=== PATIENT | female | born 1930 | race Caucasian/White ===

== ENCOUNTER 2016-03-28 18:11 | Inpatient (IN) | payer MEDICARE ==
[2016-03-28] MEDS ORDERED: HYDROmorphone 1 MG/ML 1 ML SYRINGE IVP STA (18:34)
[2016-03-28] MEDS ORDERED: METOCLOPRAMIDE 5 MG/ML 2 ML VIAL IVP STA (18:34)
--- NOTE | 2016-03-28 18:38 | ED ---
Abdominal Pain HPI - General Chief Complaint: Abdominal Pain Stated Complaint: abd pain Time Seen by Provider: 03/28/16 18:15 Source: patient, EMS, RN notes reviewed Mode of arrival: EMS - History of Present Illness Initial Comments: 85 yo female presents with cc of abdominal pain and distention. Patient states this started today. Patient was seen on [facility] the x-ray showed concern for possible obstruction. Patient states that she was then sent here due to the fact that [facility] did not have the necessary specialist to take care of her. Patient did start to have nausea and vomiting in the emergency states her pain is about a 5-6 out of 10. Patient states it's worse if you touch the abdomen. Patient states she's having as she has not passed gas since. 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 Patient states that she just does not feel very well this time so she was concerned. Patient denies any recent fever, chills, shortness of breath, chest pain, back pain, numbness or tingling, dysuria or hematuria, constipation or diarrhea, headaches or visual changes, or any other current symptoms. - Related Data Home Medications Medication Instructions Recorded Confirmed Aspirin EC [Ecotrin Low Dose] 81 mg PO DAILY 03/28/16 03/28/16 Cholecalciferol [Vitamin D3] 2,000 unit PO DAILY 03/28/16 03/28/16 Diltiazem HCl [Cardizem Cd] 360 mg PO W/SUPPER 03/28/16 03/28/16 Ferrous Sulfate [Feosol] 325 mg PO DAILY 03/28/16 03/28/16 Insulin Aspart [NovoLOG Flexpen] 3 units SQ AC-TID 03/28/16 03/28/16 Insulin Aspart [NovoLOG Flexpen] See Protocol SQ AC-TID 03/28/16 03/28/16 Insulin Glargine,Hum.rec.anlog 16 unit SQ HS 03/28/16 03/28/16 [Lantus Solostar] Labetalol HCl [Trandate] 300 mg PO BID 03/28/16 03/28/16 Levothyroxine Sodium [Synthroid] 50 mcg PO DAILY 03/28/16 03/28/16 Meclizine [Antivert] 12.5 mg PO TID PRN 03/28/16 03/28/16 Pravastatin Sodium [Pravachol] 20 mg PO HS 03/28/16 03/28/16 Solifenacin Succinate [Vesicare] 10 mg PO DAILY 03/28/16 03/28/16 Vit A/Vit C/Vit E/Zinc/Copper 2 cap PO BID 03/28/16 03/28/16 [ICAPS SOFTGEL] hydrALAZINE HCL [Apresoline] 25 mg PO TID 03/28/16 03/28/16 Allergies Allergy/AdvReac Type Severity Reaction Status Date / Time hydrocodone Allergy Unknown Verified 03/28/16 18:49 Penicillins Allergy Anaphylaxis Verified 03/28/16 18:56 streptomycin Allergy Rash/Hives Verified 03/28/16 18:29 Review of Systems ROS Statement: Those systems with pertinent positive or pertinent negative responses have been documented in the HPI. ROS Other: All systems not noted in ROS Statement are negative. Past Medical History Past Medical History: Hypertension, Thyroid Disorder Additional Past Medical History / Comment(s): stent in heart in 2006 History of Any Multi-Drug Resistant Organisms: None Reported Additional Past Surgical History / Comment(s): stent in heart. pacemaker insertion in 2015, colostomy 2013 Past Psychological History: No Psychological Hx Reported Smoking Status: Former smoker Past Alcohol Use History: None Reported Past Drug Use History: None Reported General Exam - General Exam Comments Initial Comments: General: The patient is awake and alert, in no distress, and does not appear acutely ill. Eye: Pupils are equal, round and reactive to light, extra-ocular movements are intact; there is normal conjunctiva bilaterally. No signs of icterus. Ears, nose, mouth and throat: There are moist mucous membranes. Neck: The neck is supple, there is no tenderness. Cardiovascular: There is a regular rate and rhythm. No murmur, rub or gallop is appreciated. Respiratory: Lungs are clear to auscultation, respirations are non-labored, breath sounds are equal. No wheezes, stridor, rales, or rhonchi. Gastrointestinal: Soft, distended and diffusely tender abdomen without masses or organomegaly noted. There is no rebound or guarding present. No CVA tenderness. Bowel sounds are unremarkable. Back: There is no tenderness to palpation in the midline. There is no obvious deformity. No rashes noted. Musculoskeletal: Normal ROM, no tenderness, There is no pedal edema. There is no calf tenderness or swelling. Sensation intact. Pulses equal bilaterally 2+. Neurological: CN II-XII intact, There are no obvious motor or sensory deficits. Coordination appears grossly intact. Speech is normal. Skin: Skin is warm and dry and no rashes or lesions are noted. Psychiatric: Cooperative, appropriate mood & affect, normal judgment. Course Vital Signs 03/28/16 03/28/16 03/28/16 18:14 20:09 20:40 Temperature 97.6 F 98.0 F Pulse Rate 60 60 60 Respiratory 20 20 20 Rate Blood Pressure 170/76 166/73 153/59 O2 Sat by Pulse 90 L 100 99 Oximetry 03/28/16 20:59 Temperature Pulse Rate 61 Respiratory 22 Rate Blood Pressure 173/63 O2 Sat by Pulse 98 Oximetry Medical Decision Making - Medical Decision Making 85-year-old female presents emergency Department chief complaint of abdominal pain and distention. At this time we will get a CAT scan. At this time the patient does appear to have a partial small bowel obstruction. Dr. Tenorio was contacted regarding the case NG tube was placed and the patient will be admitted. This is discussed the patient and family and they do agree to the admission. - Lab Data Result diagrams: 03/28/16 19:05 03/28/16 19:05 Lab Results 03/28/16 03/28/16 03/28/16 Range/Units 19:05 19:05 19:05 WBC 12.3 H (3.8-10.6) k/uL RBC 3.66 L (3.80-5.40) m/uL Hgb 10.7 L (11.4-16.0) gm/dL Hct 33.2 L (34.0-46.0) % MCV 90.6 (80.0-100.0) fL MCH 29.1 (25.0-35.0) pg MCHC 32.1 (31.0-37.0) g/dL RDW 14.2 (11.5-15.5) % Plt Count 201 (150-450) k/uL Neutrophils % 90 % Lymphocytes % 4 % Monocytes % 4 % Eosinophils % 1 % Basophils % 0 % Neutrophils # 11.1 H (1.3-7.7) k/uL Lymphocytes # 0.5 L (1.0-4.8) k/uL Monocytes # 0.5 (0-1.0) k/uL Eosinophils # 0.1 (0-0.7) k/uL Basophils # 0.0 (0-0.2) k/uL PT (9.0-12.0) sec INR (<1.1) APTT (22.0-30.0) sec Sodium 130 L (137-145) mmol/L Potassium 5.5 H (3.5-5.1) mmol/L Chloride 101 (98-107) mmol/L Carbon Dioxide 21 L (22-30) mmol/L Anion Gap 8 mmol/L BUN 26 H (7-17) mg/dL Creatinine 1.03 (0.52-1.04) mg/dL Est GFR (MDRD) Af Amer >60 (>60 ml/min/1.73 sqM) Est GFR (MDRD) Non-Af 51 (>60 ml/min/1.73 sqM) Glucose 274 H (74-99) mg/dL Calcium 8.2 L (8.4-10.2) mg/dL Phosphorus 4.4 (2.5-4.5) mg/dL Magnesium 1.4 L (1.6-2.3) mg/dL Total Bilirubin 0.5 (0.2-1.3) mg/dL AST 21 (14-36) U/L ALT 29 (9-52) U/L Alkaline Phosphatase 87 (38-126) U/L Total Protein 5.8 L (6.3-8.2) g/dL Albumin 3.2 L (3.5-5.0) g/dL Blood Type A Positive Blood [facility] Screen NEGATIVE Spec Expiration Date 03/31/2016230403/28/16 Range/Units 19:05 WBC (3.8-10.6) k/uL RBC (3.80-5.40) m/uL Hgb (11.4-16.0) gm/dL Hct (34.0-46.0) % MCV (80.0-100.0) fL MCH (25.0-35.0) pg MCHC (31.0-37.0) g/dL RDW (11.5-15.5) % Plt Count (150-450) k/uL Neutrophils % % Lymphocytes % % Monocytes % % Eosinophils % % Basophils % % Neutrophils # (1.3-7.7) k/uL Lymphocytes # (1.0-4.8) k/uL Monocytes # (0-1.0) k/uL Eosinophils # (0-0.7) k/uL Basophils # (0-0.2) k/uL PT 9.5 (9.0-12.0) sec INR 0.9 (<1.1) APTT 23.7 (22.0-30.0) sec Sodium (137-145) mmol/L Potassium (3.5-5.1) mmol/L Chloride (98-107) mmol/L Carbon Dioxide (22-30) mmol/L Anion Gap mmol/L BUN (7-17) mg/dL Creatinine (0.52-1.04) mg/dL Est GFR (MDRD) Af Amer (>60 ml/min/1.73 sqM) Est GFR (MDRD) Non-Af (>60 ml/min/1.73 sqM) Glucose (74-99) mg/dL Calcium (8.4-10.2) mg/dL Phosphorus (2.5-4.5) mg/dL Magnesium (1.6-2.3) mg/dL Total Bilirubin (0.2-1.3) mg/dL AST (14-36) U/L ALT (9-52) U/L Alkaline Phosphatase (38-126) U/L Total Protein (6.3-8.2) g/dL Albumin (3.5-5.0) g/dL Blood Type Blood Type Recheck Antibody Screen Spec Expiration Date - Radiology Data Radiology results: report reviewed, image reviewed Disposition Clinical Impression: Hyponatremia, Hyperkalemia, Small bowel obstruction, Nausea & vomiting, Hyperglycemia Disposition: ADMITTED IP TO THIS [facility] Condition: Stable Time of Disposition: 21:05 Decision Date: 03/28/16 Decision Time: 21:05
[2016-03-28 19:22] LABS: Basophils % (A) 0 %; CHCM 32.1; Eosinophils # (A) 0.1 k/uL (0-0.7); Eosinophils % (A) 1 %; HCT 33.2 % (34.0-46.0); HDW 2.53; HGB 10.7 gm/dL (11.4-16.0); Luc # (Auto) 0.14; Luc % (Auto) 1; Lymphocytes # (A) 0.5 k/uL (1.0-4.8); Lymphocytes % (A) 4 %; MCH 29.1 pg (25.0-35.0); MCHC 32.1 g/dL (31.0-37.0); MCV 90.6 fL (80.0-100.0); Mean Platelet Volume 6.9; Monocytes # (A) 0.5 k/uL (0-1.0); Monocytes % (A) 4 %; Neutrophils # (A) 11.1 k/uL (1.3-7.7); Neutrophils % (A) 90 %; RBC 3.66 m/uL (3.80-5.40); RDW 14.2 % (11.5-15.5); WBC 12.3 k/uL (3.8-10.6)
[2016-03-28 19:25] LABS: INR 0.9 (<1.1); Partial Thromboplastin Time 23.7 sec (22.0-30.0); Prothrombin Time 9.5 sec (9.0-12.0)
[2016-03-28 19:28] LABS: ALT 29 U/L (9-52); AST 21 U/L (14-36); Alkaline Phosphatase 87 U/L (38-126); Anion Gap 8 mmol/L; Blood Urea Nitrogen 26 mg/dL (7-17); Calcium 8.2 mg/dL (8.4-10.2); Carbon Dioxide 21 mmol/L (22-30); Chloride 101 mmol/L (98-107); Glucose 274 mg/dL (74-99); Magnesium 1.4 mg/dL (1.6-2.3); Non-African American GFR(MDRD) 51 (>60 ml/min/1.73 sqM); Phosphorous 4.4 mg/dL (2.5-4.5); Potassium 5.5 mmol/L (3.5-5.1); Sodium 130 mmol/L (137-145); Total Bilirubin 0.5 mg/dL (0.2-1.3); Total Protein 5.8 g/dL (6.3-8.2)
--- NOTE | 2016-03-28 20:06 | XR ---
EXAMINATION TYPE: XR chest 2V DATE OF EXAM: 03/28/2016 7:33 PM COMPARISON: NONE HISTORY: Nausea and vomiting cough TECHNIQUE: Frontal and lateral views of the chest are obtained. FINDINGS: There is no focal air space opacity, pleural effusion, or pneumothorax seen. The cardiac silhouette size is moderately enlarged. Cardiac pacemaker noted. The osseous structures are intact. IMPRESSION: 1. No acute process. 2. Moderate enlargement of the cardiac silhouette with cardiac AV pacemaker.
--- NOTE | 2016-03-28 20:18 | CT ---
EXAMINATION TYPE: CT abdomen pelvis wo con DATE OF EXAM: 03/28/2016 7:26 PM COMPARISON: NONE HISTORY: Vomiting today. CT DLP: 551.8 mGycm Automated exposure control for dose reduction was used. TECHNIQUE: Helical acquisition of images was performed from the lung bases through the pelvis. FINDINGS: LUNG BASES: No significant abnormality is appreciated. LIVER/GB: No significant abnormality is appreciated. PANCREAS: No significant abnormality is seen. SPLEEN: No significant abnormality is seen. ADRENALS: No significant abnormality is seen. KIDNEYS: No significant abnormality is seen. RETROPERITONEAL ADENOPATHY: None visualized REPRODUCTIVE ORGANS: No significant abnormality is seen URINARY BLADDER: No significant abnormality is seen. PELVIC ADENOPATHY: None visualized. OSSEOUS STRUCTURES: No significant abnormality is seen. BOWEL: The distal ileal loops are collapsed, but the mid and proximal ileal loops are mild moderatel y distended as is the jejunum and the stomach to some degree. There is no peritoneal fluid or pneumop eritoneum. The mesentery does not show inflammatory changes in their is no definite bowel wall thicke flakito or pneumatosis. The anterior abdominal wall shows an ostomy with a few other bowel small unremarkable bowel loops ext ending anterior to the limits of the anterior abdominal wall. Bowel loops are not opacified which bunny es distinction, and assessment of the precise location of the transition point challenging. IMPRESSION: PARTIAL SMALL BOWEL OBSTRUCTION, MODERATE DEGREE, WITH TRANSITION POINT WITHIN THE ILEUM. Note: Would suggest oral barium contrast delivery this evening and repeat CT imaging in the morning t o fully define the transition point, in the exclusion of anterior abdominal wall involvement in the e tiology for the partial small bowel obstruction etiology.
[2016-03-28] MEDS ORDERED: NALOXONE 0.4 MG/ML 1 ML VIAL IV PRN (21:05)
[2016-03-28] MEDS ORDERED: HYDROmorphone 1 MG/ML 1 ML SYRINGE IV PRN (21:05)
[2016-03-28] MEDS ORDERED: ONDANSETRON 4 MG/2 ML VIAL IVP PRN (21:05)
[2016-03-28] MEDS ORDERED: MECLIZINE 12.5 MG TAB PO PRN (21:07)
[2016-03-28] MEDS: SODIUM CHLORIDE 0.9% 1,000 ML IV SCH (22:16)
[2016-03-28 22:36] VITALS: RESP 16; BMI 27.6
[2016-03-28 23:04] LABS: Hemoglobin A1C 8.8 % (4.2-6.1)
[2016-03-28] MEDS: hydrALAZINE HCL 25 MG TAB PO SCH (23:18)
[2016-03-28] MEDS ORDERED: cloNIDine 0.1 MG/24HR PATCH 1 PATCH PATCH TRANSDERM SCH (23:30)
[2016-03-29] MEDS: LEVOTHYROXINE 50 MCG TAB PO SCH (06:09)
[2016-03-29 07:27] LABS: Basophils % (A) 0 %; CH 28.9; CHCM 31.4; Eosinophils % (A) 0 %; HCT 30.8 % (34.0-46.0); HGB 9.7 gm/dL (11.4-16.0); Luc # (Auto) 0.22; Luc % (Auto) 3; Lymphocytes # (A) 0.6 k/uL (1.0-4.8); Lymphocytes % (A) 7 %; MCHC 31.4 g/dL (31.0-37.0); MCV 92.3 fL (80.0-100.0); Monocytes # (A) 0.5 k/uL (0-1.0); Monocytes % (A) 5 %; Neutrophils # (A) 7.5 k/uL (1.3-7.7); Neutrophils % (A) 85 %; RBC 3.34 m/uL (3.80-5.40); RDW 14.4 % (11.5-15.5); WBC 8.8 k/uL (3.8-10.6); WBC (Perox) 9.27
--- NOTE | 2016-03-29 07:35 | P.PN ---
Progress Note - Text Patient seen and evaluated this morning. Please see dictated H&P. Abdominal pain improved. Abdominal distention improved. Ostomy now functioning with moderate gas and fluid. We'll obtain repeat abdominal x-rays.
[2016-03-29 07:36] LABS: Magnesium 1.5 mg/dL (1.6-2.3); Phosphorous 4.3 mg/dL (2.5-4.5); Potassium 5.3 mmol/L (3.5-5.1); Total Bilirubin 0.3 mg/dL (0.2-1.3); Total Protein 5.2 g/dL (6.3-8.2)
[2016-03-29] MEDS: SODIUM CHLORIDE 0.9% 1,000 ML IV SCH ×2 (08:39→18:10)
[2016-03-29] MEDS: INSULIN LISPRO (humaLOG) 300 UNIT/3 ML VIAL SQ SCH ×4 (08:45→21:42)
[2016-03-29 08:47] LABS: Glucose,Whole Blood 274 mg/dL (75-99)
[2016-03-29] MEDS: OXYBUTYNIN 10 MG TAB.ER.24 PO SCH ×2 (09:16→10:37)
[2016-03-29] MEDS: VIT A,C & E-LUTEIN-MINERALS 1 EACH TAB PO SCH ×2 (09:16→20:52)
[2016-03-29] MEDS: hydrALAZINE HCL 25 MG TAB PO SCH ×4 (09:16→22:02)
[2016-03-29] MEDS: FERROUS SULFATE 325 MG TAB PO SCH (09:16)
[2016-03-29] MEDS: ASPIRIN 81 MG CHEW PO SCH ×2 (09:16→10:37)
[2016-03-29] MEDS: LABETALOL 100 MG TAB PO SCH ×3 (09:16→20:52)
[2016-03-29] MEDS: CHOLECALCIFEROL 1,000 UNIT TAB PO SCH (09:56)
[2016-03-29 11:17] LABS: Glucose,Whole Blood 182 mg/dL (75-99)
--- NOTE | 2016-03-29 13:36 | XR ---
EXAMINATION TYPE: XR abdomen 2V DATE OF EXAM: 03/29/2016 1:25 PM CLINICAL HISTORY: Bowel obstruction progress study. TECHNIQUE: Supine and upright views of the abdomen are obtained. COMPARISON: Outside abdominal x-ray from yesterday. CT abdomen and pelvis from yesterday.. FINDINGS: There is interval placement of nasogastric tube projecting below left hemidiaphragm with de compression of stomach. Gas prominent small bowel loops with air-fluid levels in the left mid and nito tral lower abdomen show interval improvement in degree of gaseous distention since prior. Gas is seen in nondistended colon along the periphery. Multiple pelvic phleboliths and vascular calcification overlies the pelvis. Surgical coils right lowe r quadrant are redemonstrated. Right-sided ostomy is noted. There is cardiomegaly with dual lead pace maker. No pneumoperitoneum is identified. Lucency right groin region is presumed from external fecal material just below ostomy. IMPRESSION: Interval placement of nasogastric tube with improved gaseous distention of proximal to mi d small bowel loops.
--- NOTE | 2016-03-29 17:00 | CONS ---
DATE OF CONSULTATION: 03/29/2016 REASON FOR CONSULTATION: Medical management requested by Dr. Crowder. CONSULTATION: This is a very pleasant 85-year-old patient of Dr. Tabor. Patient's chronic stable medical conditions include diabetes, hypertension, hypothyroid, coronary artery disease and prior history of stent. Patient was just in [facility] until about 4 days ago, she was there for vertigo. Patient came home and patient started getting bloated, nausea, perfuse vomiting, abdominal pain. Patient was transferred here for bowel obstruction. Patient got NG tube to suction to which ( ) she is feeling better. Patient has got an ileostomy back in October 2013 what appears for colon resection for a bleed. The patient does feel weak, tired. REVIEW OF SYSTEMS: Constitutional: Weak and tired. HEENT: ET tube in place. RESPIRATORY: None. CARDIOVASCULAR: None. GASTROINTESTINAL: As above. GENITOURINARY: None. MUSCULOSKELETAL: None. Dermatological: None. HEMATOLOGICAL: None. LYMPHATIC: None. PSYCHIATRY: None. NEUROLOGICAL: None. Past medical history: Diabetes mellitus type 2, hypertension, hypothyroid, coronary artery disease with stent in 2006. Vertigo. PAST SURGICAL HISTORY: Stent with pacemaker 2015. Ileostomy in 2013. SOCIAL HISTORY: The patient lives by herself. Did smoke in the past. No alcohol. Family history of coronary artery disease and diabetes. HOME MEDICATIONS: 1. Antivert 12.5 p.o. t.i.d. p.r.n. 2. Iron 325 p.o. daily. 3. Hydralazine 25 mg p.o. t.i.d. 4. I-Caps 2 caps p.o. b.i.d. 5. VESIcare 10 mg p.o. daily. 6. Pravachol 20 mg q.h.s. 7. Synthroid 50 mcg p.o. daily. 8. Labetalol 300 mg p.o. b.i.d. 9. NovoLog 3 units subcu a.c. t.i.d. 10. Insulin Lantus 60 units subcutaneously q.h.s. 11. Cardizem CD 360 mg at supper. 12. Vitamin D3, 2000 units p.o. daily. 13. Aspirin 81 mg p.o. daily. ALLERGIES TO HYDROCODONE, PENICILLIN AND STREPTOMYCIN. On examination, temperature 97.6, pulse 60, respirations 20, blood pressure 170/76, pulse ox 98% on room air, repeat was 100% on 2 liters. GENERAL APPEARANCE: Average build, lying in bed, tired -appearing. EYES: Pupils equal, Conjunctivae normal. HEENT: External appearance of nose and ears normal. Oral cavity with dry mucous membranes. NG tube placed. NECK: JVD not raised. Mass not palpable. RESPIRATORY: Effort normal. LUNGS: Fair air entry. CARDIOVASCULAR: First and second sounds normal. No edema. ABDOMEN: Soft. Bowel sounds are present. Minimal tenderness. Liver and spleen not palpable. LYMPHATIC: No lymph nodes palpable in neck or axillae. PSYCHIATRY: Alert and oriented x3. Mood and affect normal. NEUROLOGICAL: Pupils equal. Cranial nerves grossly intact. Power and sensation grossly intact. INVESTIGATIONS: CT scan of the abdomen shows distal ileus looks like collapse but mid and proximal ileal looks moderately distended. There is no free air. ASSESSMENT: 1. Acute small bowel obstruction. 2. Diabetes mellitus type 2 on oral hypoglycemic. 3. Essential hypertension. 4. Hypothyroidism. 5. Coronary artery disease with prior history of stent. 6. Hyperkalemia. 7. Clinical dehydration from volume loss. 8. Hyponatremia likely hypoosmolar present on admission. PLAN: Patient is clinically looking better, we will allow oral medications and hold ( ) in the meantime. Potassium is coming down. IV fluids are to continue. Accu-Cheks are to be followed. We will resume the patient's Lantus tonight. Care was discussed with the patient. Thank you, Dr. Crowder.
[2016-03-29 17:11] LABS: Glucose,Whole Blood 153 mg/dL (75-99)
[2016-03-29] MEDS ORDERED: DILTIAZEM CD 180 MG CAP.ER.24H PO SCH (17:30)
--- NOTE | 2016-03-29 20:53 | P.PN ---
Subjective Principal diagnosis: Small bowel obstruction The patient presents with history of multiple abdominal surgeries. She has an ostomy secondary to acute diverticular bleed with total colectomy. Yesterday she came in with abdominal distention and she noted acute abdominal pain, diffuse. Since placement of her nasogastric tube, her abdominal distention is completely resolved. Her ostomy is functioning. No reports of nausea or vomiting. Her abdominal pain is resolved. Objective - Vital Signs Vital signs: Vital Signs Temp 98.7 F 03/29/16 20:45 Pulse 62 03/29/16 20:45 Resp 16 03/29/16 20:45 BP 141/88 03/29/16 20:45 Pulse Ox 95 03/29/16 20:45 Intake & Output 03/29/16 03/29/16 03/30/16 06:59 18:59 06:59 Intake Total 600 Output Total 1750 Balance -1150 Weight 58.06 kg Intake: Intake, IV Titration 600 Amount Sodium Chloride 0.9% 1, 600 000 ml @ 100 mls/hr IV . Q10H ANAHI Rx#:[id number] Output: Gastric Drainage 250 Stool 1500 Other: Voiding Method Toilet # Voids 1 - Exam GENERAL: Well developed and in no acute distress. Pleasant. HEENT: No sclera icterus. Extraocular movements grossly intact. Moist buccal mucosa. Head is atraumatic, normocephalic. Hears conversational speech. No nasal drainage. NECK: Supple without lymphadenopathy. No JV distention. CHEST: Non-labored respirations and equal bilateral excursions. CARDIOVASCULAR: Regular rate and rhythm. Palpable 2+ radial pulses. ABDOMEN: Soft, nontender. Nondistended. Ostomy patent with bilious content and air in ostomy appliance. MUSCULOSKELETAL: No clubbing, cyanosis or edema. NEUROLOGIC: No focal or lateralizing signs. PSYCH: Appropriate affect. Alert and oriented to person, place and time. - Labs CBC & Chem 7: 03/29/16 06:59 03/29/16 06:56 Labs: Abnormal Lab Results - Last 24 Hours (Table) 03/28/16 03/29/16 03/29/16 Range/Units 21:32 06:56 06:59 RBC 3.34 L (3.80-5.40) m/uL Hgb 9.7 L (11.4-16.0) gm/dL Hct 30.8 L (34.0-46.0) % Lymphocytes # 0.6 L (1.0-4.8) k/uL Sodium 133 L (137-145) mmol/L Potassium 5.3 H (3.5-5.1) mmol/L BUN 31 H (7-17) mg/dL Creatinine 1.14 H (0.52-1.04) mg/dL Glucose 283 H (74-99) mg/dL POC Glucose (mg/dL) (75-99) mg/dL Hemoglobin A1c 8.8 H (4.2-6.1) % Calcium 8.0 L (8.4-10.2) mg/dL Magnesium 1.5 L (1.6-2.3) mg/dL Total Protein 5.2 L (6.3-8.2) g/dL Albumin 2.8 L (3.5-5.0) g/dL 03/29/16 03/29/16 03/29/16 Range/Units 08:44 11:13 17:07 RBC (3.80-5.40) m/uL Hgb (11.4-16.0) gm/dL Hct (34.0-46.0) % Lymphocytes # (1.0-4.8) k/uL Sodium (137-145) mmol/L Potassium (3.5-5.1) mmol/L BUN (7-17) mg/dL Creatinine (0.52-1.04) mg/dL Glucose (74-99) mg/dL POC Glucose (mg/dL) 274 H 182 H 153 H (75-99) mg/dL Hemoglobin A1c (4.2-6.1) % Calcium (8.4-10.2) mg/dL Magnesium (1.6-2.3) mg/dL Total Protein (6.3-8.2) g/dL Albumin (3.5-5.0) g/dL - Imaging and Cardiology Abdominal x-ray: report reviewed, image reviewed (Resolution of small bowel obstruction confirmed) Assessment and Plan (1) Ileostomy status Status: Chronic (2) Hyperglycemia Status: Acute (3) Hyperkalemia Status: Acute (4) Hyponatremia Status: Acute (5) Nausea & vomiting Status: Acute (6) Small bowel obstruction Status: Acute Plan: 1. I reviewed with her her imaging studies including Computed tomography scan and abdominal films. Her studies do show a hernia however the patient does not want additional surgery at this time. 2. Her abdominal pain and abdominal distention is resolved. Nasogastric tube has been discontinued. 3. Start liquid diet. 4. Appreciate medicine consultation for multiple medical comorbidities.
[2016-03-29 21:00] LABS: Glucose,Whole Blood 135 mg/dL (75-99)
[2016-03-29] MEDS ORDERED: INSULIN GLARGINE 100 UNIT/ML 10 ML VIAL SQ SCH (21:00)
[2016-03-29] MEDS ORDERED: INSULIN GLARGINE HUM REC ANLOG 16 UNIT SQ SCH (21:00)
[2016-03-29] MEDS ORDERED: PRAVASTATIN SODIUM 20 MG TAB PO SCH (21:00)
[2016-03-29] MEDS: MAGNESIUM SULFATE-D5W PMX 1 GM in DEXTROSE/WATER 1 100ML.BAG IVPB SCH ×2 (22:04→23:18)
[2016-03-29 22:08] VITALS: PULSE 60
[2016-03-30] MEDS: MAGNESIUM SULFATE-D5W PMX 1 GM in DEXTROSE/WATER 1 100ML.BAG IVPB SCH ×2 (00:13→01:23)
[2016-03-30] MEDS: SODIUM CHLORIDE 0.9% 1,000 ML IV SCH ×2 (01:26→08:37)
[2016-03-30] MEDS: LEVOTHYROXINE 50 MCG TAB PO SCH (05:15)
[2016-03-30 07:19] LABS: Basophils % (A) 1 %; CH 28.9; CHCM 31.3; Eosinophils # (A) 0.1 k/uL (0-0.7); Eosinophils % (A) 2 %; HCT 27.2 % (34.0-46.0); HDW 2.38; HGB 8.5 gm/dL (11.4-16.0); Luc # (Auto) 0.19; Luc % (Auto) 3; Lymphocytes # (A) 1.3 k/uL (1.0-4.8); Lymphocytes % (A) 20 %; MCHC 31.3 g/dL (31.0-37.0); MCV 92.6 fL (80.0-100.0); Mean Platelet Volume 6.9; Monocytes # (A) 0.4 k/uL (0-1.0); Monocytes % (A) 5 %; Neutrophils # (A) 4.5 k/uL (1.3-7.7); Neutrophils % (A) 69 %; RBC 2.94 m/uL (3.80-5.40); RDW 14.4 % (11.5-15.5); WBC 6.5 k/uL (3.8-10.6); WBC (Perox) 6.71
[2016-03-30 07:30] LABS: ALT 32 U/L (9-52); AST 14 U/L (14-36); Alkaline Phosphatase 62 U/L (38-126); Anion Gap 6 mmol/L; Blood Urea Nitrogen 26 mg/dL (7-17); Calcium 7.9 mg/dL (8.4-10.2); Carbon Dioxide 21 mmol/L (22-30); Chloride 107 mmol/L (98-107); Glucose 176 mg/dL (74-99); Magnesium 3.1 mg/dL (1.6-2.3); Non-African American GFR(MDRD) 53 (>60 ml/min/1.73 sqM); Phosphorous 2.8 mg/dL (2.5-4.5); Potassium 4.4 mmol/L (3.5-5.1); Sodium 134 mmol/L (137-145); Total Bilirubin 0.2 mg/dL (0.2-1.3); Total Protein 4.6 g/dL (6.3-8.2)
[2016-03-30 08:21] LABS: Glucose,Whole Blood 162 mg/dL (75-99)
[2016-03-30] MEDS: LABETALOL 100 MG TAB PO SCH (08:31)
[2016-03-30] MEDS: INSULIN LISPRO (humaLOG) 300 UNIT/3 ML VIAL SQ SCH ×2 (08:32→12:57)
[2016-03-30] MEDS: OXYBUTYNIN 10 MG TAB.ER.24 PO SCH (08:32)
[2016-03-30] MEDS: ASPIRIN 81 MG CHEW PO SCH (08:33)
[2016-03-30] MEDS: hydrALAZINE HCL 25 MG TAB PO SCH ×2 (08:33→13:34)
[2016-03-30] MEDS: VIT A,C & E-LUTEIN-MINERALS 1 EACH TAB PO SCH (08:33)
[2016-03-30] MEDS: FERROUS SULFATE 325 MG TAB PO SCH (08:33)
--- NOTE | 2016-03-30 08:41 | P.GSHP ---
History of Present Illness H&P Date: 03/29/16 Chief Complaint: Bowel obstruction The patient is an 85-year-old for who reports multiple abdominal surgeries. In the past she had a total abdominal colectomy with end ileostomy after developing life-threatening diverticular bleed. She reports over the last 24 hours she had acute onset abdominal distention including intractable nausea and vomiting and diffuse abdominal pain. She recently had a cardiac stent placement with the last 6+ months. She denies any previous episodes hospitalization relating to bowel obstruction. As a result of her clinical presentation, she is admitted. Separately she presents with multiple electrolyte dyscrasias. - Review of Systems Comment: CONSTITUTIONAL: Denies any fever or chills. Denies recent weight loss or weight gain. HEENT: Denies any trouble with hearing or nosebleeds. Has trouble with vision. No difficulty swallowing. LYMPHATIC: The patient denies any lumps and bumps around the neck. ENDOCRINE: Has thyroid disorders. Has blood sugar glucose intolerance. RESPIRATORY: Denies recent pneumonia. Denies any troubles with breathing or dyspnea on exertion. CARDIOVASCULAR: Had chest pain with recent stent placement within the last 6-8 months. Denies current palpitations. GASTROINTESTINAL: See above. No previous bowel obstructions. Had total abdominal colectomy. GENITOURINARY: Denies any blood in urine or increased urinary frequency. MUSCULOSKELETAL: Has back pain, stiffness, joint arthritis. NEUROLOGIC: Denies any numbness or tingling along the distal extremities. No seizure disorders or headaches. PSYCHIATRIC: Denies depression or suidical ideation. HEMATOLOGIC: Denies any abnormal bleeding or bruising. Past Medical History Past Medical History: Diabetes Mellitus, Hypertension, Thyroid Disorder Additional Past Medical History / Comment(s): stent in heart in 2006 History of Any Multi-Drug Resistant Organisms: None Reported Past Surgical History: Bowel Resection (Total abdominal colectomy), Heart Catheterization With Stent Additional Past Surgical History / Comment(s): stent in heart. pacemaker insertion in 2015, colostomy 2013 Past Anesthesia/Blood Transfusion Reactions: No Reported Reaction Past Psychological History: No Psychological Hx Reported Smoking Status: Former smoker Past Alcohol Use History: None Reported Past Drug Use History: None Reported - Past Family History Mother Family Medical History: Coronary Artery Disease (CAD), Diabetes Mellitus Father Family Medical History: Coronary Artery Disease (CAD) Medications and Allergies Home Medications Medication Instructions Recorded Confirmed Type Aspirin EC [Ecotrin Low Dose] 81 mg PO DAILY 03/28/16 03/28/16 History Cholecalciferol [Vitamin D3] 2,000 unit PO DAILY 03/28/16 03/28/16 History Diltiazem HCl [Cardizem Cd] 360 mg PO W/SUPPER 03/28/16 03/28/16 History Ferrous Sulfate [Feosol] 325 mg PO DAILY 03/28/16 03/28/16 History Insulin Aspart [NovoLOG Flexpen] 3 units SQ AC-TID 03/28/16 03/28/16 History Insulin Aspart [NovoLOG Flexpen] See Protocol SQ AC-TID 03/28/16 03/28/16 History Insulin Glargine,Hum.rec.anlog 16 unit SQ HS 03/28/16 03/28/16 History [Lantus Solostar] Labetalol HCl [Trandate] 300 mg PO BID 03/28/16 03/28/16 History Levothyroxine Sodium [Synthroid] 50 mcg PO DAILY 03/28/16 03/28/16 History Meclizine [Antivert] 12.5 mg PO TID PRN 03/28/16 03/28/16 History Pravastatin Sodium [Pravachol] 20 mg PO HS 03/28/16 03/28/16 History Solifenacin Succinate [Vesicare] 10 mg PO DAILY 03/28/16 03/28/16 History Vit A/Vit C/Vit E/Zinc/Copper 2 cap PO BID 03/28/16 03/28/16 History [ICAPS SOFTGEL] hydrALAZINE HCL [Apresoline] 25 mg PO TID 03/28/16 03/28/16 History Allergies Allergy/AdvReac Type Severity Reaction Status Date / Time hydrocodone Allergy Unknown Verified 03/28/16 18:49 Penicillins Allergy Anaphylaxis Verified 03/28/16 18:56 streptomycin Allergy Rash/Hives Verified 03/28/16 18:29 Surgical - Exam Vital Signs Temp Pulse Resp BP Pulse Ox 97.6 F 60 20 170/76 90 L 03/28/16 18:14 03/28/16 18:14 03/28/16 18:14 03/28/16 18:14 03/28/16 18:14 GENERAL: Well developed and in no acute distress. Pleasant. HEENT: No sclera icterus. Extraocular movements grossly intact. Moist buccal mucosa. Head is atraumatic, normocephalic. Hears conversational speech. No nasal drainage. NECK: Supple without lymphadenopathy. No JV distention. CHEST: Non-labored respirations and equal bilateral excursions. CARDIOVASCULAR: Regular rate and rhythm. Palpable 2+ radial pulses. ABDOMEN: Soft, nontender. Nondistended. Ostomy along right lower quadrant appliance filled with air and bilious liquid content. MUSCULOSKELETAL: No clubbing, cyanosis or edema. NEUROLOGIC: No focal or lateralizing signs. PSYCH: Appropriate affect. Alert and oriented to person, place and time. Results - Labs 03/30/16 06:51 03/30/16 06:51 Abnormal Lab Results - Last 24 Hours (Table) 03/28/16 03/29/16 Range/Units 21:32 06:59 RBC 3.34 L (3.80-5.40) m/uL Hgb 9.7 L (11.4-16.0) gm/dL Hct 30.8 L (34.0-46.0) % Lymphocytes # 0.6 L (1.0-4.8) k/uL Hemoglobin A1c 8.8 H (4.2-6.1) % Diabetes panel 03/28/16 Range/Units 21:32 Hemoglobin A1c 8.8 H (4.2-6.1) % - Imaging CT scan - abdomen: report reviewed, image reviewed CT scan - pelvis: report reviewed, image reviewed (Evidence of incisional hernia identified with findings consistent with bowel obstruction.) Assessment and Plan (1) Diabetes type 2, controlled Status: Chronic (2) Hypothyroidism Status: Chronic (3) Coronary artery disease Status: Chronic (4) H/O cardiac catheterization Status: Chronic (5) Hypertensive heart disease Status: Chronic (6) Hyperglycemia Status: Acute (7) Hyperkalemia Status: Acute (8) Hyponatremia Status: Acute (9) Nausea & vomiting Status: Acute (10) Small bowel obstruction Status: Acute (11) Ileostomy status Status: Chronic (12) Hx of colectomy Status: Chronic (13) Incisional hernia Status: Chronic (14) Abdominal distension Status: Acute (15) Generalized abdominal pain Status: Acute Plan: 1. After NG tube decompression, her abdominal pain and abdominal distention is resolved. Continue with NG tube decompression. 2. Recommend abdominal x-ray to follow-up bowel obstruction. 3. Medical management regarding multiple medical comorbidities. 4. Sliding scale insulin protocol for history of diabetes. 5. Nothing by mouth status with IV fluid hydration. 6. Correction of hyperkalemia. 7. Correction of hyponatremia. 8. Agree with inpatient admission anticipated over 2 days for history of bowel obstruction.
[2016-03-30] MEDS ORDERED: ACETAMINOPHEN TAB 325 MG TAB PO PRN (09:11)
[2016-03-30 10:01] LABS: % Iron Saturation 6.8 % (20-50)
[2016-03-30 11:35] LABS: Glucose,Whole Blood 191 mg/dL (75-99)
--- NOTE | 2016-03-30 12:13 | P.PN ---
Subjective Principal diagnosis: Small bowel obstruction No nausea. She tolerated liquid diet. 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 Otherwise, she has recovered from her small bowel obstruction. Objective - Vital Signs Vital signs: Vital Signs Temp 97.2 F L 03/30/16 07:00 Pulse 60 03/30/16 07:00 Resp 16 03/30/16 07:00 BP 139/92 03/30/16 07:00 Pulse Ox 93 L 03/30/16 07:00 Intake & Output 03/29/16 03/30/16 03/30/16 18:59 06:59 18:59 Intake Total 600 Output Total 1750 500 Balance -1150 -500 Intake: Intake, IV Titration 600 Amount Sodium Chloride 0.9% 1, 600 000 ml @ 100 mls/hr IV . Q10H ANAHI Rx#:[id number] Output: Gastric Drainage 250 Stool 1500 500 Other: Voiding Method Toilet Toilet # Voids 1 - Exam GENERAL: Well developed and in no acute distress. Pleasant. HEENT: No sclera icterus. Extraocular movements grossly intact. Moist buccal mucosa. Head is atraumatic, normocephalic. Hears conversational speech. No nasal drainage. NECK: Supple without lymphadenopathy. No JV distention. CHEST: Non-labored respirations and equal bilateral excursions. CARDIOVASCULAR: Regular rate and rhythm. Palpable 2+ radial pulses. ABDOMEN: Soft, nontender. Nondistended. Ostomy patent with air in ostomy appliance. MUSCULOSKELETAL: No clubbing, cyanosis or edema. NEUROLOGIC: No focal or lateralizing signs. PSYCH: Appropriate affect. Alert and oriented to person, place and time. - Labs CBC & Chem 7: 03/30/16 06:51 03/30/16 06:51 Labs: Abnormal Lab Results - Last 24 Hours (Table) 03/29/16 03/29/16 03/30/16 Range/Units 17:07 20:58 06:51 RBC 2.94 L (3.80-5.40) m/uL Hgb 8.5 L (11.4-16.0) gm/dL Hct 27.2 L (34.0-46.0) % Sodium (137-145) mmol/L Carbon Dioxide (22-30) mmol/L BUN (7-17) mg/dL Glucose (74-99) mg/dL POC Glucose (mg/dL) 153 H 135 H (75-99) mg/dL Calcium (8.4-10.2) mg/dL Magnesium (1.6-2.3) mg/dL Iron (37-170) ug/dL TIBC (265-497) ug/dL % Saturation (20-50) % Total Protein (6.3-8.2) g/dL Albumin (3.5-5.0) g/dL 03/30/16 03/30/16 03/30/16 Range/Units 06:51 06:51 08:18 RBC (3.80-5.40) m/uL Hgb (11.4-16.0) gm/dL Hct (34.0-46.0) % Sodium 134 L (137-145) mmol/L Carbon Dioxide 21 L (22-30) mmol/L BUN 26 H (7-17) mg/dL Glucose 176 H (74-99) mg/dL POC Glucose (mg/dL) 162 H (75-99) mg/dL Calcium 7.9 L (8.4-10.2) mg/dL Magnesium 3.1 H (1.6-2.3) mg/dL Iron 16 L (37-170) ug/dL TIBC 234 L (265-497) ug/dL % Saturation 6.8 L (20-50) % Total Protein 4.6 L (6.3-8.2) g/dL Albumin 2.4 L (3.5-5.0) g/dL 03/30/16 Range/Units 11:28 RBC (3.80-5.40) m/uL Hgb (11.4-16.0) gm/dL Hct (34.0-46.0) % Sodium (137-145) mmol/L Carbon Dioxide (22-30) mmol/L BUN (7-17) mg/dL Glucose (74-99) mg/dL POC Glucose (mg/dL) 191 H (75-99) mg/dL Calcium (8.4-10.2) mg/dL Magnesium (1.6-2.3) mg/dL Iron (37-170) ug/dL TIBC (265-497) ug/dL % Saturation (20-50) % Total Protein (6.3-8.2) g/dL Albumin (3.5-5.0) g/dL Assessment and Plan (1) Diabetes type 2, controlled Status: Chronic (2) Hypothyroidism Status: Chronic (3) Coronary artery disease Status: Chronic (4) H/O cardiac catheterization Status: Chronic (5) Hypertensive heart disease Status: Chronic (6) Hyperglycemia Status: Acute (7) Hyperkalemia Status: Acute (8) Hyponatremia Status: Acute (9) Nausea & vomiting Status: Acute (10) Small bowel obstruction Status: Acute (11) Ileostomy status Status: Chronic (12) Hx of colectomy Status: Chronic (13) Incisional hernia Status: Chronic (14) Abdominal distension Status: Acute (15) Generalized abdominal pain Status: Acute Plan: 1. Advance to soft diet. 2. Discharge home today on home meds. 3. Follow-up in [place].
[2016-03-30] MEDS: CHOLECALCIFEROL 1,000 UNIT TAB PO SCH (13:00)
[2016-03-30 14:52] VITALS: BP 121/59; TEMP 98.4
--- NOTE | 2016-03-30 15:46 | P.DS ---
Providers Date of admission: 03/28/16 21:07 Expected date of discharge: 03/30/16 Attending physician: Hannah Crowder Consults: 03/28/16 22:22 Consult Physician Urgent Consulting Provider: Vin Nolasco Consult Reason/Comments: Medical management Do you want consulting provider notified?: Yes Primary care physician: Terrence Almazan - Discharge Diagnosis(es) (1) Diabetes type 2, controlled Status: Chronic (2) Hypothyroidism Status: Chronic (3) Coronary artery disease Status: Chronic (4) H/O cardiac catheterization Status: Chronic (5) Hypertensive heart disease Status: Chronic (6) Hyperglycemia Status: Acute (7) Hyperkalemia Status: Acute (8) Hyponatremia Status: Acute (9) Nausea & vomiting Status: Acute (10) Small bowel obstruction Status: Acute (11) Ileostomy status Status: Chronic (12) Hx of colectomy Status: Chronic (13) Incisional hernia Status: Chronic (14) Abdominal distension Status: Acute (15) Generalized abdominal pain Status: Acute Hospital Course: The patient is an 85-year-old for who reports multiple abdominal surgeries. In the past she had a total abdominal colectomy with end ileostomy after developing life-threatening diverticular bleed. She reports over the last 24 hours she had acute onset abdominal distention including intractable nausea and vomiting and diffuse abdominal pain. She recently had a cardiac stent placement with the last 6+ months. She denies any previous episodes hospitalization relating to bowel obstruction. As a result of her clinical presentation, she is admitted. Separately she presented with multiple electrolyte dyscrasias. After nasogastric tube decompression, her abdominal pain and abdominal distention had resolved. Her electrolyte dyscrasias were corrected. Medicine consultation was obtained for overall medical management. Prior to discharge she was tolerating diet. Her ostomy was working and functioning with flatus and stool. Pertinent Studies: CT of the abdomen and pelvis consistent with bowel obstruction. Abdominal x-ray demonstrates resolution of bowel obstruction. Procedures: None. Patient Condition at Discharge: Stable Plan - Discharge Summary Discharge Medication List Aspirin EC [Ecotrin Low Dose] 81 mg PO DAILY 03/28/16 [History] Cholecalciferol [Vitamin D3] 2,000 unit PO DAILY 03/28/16 [History] Diltiazem HCl [Cardizem Cd] 360 mg PO W/SUPPER 03/28/16 [History] Ferrous Sulfate [Iron (65 MG Elemental)] 325 mg PO DAILY 03/28/16 [History] Insulin Aspart [NovoLOG Flexpen] 3 units SQ AC-TID 03/28/16 [History] Insulin Aspart [NovoLOG Flexpen] See Protocol SQ AC-TID 03/28/16 [History] Insulin Glargine,Hum.rec.anlog [Lantus Solostar] 16 unit SQ HS 03/28/16 [History ] Labetalol HCl [Trandate] 300 mg PO BID 03/28/16 [History] Levothyroxine Sodium [Synthroid] 50 mcg PO DAILY 03/28/16 [History] Meclizine [Antivert] 12.5 mg PO TID PRN 03/28/16 [History] Pravastatin Sodium [Pravachol] 20 mg PO HS 03/28/16 [History] Solifenacin Succinate [Vesicare] 10 mg PO DAILY 03/28/16 [History] Vit A/Vit C/Vit E/Zinc/Copper [ICAPS SOFTGEL] 2 cap PO BID 03/28/16 [History] hydrALAZINE HCL [Apresoline] 25 mg PO TID 03/28/16 [History] Follow up Appointment(s)/Referral(s): Hannah Crowder MD [STAFF PHYSICIAN] - 04/09/16 ([place]. Office closed, patient to call and schedule follow up appointment.) Terrence Almazan MD [Primary Care Provider] - 1-2 days (Office closed. Patient to call and schedule follow up appointment.) Patient Instructions/Handouts: Bowel Obstruction (DC) Activity/Diet/Wound Care/Special Instructions: Follow up in the office at [place] in 10 days. Notify the office if issues. Discharge Disposition: HOME SELF-CARE
--- NOTE | 2016-04-01 12:20 | PN ---
DATE OF SERVICE: 03/30/2016 PRESENTING COMPLAINT: Acute small bowel obstruction. INTERVAL HISTORY: This patient was seen by me yesterday morning on 03/30/2016, doing much better. NG tube was out, tolerating a diet. Had a bowel movement, no abdominal pain. Has been out of bed. Review of systems done for constitutional, cardiovascular, GI, pulmonary; relevant findings as above. Current medications are reviewed. On examination, temperature 97.2, pulse 50, respiration 16, blood pressure 139/92, pulse ox 93% on room air. GENERAL APPEARANCE: Sitting up, comfortable. EYES: Pupils equal. Conjunctivae normal. NECK: JVD not raised. Mass not palpable. Respiratory effort normal. Lungs are clear. CARDIOVASCULAR: First and second sounds normal. No edema. ABDOMEN: Soft, nontender. Bowel sounds present. No tenderness. PSYCHIATRY: Alert and oriented x3. Mood and affect was normal. INVESTIGATIONS: White count 6.5, hemoglobin 8.5, potassium 4.4. ASSESSMENT: 1. Acute small bowel obstruction with clinical resolution. 2. Diabetes mellitus type 2 on oral hypoglycemics. 3. Essential hypertension. 4. Hypothyroidism. 5. Coronary artery disease with prior history of stent. 6. Hyperkalemia, improved. 7. Clinical dehydration from volume loss, improved. 8. Hyponatremia likely hyposmolar present on admission. PLAN: Patient is doing much better. Encourage patient out of the bed. Thank you, Dr. Crowder.
== END 2016-03-30 14:58 | disposition home or self-care (01) | DRG 388 ==
LOC: EC 18:11 → 3SUR 21:07
PROVIDERS: ADMIT Surgery Plastic and Reconstructive Surgery; ATTEND Surgery Plastic and Reconstructive Surgery
DX: K56.60 Unspecified intestinal obstruction (principal); K57.91 Diverticulosis of intestine, part unspecified, without perforation or abscess with bleeding; E87.1 Hypo-osmolality and hyponatremia; E11.65 Type 2 diabetes mellitus with hyperglycemia; I11.9 Hypertensive heart disease without heart failure; E87.5 Hyperkalemia; E86.0 Dehydration; E03.9 Hypothyroidism, unspecified; I25.10 Atherosclerotic heart disease of native coronary artery without angina pectoris; K43.2 Incisional hernia without obstruction or gangrene; M19.039 Primary osteoarthritis, unspecified wrist; Z79.4 Long term (current) use of insulin; Z79.82 Long term (current) use of aspirin; Z79.899 Other long term (current) drug therapy; Z88.0 Allergy status to penicillin; Z88.1 Allergy status to other antibiotic agents; Z88.5 Allergy status to narcotic agent; Z87.891 Personal history of nicotine dependence; Z93.2 Ileostomy status; Z95.0 Presence of cardiac pacemaker; Z95.5 Presence of coronary angioplasty implant and graft; Z82.49 Family history of ischemic heart disease and other diseases of the circulatory system
CPT/HCPCS: 36415; 71020; 74020; 74176; 80053; 82728; 83036; 83540; 83550; 83735; 84100; 85025; 85610; 85730; 86850; 86900; 86901; 96361; 96374; 96375; 99285

== ENCOUNTER 2016-06-14 07:12 | Day surgery (SDC) | payer MEDICARE ==
[2016-06-12 16:21] VITALS: BMI 27.2
--- NOTE | 2016-06-14 04:36 | P.GSHP ---
History of Present Illness H&P Date: 06/14/16 CHIEF COMPLAINT: GERD and colon screen HISTORY OF PRESENT ILLNESS: The patient is a 86-year-old female who presents reports gastroesophageal reflux disease and need for colon screen. Upper and lower endoscopy were offered for further evaluation and management. PAST MEDICAL HISTORY: Please see list. PAST SURGICAL HISTORY: Please see list. MEDICATIONS: Please see list. ALLERGIES: Please see list. SOCIAL HISTORY: No illicit drug use FAMILY HISTORY: No reports of Crohn disease or ulcerative colitis. REVIEW OF ORGAN SYSTEMS: CONSTITUTIONAL: No reports of fevers or chills. GI: Denies any blood in stools or constipation. PHYSICAL EXAM: VITAL SIGNS: Stable GENERAL: Well-developed pleasant in no acute distress. HEENT: No scleral icterus. Extraocular movements grossly intact. Moist buccal mucosa. NECK: Supple without lymphadenopathy. CHEST: Unlabored respirations. Equal bilateral excursions. CARDIOVASCULAR: Regular rate and rhythm. Distal 2+ pulses. ABDOMEN: Soft, nondistended. MUSCULOSKELETAL: No clubbing, cyanosis, or edema. ASSESSMENT: 1. Gastroesophageal reflux disease 2. Colon screen. PLAN: 1. Recommend proceeding with an upper and lower endoscopy Past Medical History Past Medical History: Diabetes Mellitus, Hyperlipidemia, Hypertension, Thyroid Disorder Additional Past Medical History / Comment(s): recent admission in Mar for "blockage" of ileostomy, has abd. hernia, urinary incontinence, vertigo History of Any Multi-Drug Resistant Organisms: None Reported Past Surgical History: Back Surgery, Bowel Resection, Heart Catheterization With Stent, Pacemaker Additional Past Surgical History / Comment(s): ileostomy 2013 Past Anesthesia/Blood Transfusion Reactions: No Reported Reaction Date of Last Stent Placement:: 2006 Type of Cardiac Device: Permanent Pacemaker Device Placement Date:: 2015 Past Psychological History: No Psychological Hx Reported Smoking Status: Former smoker Past Alcohol Use History: None Reported Additional Past Alcohol Use History / Comment(s): quit smoking 10 yrs., smoked 1ppd for >50 yrs. Past Drug Use History: None Reported - Past Family History Mother Family Medical History: Coronary Artery Disease (CAD), Diabetes Mellitus Father Family Medical History: Coronary Artery Disease (CAD) Medications and Allergies Home Medications Medication Instructions Recorded Confirmed Type Aspirin EC [Ecotrin Low Dose] 81 mg PO DAILY 03/28/16 06/12/16 History Cholecalciferol [Vitamin D3] 2,000 unit PO DAILY 03/28/16 06/12/16 History Diltiazem HCl [Cardizem Cd] 360 mg PO HS 03/28/16 06/12/16 History Ferrous Sulfate [Iron (65 MG 325 mg PO DAILY 03/28/16 06/12/16 History Elemental)] Insulin Aspart [NovoLOG Flexpen] See Protocol SQ AC-TID 03/28/16 06/12/16 History Insulin Glargine,Hum.rec.anlog 12 unit SQ HS 03/28/16 06/12/16 History [Lantus Solostar] Labetalol HCl [Trandate] 300 mg PO BID 03/28/16 06/12/16 History Levothyroxine Sodium [Synthroid] 50 mcg PO DAILY 03/28/16 06/12/16 History Meclizine [Antivert] 12.5 mg PO TID PRN 03/28/16 06/12/16 History Pravastatin Sodium [Pravachol] 20 mg PO HS 03/28/16 06/12/16 History Vit A/Vit C/Vit E/Zinc/Copper 2 cap PO BID 03/28/16 06/12/16 History [ICAPS SOFTGEL] hydrALAZINE HCL [Apresoline] 25 mg PO TID 03/28/16 06/12/16 History Allergies Allergy/AdvReac Type Severity Reaction Status Date / Time hydrocodone Allergy Unknown Verified 06/12/16 15:27 Penicillins Allergy Anaphylaxis Verified 06/12/16 15:27 streptomycin Allergy Rash/Hives Verified 06/12/16 15:27
[~2016-06-14 07:12] MED LIST: LACTATED RINGERS 1,000 ML IV SCH; LIDOCAINE 1% 20 ML VIAL (10MG/ML) FOR IV START INTRADERMA PRN
[2016-06-14 07:48] VITALS: PULSE 60; RESP 16; TEMP 97.3
[2016-06-14 08:11] LABS: Glucose,Whole Blood 127 mg/dL (75-99)
[2016-06-14] MEDS ORDERED: LIDOCAINE 1% INJ 10MG/ML (20 ML MDV) ONE (08:30)
[2016-06-14] MEDS ORDERED: PROPOFOL 10 MG/ML 20 ML VIAL IV ONE (08:30)
--- NOTE | 2016-06-14 09:04 | P.PCN ---
Date of Procedure: 06/14/16 Description of Procedure: PREOPERATIVE DIAGNOSIS: Colonoscopy screening. History of subtotal colectomy. History of anemia. POSTOPERATIVE DIAGNOSIS: Colonoscopy screening. Diverticulosis, scattered. History of subtotal colectomy. History of anemia. Fecal impaction along rectal stump. Focal colitis along rectal stump. OPERATION: Colonoscopy to the rectal and sigmoid colon stump, flexible sigmoidoscopy. Sigmoidoscopy with cold biopsy forceps. SURGEON: Hannah Crowder MD. ANESTHESIA: MAC. INDICATIONS: The patient is a 86-year-old female who presents for colonoscopy screening and with history of anemia. Benefits and risks were described and informed consent was obtained. DESCRIPTION OF PROCEDURE: The patient was brought into the operating room and laid in the left lateral decubitus position. After adequate intravenous sedation, the rectum was examined with 2% lidocaine jelly. Three (3) large acholic stool balls of 4 cm in size were evacuated from the rectum consistent with impaction at devitalize rectum. No external hemorrhoids were encountered. The rectal tone was within normal limits. An Olympus colonoscope was advanced to the sigmoid stump of the length of 25 cm from the anal verge. Focal colitis was encountered along the rectum. Scattered diverticulosis was found along the sigmoid stump. The scope was removed with visualization of each mucosal fold. No large colonic polyps were found. Retroflexion of the scope demonstrated grade 1 internal hemorrhoids without active bleeding or inflammation. The colon was desufflated. The patient had tolerated the procedure well. Withdrawal time was over 6 minutes. FINDINGS: Internal hemorrhoids, grade 1. No external prolapsed hemorrhoids. No arteriovenous malformations. No large adenomatous polyps. Fecal impaction of rectal stump. Rectal stump 25 cm from anal verge. Sigmoid diverticulosis. RECOMMENDATIONS: Lower endoscopy as needed.
--- NOTE | 2016-06-14 09:07 | P.PCN ---
Date of Procedure: 06/14/16 Description of Procedure: PREOPERATIVE DIAGNOSIS: Gastroesophageal reflux disease. History of anemia. POSTOPERATIVE DIAGNOSIS: Gastroesophageal reflux disease. Superficial acute gastric ulcers with recent bleed. History of anemia. Acute with chronic gastritis Diaphragmatic hiatal hernia, paraesophageal and gastric diverticulum. Erosive esophagitis. Early duodenitis. OPERATION: Esophagogastroduodenoscopy with biopsies along antrum. SURGEON: Hannah Crowder MD ANESTHESIA: MAC. INDICATIONS: The patient is a 36-year-old female who presents with a history of anemia and reflux disease. Benefits and risks of the procedure were described. Informed consent was obtained. DESCRIPTION: The patient was brought into the endoscopy suite and laid in the left lateral decubitus position. An Olympus gastroscope was passed along the posterior oropharynx down to the distal esophagus where the squamocolumnar junction was encountered at 37 cm from the incisors. The stomach was entered and minimal bile reflux was found. Additional findings are listed below. Biopsies with cold forceps were obtained of the antrum with gastric ulcers identified. The first through third portion of the duodenum was examined and unremarkable. Retroflexion of the scope confirmed Hill grade II lower esophageal valve. The squamocolumnar junction demostrated mild chronic LA grade A erosive esophagitis. The stomach was desufflated. The patient tolerated the procedure well. FINDINGS: Squamocolumnar junction 37 cm from the incisors. Diaphragmatic hiatus at 40 cm from the incisors. Hiatal hernia, 3 cm. Hill grade 4 lower esophageal valve. LA grade A erosive esophagitis. Acute and chronic gastritis along the antrum. Acute superficial gastric ulcers and recent bleed. Duodenitis. Diaphragmatic hiatal hernia, paraesophageal. Gastric diverticulum along gastric cardia. RECOMMENDATIONS: Further recommendations pending results of pathology report. Upper endoscopy as needed. Plan - Discharge Summary Discharge Medication List Aspirin EC [Ecotrin Low Dose] 81 mg PO DAILY 03/28/16 [History] Cholecalciferol [Vitamin D3] 2,000 unit PO DAILY 03/28/16 [History] Diltiazem HCl [Cardizem Cd] 360 mg PO HS 03/28/16 [History] Ferrous Sulfate [Iron (65 MG Elemental)] 325 mg PO DAILY 03/28/16 [History] Insulin Aspart [NovoLOG Flexpen] See Protocol SQ AC-TID 03/28/16 [History] Insulin Glargine,Hum.rec.anlog [Lantus Solostar] 12 unit SQ HS 03/28/16 [History ] Labetalol HCl [Trandate] 300 mg PO BID 03/28/16 [History] Levothyroxine Sodium [Synthroid] 50 mcg PO DAILY 03/28/16 [History] Meclizine [Antivert] 12.5 mg PO TID PRN 03/28/16 [History] Pravastatin Sodium [Pravachol] 20 mg PO HS 03/28/16 [History] Vit A/Vit C/Vit E/Zinc/Copper [ICAPS SOFTGEL] 2 cap PO BID 03/28/16 [History] hydrALAZINE HCL [Apresoline] 25 mg PO TID 03/28/16 [History]
[2016-06-14 09:25] VITALS: BP 161/88
[2016-06-14 09:46] LABS: Glucose,Whole Blood 166 mg/dL (75-99)
== END 2016-06-14 09:51 | disposition home or self-care (01) ==
LOC: ORWHC2ENDO 07:12
PROVIDERS: ATTEND Surgery Plastic and Reconstructive Surgery
DX: Z12.11 Encounter for screening for malignant neoplasm of colon (principal); K29.50 Unspecified chronic gastritis without bleeding; K52.89 Other specified noninfective gastroenteritis and colitis; K44.9 Diaphragmatic hernia without obstruction or gangrene; K31.4 Gastric diverticulum; K22.10 Ulcer of esophagus without bleeding; K29.80 Duodenitis without bleeding; K56.41 Fecal impaction; K64.0 First degree hemorrhoids; K57.30 Diverticulosis of large intestine without perforation or abscess without bleeding; K25.3 Acute gastric ulcer without hemorrhage or perforation; Z93.2 Ileostomy status; Z87.891 Personal history of nicotine dependence; D64.9 Anemia, unspecified; E11.9 Type 2 diabetes mellitus without complications; Z79.4 Long term (current) use of insulin; E78.5 Hyperlipidemia, unspecified; I10 Essential (primary) hypertension; E07.9 Disorder of thyroid, unspecified; Z95.5 Presence of coronary angioplasty implant and graft; Z79.82 Long term (current) use of aspirin; Z79.899 Other long term (current) drug therapy; Z88.1 Allergy status to other antibiotic agents; Z88.5 Allergy status to narcotic agent; Z88.0 Allergy status to penicillin
CPT/HCPCS: 88305; 88342; 45380; 43239; J2001; J2704

== ENCOUNTER 2016-06-17 17:05 | Inpatient (IN) | payer MEDICARE ==
[2016-06-17] MEDS ORDERED: HYDROmorphone 1 MG/ML 1 ML SYRINGE IV PRN (19:11)
[2016-06-17] MEDS ORDERED: NALOXONE 0.4 MG/ML 1 ML VIAL IV PRN (19:11)
[2016-06-17] MEDS: ONDANSETRON 4 MG/2 ML VIAL IVP PRN (19:45)
--- NOTE | 2016-06-17 19:47 | XR ---
EXAMINATION TYPE: XR abdomen 2V DATE OF EXAM: 06/17/2016 7:41 PM COMPARISON: 03/29/2016 HISTORY: Nausea and vomiting TECHNIQUE: 3 views FINDINGS: There is no sign of intestinal obstruction or pneumoperitoneum. Fecal pattern is normal. Th ere is no sign of a mass. There is a nasogastric tube. Lung bases are clear. There is IV contrast in the urinary bladder. There are surgical clips in the right mid abdomen. IMPRESSION: Nonacute abdomen. No evidence of a bowel obstruction.
[2016-06-17 20:00] LABS: Glucose,Whole Blood 222 mg/dL (75-99)
[2016-06-17] MEDS: SODIUM CHLORIDE 0.9% 1,000 ML IV SCH (20:02)
[2016-06-17 20:32] LABS: Basophils # (A) 0.1 k/uL (0-0.2); Basophils % (A) 1 %; CH 28.9; CHCM 31.3; Eosinophils # (A) 0.1 k/uL (0-0.7); Eosinophils % (A) 2 %; HCT 33.8 % (34.0-46.0); HDW 2.54; HGB 10.7 gm/dL (11.4-16.0); Hypochromasia Slight; Luc # (Auto) 0.14; Luc % (Auto) 2; Lymphocytes % (A) 15 %; MCH 29.3 pg (25.0-35.0); MCHC 31.5 g/dL (31.0-37.0); MCV 92.9 fL (80.0-100.0); Mean Platelet Volume 7.2; Monocytes # (A) 0.3 k/uL (0-1.0); Monocytes % (A) 5 %; Neutrophils # (A) 4.6 k/uL (1.3-7.7); Neutrophils % (A) 74 %; RBC 3.64 m/uL (3.80-5.40); RDW 15.2 % (11.5-15.5); WBC 6.2 k/uL (3.8-10.6); WBC (Perox) 6.45
[2016-06-17 20:41] LABS: ALT 31 U/L (9-52); AST 17 U/L (14-36); Alkaline Phosphatase 75 U/L (38-126); Amylase 44 U/L (30-110); Anion Gap 6 mmol/L; Blood Urea Nitrogen 22 mg/dL (7-17); Calcium 8.7 mg/dL (8.4-10.2); Carbon Dioxide 21 mmol/L (22-30); Chloride 108 mmol/L (98-107); Glucose 239 mg/dL (74-99); Iron 81 ug/dL (37-170); Non-African American GFR(MDRD) 53 (>60 ml/min/1.73 sqM); Potassium 5.1 mmol/L (3.5-5.1); Sodium 135 mmol/L (137-145); Total Bilirubin 0.4 mg/dL (0.2-1.3); Total Protein 5.7 g/dL (6.3-8.2)
[2016-06-17 20:50] LABS: % Iron Saturation 36.8 % (20-50); Total Iron Binding Capacity 220 ug/dL (265-497)
[2016-06-17] MEDS ORDERED: HYDROmorphone 1 MG/ML 1 ML SYRINGE IVP PRN (21:26)
[2016-06-17] MEDS: ACETAMINOPHEN IV (For NPO) 1,000 MG in EMPTY BAG 1 BAG IVPB SCH (21:59)
[2016-06-17] MEDS: DILTIAZEM CD 180 MG CAP.ER.24H PO SCH (21:59)
[2016-06-17] MEDS: LABETALOL 100 MG TAB PO SCH (21:59)
[2016-06-17] MEDS: hydrALAZINE HCL 25 MG TAB PO SCH (22:00)
[2016-06-17] MEDS: HEPARIN SODIUM,PORCINE 5,000 UNIT/ML 1 ML VIAL SQ SCH (22:06)
[2016-06-17 23:18] VITALS: BMI 27.6
[2016-06-18] MEDS: LEVOTHYROXINE 50 MCG TAB PO SCH (05:58)
[2016-06-18] MEDS: SODIUM CHLORIDE 0.9% 1,000 ML IV SCH ×2 (06:07→15:00)
[2016-06-18] MEDS: ACETAMINOPHEN IV (For NPO) 1,000 MG in EMPTY BAG 1 BAG IVPB SCH ×3 (06:07→17:20)
[2016-06-18 07:23] LABS: Glucose,Whole Blood 189 mg/dL (75-99)
--- NOTE | 2016-06-18 08:35 | P.GSHP ---
History of Present Illness H&P Date: 06/18/16 Chief Complaint: Bowel obstruction The patient is a 86-year-old female well-known to me with a previous history of bowel obstruction in March 2016. She has history of subtotal colectomy with ileostomy. She completed a lower endoscopy including upper endoscopy for chronic anemia of unknown cause. She reports in the last 24 hours of acute abdominal distention. She went to the [place] emergency room. The diagnostic studies confirmed a transition point along the left lower quadrant for bowel obstruction. Nasogastric tube was placed. Since her admission, repeat abdominal films demonstrated improvement of her bowel obstruction. This morning her abdominal distention is now resolved. Minimal outputs of less than 200 mL was obtained in the last 12+ hours. - Review of Systems Comment: CONSTITUTIONAL: Denies any fever or chills. Denies recent weight loss or weight gain. HEENT: Denies any trouble with hearing or nosebleeds. Has trouble with vision. No difficulty swallowing. LYMPHATIC: The patient denies any lumps and bumps around the neck. ENDOCRINE: Has thyroid disorders. Has blood sugar glucose intolerance. Has poorly controlled diabetes type 2. RESPIRATORY: Denies recent pneumonia. Denies any troubles with breathing or dyspnea on exertion. CARDIOVASCULAR: Had chest pain with recent stent placement within the last 6-8 months. Denies current palpitations. Has poorly controlled hypertension. GASTROINTESTINAL: See above. History of subtotal colectomy. She completed both an upper and lower endoscopy within one week demonstrating focal colitis along the rectum. Has diaphragmatic hiatal hernia. GENITOURINARY: Denies any blood in urine or increased urinary frequency. MUSCULOSKELETAL: Has back pain, stiffness, joint arthritis. NEUROLOGIC: Denies any numbness or tingling along the distal extremities. No seizure disorders or headaches. PSYCHIATRIC: Denies depression or suidical ideation. HEMATOLOGIC: Denies any abnormal bleeding or bruising. Past Medical History Past Medical History: Diabetes Mellitus, Hyperlipidemia, Hypertension, Thyroid Disorder Additional Past Medical History / Comment(s): recent admission in Mar for "blockage" of ileostomy, has abd. hernia, urinary incontinence, vertigo, diverticulosis, chronic anemia History of Any Multi-Drug Resistant Organisms: None Reported Past Surgical History: Back Surgery, Bowel Resection, Heart Catheterization With Stent, Pacemaker Additional Past Surgical History / Comment(s): Subtotal colectomy with ileostomy 2013, EGD and colonoscopy 06/2016 Past Anesthesia/Blood Transfusion Reactions: No Reported Reaction Date of Last Stent Placement:: 2006 Type of Cardiac Device: Permanent Pacemaker Device Placement Date:: 2015 Past Psychological History: No Psychological Hx Reported Smoking Status: Former smoker Past Alcohol Use History: None Reported Additional Past Alcohol Use History / Comment(s): quit smoking 10 yrs., smoked 1ppd for >50 yrs. Past Drug Use History: None Reported - Past Family History Mother Family Medical History: Coronary Artery Disease (CAD), Diabetes Mellitus Father Family Medical History: Coronary Artery Disease (CAD) Medications and Allergies Home Medications Medication Instructions Recorded Confirmed Type Aspirin EC [Ecotrin Low Dose] 81 mg PO DAILY 03/28/16 06/17/16 History Cholecalciferol [Vitamin D3] 2,000 unit PO DAILY 03/28/16 06/17/16 History Diltiazem HCl [Cardizem Cd] 360 mg PO HS 03/28/16 06/17/16 History Ferrous Sulfate [Iron (65 MG 325 mg PO DAILY@1200 03/28/16 06/17/16 History Elemental)] Insulin Aspart [NovoLOG Flexpen] See Protocol SQ AC-TID 03/28/16 06/17/16 History Insulin Glargine,Hum.rec.anlog 12 unit SQ HS 03/28/16 06/17/16 History [Lantus Solostar] Labetalol HCl [Trandate] 300 mg PO BID 03/28/16 06/17/16 History Levothyroxine Sodium [Synthroid] 50 mcg PO DAILY 03/28/16 06/17/16 History Vit A/Vit C/Vit E/Zinc/Copper 2 cap PO BID 03/28/16 06/17/16 History [ICAPS SOFTGEL] hydrALAZINE HCL [Apresoline] 50 mg PO BID 03/28/16 06/17/16 History Simvastatin [Zocor] 20 mg PO HS 06/17/16 06/17/16 History Solifenacin Succinate [Vesicare] 10 mg PO DAILY PRN 06/17/16 06/17/16 History Allergies Allergy/AdvReac Type Severity Reaction Status Date / Time hydrocodone Allergy Unknown Verified 06/17/16 20:03 Penicillins Allergy Anaphylaxis Verified 06/17/16 20:03 streptomycin Allergy Rash/Hives Verified 06/17/16 20:03 Surgical - Exam Vital Signs Temp Pulse Resp BP Pulse Ox 97.7 F 60 16 189/81 96 06/17/16 19:50 06/17/16 19:50 06/17/16 19:50 06/17/16 19:50 06/17/16 19:50 GENERAL: Well developed and in no acute distress. Pleasant. HEENT: No sclera icterus. Extraocular movements grossly intact. Dry buccal mucosa. Head is atraumatic, normocephalic. Hears conversational speech. No nasal drainage. Nasogastric tube along the NECK: Supple without lymphadenopathy. No JV distention. CHEST: Non-labored respirations and equal bilateral excursions. CARDIOVASCULAR: Regular rate and rhythm. Palpable 2+ radial pulses. ABDOMEN: Soft, nontender. Nondistended. Ileostomy function with moderate stool. MUSCULOSKELETAL: No clubbing, cyanosis or edema. NEUROLOGIC: No focal or lateralizing signs. PSYCH: Appropriate affect. Alert and oriented to person, place and time. Results - Labs 06/17/16 20:04 06/17/16 20:04 Abnormal Lab Results - Last 24 Hours (Table) 06/17/16 06/17/16 06/17/16 Range/Units 19:58 20:04 20:04 RBC 3.64 L (3.80-5.40) m/uL Hgb 10.7 L (11.4-16.0) gm/dL Hct 33.8 L (34.0-46.0) % Plt Count 141 L (150-450) k/uL Sodium 135 L (137-145) mmol/L Chloride 108 H (98-107) mmol/L Carbon Dioxide 21 L (22-30) mmol/L BUN 22 H (7-17) mg/dL Glucose 239 H (74-99) mg/dL POC Glucose (mg/dL) 222 H (75-99) mg/dL TIBC 220 L (265-497) ug/dL Ferritin 703 H (11-264) ng/mL Total Protein 5.7 L (6.3-8.2) g/dL Albumin 3.2 L (3.5-5.0) g/dL 06/18/16 Range/Units 07:22 RBC (3.80-5.40) m/uL Hgb (11.4-16.0) gm/dL Hct (34.0-46.0) % Plt Count (150-450) k/uL Sodium (137-145) mmol/L Chloride (98-107) mmol/L Carbon Dioxide (22-30) mmol/L BUN (7-17) mg/dL Glucose (74-99) mg/dL POC Glucose (mg/dL) 189 H (75-99) mg/dL TIBC (265-497) ug/dL Ferritin (11-264) ng/mL Total Protein (6.3-8.2) g/dL Albumin (3.5-5.0) g/dL Diabetes panel 06/17/16 Range/Units 20:04 Sodium 135 L (137-145) mmol/L Potassium 5.1 (3.5-5.1) mmol/L Chloride 108 H (98-107) mmol/L Carbon Dioxide 21 L (22-30) mmol/L BUN 22 H (7-17) mg/dL Creatinine 1.00 (0.52-1.04) mg/dL Glucose 239 H (74-99) mg/dL Calcium 8.7 (8.4-10.2) mg/dL AST 17 (14-36) U/L ALT 31 (9-52) U/L Alkaline Phosphatase 75 (38-126) U/L Total Protein 5.7 L (6.3-8.2) g/dL Albumin 3.2 L (3.5-5.0) g/dL Calcium panel 06/17/16 Range/Units 20:04 Calcium 8.7 (8.4-10.2) mg/dL Albumin 3.2 L (3.5-5.0) g/dL Pituitary panel 06/17/16 Range/Units 20:04 Sodium 135 L (137-145) mmol/L Potassium 5.1 (3.5-5.1) mmol/L Chloride 108 H (98-107) mmol/L Carbon Dioxide 21 L (22-30) mmol/L BUN 22 H (7-17) mg/dL Creatinine 1.00 (0.52-1.04) mg/dL Glucose 239 H (74-99) mg/dL Calcium 8.7 (8.4-10.2) mg/dL Adrenal panel 06/17/16 Range/Units 20:04 Sodium 135 L (137-145) mmol/L Potassium 5.1 (3.5-5.1) mmol/L Chloride 108 H (98-107) mmol/L Carbon Dioxide 21 L (22-30) mmol/L BUN 22 H (7-17) mg/dL Creatinine 1.00 (0.52-1.04) mg/dL Glucose 239 H (74-99) mg/dL Calcium 8.7 (8.4-10.2) mg/dL Total Bilirubin 0.4 (0.2-1.3) mg/dL AST 17 (14-36) U/L ALT 31 (9-52) U/L Alkaline Phosphatase 75 (38-126) U/L Total Protein 5.7 L (6.3-8.2) g/dL Albumin 3.2 L (3.5-5.0) g/dL - Imaging Abdominal x-ray: report reviewed, image reviewed (Complete resolution of bowel obstruction) Assessment and Plan (1) Chronic anemia Status: Acute (2) Uncontrolled diabetes mellitus type 2 without complications Status: Acute (3) Generalized abdominal pain Status: Acute (4) Small bowel obstruction Status: Acute (5) Hx of colectomy Status: Chronic (6) Hypertensive heart disease Status: Chronic Plan: 1. Her imaging studies including clinical assessment are consistent with resolution of her bowel obstruction. I personally discontinued her nasogastric tube at bedside. 2. Will start liquid diet. 3. Additionally, she is pending to be scheduled for repair of her incisional hernia repair initially as an outpatient. We'll reassess for inpatient management. 4. Inpatient hospitalization anticipated for greater than 2 days. 5. Medical management for poorly controlled diabetes as well as poorly controlled hypertension.
[2016-06-18] MEDS ORDERED: OXYBUTYNIN 10 MG TAB.ER.24 PO PRN (08:36)
[2016-06-18 08:41] LABS: Basophils # (A) 0.1 k/uL (0-0.2); Basophils % (A) 1 %; CH 28.8; CHCM 31.2; Eosinophils # (A) 0.1 k/uL (0-0.7); Eosinophils % (A) 2 %; HCT 31.7 % (34.0-46.0); HDW 2.54; HGB 9.8 gm/dL (11.4-16.0); Hypochromasia Slight; Luc # (Auto) 0.13; Luc % (Auto) 2; Lymphocytes # (A) 1.1 k/uL (1.0-4.8); Lymphocytes % (A) 19 %; MCH 28.4 pg (25.0-35.0); MCHC 30.8 g/dL (31.0-37.0); MCV 92.4 fL (80.0-100.0); Mean Platelet Volume 7.4; Monocytes # (A) 0.3 k/uL (0-1.0); Monocytes % (A) 6 %; Neutrophils % (A) 69 %; RBC 3.43 m/uL (3.80-5.40); RDW 15.2 % (11.5-15.5); WBC 5.7 k/uL (3.8-10.6); WBC (Perox) 5.82
[2016-06-18] MEDS: HEPARIN SODIUM,PORCINE 5,000 UNIT/ML 1 ML VIAL SQ SCH ×2 (08:56→20:22)
[2016-06-18] MEDS: hydrALAZINE HCL 25 MG TAB PO SCH ×3 (08:56→21:09)
[2016-06-18] MEDS: LABETALOL 100 MG TAB PO SCH ×2 (08:57→20:21)
[2016-06-18] MEDS: PANTOPRAZOLE 40 MG/10 ML VIAL IV SCH (08:57)
[2016-06-18 09:49] LABS: ALT 24 U/L (9-52); AST 13 U/L (14-36); Alkaline Phosphatase 67 U/L (38-126); Anion Gap 7 mmol/L; Blood Urea Nitrogen 18 mg/dL (7-17); Calcium 8.4 mg/dL (8.4-10.2); Carbon Dioxide 22 mmol/L (22-30); Chloride 108 mmol/L (98-107); Glucose 182 mg/dL (74-99); Magnesium 1.6 mg/dL (1.6-2.3); Non-African American GFR(MDRD) 60 (>60 ml/min/1.73 sqM); Phosphorous 3.8 mg/dL (2.5-4.5); Potassium 4.5 mmol/L (3.5-5.1); Sodium 137 mmol/L (137-145); Total Bilirubin 0.3 mg/dL (0.2-1.3); Total Protein 5.1 g/dL (6.3-8.2)
[2016-06-18 11:43] LABS: Glucose,Whole Blood 111 mg/dL (75-99)
[2016-06-18 11:58] LABS: Hemoglobin A1C 9.3 % (4.2-6.1)
[2016-06-18] MEDS: INSULIN LISPRO (humaLOG) 300 UNIT/3 ML VIAL SQ SCH ×3 (13:12→20:26)
[2016-06-18] MEDS: MAGNESIUM SULFATE-D5W PMX 1 GM in DEXTROSE/WATER 1 100ML.BAG IVPB SCH ×3 (13:15→16:06)
[2016-06-18] MEDS: ACETAMINOPHEN TAB 325 MG TAB PO PRN (14:56)
--- NOTE | 2016-06-18 17:08 | CONS ---
DATE OF CONSULTATION: 06/18/2016 REASON FOR CONSULTATION: Medical management requested by Dr. Crowder. CONSULTATION: This is a very pleasant 86-year-old patient with a rather extensive medical history. Patient was here in March of this year. Patient does follow with Dr. Almazan. Her chronic stable medical conditions include diabetes, hypertension, hypothyroid, coronary artery disease and prior history of stent. Patient has a known history of subtotal colectomy with ileostomy. Patient presented with increasing lower abdominal pain, nausea, found to have a bowel obstruction. An NG tube was placed, with which she did feel better. Patient normally empties the ileostomy bag about 3 times a day. Patient admitted under the care of surgeon Dr. Crowder. Feeling better today. Given some clear liquids. REVIEW OF SYSTEMS: CONSTITUTIONAL: Weak and tired. HEENT: None. RESPIRATORY: None. CARDIOVASCULAR: None. GASTROINTESTINAL: As above. GENITOURINARY: None. MUSCULOSKELETAL: Pain in different joints. DERMATOLOGICAL: None. HEMATOLOGIC: None. LYMPHATICS: None. PSYCHIATRY: None. NEUROLOGICAL: None. PAST MEDICAL HISTORY: 1. Diabetes mellitus, type 2. 2. Hypertension. 3. Hypothyroid. 4. Coronary artery disease with stent in 2006. 5. Vertigo. PAST SURGICAL HISTORY: 1. Stent placement in 2015. 2. Subtotal colectomy with ileostomy in 2013. 3. Back surgery. 4. Cardiac cath with stent. 5. Pacemaker. SOCIAL HISTORY: Lives by herself. No alcohol. Smoked a pack a day for over 50 years; stopped about 10 years ago. FAMILY HISTORY: Coronary artery disease, diabetes. HOME MEDICATIONS: 1. Hydralazine 50 mg p.o. b.i.d. 2. I-Caps softgel 2 capsules p.o. b.i.d. 3. Vesicare 10 mg p.o. daily p.r.n. 4. Zocor 20 mg p.o. at bedtime. 5. Omeprazole 40 mg p.o. daily. 6. Synthroid 50 mcg p.o. daily. 7. Trandate 300 mg p.o. b.i.d. 8. FlexPen protocol subcutaneously before meals t.i.d. 9. Lantus 12 units subcutaneously at bedtime. 10. Ferrous sulfate 325 p.o. daily. 11. Cardizem CD 360 mg p.o. at bedtime. 12. Vitamin D3 2000 units p.o. daily. 13. Aspirin 81 mg p.o. daily. ALLERGIES: 1. HYDROCODONE. 2. PENICILLIN. 3. STREPTOMYCIN. On examination, temperature 98.2, pulse 59, respiration 16, blood pressure 173/74, pulse ox 99% on 2 L. GENERAL APPEARANCE: Tired-appearing. Sitting on bed. Awake. EYES: Pupils equal. Conjunctivae normal. HEENT: External appearance of nose and ears normal. Oral cavity normal. NECK: JVD not raised. Mass not palpable. RESPIRATORY: Effort normal. LUNGS: Decreased breath sounds. CARDIOVASCULAR: First and second sounds normal. No edema. ABDOMEN: Soft, nontender. Ileostomy bag in place. Some stool is present. Liver and spleen not palpable. LYMPHATIC: No lymph node palpable in neck or axillae. PSYCHIATRY: Alert and oriented x3. Mood and affect normal. MUSCULOSKELETAL: Evidence of osteoarthritis in multiple joints. INVESTIGATIONS: White count 6.2, hemoglobin 10.7, potassium 5.1. BUN 22, creatinine 1.0. Accu-Cheks are noted. Abdominal x-ray has improved here. ASSESSMENT: 1. Acute small bowel obstruction on presentation from the patient's previous surgery; responded well to NG tube. 2. Diabetes mellitus, type 2, on oral hypoglycemic. 3. Essential hypertension. 4. Hypothyroidism. 5. Coronary artery disease with prior history of stent. 6. Primary osteoarthritis in multiple joints, bilateral. 7. 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 PLAN: Patient's oral medications will be resumed. IV fluids will be maintained. Patient's oral diet will be advanced per Surgery. Care was discussed with the patient. Thank you, Dr. Crowder.
[2016-06-18 17:18] LABS: Glucose,Whole Blood 230 mg/dL (75-99)
[2016-06-18] MEDS: DILTIAZEM CD 180 MG CAP.ER.24H PO SCH (20:20)
[2016-06-18 20:33] LABS: Glucose,Whole Blood 209 mg/dL (75-99)
[2016-06-18] MEDS: ATORVASTATIN 10 MG TAB PO SCH (20:41)
[2016-06-18] MEDS: INSULIN GLARGINE 100 UNIT/ML 10 ML VIAL SQ SCH (21:08)
--- NOTE | 2016-06-18 22:23 | P.PN ---
Progress Note - Text Patient re-evaluated this evening. With her risk of repeat bowel obstruction and known incisional hernia for which she is symptomatic, she was requested proceeding with surgical intervention during her current hospitalization. In the interim, strict diabetic control is advised including protein intake.
[2016-06-19] MEDS: ACETAMINOPHEN TAB 325 MG TAB PO PRN ×2 (00:18→07:44)
[2016-06-19] MEDS: SODIUM CHLORIDE 0.9% 1,000 ML IV SCH (01:57)
[2016-06-19] MEDS: LEVOTHYROXINE 50 MCG TAB PO SCH (06:14)
[2016-06-19 07:10] LABS: Glucose,Whole Blood 128 mg/dL (75-99)
[2016-06-19] MEDS: INSULIN LISPRO (humaLOG) 300 UNIT/3 ML VIAL SQ SCH ×4 (07:17→20:47)
[2016-06-19] MEDS: hydrALAZINE HCL 25 MG TAB PO SCH ×3 (07:35→20:52)
[2016-06-19] MEDS: LABETALOL 100 MG TAB PO SCH ×2 (07:36→20:39)
[2016-06-19] MEDS: HEPARIN SODIUM,PORCINE 5,000 UNIT/ML 1 ML VIAL SQ SCH ×2 (07:36→20:39)
[2016-06-19] MEDS: PANTOPRAZOLE 40 MG/10 ML VIAL IV SCH (07:36)
[2016-06-19 08:26] LABS: Basophils # (A) 0.1 k/uL (0-0.2); Basophils % (A) 1 %; CH 28.8; CHCM 31.6; Eosinophils # (A) 0.1 k/uL (0-0.7); Eosinophils % (A) 3 %; HCT 33.5 % (34.0-46.0); HDW 2.57; HGB 10.5 gm/dL (11.4-16.0); Luc # (Auto) 0.13; Luc % (Auto) 3; Lymphocytes % (A) 23 %; MCH 28.8 pg (25.0-35.0); MCHC 31.4 g/dL (31.0-37.0); MCV 91.7 fL (80.0-100.0); Mean Platelet Volume 7.4; Monocytes # (A) 0.2 k/uL (0-1.0); Monocytes % (A) 5 %; Neutrophils # (A) 2.7 k/uL (1.3-7.7); Neutrophils % (A) 65 %; RBC 3.65 m/uL (3.80-5.40); RDW 15.3 % (11.5-15.5); WBC 4.2 k/uL (3.8-10.6); WBC (Perox) 4.36
[2016-06-19 08:42] LABS: ALT 24 U/L (9-52); AST 12 U/L (14-36); Alkaline Phosphatase 74 U/L (38-126); Anion Gap 3 mmol/L; Blood Urea Nitrogen 17 mg/dL (7-17); Calcium 8.8 mg/dL (8.4-10.2); Carbon Dioxide 26 mmol/L (22-30); Chloride 108 mmol/L (98-107); Glucose 143 mg/dL (74-99); Magnesium 2.1 mg/dL (1.6-2.3); Non-African American GFR(MDRD) 56 (>60 ml/min/1.73 sqM); Potassium 4.8 mmol/L (3.5-5.1); Sodium 137 mmol/L (137-145); Total Bilirubin 0.2 mg/dL (0.2-1.3); Total Protein 5.6 g/dL (6.3-8.2)
--- NOTE | 2016-06-19 10:47 | P.PN ---
Subjective Is an 86-year-old female being seen and examined this morning. Patient states anxious to have the surgery. Patient has a known incisional hernia in which the patient is symptomatic. Patient stated that she did tolerate the diet. Has had movements from her ostomy. Did review the blood sugars. This morning 128 at 8:00 last evening 209 other labs were reviewed all within normal limits Objective - Vital Signs Vital signs: Vital Signs Temp 98 F 06/19/16 07:00 Pulse 60 06/19/16 09:09 Resp 16 06/19/16 07:00 BP 136/61 06/19/16 09:09 Pulse Ox 96 06/19/16 07:00 Intake & Output 06/18/16 06/19/16 06/19/16 18:59 06:59 18:59 Intake Total 800 420 Balance 800 420 Weight 58 kg Intake: IV 700 Sodium Chloride 0.9% 1, 700 000 ml @ 100 mls/hr IV . Q10H ANAHI Rx#:[id number] Intake, IV Titration 100 Amount Magnesium Sulfate-D5w Pmx 100 1 gm In Dextrose/Water 1 100ml.bag @ 100 mls/hr IVPB Q1H ANAHI Rx#: [id number] Oral 420 Other: Voiding Method Toilet Toilet Toilet # Voids 1 1 # Bowel Movements 1 - Exam Physical exam 86-year-old pleasant female resting in bed appears in no acute distress pleasant cooperative Lungs essentially clear adequate air movement on room air no cough noted Heart S1-S2 audible regular Abdomen soft ostomy left lower quadrant scant amount stool not distended nontender bowel tones present tolerating diet no nausea no vomiting Extremities no evidence of edema - Labs CBC & Chem 7: 06/19/16 07:39 06/19/16 07:39 Labs: Abnormal Lab Results - Last 24 Hours (Table) 06/18/16 06/18/16 06/18/16 Range/Units 08:06 11:17 17:16 RBC (3.80-5.40) m/uL Hgb (11.4-16.0) gm/dL Hct (34.0-46.0) % Chloride (98-107) mmol/L Glucose (74-99) mg/dL POC Glucose (mg/dL) 111 H 230 H (75-99) mg/dL Hemoglobin A1c 9.3 H (4.2-6.1) % AST (14-36) U/L Total Protein (6.3-8.2) g/dL Albumin (3.5-5.0) g/dL 06/18/16 06/19/16 06/19/16 Range/Units 20:17 07:03 07:39 RBC 3.65 L (3.80-5.40) m/uL Hgb 10.5 L (11.4-16.0) gm/dL Hct 33.5 L (34.0-46.0) % Chloride (98-107) mmol/L Glucose (74-99) mg/dL POC Glucose (mg/dL) 209 H 128 H (75-99) mg/dL Hemoglobin A1c (4.2-6.1) % AST (14-36) U/L Total Protein (6.3-8.2) g/dL Albumin (3.5-5.0) g/dL 06/19/16 Range/Units 07:39 RBC (3.80-5.40) m/uL Hgb (11.4-16.0) gm/dL Hct (34.0-46.0) % Chloride 108 H (98-107) mmol/L Glucose 143 H (74-99) mg/dL POC Glucose (mg/dL) (75-99) mg/dL Hemoglobin A1c (4.2-6.1) % AST 12 L (14-36) U/L Total Protein 5.6 L (6.3-8.2) g/dL Albumin 3.0 L (3.5-5.0) g/dL Assessment and Plan Plan: Impression Assessment and Plan (1) Chronic anemia Status: Acute (2) Uncontrolled diabetes mellitus type 2 without complications Status: Acute (3) Generalized abdominal pain Status: Acute (4) Small bowel obstruction Status: Acute (5) Hx of colectomy Status: Chronic (6) Hypertensive heart disease Status: Chronic Plan She will be scheduled for surgery this Friday by Dr. Crowder PT OT eval [employer] worker consult postprocedure likely will benefit from ECF placement for subacute rehab patient lives alone Further recommendations pending The above dictated assessment and findings were discussed with dr garcia . Impression and the plan of care have been dictated as directed. Morenita Patton nurse practitioner acting as a scribe for dr larson
[2016-06-19 11:33] LABS: Glucose,Whole Blood 319 mg/dL (75-99)
[2016-06-19] MEDS: traMADol 50 MG TAB PO PRN ×2 (12:20→20:47)
[2016-06-19 17:23] LABS: Glucose,Whole Blood 147 mg/dL (75-99)
[2016-06-19 20:33] LABS: Glucose,Whole Blood 182 mg/dL (75-99)
[2016-06-19] MEDS: ATORVASTATIN 10 MG TAB PO SCH (20:39)
[2016-06-19] MEDS: DILTIAZEM CD 180 MG CAP.ER.24H PO SCH (20:39)
[2016-06-19] MEDS: INSULIN GLARGINE 100 UNIT/ML 10 ML VIAL SQ SCH (20:47)
--- NOTE | 2016-06-19 21:27 | PN ---
DATE OF SERVICE: 06/19/2016 PRESENTING COMPLAINT: Increasing lower abdominal pain. INTERVAL HISTORY: This is an 86-year-old female with an extensive medical history. Patient presented to the emergency department with increasing lower abdominal pain and nausea and was found to have a bowel obstruction. An NG tube was placed, which alleviated some of the symptoms she was experiencing. Patient's symptoms have since subsided. NG tube has been removed. However, patient has increased risk of bowel obstructions and a known incisional hernia for which she has symptoms. Surgery was consulted and the current plan is for her to have surgery on Friday06/21/[address] Crowder. Today patient is awake, alert, walking to the bathroom with assistance and use of a walker. Patient is in good spirits, alert and oriented. No acute distress noted or voiced. Review of systems done for constitutional, cardiovascular, gastrointestinal, pulmonary, with relevant findings as above. CURRENT MEDICATIONS: 1. Lipitor. 2. Cardizem. 3. Heparin. 4. Lantus. 5. Humalog. 6. Ditropan XL. 7. Protonix. 8. Ultram. PHYSICAL EXAMINATION: VITAL SIGNS: Temperature 97.9, pulse 64, respiratory rate 16, blood pressure 154/67, oxygen saturation 95% on room air. GENERAL APPEARANCE: Patient is awake, sitting up in bed. No acute distress noted or voiced. EYES: Pupils equal. Conjunctivae normal. NECK: JVD not raised. Mass not palpable. LUNGS: Decreased breath sounds. Respiratory effort normal. CARDIOVASCULAR: First and second sounds normal. No edema. ABDOMEN: Soft, nontender. Ileostomy bag in place producing brown-green stool. Liver and spleen not palpable. PSYCHIATRY: Alert and oriented x3. Mood and affect are normal. MUSCULOSKELETAL: Evidence of osteoarthritis in multiple joints. INVESTIGATIONS: White blood cell count 4.2, hemoglobin 10.5, platelets 159. Glucose 143. Sodium 137, potassium 4.8. ASSESSMENT: 1. Acute small bowel obstruction on presentation from the patient's previous surgery; responded well to NG tube. However, patient has a known incisional hernia and is symptomatic, requiring surgical intervention. Patient will have surgery on 06/21/[address] Crowder. 2. Diabetes mellitus, type 2, on oral hypoglycemic. 3. Essential hypertension. 4. Hypothyroidism. 5. Coronary artery disease with prior history of stent. 6. Osteoarthritis of multiple joints, bilateral. 7. 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 PLAN: As stated under Investigations and under Assessment, patient is slated for surgery on 06/21/[address] Crowder for incisional hernia repair, as she is at greater risk for symptoms and becoming more symptomatic. Patient is tolerating her current diet and will be made n.p.o. as appropriate in preparation for surgery. Patient was seen and examined by nurse practitioner Juliet Pena, and all elements of the case were discussed with attending, Dr. Nolasco.
[2016-06-20] MEDS: ACETAMINOPHEN TAB 325 MG TAB PO PRN (01:13)
[2016-06-20] MEDS: LEVOTHYROXINE 50 MCG TAB PO SCH (06:13)
[2016-06-20 07:43] LABS: Glucose,Whole Blood 182 mg/dL (75-99)
--- NOTE | 2016-06-20 07:48 | PN ---
DATE OF SERVICE: 06/19/2016 ATTENDING NOTE: This patient was seen and examined by me earlier today. I also reviewed the note of my nurse practitioner, Ms. Pena. Additional note as below. This is patient with recurrent bowel obstruction, NG tube has been out. Ileostomy bag is working. Patient does feel a bit tired. Has been out of bed. Current medications are reviewed. On examination, temperature 98, pulse 60, blood pressure is 214/91, repeat pending. On examination, lungs decreased breath sounds. CARDIOVASCULAR: First and second sounds normal. ABDOMEN: Soft. ( ) with some stool in place. PSYCHIATRY: Alert and oriented x3. Mood and affect normal. INVESTIGATIONS: White count 4.2, hemoglobin 10.5, potassium 4.8. ASSESSMENT: 1. Acute small bowel obstruction, present on admission, now resolved, secondary to incisional hernia. Now scheduled for surgery on 06/21/[address] Crowder. 2. Coronary artery disease, stable. PLAN: Continue current medication and treatment plan. Care was discussed with the patient.
[2016-06-20 08:17] LABS: CH 29.1; CHCM 31.9; HCT 32.3 % (34.0-46.0); HDW 2.55; HGB 10.1 gm/dL (11.4-16.0); MCH 28.7 pg (25.0-35.0); MCHC 31.3 g/dL (31.0-37.0); MCV 91.6 fL (80.0-100.0); Mean Platelet Volume 7.1; RBC 3.52 m/uL (3.80-5.40); RDW 15.3 % (11.5-15.5); WBC 4.1 k/uL (3.8-10.6)
[2016-06-20] MEDS: PANTOPRAZOLE 40 MG/10 ML VIAL IV SCH (08:34)
[2016-06-20 08:36] LABS: Anion Gap 7 mmol/L; Blood Urea Nitrogen 17 mg/dL (7-17); Calcium 8.9 mg/dL (8.4-10.2); Carbon Dioxide 25 mmol/L (22-30); Chloride 103 mmol/L (98-107); Glucose 180 mg/dL (74-99); Non-African American GFR(MDRD) >60 (>60 ml/min/1.73 sqM); Potassium 4.7 mmol/L (3.5-5.1); Sodium 135 mmol/L (137-145)
[2016-06-20] MEDS: INSULIN LISPRO (humaLOG) 300 UNIT/3 ML VIAL SQ SCH ×4 (08:37→21:54)
[2016-06-20] MEDS: HEPARIN SODIUM,PORCINE 5,000 UNIT/ML 1 ML VIAL SQ SCH ×2 (08:37→21:53)
[2016-06-20] MEDS: hydrALAZINE HCL 25 MG TAB PO SCH ×3 (08:38→21:54)
[2016-06-20] MEDS: LABETALOL 100 MG TAB PO SCH ×2 (08:38→21:53)
[2016-06-20] MEDS: traMADol 50 MG TAB PO PRN ×3 (09:09→21:52)
[2016-06-20 11:08] LABS: Hemoglobin A1C 9.5 % (4.2-6.1)
[2016-06-20 11:39] LABS: Glucose,Whole Blood 341 mg/dL (75-99)
--- NOTE | 2016-06-20 12:17 | PN ---
DATE OF SERVICE: 06/20/2016 PRESENTING COMPLAINT: Increasing lower abdominal pain. This is an 86-year-old female with an extensive medical history. Patient presented to the emergency department with increasing lower abdominal pain and nausea and was found to have a bowel obstruction. NG tube was placed alleviating the symptoms she was experiencing. Patient's symptoms have since subsided and NG tube has been removed. However, patient has increased risk of bowel obstructions and a known incisional hernia for which she has symptoms. Surgery was consulted and the current plan is for her to have surgery on Friday06/21/[address] Bob. Patient is awake, alert, walking to the bathroom with assistance and use of a walker. Patient is in good spirits. Anxious to have the surgery done so she can get better and be discharged. No acute distress noted or voiced. Review of systems done for constitutional, cardiovascular, gastrointestinal, pulmonary with relevant findings as above. CURRENT MEDICATIONS: Lipitor, Cardizem, heparin, Lantus, Humalog, Ditropan XL, Protonix. PHYSICAL EXAM: VITAL SIGNS: Temperature 98.0, pulse 54, respiratory rate 18, blood pressure 178/76, oxygen saturation 95% on room air. GENERAL APPEARANCE: Patient is awake, alert, lying in bed, looking comfortable. Complained of bilateral wrist pain on the overnight for which she received pain medication. EYES: Pupils equal. Conjunctivae normal. NECK: JVD not raised. Mass not palpable. Lungs diminished bilaterally. Respiratory effort normal. Unlabored. CARDIOVASCULAR: S1, S2 normal. Trace edema noted to bilateral lower extremities. ABDOMEN: Soft, nontender. Liver and spleen not palpable. Right lower quadrant has colostomy bag in place with brown-green stool noted in the bag. PSYCHIATRY: Alert and oriented x3. Mood and affect normal INVESTIGATIONS: White blood cell count 4.1, hemoglobin 10.1, platelet count 142. Sodium 135, potassium 4.7, BUN 17, creatinine 0.89. Calcium 8.9. ASSESSMENT: 1. Acute small bowel obstruction, present on admission, now resolved. Secondary to incisional hernia. Now scheduled for surgery on 06/21/[address] Crowder. 2. Coronary artery disease, stable 3. Diabetes mellitus, type 2, on oral hypoglycemic. 4. Essential hypertension. 5. Hypothyroidism. 6. Coronary artery disease with prior history of stents. 7. Osteoarthritis of multiple joints, bilateral. 8. 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 PLAN: Continue current medication and treatment plan. Patient will be made n.p.o. after midnight for surgery on 06/21/[address] Crowder. Patient was seen and examined by nurse practitioner, Juliet Pena, and all elements of the case were discussed with attending, Dr. Nolasco.
[2016-06-20 12:29] LABS: Vitamin B12 457 pg/mL
[2016-06-20] MEDS ORDERED: INSULIN GLARGINE 100 UNIT/ML 10 ML VIAL SQ SCH (15:03)
--- NOTE | 2016-06-20 15:05 | P.PN ---
Subjective 6-year-old female being seen and examined. Patient states that she had been up ambulating in the [place] with the use of a walker this morning. Patient continues the incentive spirometer achieving 1000 did note the blood sugar was elevated this morning to 341 currently the Lantus has been increased to 14 units at bedtime. Patient is aware of the plan of care states anxious to have surgery tomorrow patient's denying chest pain dizziness or lightheadedness Objective - Vital Signs Vital signs: Vital Signs Temp 98.0 F 06/20/16 07:00 Pulse 54 L 06/20/16 07:00 Resp 18 06/20/16 07:00 BP 178/76 06/20/16 07:00 Pulse Ox 95 06/20/16 07:00 Intake & Output 06/19/16 06/20/16 06/20/16 18:59 06:59 18:59 Intake Total 480 720 Output Total 200 Balance 480 520 Weight 58 kg Intake: Oral 480 720 Output: Stool 200 Other: Voiding Method Toilet Toilet Toilet # Voids 2 1 3 # Bowel Movements 2 - Exam Physical exam 86-year-old pleasant female resting in bed appears in no acute distress pleasant cooperative states has been up ambulating months in the hallway this morning with a walker chief complaint arthritic knees" Lungs essentially clear adequate air movement on room air no cough noted Heart S1-S2 audible regular denying chest pain Abdomen soft ostomy left lower quadrant scant amount stool not distended nontender bowel tones present tolerating diet no nausea no vomiting Extremities no evidence of edema - Labs CBC & Chem 7: 06/20/16 07:50 06/20/16 07:50 Labs: Abnormal Lab Results - Last 24 Hours (Table) 06/19/16 06/19/16 06/20/16 Range/Units 17:12 20:31 07:34 RBC (3.80-5.40) m/uL Hgb (11.4-16.0) gm/dL Hct (34.0-46.0) % Plt Count (150-450) k/uL Sodium (137-145) mmol/L Glucose (74-99) mg/dL POC Glucose (mg/dL) 147 H 182 H 182 H (75-99) mg/dL Hemoglobin A1c (4.2-6.1) % 06/20/16 06/20/16 06/20/16 Range/Units 07:50 07:50 07:50 RBC 3.52 L (3.80-5.40) m/uL Hgb 10.1 L (11.4-16.0) gm/dL Hct 32.3 L (34.0-46.0) % Plt Count 142 L (150-450) k/uL Sodium 135 L (137-145) mmol/L Glucose 180 H (74-99) mg/dL POC Glucose (mg/dL) (75-99) mg/dL Hemoglobin A1c 9.5 H (4.2-6.1) % 06/20/16 Range/Units 11:35 RBC (3.80-5.40) m/uL Hgb (11.4-16.0) gm/dL Hct (34.0-46.0) % Plt Count (150-450) k/uL Sodium (137-145) mmol/L Glucose (74-99) mg/dL POC Glucose (mg/dL) 341 H (75-99) mg/dL Hemoglobin A1c (4.2-6.1) % Assessment and Plan Plan: Impression Assessment and Plan (1) Chronic anemia Status: Acute (2) Uncontrolled diabetes mellitus type 2 without complications Status: Acute (3) Generalized abdominal pain Status: Acute (4) Small bowel obstruction Status: Acute (5) Hx of colectomy Status: Chronic (6) Hypertensive heart disease Status: Chronic Hypoglycemic episodes Osteoarthritis bilateral knees Plan She will be scheduled for surgery this Friday by Dr. Crowder PT OT eval alley worker consult postprocedure likely will benefit from ECF placement for subacute rehab patient lives alone Further recommendations pending The above dictated assessment and findings were discussed with dr garcia . Impression and the plan of care have been dictated as directed. Morenita Patton nurse practitioner acting as a scribe for dr larson
[2016-06-20 17:06] LABS: Glucose,Whole Blood 174 mg/dL (75-99)
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
[2016-06-20 20:43] LABS: Glucose,Whole Blood 275 mg/dL (75-99)
[2016-06-20] MEDS: DILTIAZEM CD 180 MG CAP.ER.24H PO SCH (21:53)
[2016-06-20] MEDS: ATORVASTATIN 10 MG TAB PO SCH (21:53)
[2016-06-21] MEDS ORDERED: LACTATED RINGERS 1,000 ML IV SCH (05:59)
[2016-06-21] MEDS ORDERED: MIDAZOLAM 2 MG/2 ML VIAL IV PRN (05:59)
[2016-06-21] MEDS: LEVOTHYROXINE 50 MCG TAB PO SCH (06:34)
[2016-06-21 07:31] LABS: Glucose,Whole Blood 161 mg/dL (75-99)
[2016-06-21] MEDS ORDERED: LIDOCAINE 1% 20 ML VIAL (10MG/ML) FOR IV START INTRADERMA ONE (08:44)
[2016-06-21] MEDS: ONDANSETRON 4 MG/2 ML VIAL IVP PRN (08:44)
[2016-06-21] MEDS: INSULIN LISPRO (humaLOG) 300 UNIT/3 ML VIAL SQ SCH ×4 (08:46→21:40)
[2016-06-21] MEDS: HEPARIN SODIUM,PORCINE 5,000 UNIT/ML 1 ML VIAL SQ SCH ×2 (08:47→21:40)
[2016-06-21 08:49] LABS: Anion Gap 8 mmol/L; Blood Urea Nitrogen 22 mg/dL (7-17); Calcium 9.4 mg/dL (8.4-10.2); Carbon Dioxide 27 mmol/L (22-30); Chloride 104 mmol/L (98-107); Glucose 161 mg/dL (74-99); Non-African American GFR(MDRD) 50 (>60 ml/min/1.73 sqM); Potassium 5.5 mmol/L (3.5-5.1); Sodium 139 mmol/L (137-145)
--- NOTE | 2016-06-21 09:10 | P.HPADDEND ---
H&P Addendum H&P Addendum Date: 06/21/16 Patient seen and evaluated. Questions answered with her daughter. We'll plan for laparoscopic ventral hernia repair with lysis of adhesions. Possibility of open technique also described. Patient's medical clearance also obtained from surgical office and placed in the chart. Discussion of postop recovery in subacute rehab also was described as well.
[2016-06-21] MEDS ORDERED: CLINDAMYCIN 600 MG in DEXTROSE 5% IN WATER 50 ML IVPB STA ×2 (09:26)
[2016-06-21] MEDS ORDERED: LIDOCAINE 1% INJ 10MG/ML (20 ML MDV) ONE (09:35)
[2016-06-21] MEDS ORDERED: ROCURONIUM BROMIDE 10 MG/ML 10 ML VIAL IV ONE (09:35)
[2016-06-21] MEDS ORDERED: ONDANSETRON 4 MG/2 ML VIAL ONE (09:35)
[2016-06-21] MEDS ORDERED: PROPOFOL 10 MG/ML 20 ML VIAL IV ONE (09:35)
[2016-06-21] MEDS ORDERED: NEOSTIGMINE 1 MG/ML 10 ML VIAL ONE (09:35)
[2016-06-21] MEDS ORDERED: GLYCOPYRROLATE 0.2 MG/ML 2 ML VIAL ONE (09:35)
[2016-06-21] MEDS ORDERED: SUCCINYLCHOLINE CHLORIDE 100 MG/5 ML SYR IV ONE (09:35)
[2016-06-21] MEDS ORDERED: BUPIVACAIN-EPI 0.25%-1:200,000 30 ML VIAL SQ ONE ×2 (10:18)
[2016-06-21] MEDS: LABETALOL 100 MG TAB PO SCH ×2 (11:48→21:41)
[2016-06-21] MEDS: hydrALAZINE HCL 25 MG TAB PO SCH ×3 (11:48→21:41)
[2016-06-21] MEDS: PANTOPRAZOLE 40 MG/10 ML VIAL IV SCH (11:49)
[2016-06-21 14:46] LABS: Glucose,Whole Blood 173 mg/dL (75-99)
[2016-06-21] MEDS: HYDROmorphone 1 MG/ML 1 ML SYRINGE IVP PRN ×3 (15:13→22:20)
[2016-06-21 17:36] LABS: Glucose,Whole Blood 238 mg/dL (75-99)
[2016-06-21] MEDS ORDERED: SODIUM CHLORIDE 0.9% 1,000 ML IV SCH (18:15)
[2016-06-21] MEDS ORDERED: HYDROmorphone 1 MG/ML 1 ML SYRINGE IVP STA (18:20)
[2016-06-21] MEDS: ACETAMINOPHEN IV (For NPO) 1,000 MG in EMPTY BAG 1 BAG IVPB SCH ×2 (19:23→23:40)
[2016-06-21 20:18] LABS: Glucose,Whole Blood 184 mg/dL (75-99)
--- NOTE | 2016-06-21 20:21 | P.PCN ---
Date of Procedure: 06/21/16 Preoperative Diagnosis: Small bowel obstruction, history of subtotal abdominal colectomy, end ileostomy , history of incarcerated incisional hernia, poorly controlled diabetes type 2 Postoperative Diagnosis: Same, severe intra-abdominal adhesions Procedure(s) Performed: Diagnostic laparoscopy converted to open extensive lysis of adhesions over 2-1/ 2 hours, open repair of incisional ventral hernia 14 x 17 cm, unilateral left rectus abdominis muscle advancement flap, abdominal lavage 2 L, placement of HALIMA drain low subcutaneous tissue Anesthesia: GETA, local (60 ml 0.25% marcaine with epinephrine) Surgeon: Hannah Crowder Estimated Blood Loss (ml): 100 Urine output (ml): 510 Pathology: none sent Condition: stable Disposition: floor Operative Findings: Intra-abdominal adhesions over 2-1/2 hours of adhesiolysis performed, mesh placement avoided secondary to moderate small bowel manipulation including end ileostomy, unilateral rectus abdominis muscle advancement flap performed for primary closure ventral hernia repair.
[2016-06-21] MEDS ORDERED: FUROSEMIDE 10 MG/ML 2 ML VIAL IV ONE (20:23)
[2016-06-21] MEDS: SODIUM CHLORIDE 0.9% 1,000 ML IV SCH (20:38)
[2016-06-21] MEDS: DILTIAZEM CD 180 MG CAP.ER.24H PO SCH (21:41)
[2016-06-21] MEDS: metroNIDAZOLE-NS PMX 500 MG in SALINE 1 100ML.BAG IVPB SCH (23:42)
[2016-06-21] MEDS: CLINDAMYCIN 600 MG in DEXTROSE 5% IN WATER 50 ML IVPB SCH ×2 (23:43)
[2016-06-22] MEDS: HYDROmorphone 1 MG/ML 1 ML SYRINGE IVP PRN ×4 (03:34→17:26)
[2016-06-22] MEDS: LEVOTHYROXINE 50 MCG TAB PO SCH (05:53)
[2016-06-22] MEDS: SODIUM CHLORIDE 0.9% 1,000 ML IV SCH ×2 (05:56→15:33)
[2016-06-22] MEDS: ACETAMINOPHEN IV (For NPO) 1,000 MG in EMPTY BAG 1 BAG IVPB SCH ×2 (06:02→11:49)
[2016-06-22 07:22] LABS: Glucose,Whole Blood 221 mg/dL (75-99)
[2016-06-22] MEDS: hydrALAZINE HCL 25 MG TAB PO SCH ×2 (07:32→14:56)
[2016-06-22] MEDS: LABETALOL 100 MG TAB PO SCH (07:33)
[2016-06-22] MEDS: HEPARIN SODIUM,PORCINE 5,000 UNIT/ML 1 ML VIAL SQ SCH (07:33)
[2016-06-22] MEDS: metroNIDAZOLE-NS PMX 500 MG in SALINE 1 100ML.BAG IVPB SCH ×2 (07:34→15:30)
[2016-06-22] MEDS: PANTOPRAZOLE 40 MG/10 ML VIAL IV SCH (07:34)
[2016-06-22] MEDS: INSULIN LISPRO (humaLOG) 300 UNIT/3 ML VIAL SQ SCH ×3 (07:57→17:27)
[2016-06-22 08:05] LABS: Basophils # (A) 0.1 k/uL (0-0.2); Basophils % (A) 1 %; CH 29.1; CHCM 31.6; Eosinophils # (A) 0.1 k/uL (0-0.7); Eosinophils % (A) 1 %; HCT 33.3 % (34.0-46.0); HDW 2.55; HGB 10.5 gm/dL (11.4-16.0); Luc # (Auto) 0.14; Luc % (Auto) 2; Lymphocytes # (A) 0.7 k/uL (1.0-4.8); Lymphocytes % (A) 10 %; MCH 29.1 pg (25.0-35.0); MCHC 31.5 g/dL (31.0-37.0); MCV 92.3 fL (80.0-100.0); Mean Platelet Volume 7.2; Monocytes # (A) 0.4 k/uL (0-1.0); Monocytes % (A) 5 %; Neutrophils # (A) 6.1 k/uL (1.3-7.7); Neutrophils % (A) 82 %; RBC 3.61 m/uL (3.80-5.40); WBC 7.5 k/uL (3.8-10.6); WBC (Perox) 7.51
[2016-06-22 08:06] LABS: Calcium 8.2 mg/dL (8.4-10.2); Potassium 5.8 mmol/L (3.5-5.1); Total Bilirubin 0.3 mg/dL (0.2-1.3); Total Protein 4.9 g/dL (6.3-8.2)
[2016-06-22] MEDS: ONDANSETRON 4 MG/2 ML VIAL IVP PRN (10:38)
[2016-06-22] MEDS: CLINDAMYCIN 600 MG in DEXTROSE 5% IN WATER 50 ML IVPB SCH ×4 (10:38→17:26)
[2016-06-22 11:09] LABS: Potassium 5.1 mmol/L (3.5-5.1)
[2016-06-22 11:49] LABS: Glucose,Whole Blood 161 mg/dL (75-99)
--- NOTE | 2016-06-22 16:15 | OP ---
DATE OF SERVICE: 06/21/2016 SURGEON: SHELLI DUNLAP MD PREOPERATIVE DIAGNOSES: 1. History of recurrent small bowel obstruction. 2. History of incisional ventral hernia with incarceration. 3. Previous history of subtotal colectomy. 4. History of intra-abdominal adhesions. 5. Uncontrolled diabetes type 2, insulin-dependent. 6. Hypertensive heart disease with cardiomyopathy. 7. History of pacemaker placement. 8. Hypothyroidism. 9. Hyperlipidemia. 10. History of renal insufficiency. 11. History of anemia. 12. Personal history of hyperkalemia. POSTOPERATIVE DIAGNOSES: 1. History of recurrent small bowel obstruction. 2. History of incisional ventral hernia with incarceration. 3. Previous history of subtotal colectomy. 4. History of intra-abdominal adhesions. 5. Uncontrolled diabetes type 2, insulin-dependent. 6. Hypertensive heart disease with cardiomyopathy. 7. History of pacemaker placement. 8. Hypothyroidism. 9. Hyperlipidemia. 10. History of renal insufficiency. 11. History of anemia. 12. Personal history of hyperkalemia. 13. Severe diffuse intra-abdominal adhesions. 14. History of end ileostomy. OPERATION: 1. Diagnostic laparoscopy. 2. Open extensive lysis of adhesions over 2-1/2 hours. 3. Primary repair of ventral hernia without mesh. 4. Unilateral rectus abdominis muscle flap advancement along the left abdomen. 5. Abdominal lavage 2 liters. 6. Placement of round 19 HALIMA drain, subcutaneous. 7. Open repair of 17 x 14 cm incisional hernia, incarcerated. ANESTHESIA: General with 60 mL 0.25% Marcaine with epinephrine with normal saline mixture. ESTIMATED BLOOD LOSS: 100 mL. SPECIMENS REMOVED: None. COMPLICATIONS: None. OPERATIVE FINDINGS: 1. Multiple small bowel loop adhesions. 2. Transition point confirmed of the left lower quadrant. 3. Ileostomy viable. INDICATIONS: Odessa Tierney is an 86-year-old female who comes in with a history of recurrent small bowel obstruction. She has a previous history of a total abdominal colectomy for life-threatening diverticular bleed almost 10 years ago. She had an incidental finding of incarcerated incisional hernia. She then came into the hospital acutely as a transfer from [facility] with a bowel obstruction. She had a previous work up with her primary care provider, Dr. Almazan, for which she had been cleared for her surgical intervention. Given the recurrence of her bowel obstruction including need for ventral hernia repair, surgical intervention was described to her. Diagnostic laparoscopy with possible open technique for ventral hernia repair possible small bowel resection was described at length. Informed consent was obtained. DESCRIPTION: Patient is brought to the operating room, laid in supine position. After general induction, the abdomen had been prepped and draped in standard sterile fashion. The end ileostomy site Coloplast was discontinued. 4 x 4 followed by Tegaderm was placed over her ileostomy. Henry catheter was also placed. Prior to start of incision, a timeout protocol was confirmed with surgical team regarding patient's name including procedures to be performed. Preoperative medications were also given. Initial attention was brought to the midline whereby Ioban draping was placed along the abdomen. A left upper quadrant 5 mm laparoscopic trocar entry was performed and entered into abdominal cavity. Diagnostic laparoscopy demonstrated immediate severe adhesions for which the laparoscopic approach of the surgery was abandoned for open procedure. Along the midline, the skin was localized using 60 mL of 0.25% Marcaine with epinephrine as well as 60 mL normal saline mixture to minimize risk for bleeding. Along the previous cicatrix, the incision was made with a #10 blade and deepened into subcutaneous tissue. Pneumoperitoneum was maintained along the abdomen for entry at the epigastrium and large incisional hernia was identified. Along the inferior aspect the abdomen, the peritoneum had been entered using a hemostat. Next, the hernia sac was carefully dissected free using a #10 blade. Once pneumoperitoneum and entry into the abdomen had been obtained, the pneumoperitoneum was discontinued. Along the lower midline, multiple small bowel loops was found adherent along to the abdominal wall. Of the left lower quadrant, multiple interloop adhesions with a tight stricture was identified and consistent with her outside imaging demonstrating transition point of the left lower quadrant. Extensive lysis of adhesions using the Metzenbaum including electro- Bovie cautery was performed for well over 2-1/2 hours to address all interloop adhesions as well as abdominal wall adhesions of the small bowel to the abdominal wall. The rectal stump was identified consistent with moderate diverticulosis as well. The end ileostomy was palpated and identified free from harm during a portion of dissection. No enterotomies had occurred during this portion of the case. Of the right upper quadrant, the gallbladder is still found to be intact. Moderate adhesions were found about the gallbladder including of the right upper quadrant which was carefully lysed using a combination of Metzenbaum including minimal energy source with electro- Bovie. Hemostasis was excellent throughout the case. The small bowel was palpated from retrograde along the ileocecal valve and proximally to the ligament of Treitz. All the adhesions were addressed accordingly. Next, the abdomen was copiously irrigated using warm normal saline solution of 2 liters. All irrigation fluid was evacuated from the abdominal cavity. Hemostasis once again checked. Next attention was brought to repair of her incisional hernia. Along the rectus sheath, a subcutaneous soft tissue flap was elevated to the lateral edge at the left external oblique fascia. A wide undermining was performed of the soft tissue flap to allow for closure of her ventral hernia. With her history of ileostomy including extensive lysis of adhesions, mesh placement was avoided as to prevent risk of contamination of her mesh as well as recurrent adhesions as an Inlay. Along the right lateral abdominal wall, the epigastrium and fascia was also mobilized at least x 6+ cm. Inferiorly to the ostomy soft tissue was also mobilized by at least 3 cm. At the umbilicus a small defect of the skin was identified and closed using 4-0 Monocryl in interrupted fashion. Once hemostasis had been checked along the midline, the abdominal cavity was closed using running suture of double-stranded PDS. The lateral edge of the rectus muscle of the left side was marked using indelible marker. Total mobilization and closure the ventral defect was consistent with 14 cm x 17 cm in length. Next, fascial imbrication using #2 Ethibond was placed along the epigastrium down to lower midline. Final closure was consistent with complete reduction and closure of her incisional hernia. As a moderate soft tissue flap was developed, a round open 19 drain was placed along the left lower quadrant and exited through the skin. 2-0 Nylon was placed. Next the midline incision was reapproximated using interrupted 0 Vicryl with superficial fascial system. A running suture of 3-0 Monocryl was placed along the midline. The umbilicus was tacked to the abdominal wall using 0 Vicryl was well. A CHG Tegaderm was placed along the HALIMA insertion site. The tubing was cut to length and HALIMA tubing was placed. Of the right lower quadrant, the Ioban including Tegaderm were discontinued over the end ileostomy. The patient's personal ileostomy Coloplast was placed. Dermabond tape with Dermabond liquid was placed along the midline prior to manipulating the patient's ileostomy. Additionally, Aquacel AG Optifoam surgical dressing was placed along the midline. Abdominal binder was placed. Please note that prior to the abdominal wall closure, a nasogastric tube was placed and confirmed into the stomach as moderate manipulations had occurred to her small bowel. At the end of the procedure, needle, sponge, and instrument count had been verified correct by the rn surgical pcu. The patient was transferred to the postanesthesia care unit, extubated and in good condition. Intraoperative findings were described to the patient's family and they were pleased with the level of care. VIVIANA
--- NOTE | 2016-06-22 16:21 | PN ---
DATE OF SERVICE: 06/21/2016 PRESENTING COMPLAINT: Bowel obstruction. INTERVAL HISTORY: This is a patient who presented with a bowel obstruction, responded to NG tube. Patient was seen by me yesterday on 06/21/2016. Patient today had abdominal surgery. Lysis of adhesions was carried out and incisional hernia was fixed. NG tube in place. Some pain is present. Patient's 2 sons are at the bedside. Patient lying in bed, tired appearing. Review of systems done for constitutional, cardiovascular, GI, pulmonary; relevant findings as above. Current medications are reviewed and include IV fluids. On examination, temperature 97, pulse 60, respirations 16, blood pressure 117/56, pulse ox 100% on simple mask. GENERAL APPEARANCE: Lying in bed, tired appearing. EYES: Pupils equal. Conjunctivae normal. NECK: JVD not raised. Mass not palpable. RESPIRATORY: Effort normal. LUNGS: Diminished breath sounds. CARDIOVASCULAR: First and second sounds normal. No edema. ABDOMEN: Binder in place. One HALIMA drain is present. Colostomy bag is present with no stool. PSYCH: Alert and oriented x3. Mood and affect tired-appearing. INVESTIGATIONS: BUN ( ), creatinine 1.05. ASSESSMENT: 1. Acute small bowel obstruction, present on admission resolved with NG tube. 2. Status post adhesion lysis and repair of incisional hernia. 3. Coronary artery disease, stable. 4. Diabetes mellitus type 2, oral hypoglycemic. 5. Essential hypertension. 6. Hypothyroidism. 7. Coronary artery disease with prior history of stent. 8. Primary osteoarthritis with osteoarthritis of multiple joints, bilateral. 9. 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 PLAN: Continue current medication and treatment plan. Keep an eye on patient's Accu-Cheks. Will repeat labs in the morning.
[2016-06-22] MEDS ORDERED: BENZOCAINE/MENTHOL LOZENG 1 EACH LOZENGE MUCOUS MEM PRN (16:23)
[2016-06-22 17:25] LABS: Glucose,Whole Blood 200 mg/dL (75-99)
[2016-06-22 19:59] LABS: Glucose,Whole Blood 201 mg/dL (75-99)
--- NOTE | 2016-06-22 20:31 | P.PN ---
Subjective Principal diagnosis: Bowel obstruction S/P Diagnostic laparoscopy converted to open extensive lysis of adhesions over 2 -1/2 hours, open repair of incisional ventral hernia 14 x 17 cm, unilateral left rectus abdominis muscle advancement flap, abdominal lavage 2 L, placement of HALIMA drain low subcutaneous tissue POD#1. Pain is fairly controlled. NG tube in place- bilious output. No acute events overnight Objective - Vital Signs Vital signs: Vital Signs Temp 98.5 F 06/22/16 15:00 Pulse 71 06/22/16 15:00 Resp 18 06/22/16 15:00 BP 165/74 06/22/16 15:00 Pulse Ox 99 06/22/16 15:00 Intake & Output 06/22/16 06/22/16 06/23/16 06:59 18:59 06:59 Intake Total 1150 0 Output Total 455 1190 Balance 695 -1190 Intake: Intake, IV Titration 1150 Amount ACETAMINOPHEN IV (For NPO 200 ) 1,000 mg In Empty Bag 1 bag @ 400 mls/hr IVPB Q6HR ANAHI Rx#:[id number] Clindamycin 600 mg In 50 Dextrose 5% in Water 50 ml @ 100 mls/hr IVPB Q8HR ANAHI Rx#:[id number] Sodium Chloride 0.9% 1, 800 000 ml @ 75 mls/hr IV . [id number] ANAHI Rx#:[id number] metroNIDAZOLE-NS PMX 500 100 mg In Saline 1 100ml.bag @ 100 mls/hr IVPB Q8HR ANAHI Rx#:[id number] Oral 0 0 Output: Gastric Drainage 90 Drainage 65 90 HALIMA 65 90 Urine 300 700 Uretheral (Henry) 300 Stool 400 Other: Voiding Method Indwelling Catheter Indwelling Catheter - Exam General: Alert and oriented CHest : Bilateral breath sounds present CVS: S1, S2 present Abdomen: Dressing clean dry intact. No ostomy function - Labs CBC & Chem 7: 06/22/16 07:23 06/22/16 10:35 Labs: Abnormal Lab Results - Last 24 Hours (Table) 06/22/16 06/22/16 06/22/16 Range/Units 07:20 07:23 07:23 RBC 3.61 L (3.80-5.40) m/uL Hgb 10.5 L (11.4-16.0) gm/dL Hct 33.3 L (34.0-46.0) % Lymphocytes # 0.7 L (1.0-4.8) k/uL Sodium 136 L (137-145) mmol/L Potassium 5.8 H (3.5-5.1) mmol/L BUN 26 H (7-17) mg/dL Creatinine 1.51 H (0.52-1.04) mg/dL Glucose 215 H (74-99) mg/dL POC Glucose (mg/dL) 221 H (75-99) mg/dL Calcium 8.2 L (8.4-10.2) mg/dL Total Protein 4.9 L (6.3-8.2) g/dL Albumin 2.6 L (3.5-5.0) g/dL 06/22/16 06/22/16 06/22/16 Range/Units 11:46 17:22 19:58 RBC (3.80-5.40) m/uL Hgb (11.4-16.0) gm/dL Hct (34.0-46.0) % Lymphocytes # (1.0-4.8) k/uL Sodium (137-145) mmol/L Potassium (3.5-5.1) mmol/L BUN (7-17) mg/dL Creatinine (0.52-1.04) mg/dL Glucose (74-99) mg/dL POC Glucose (mg/dL) 161 H 200 H 201 H (75-99) mg/dL Calcium (8.4-10.2) mg/dL Total Protein (6.3-8.2) g/dL Albumin (3.5-5.0) g/dL Assessment and Plan (1) Bowel obstruction Status: Acute (2) Chronic anemia Status: Acute (3) Uncontrolled diabetes mellitus type 2 without complications Status: Acute Plan: 1. Repet K -5.1 . Change IV to 0.9 NaCl 2. Continue NG 3. Await ostomy function 4. Physical therapy consult 5. DVT and GI prophylaxis
[2016-06-22] MEDS ORDERED: DILTIAZEM CD 180 MG CAP.ER.24H PO ONE (21:00)
[2016-06-22] MEDS ORDERED: HEPARIN SODIUM,PORCINE 5,000 UNIT/ML 1 ML VIAL ONE (21:00)
[2016-06-22] MEDS ORDERED: hydrALAZINE HCL 25 MG TAB ONE (21:00)
[2016-06-22] MEDS ORDERED: LABETALOL 100 MG TAB ONE (21:00)
--- NOTE | 2016-06-22 23:05 | PN ---
DATE OF SERVICE: 06/22/2016 PRESENTING COMPLAINT: Increasing lower abdominal pain. INTERVAL HISTORY: This is an 86-year-old female who presented to the emergency department after being found to have a bowel obstruction. Patient has a known incisional hernia which required repair and is now postop day 1 repair of an incisional ventral hernia, extensive lysis of adhesions, placement of a HALIMA drain. Today patient is lying in bed, appearing somewhat uncomfortable; NG tube to low intermittent suction, HALIMA drain draining sanguineous drainage scant amount. Abdominal binder in place. Patient complains of acute abdominal pain. Review of systems done for constitutional, cardiovascular, gastrointestinal, pulmonary with relevant findings as above. CURRENT MEDICATIONS: 1. Lipitor. 2. Cardizem. 3. Heparin. 4. Lantus. 5. Humalog. 6. Ditropan XL. 7. Protonix. PHYSICAL EXAM: VITAL SIGNS: Temperature 98.4, pulse 61, respirations 18, blood pressure 124/51, oxygen saturation 99 on 3L nasal cannula. GENERAL APPEARANCE: Patient appears pale, weak, in pain, but overall still remains pleasant, able to answer questions. EYES: Pupils equal. Conjunctivae normal. NECK: JVD not raised. Mass not palpable. Lungs diminished bilaterally. RESPIRATORY: Effort normal. Unlabored. ABDOMEN: Soft, tender. Abdominal binder in place HALIMA drain in place draining sanguineous drainage. PSYCHIATRY: Alert and oriented x3. Mood and affect noted. INVESTIGATIONS: White blood cell count 7.5, hemoglobin 10.5, platelet count 156. Sodium 138, potassium 5.1, BUN 26, creatinine 1.51. ASSESSMENT: 1. Acute small-bowel obstruction, present on admission, now resolved. 2. Incisional hernia, status post incisional hernia repair with lysis of adhesions on 06/21/2016. 3. Coronary artery disease, stable. 4. Diabetes mellitus, type 2, on oral hypoglycemics. 5. Essential hypertension. 6. Hypothyroidism. 7. Coronary artery disease with prior history of stents. 8. Osteoarthritis of multiple joints, bilateral. 9. 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 PLAN: Control patient's pain, status post surgical intervention for ventral incisional hernia repair. Monitor NG tube output. Will continue current medication and treatment plan. Patient was seen and examined by Nurse Practitioner Juliet Pena and all elements of the case were discussed with the attending, Dr. Nolasco. I performed a history and physical examination of this patient and discussed the same with the dictator. I agree with the dictator's note. Any additional findings/opinions, etc. will be noted.
[2016-06-23] MEDS: HYDROmorphone 1 MG/ML 1 ML SYRINGE IVP PRN ×3 (05:19→22:48)
[2016-06-23] MEDS: LEVOTHYROXINE 50 MCG TAB PO SCH (05:46)
[2016-06-23 07:29] LABS: Glucose,Whole Blood 215 mg/dL (75-99)
[2016-06-23] MEDS: ONDANSETRON 4 MG/2 ML VIAL IVP PRN (07:40)
[2016-06-23] MEDS: hydrALAZINE HCL 25 MG TAB PO SCH ×4 (07:41→21:52)
[2016-06-23] MEDS: HEPARIN SODIUM,PORCINE 5,000 UNIT/ML 1 ML VIAL SQ SCH ×3 (07:41→21:52)
[2016-06-23] MEDS: LABETALOL 100 MG TAB PO SCH ×3 (07:41→21:53)
[2016-06-23] MEDS: INSULIN LISPRO (humaLOG) 300 UNIT/3 ML VIAL SQ SCH ×5 (07:41→21:54)
[2016-06-23] MEDS: DILTIAZEM CD 180 MG CAP.ER.24H PO SCH ×2 (07:41→21:53)
[2016-06-23] MEDS: metroNIDAZOLE-NS PMX 500 MG in SALINE 1 100ML.BAG IVPB SCH ×3 (07:42→15:59)
[2016-06-23] MEDS: SODIUM CHLORIDE 0.9% 1,000 ML IV SCH ×2 (07:42→08:19)
[2016-06-23] MEDS: PANTOPRAZOLE 40 MG/10 ML VIAL IV SCH (07:45)
[2016-06-23 09:52] LABS: CH 28.5; CHCM 30.3; HCT 29.6 % (34.0-46.0); HDW 2.37; HGB 9.1 gm/dL (11.4-16.0); Hypochromasia Moderate; MCH 29.2 pg (25.0-35.0); MCHC 30.9 g/dL (31.0-37.0); MCV 94.4 fL (80.0-100.0); Mean Platelet Volume 7.8; RBC 3.14 m/uL (3.80-5.40); RDW 15.2 % (11.5-15.5); WBC 7.2 k/uL (3.8-10.6)
--- NOTE | 2016-06-23 10:02 | PN ---
DATE OF SERVICE: 06/22/2016 ATTENDING NOTE: This patient was seen and examined by me today. Initially admitted with small bowel obstruction. The patient is status post adhesion lysis and repair of incisional hernia. NG tube remains in place. Has got some pain at the operative site. No nausea or vomiting. NG tube remains place. On exam of NG tube in place. LUNGS: Fair air entry. ABDOMEN: Tender. Colostomy bag in place HALIMA drain in place. LUNGS: Slightly decreased breath sounds. Patient's potassium is 5.1, creatinine is 1.51. ASSESSMENT: 1. Acute renal failure, likely prerenal. 2. Acute small bowel obstruction, status post nasogastric tube, now status post repair of incisional hernia and lysis of adhesions. 3. Coronary artery disease, stable. PLAN: Will increase patient's IV fluids to 125 mL/h. Other medication treatment plan is to continue. Care was discussed with the patient.
[2016-06-23 10:03] LABS: Potassium 4.9 mmol/L (3.5-5.1)
[2016-06-23 11:34] LABS: Glucose,Whole Blood 225 mg/dL (75-99)
--- NOTE | 2016-06-23 12:20 | P.PN ---
Subjective Principal diagnosis: Bowel obstruction S/P Diagnostic laparoscopy converted to open extensive lysis of adhesions over 2 -1/2 hours, open repair of incisional ventral hernia 14 x 17 cm, unilateral left rectus abdominis muscle advancement flap, abdominal lavage 2 L, placement of HALIMA drain low subcutaneous tissue POD#2. Pain is fairly controlled. Ostomy working well- bilious output. Good urine output Objective - Vital Signs Vital signs: Vital Signs Temp 98.6 F 06/23/16 07:00 Pulse 65 06/23/16 07:00 Resp 16 06/23/16 07:00 BP 138/68 06/23/16 08:34 Pulse Ox 98 06/23/16 08:46 Intake & Output 06/22/16 06/23/16 06/23/16 18:59 06:59 18:59 Intake Total 0 1240 Output Total 1190 350 550 Balance -1190 890 -550 Intake: Intake, IV Titration 1000 Amount Sodium Chloride 0.9% 1, 1000 000 ml @ 125 mls/hr IV . Q8H [facility] Rx#:[id number] Oral 0 240 Output: Gastric Drainage 150 Drainage 90 HALIMA 90 Urine 700 550 Stool 400 200 Other: Voiding Method Indwelling Catheter Indwelling Catheter - Exam General: Alert and oriented CHest : Bilateral breath sounds present CVS: S1, S2 present Abdomen: Dressing clean dry intact. HALIMA -minimal draiange - Labs CBC & Chem 7: 06/23/16 09:26 06/23/16 09:26 Labs: Abnormal Lab Results - Last 24 Hours (Table) 06/22/16 06/22/16 06/22/16 Range/Units 11:46 17:22 19:58 RBC (3.80-5.40) m/uL Hgb (11.4-16.0) gm/dL Hct (34.0-46.0) % MCHC (31.0-37.0) g/dL Plt Count (150-450) k/uL Chloride (98-107) mmol/L Carbon Dioxide (22-30) mmol/L BUN (7-17) mg/dL Creatinine (0.52-1.04) mg/dL Glucose (74-99) mg/dL POC Glucose (mg/dL) 161 H 200 H 201 H (75-99) mg/dL Calcium (8.4-10.2) mg/dL 05/06/23/16 06/23/16 Range/Units 07:27 09:26 09:26 RBC 3.14 L (3.80-5.40) m/uL Hgb 9.1 L (11.4-16.0) gm/dL Hct 29.6 L (34.0-46.0) % MCHC 30.9 L (31.0-37.0) g/dL Plt Count 143 L (150-450) k/uL Chloride 109 H (98-107) mmol/L Carbon Dioxide 21 L (22-30) mmol/L BUN 29 H (7-17) mg/dL Creatinine 1.23 H (0.52-1.04) mg/dL Glucose 202 H (74-99) mg/dL POC Glucose (mg/dL) 215 H (75-99) mg/dL Calcium 8.0 L (8.4-10.2) mg/dL Assessment and Plan (1) Bowel obstruction Status: Acute (2) Chronic anemia Status: Acute (3) Uncontrolled diabetes mellitus type 2 without complications Status: Acute Plan: 1. Repeat electrolytes in am 2. Discontinue NG . Clear liquids 3. Discontinue Henry 4. Physical therapy consult 5. DVT and GI prophylaxis 6. Oral pain meds 7. Discharge planning in 24 hrs
[2016-06-23 16:41] LABS: Glucose,Whole Blood 227 mg/dL (75-99)
[2016-06-23] MEDS ORDERED: ACETAMINOPHEN TAB 325 MG TAB PO PRN (17:55)
[2016-06-23 20:20] LABS: Glucose,Whole Blood 197 mg/dL (75-99)
[2016-06-24] MEDS: metroNIDAZOLE-NS PMX 500 MG in SALINE 1 100ML.BAG IVPB SCH ×3 (00:06→16:26)
[2016-06-24] MEDS: HYDROmorphone 1 MG/ML 1 ML SYRINGE IVP PRN ×3 (03:07→20:12)
[2016-06-24] MEDS: LEVOTHYROXINE 50 MCG TAB PO SCH (05:41)
[2016-06-24 07:35] LABS: Glucose,Whole Blood 208 mg/dL (75-99)
[2016-06-24] MEDS: HEPARIN SODIUM,PORCINE 5,000 UNIT/ML 1 ML VIAL SQ SCH ×2 (07:39→21:12)
[2016-06-24] MEDS: PANTOPRAZOLE 40 MG/10 ML VIAL IV SCH (07:39)
[2016-06-24] MEDS: hydrALAZINE HCL 25 MG TAB PO SCH ×3 (07:46→21:12)
[2016-06-24] MEDS: INSULIN LISPRO (humaLOG) 300 UNIT/3 ML VIAL SQ SCH ×4 (08:04→21:12)
--- NOTE | 2016-06-24 08:33 | PN ---
DATE OF SERVICE: 06/23/2016 PRESENTING COMPLAINT: Increasing lower abdominal pain. This is an 86-year-old female who presented to the emergency department after being found to have a bowel obstruction. Patient is now status post incisional ventral hernia repair, extensive lysis of adhesions, placement of the HALIMA drain. Today patient is awake, alert, lying in bed. Family at the bedside. NG tube remains on low to intermittent suction. HALIMA drain has scant amount of sanguinous drainage. Abdominal binder in place. Colostomy bag is producing liquid brown stool. Review of systems done for constitutional, cardiovascular, gastrointestinal, pulmonary with relevant findings as above. CURRENT MEDICATIONS: Lipitor, Cardizem, heparin, Lantus, Humalog, ( ), Protonix. PHYSICAL EXAM: VITAL SIGNS: Temperature 98.6, pulse 65, respiratory rate 16, blood pressure 138/68, oxygen saturation 100% on 4 L nasal cannula. GENERAL APPEARANCE: The patient is sitting up in bed. Complains of abdominal tenderness, but overall is pleasant, visiting with family, able to answer all questions. EYES: Pupils equal. Conjunctivae normal. NECK: JVD not raised. Mass not palpable. LUNGS: Diminished bilaterally. RESPIRATORY: Effort normal. Unlabored. ABDOMEN: Soft, tender, abdominal binder in place as well as HALIMA drain, which contains a scant amount of sanguinous drainage. Colostomy bag to the right lower abdominal wall producing liquid stool. PSYCHIATRY: Alert and oriented x3. Mood and affect noted. INVESTIGATIONS: White blood cell count 7.2, hemoglobin 9.1, platelet count 143. Sodium 138, potassium 4.9, BUN 29, creatinine 1.23. ASSESSMENT: 1. Acute small bowel obstruction, present on admission, now resolved. 2. Incisional hernia status post incisional hernia repair with lysis of adhesions on 06/21/2016. 3. Coronary artery disease, stable. 4. Diabetes mellitus, type 2, on oral hypoglycemics. 5. Essential hypertension. 6. Hypothyroidism. 7. Coronary artery disease with prior history of stents. 8. Osteoarthritis of multiple joints, bilateral. 9. 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 PLAN: Continue to control patient's pain. Surgery recommends discontinuing the NG and advancing the diet, discontinuance of the Henry, physical therapy to see patient and to begin the discharge planning process within at least the next 24 hours. Will continue current medication and treatment plan and will monitor. Patient was seen and examined by nurse practitioner, Juliet Pena, and all elements of the case were discussed with the attending Dr. Nolasco.
[2016-06-24] MEDS: HYDROcodone/APAP 5-325MG 1 EACH TAB PO PRN ×2 (09:15→18:09)
[2016-06-24] MEDS: LABETALOL 100 MG TAB PO SCH ×2 (09:16→21:12)
[2016-06-24 09:18] LABS: Calcium 8.1 mg/dL (8.4-10.2); Potassium 4.7 mmol/L (3.5-5.1); Total Bilirubin 0.4 mg/dL (0.2-1.3); Total Protein 4.9 g/dL (6.3-8.2)
--- NOTE | 2016-06-24 11:17 | PN ---
DATE OF SERVICE: 06/23/2016 ATTENDING NOTE: Patient was seen and examined by me today. I reviewed the note of my nurse practitioner, Ms. Pena, and discussed with her. Additional findings below. Patient is status post adhesion lysis and repair of incisional hernia. NG tube has been out, allowed clear liquids. Patient has light stool in her colostomy bag. On examination, sitting up in a chair, comfortable. LUNGS: Fair air entry. ABDOMEN: Mild tenderness. Colostomy bag in place. HALIMA drain in place. PSYCH: Alert and oriented x3. INVESTIGATIONS: Hemoglobin 9.1, BUN 29, creatinine 1.23. ASSESSMENT: 1. Acute renal failure, likely prerenal, slow to respond. 2. Acute ( ) small-bowel obstruction followed by incisional hernia repair and lysis of adhesions. 3. Coronary artery disease. PLAN: Continue with IV fluids, supportive care. Diet advanced per Surgery. Repeat electrolytes in the morning.
[2016-06-24 11:32] LABS: Glucose,Whole Blood 314 mg/dL (75-99)
[2016-06-24] MEDS ORDERED: traMADol 50 MG TAB PO PRN (13:38)
--- NOTE | 2016-06-24 13:42 | P.PN ---
Subjective Principal diagnosis: History of ventral hernia and bowel obstruction Patient is ambulating. She reports moderate pain from her knees. She denies any abdominal pain. She is tolerating liquid diet. She is seeking transferred to a rehab near [place]. No reports of nausea or vomiting. Objective - Vital Signs Vital signs: Vital Signs Temp 98.2 F 06/24/16 07:00 Pulse 65 06/24/16 08:00 Resp 18 06/24/16 08:00 BP 149/65 06/24/16 07:00 Pulse Ox 99 06/24/16 07:00 Intake & Output 06/23/16 06/24/16 06/24/16 18:59 06:59 18:59 Intake Total 160 240 Output Total 7792 809 210 Balance -5 - Intake: Oral 160 240 Output: Drainage 25 6 10 HALIMA 25 6 10 Urine 850 Uretheral (Henry) 300 Stool 1200 800 200 Other: Voiding Method Indwelling Catheter Toilet Toilet # Voids 1 1 - Exam GENERAL: Well developed and in no acute distress. Pleasant. HEENT: No sclera icterus. Extraocular movements grossly intact. Moist buccal mucosa. Head is atraumatic, normocephalic. Hears conversational speech. No nasal drainage. NECK: Supple without lymphadenopathy. No JV distention. CHEST: Non-labored respirations and equal bilateral excursions. CARDIOVASCULAR: Regular rate and rhythm. Palpable 2+ radial pulses. ABDOMEN: Dressing clean dry and intact. HALIMA serosanguineous. Bilious output from ileostomy. MUSCULOSKELETAL: No clubbing, cyanosis or edema. NEUROLOGIC: No focal or lateralizing signs. PSYCH: Appropriate affect. Alert and oriented to person, place and time. - Labs CBC & Chem 7: 06/23/16 09:26 06/24/16 08:07 Labs: Abnormal Lab Results - Last 24 Hours (Table) 06/23/16 06/23/16 06/24/16 Range/Units 16:39 20:13 07:34 Sodium (137-145) mmol/L Carbon Dioxide (22-30) mmol/L BUN (7-17) mg/dL Creatinine (0.52-1.04) mg/dL Glucose (74-99) mg/dL POC Glucose (mg/dL) 227 H 197 H 208 H (75-99) mg/dL Calcium (8.4-10.2) mg/dL AST (14-36) U/L Total Protein (6.3-8.2) g/dL Albumin (3.5-5.0) g/dL 06/24/16 06/24/16 Range/Units 08:07 11:31 Sodium 135 L (137-145) mmol/L Carbon Dioxide 20 L (22-30) mmol/L BUN 37 H (7-17) mg/dL Creatinine 1.55 H (0.52-1.04) mg/dL Glucose 222 H (74-99) mg/dL POC Glucose (mg/dL) 314 H (75-99) mg/dL Calcium 8.1 L (8.4-10.2) mg/dL AST 13 L (14-36) U/L Total Protein 4.9 L (6.3-8.2) g/dL Albumin 2.5 L (3.5-5.0) g/dL Assessment and Plan (1) Chronic anemia Status: Acute (2) Uncontrolled diabetes mellitus type 2 without complications Status: Acute (3) Generalized abdominal pain Status: Acute (4) Small bowel obstruction Status: Acute (5) Hx of colectomy Status: Chronic (6) Hypertensive heart disease Status: Chronic Plan: 1. She has been changed to soft foods diet. 2. Patient is stable for transfer to rehab. 3. HALIMA drain to be continued and removed in the office.
[2016-06-24] MEDS: SODIUM CHLORIDE 0.9% 1,000 ML IV SCH (14:45)
[2016-06-24 14:49] LABS: Basophils % (A) 0 %; CH 28.3; CHCM 29.3; Eosinophils # (A) 0.1 k/uL (0-0.7); Eosinophils % (A) 1 %; HCT 29.4 % (34.0-46.0); HDW 2.37; HGB 8.7 gm/dL (11.4-16.0); Hypochromasia Marked; Luc # (Auto) 0.13; Luc % (Auto) 2; Lymphocytes # (A) 0.7 k/uL (1.0-4.8); Lymphocytes % (A) 8 %; MCH 28.6 pg (25.0-35.0); MCHC 29.5 g/dL (31.0-37.0); Mean Platelet Volume 8.4; Monocytes # (A) 0.4 k/uL (0-1.0); Monocytes % (A) 5 %; Neutrophils # (A) 6.4 k/uL (1.3-7.7); Neutrophils % (A) 83 %; RBC 3.03 m/uL (3.80-5.40); RDW 15.1 % (11.5-15.5); WBC 7.7 k/uL (3.8-10.6); WBC (Perox) 8.56
[2016-06-24 15:00] LABS: Magnesium 1.6 mg/dL (1.6-2.3); Phosphorous 3.6 mg/dL (2.5-4.5)
--- NOTE | 2016-06-24 16:10 | XR ---
EXAMINATION TYPE: XR chest 2V DATE OF EXAM: 06/24/2016 3:02 PM COMPARISON: 03/28/2016 HISTORY: 86-year-old female Tc of placement TECHNIQUE: Frontal and lateral views FINDINGS: Heart is mildly enlarged. Left anterior chest wall pacemaker generator with right atrial and right ve ntricular leads. Mild interstitial prominence is unchanged. No consolidation or significant pleural e ffusion. Suture anchors at the right shoulder from prior rotator cuff repair. IMPRESSION: Chronic changes with mild cardiomegaly. No acute process seen.
[2016-06-24 17:15] LABS: Glucose,Whole Blood 242 mg/dL (75-99)
[2016-06-24 20:45] LABS: Glucose,Whole Blood 249 mg/dL (75-99)
[2016-06-24] MEDS: DILTIAZEM CD 180 MG CAP.ER.24H PO SCH (21:12)
[2016-06-24 22:37] VITALS: RESP 18
[2016-06-24] MEDS: ONDANSETRON 4 MG/2 ML VIAL IVP PRN (23:12)
[2016-06-25] MEDS: metroNIDAZOLE-NS PMX 500 MG in SALINE 1 100ML.BAG IVPB SCH ×2 (00:18→07:41)
[2016-06-25] MEDS: HYDROmorphone 1 MG/ML 1 ML SYRINGE IVP PRN (00:18)
[2016-06-25] MEDS: LEVOTHYROXINE 50 MCG TAB PO SCH (05:40)
[2016-06-25 07:35] LABS: Glucose,Whole Blood 232 mg/dL (75-99)
[2016-06-25] MEDS: HEPARIN SODIUM,PORCINE 5,000 UNIT/ML 1 ML VIAL SQ SCH ×2 (07:42→22:50)
[2016-06-25] MEDS: LABETALOL 100 MG TAB PO SCH ×2 (07:43→22:49)
[2016-06-25] MEDS: hydrALAZINE HCL 25 MG TAB PO SCH ×3 (07:43→23:26)
[2016-06-25] MEDS: PANTOPRAZOLE 40 MG/10 ML VIAL IV SCH (07:43)
[2016-06-25] MEDS: SODIUM CHLORIDE 0.9% 1,000 ML IV SCH (07:47)
[2016-06-25] MEDS: INSULIN LISPRO (humaLOG) 300 UNIT/3 ML VIAL SQ SCH ×4 (07:48→22:50)
[2016-06-25] MEDS: HYDROcodone/APAP 5-325MG 1 EACH TAB PO PRN ×3 (08:43→22:49)
--- NOTE | 2016-06-25 08:57 | PN ---
DATE OF SERVICE: 06/24/2016 PRESENTING COMPLAINT: Increasing lower abdominal pain. This is an 86-year-old female who presented to the emergency department after being found to have a bowel obstruction. Patient is now status post incisional ventral hernia repair, extensive lysis of adhesions, placement of a HALIMA drain. Today the patient is awake and alert, sitting in a chair. NG tube has been removed. HALIMA drain continues with scant amount of sanguinous drainage. Abdominal binder in place. Colostomy bag is producing semiformed liquid brown stool. Review of systems done for constitutional, cardiovascular, gastrointestinal, pulmonary with relevant findings as above. CURRENT MEDICATIONS: Lipitor, Cardizem, heparin, Lantus, Humalog, Protonix. PHYSICAL EXAM: VITAL SIGNS: Temperature 98.2, pulse 65, respiratory rate 18, blood pressure 149/65, oxygen saturation 99% on room air. GENERAL APPEARANCE: Patient is sitting up in a chair. Continues to complain of mild abdominal pain; however, not unbearable. Patient is happy to be up, feeling better, anxious to get moving and seems ready for rehab. EYES: Pupils equal. Conjunctivae normal. NECK: JVD not raised. Mass not palpable. LUNGS: Diminished bilaterally. RESPIRATORY: Effort normal. Unlabored. ABDOMEN: Soft. Tender. Abdominal binder in place as well as HALIMA drain, which contains a scant amount of sanguinous drainage. Colostomy bag in the right lower abdominal wall producing liquid semiformed stool. PSYCHIATRY: Alert and oriented x3. Mood and affect noted. INVESTIGATIONS: White blood cell count 7.7, hemoglobin 8.7, platelet count 153. Sodium 135, potassium 4.7, BUN 37, creatinine 1.55. Calcium 8.1. ASSESSMENT: 1. Acute small bowel obstruction, present on admission, now resolved. 2. Incisional hernia, status post incisional hernia repair with lysis of adhesions on 06/21/2016, improving. 3. Coronary artery disease, stable. 4. Diabetes mellitus, type 2 on oral hypoglycemics. 5. Essential hypertension. 6. Hypothyroidism. 7. Coronary artery disease with prior history of stents. 8. Osteoarthritis of multiple joints, bilateral. 9. 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 PLAN: Continue current medication and treatment plan. Surgery recommends advancing the diet to a soft diet and Surgery also feels that she is stable for transfer to rehab. A HALIMA drain will be continued and removed as an outpatient. Repeat labs in the morning. Patient was seen and examined by nurse practitioner, Juliet Pena, and all elements of the case was discussed with attending, Dr. Nolasco.
[2016-06-25 09:41] LABS: Calcium 7.8 mg/dL (8.4-10.2); Potassium 4.9 mmol/L (3.5-5.1)
--- NOTE | 2016-06-25 10:48 | PN ---
DATE OF SERVICE: 06/24/2016 ATTENDING NOTE: The patient was seen and examined by me earlier today. I reviewed the note of my nurse practitioner, Ms. Pena and discussed with her. Patient is status post abdominal surgery for incisional hernia. Diet is being advanced. Stool in the colostomy bag. On exam, sitting on a chair, more cheerful. LUNGS: Clear to auscultation. CARDIOVASCULAR: First and second sounds normal. ABDOMEN: Soft, mild tenderness. Colostomy bag in place. PSYCH: Answering questions. INVESTIGATIONS: White count 7.7. Potassium 4.7. ASSESSMENT: 1. Acute renal failure, likely prerenal. 2. Small bowel obstruction, resolved followed by incisional hernia repair with lysis of adhesions. PLAN: Care was discussed with the patient. Diet is being advanced. Continues to improve. Will follow.
[2016-06-25 11:28] LABS: Glucose,Whole Blood 346 mg/dL (75-99)
--- NOTE | 2016-06-25 12:56 | P.DS ---
Providers Date of admission: 06/17/16 19:04 Expected date of discharge: 06/26/16 Attending physician: Hannah Mckeon Consults: 06/17/16 19:14 Consult Physician Routine Consulting Provider: Vin Nolasco Consult Reason/Comments: Medical Management Do you want consulting provider notified?: Yes Primary care physician: Stated None Hospital Course: 86-year-old female well known to Dr. Mckeon service who has had a prior history of a bowel obstruction in March 2016. Patient underwent a subtotal colectomy with an ileostomy.. Patient does have chronic anemia unknown cause patient did complete a lower and upper endoscopy . Patient reports prior to coming to [facility] the last 24 hours she has been experiencing acute abdominal distention patient states that she went to [place] emergency room. The diagnostic studies done at the facility did confirm a transition point along the left lower quadrant for bowel obstruction. A nasogastric tube was placed. Patient was transferred to [facility] for further medical management. Patient was monitored closely. The decision was to proceed with a laparoscopic ventral hernia repair with lysis of adhesions this was done on June 21. Patient's postop course was uneventful. Internal medicine service did monitor patient's blood sugars. Patient does have type 2 diabetes poorly controlled hemoglobin A1c was 9.5 patients diet was advanced and tolerated patient was ambulatory with the assist of 1. Patient and patient's family felt that the patient would benefit from subacute rehab. Patient was felt to be medically stable and appropriate to proceed with a discharge patient was [facility] in [place] felt to be medically stable the insurance issues for the precertification were approved for the transfer with admission to the subacute rehab Impression discharge diagnosis Type 2 diabetes uncontrolled hemoglobin A1c 9.5 insulin requiring Hypertension heart disease chronic History of a bowel obstruction underwent subtotal colectomy with an ileostomy March 2016 Present on admission abdominal pain likely due to small bowel obstruction Hyper and hypoglycemic episodes Chronic bilateral knee pain likely due to osteoarthritis Chronic anemia with no evidence of acute blood loss 06/21/2016 small bowel obstruction severe intra-abdominal adhesions open repair of incisional ventral hernia Chronic physical debility likely due to bilateral osteoarthritis knees The above dictated assessment and findings were discussed with dr linda Chaudhry and the plan of care have been dictated as directed. Morenita Patton nurse practitioner acting as a scribe for dr mckeon Plan - Discharge Summary New Discharge Prescriptions: HYDROcodone/APAP 5-325MG [Somerset 5-325] 1 each PO Q6HR PRN #30 tab PRN Reason: Moderate Pain metroNIDAZOLE [Flagyl] 500 mg PO Q8HR #21 tab Discharge Medication List Aspirin EC [Ecotrin Low Dose] 81 mg PO DAILY 03/28/16 [History] Cholecalciferol [Vitamin D3] 2,000 unit PO DAILY 03/28/16 [History] Diltiazem HCl [Cardizem Cd] 360 mg PO HS 03/28/16 [History] Ferrous Sulfate [Iron (65 MG Elemental)] 325 mg PO DAILY@1200 03/28/16 [History] Insulin Aspart [NovoLOG Flexpen] See Protocol SQ AC-TID 03/28/16 [History] Insulin Glargine,Hum.rec.anlog [Lantus Solostar] 12 unit SQ HS 03/28/16 [History ] Labetalol HCl [Trandate] 300 mg PO BID 03/28/16 [History] Levothyroxine Sodium [Synthroid] 50 mcg PO DAILY 03/28/16 [History] Vit A/Vit C/Vit E/Zinc/Copper [ICAPS SOFTGEL] 2 cap PO BID 03/28/16 [History] hydrALAZINE HCL [Apresoline] 50 mg PO BID 03/28/16 [History] Omeprazole 40 mg PO DAILY #30 capsule. 06/14/16 [Rx] Simvastatin [Zocor] 20 mg PO HS 06/17/16 [History] Solifenacin Succinate [Vesicare] 10 mg PO DAILY PRN 06/17/16 [History] Acetaminophen Tab [Tylenol] 650 mg PO Q6HR PRN tab 06/25/16 [Rx] HYDROcodone/APAP 5-325MG [Somerset 5-325] 1 each PO Q6HR PRN #30 tab 06/25/16 [Rx] metroNIDAZOLE [Flagyl] 500 mg PO Q8HR #21 tab 06/25/16 [Rx] Follow up Appointment(s)/Referral(s): Hannah Mckeon MD [STAFF PHYSICIAN] - 07/04/16 ([place]) Patient Instructions/Handouts: Brant-Morales Drain Care (GEN), Exploratory Laparotomy (DC), Abdominal Binder (DC) Activity/Diet/Wound Care/Special Instructions: No lifting over 4 pounds in 4 weeks. Wear abdominal binder on for comfort. surgical dressing will be changed when seen in Dr. Mckeon office Discharge Disposition: TRANSFER TO SNF/ECF
[2016-06-25 13:55] LABS: Basophils # (A) 0.1 k/uL (0-0.2); Basophils % (A) 1 %; CH 28.6; CHCM 30.4; Eosinophils # (A) 0.2 k/uL (0-0.7); Eosinophils % (A) 3 %; HCT 27.3 % (34.0-46.0); HGB 8.5 gm/dL (11.4-16.0); Hypochromasia Moderate; Luc # (Auto) 0.11; Luc % (Auto) 2; Lymphocytes # (A) 0.5 k/uL (1.0-4.8); Lymphocytes % (A) 8 %; MCH 29.3 pg (25.0-35.0); MCV 94.6 fL (80.0-100.0); Mean Platelet Volume 7.9; Monocytes # (A) 0.3 k/uL (0-1.0); Monocytes % (A) 5 %; Neutrophils % (A) 81 %; RBC 2.89 m/uL (3.80-5.40); RDW 14.7 % (11.5-15.5); WBC 6.2 k/uL (3.8-10.6); WBC (Perox) 6.04
[2016-06-25] MEDS: metroNIDAZOLE 500 MG TAB PO SCH ×2 (17:21→22:49)
[2016-06-25 17:45] LABS: Glucose,Whole Blood 350 mg/dL (75-99)
--- NOTE | 2016-06-25 18:56 | P.PN ---
Progress Note - Text Patient seen and evaluated. HALIMA discontinued. Midline dressing reveals no cellulitis or infection of wound. New dressing to be placed by nursing. Dressing to go to facility with patient. I will personally see patient in [place] next week at rehab/swing bed facility.
[2016-06-25 20:38] LABS: Glucose,Whole Blood 263 mg/dL (75-99)
[2016-06-25] MEDS ORDERED: FAMOTIDINE 20 MG TAB PO SCH (21:00)
[2016-06-25] MEDS ORDERED: INSULIN GLARGINE 100 UNIT/ML 10 ML VIAL SQ SCH (21:00)
[2016-06-25] MEDS: DILTIAZEM CD 180 MG CAP.ER.24H PO SCH (22:49)
--- NOTE | 2016-06-25 23:12 | PN ---
DATE OF SERVICE: 06/25/2016 PRESENTING COMPLAINT: Increased lower abdominal pain. This is an 86-year-old female who presented to the emergency department after being found to have a bowel obstruction. Patient is now status post incisional ventral hernia repair, extensive lysis of adhesions, placement of HALIMA drain. Today the patient is awake and alert, sitting in a chair. NG tube has been removed. HALIMA drain continues with a scant amount of sanguineous drainage. Abdominal binder in place. Colostomy bag producing liquid green-brown stool. Patient states she does not feel as good today as she did on previous days. Vital signs are stable. No acute distress noted or voiced. Review of systems done for constitutional, cardiovascular, gastrointestinal, pulmonary, with relevant findings as above. CURRENT MEDICATIONS: 1. Lipitor. 2. Cardizem. 3. Heparin. 4. Lantus. 5. Humalog. 6. Protonix. PHYSICAL EXAMINATION: VITAL SIGNS: Temperature 98.3, pulse 60, respirations 18, blood pressure 137/63, oxygen saturation 91% on nasal cannula 1 liter. GENERAL APPEARANCE: Patient sitting up in chair. Looks uncomfortable. Really wants to go back to bed. States she "doesn't feel very well today." Nothing specific other than incisional pain, which is expected. No real specific complaints as far as why she does not feel well. No distress noted or voiced. EYES: Pupils equal. Conjunctivae normal. JVD not raised. Mass not palpable. LUNGS: Sounds diminished bilaterally. Clear to auscultation, upper lobes. Respiratory effort normal, unlabored. CARDIOVASCULAR: First and second sounds noted. No edema. ABDOMEN: Soft, nontender. Liver and spleen not palpable. MUSCULOSKELETAL: Right knee very swollen and tender; causes patient a lot of difficulty while walking. Patient has known osteoarthritis in this knee. PSYCHIATRY: Alert and oriented x3. Mood and affect normal. INVESTIGATIONS: White blood cell count 6.2, hemoglobin 8.5, platelet count 174. Sodium 132, potassium 4.9. BUN 38, creatinine 1.48. Blood glucose 291. ASSESSMENT: 1. Acute small bowel obstruction, present on admission, now resolved. 2. Incisional hernia, status post incisional hernia repair with lysis of adhesions on 06/21/2016, improving. 3. Coronary artery disease, stable. 4. Diabetes mellitus, type 2, on oral hypoglycemics. 5. Essential hypertension. 6. Hypothyroidism. 7. Coronary artery disease with prior history of stents. 8. 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 9. 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 PLAN: Continue current medication and treatment plan. HALIMA drain will be continued and be removed as an outpatient. Patient is stable for transfer and is expected to be transferred on 06/26/2016 to [facility]. Patient was seen and examined by nurse practitioner, Juliet Pena, and all elements of the case were discussed with attending, Dr. Nolasco.
[2016-06-26] MEDS: LEVOTHYROXINE 50 MCG TAB PO SCH (06:25)
[2016-06-26] MEDS: HYDROcodone/APAP 5-325MG 1 EACH TAB PO PRN ×2 (06:25→13:48)
[2016-06-26 07:44] LABS: Glucose,Whole Blood 215 mg/dL (75-99)
[2016-06-26 08:20] VITALS: BP 132/63; PULSE 60; TEMP 98.2
[2016-06-26] MEDS: INSULIN LISPRO (humaLOG) 300 UNIT/3 ML VIAL SQ SCH ×2 (08:31→13:09)
[2016-06-26] MEDS: LABETALOL 100 MG TAB PO SCH (08:32)
[2016-06-26] MEDS: HEPARIN SODIUM,PORCINE 5,000 UNIT/ML 1 ML VIAL SQ SCH (08:32)
[2016-06-26] MEDS: metroNIDAZOLE 500 MG TAB PO SCH (08:32)
[2016-06-26] MEDS: hydrALAZINE HCL 25 MG TAB PO SCH (08:33)
[2016-06-26 09:32] LABS: Basophils # (A) 0.1 k/uL (0-0.2); Basophils % (A) 1 %; CH 28.7; CHCM 30.4; Eosinophils # (A) 0.1 k/uL (0-0.7); Eosinophils % (A) 2 %; HCT 29.9 % (34.0-46.0); HDW 2.52; HGB 9.1 gm/dL (11.4-16.0); Hypochromasia Moderate; Luc # (Auto) 0.16; Luc % (Auto) 3; Lymphocytes # (A) 0.6 k/uL (1.0-4.8); Lymphocytes % (A) 9 %; MCH 28.8 pg (25.0-35.0); MCHC 30.4 g/dL (31.0-37.0); MCV 94.7 fL (80.0-100.0); Mean Platelet Volume 7.5; Monocytes # (A) 0.4 k/uL (0-1.0); Monocytes % (A) 6 %; Neutrophils # (A) 5.3 k/uL (1.3-7.7); Neutrophils % (A) 80 %; RBC 3.15 m/uL (3.80-5.40); RDW 15.2 % (11.5-15.5); WBC 6.7 k/uL (3.8-10.6); WBC (Perox) 7.09
--- NOTE | 2016-06-26 09:34 | PN ---
DATE OF SERVICE: 06/25/2016 ATTENDING NOTE: Patient was seen and examined by me earlier today. Reviewed the note of my nurse practitioner, Ms Pena, discussed with her. Patient is status post surgery for abdominal incisional hernia. Diet is really improved. Stool in the colostomy bag. The patient has been out of bed. On exam, lungs are clear. CARDIOVASCULAR: First and second sounds are normal. ABDOMEN: Soft with colostomy bag and stool in place. PSYCH: Awake, answering questions, smiling. INVESTIGATIONS: Potassium 4.9. BUN 38, creatinine 1.48. Accu-Cheks are noted. ASSESSMENT: 1. Renal failure, probably chronic element possible stage III, probably nephrosclerosis. 2. Status post abdominal surgery for incisional hernia repair. PLAN: Patient is doing rather well. Continue current medication and treatment plan.
[2016-06-26 09:57] LABS: Calcium 8.4 mg/dL (8.4-10.2); Potassium 5.1 mmol/L (3.5-5.1)
[2016-06-26 11:29] LABS: Glucose,Whole Blood 309 mg/dL (75-99)
--- NOTE | 2016-06-26 12:14 | P.PN ---
Progress Note - Text Continue to wait for the precertification for the insurance to be cleared for patient to be transferred to a ECF facility closer to her home. Hemoglobin this morning is 9.1. This been no new events. Patient does wear the plan of care the Brant-Morales drain was discontinued. There is a midline dressing which showed no evidence of cellulitis there is no evidence of infection. A new dressing is to be placed by nursing the dressings to go to the facility with the patient the patient will be personally seen and [facility] next week at the rehab swelling bed facility by Dr. Tenorio
[2016-06-26] MEDS ORDERED: INSULIN LISPRO (humaLOG) 300 UNIT/3 ML VIAL SQ ONE (13:33)
--- NOTE | 2016-06-26 15:26 | P.PN ---
Progress Note - Text 86-year-old female being seen. Patient has been accepted at the [facility] facility for rehab currently waiting insurance clearance. Once that insurance clearance has been asked bed is available for the patient transferred to the ECF facility for rehab and [place] no new events. The above dictated assessment and findings were discussed with dr sharp . Impression and the plan of care have been dictated as directed. Morenita Patton nurse practitioner acting as a scribe for dr burkett
[2016-06-26 15:36] LABS: Glucose,Whole Blood 246 mg/dL (75-99)
--- NOTE | 2016-06-26 16:45 | PN ---
DATE OF SERVICE: 06/26/2016 PRESENTING COMPLAINT: Increased lower abdominal pain. This is an 86-year-old female who presented to the emergency department with a bowel obstruction and is status post incisional ventral hernia repair. Today the patient is awake, alert, sitting up in the chair, states she feels very well, feeling much better, walking in the halls, eating her meals. No nausea. No vomiting. Review of systems done for constitutional, cardiovascular, gastrointestinal, pulmonary, with relevant findings as above. CURRENT MEDICATIONS: 1. Lipitor. 2. Cardizem. 3. Heparin. 4. Lantus. 5. Humalog. 6. Protonix. PHYSICAL EXAMINATION: VITAL SIGNS: Temperature 98.2, pulse 60, respirations 18, blood pressure 132/63, oxygen saturation 90% on room air. GENERAL APPEARANCE: Patient sitting up, looking perky, smiling. No distress noted. EYES: Pupils equal. Conjunctivae normal. NECK: JVD not raised. Mass not palpable. LUNGS: Bilateral bases diminished. Upper lobes clear to auscultation. Transient cough noted. No secretions. RESPIRATORY: Effort normal, unlabored. CARDIOVASCULAR: First and second sounds noted. No edema. ABDOMEN: Soft. Tender to palpation. Midline incision covered with a dressing. No drainage noted. HALIMA drain removed yesterday by Surgery. Ileostomy producing liquid brown-green stool. PSYCHIATRY: Alert and oriented x3. Mood and affect normal. INVESTIGATIONS: White blood cell count 6.7, hemoglobin 9.1, platelet count 192. Sodium 132, potassium 5.1. BUN 38, creatinine 1.28. Blood glucose 215. ASSESSMENT: 1. Acute small bowel obstruction, present on admission, now resolved. 2. Incisional hernia, status post incisional hernia repair with lysis of adhesions on 06/21/2016, improving. 3. Coronary artery disease, stable. 4. Diabetes mellitus, type 2, on oral hypoglycemics. 5. Essential hypertension. 6. Hypothyroidism. 7. Coronary artery disease with prior history of stents. 8. 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 9. 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 PLAN: Continue current medication and treatment plan. HALIMA drain was removed by Surgery yesterday. Patient is stable for transfer and is expected to be transferred today, 06/26/2016, to [facility]. Patient was seen and examined by nurse practitioner, Juliet Pena, and all elements of the case were discussed with the attending, Dr. Nolasco.
[2016-06-26] MEDS ORDERED: INSULIN GLARGINE 100 UNIT/ML 10 ML VIAL SQ SCH (21:00)
--- NOTE | 2016-06-26 23:24 | PN ---
DATE OF SERVICE: 06/26/2016 ATTENDING NOTE: This patient was seen and examined by me earlier today. Patient is doing much better. Lying in bed. Tolerating a diet. Colostomy bag is working well. On examination, lungs are clear. CARDIOVASCULAR: First and second sounds normal. Abdomen is soft. Colostomy bag in place. PSYCH: Alert and oriented x3. INVESTIGATIONS: Potassium 5.1. BUN 38, creatinine 1.28. ASSESSMENT: 1. Status post incisional hernia repair. 2. Diabetes mellitus, type 2. PLAN: Patient's Lantus and NovoLog will be adjusted to patient's sugars. Antibiotics to continue.
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
== END 2016-06-26 16:35 | DRG 336 ==
LOC: 5MS5E 19:04
PROVIDERS: ADMIT Surgery Plastic and Reconstructive Surgery; ATTEND Surgery Plastic and Reconstructive Surgery
PROC: 0DNW0ZZ Release Peritoneum, Open Approach (ICD-10-PCS; 2016-06-21)
PROC: 0WJF4ZZ Inspection of Abdominal Wall, Percutaneous Endoscopic Approach (ICD-10-PCS; 2016-06-21)
PROC: 0WQF0ZZ Repair Abdominal Wall, Open Approach (ICD-10-PCS; principal; 2016-06-21 09:30)
DX: K43.0 Incisional hernia with obstruction, without gangrene (principal); I42.9 Cardiomyopathy, unspecified; N17.9 Acute kidney failure, unspecified; E11.65 Type 2 diabetes mellitus with hyperglycemia; E11.649 Type 2 diabetes mellitus with hypoglycemia without coma; D64.9 Anemia, unspecified; I13.10 Hypertensive heart and chronic kidney disease without heart failure, with stage 1 through stage 4 chronic kidney disease, or unspecified chronic kidney disease; K57.90 Diverticulosis of intestine, part unspecified, without perforation or abscess without bleeding; E03.9 Hypothyroidism, unspecified; E78.5 Hyperlipidemia, unspecified; I25.10 Atherosclerotic heart disease of native coronary artery without angina pectoris; R32 Unspecified urinary incontinence; N18.3 Chronic kidney disease, stage 3 (moderate); M15.9 Polyosteoarthritis, unspecified; H35.30 Unspecified macular degeneration; Z79.4 Long term (current) use of insulin; Z79.82 Long term (current) use of aspirin; Z79.899 Other long term (current) drug therapy; Z87.891 Personal history of nicotine dependence; Z95.0 Presence of cardiac pacemaker; Z95.5 Presence of coronary angioplasty implant and graft; Z93.2 Ileostomy status; Z88.1 Allergy status to other antibiotic agents; Z88.5 Allergy status to narcotic agent; Z88.0 Allergy status to penicillin
CPT/HCPCS: 71020; 74020; 80048; 80051; 80053; 82150; 82607; 82728; 82746; 83036; 83540; 83550; 83690; 83735; 84100; 84425; 85025; 85027; 86850; 86900; 86901; 93005; 94760

== ENCOUNTER 2016-07-30 00:56 | Observation (INO) | payer MEDICARE ==
[2016-07-30] MEDS ORDERED: ONDANSETRON 4 MG/2 ML VIAL IVP PRN (05:58)
[2016-07-30] MEDS ORDERED: HYDROmorphone 1 MG/ML 1 ML SYRINGE IVP PRN (05:58)
[2016-07-30 07:09] LABS: Glucose,Whole Blood 176 mg/dL (75-99)
[2016-07-30 07:12] LABS: Basophils # (A) 0.1 k/uL (0-0.2); Basophils % (A) 2 %; CH 29.8; CHCM 32.6; Eosinophils # (A) 0.1 k/uL (0-0.7); Eosinophils % (A) 3 %; HCT 31.6 % (34.0-46.0); HDW 2.56; HGB 10.1 gm/dL (11.4-16.0); Luc # (Auto) 0.18; Luc % (Auto) 4; Lymphocytes # (A) 1.1 k/uL (1.0-4.8); Lymphocytes % (A) 23 %; MCH 29.3 pg (25.0-35.0); MCHC 31.9 g/dL (31.0-37.0); Mean Platelet Volume 7.4; Monocytes # (A) 0.3 k/uL (0-1.0); Monocytes % (A) 5 %; Neutrophils # (A) 3.2 k/uL (1.3-7.7); Neutrophils % (A) 65 %; RBC 3.44 m/uL (3.80-5.40); RDW 14.9 % (11.5-15.5); WBC (Perox) 5.09
[2016-07-30 07:21] LABS: Potassium 5.1 mmol/L (3.5-5.1); Total Bilirubin 0.3 mg/dL (0.2-1.3); Total Protein 5.6 g/dL (6.3-8.2)
[2016-07-30] MEDS: INSULIN LISPRO (humaLOG) 300 UNIT/3 ML VIAL SQ SCH ×3 (08:16→18:24)
--- NOTE | 2016-07-30 08:36 | XR ---
EXAMINATION TYPE: XR abdomen 2V DATE OF EXAM ORDERED: 07/30/2016 HISTORY: Abdominal pain. COMPARISON: Previous study dated 06/17/2016. FINDINGS: There is a bipolar transvenous pacemaker in place. The leads appear unchanged in position. Lung bases are clear. There is an embolization coil projecting over the right upper quadrant. There are scattered air-fluid levels within the abdomen. There is no evidence of obstruction or free air. There are stable phleboliths within the pelvis. IMPRESSION: 1. FINDINGS CONSISTENT WITH EARLY ILEUS. 2. POSTSURGICAL CHANGE.
[2016-07-30] MEDS: SODIUM CHLORIDE 0.9% 1,000 ML IV SCH ×2 (09:22→22:26)
[2016-07-30 11:58] LABS: Glucose,Whole Blood 136 mg/dL (75-99)
--- NOTE | 2016-07-30 15:54 | P.GSHP ---
History of Present Illness H&P Date: 07/30/16 86-year-old female was transferred from [facility] after patient stated that she did present to the hospital to be evaluated for sudden onset of abdominal pain with nausea vomiting poor appetite. Patient stated the pain came in waves described as sharp felt nauseated had dry heaves. Patient stated there was no change in the stoma output. Patient lives with a granddaughter reported that the stool was thicker than normal Patient stated seen in the emergency room and advised her to come to [facility] to be evaluated patient had a abdominal x-ray on July 30 it did show findings consistent with early ileus with postsurgical changes. Patient states there had been some abdominal discomfort described as a cramping sensation states the symptoms came on suddenly after eating . Patient is well known to Dr. Vel hillman. Patient was just discharged on 06/21/2016. At that hospitalization the patient was treated for diagnostic laparoscopic open extensive lysis of adhesions and a repair of a ventral hernia without mesh patient was able to be within 72 hours postprocedure stated that when she was seen in the emergency room at [facility] "when they pushed on my abdomen a lot of stool came out of the ostomy my abdomen felt better" patient currently has an ostomy in the right lower quadrant stoma is pink there is a moderate amount of liquids stool brown Patient did have a CAT scan of the abdomen pelvis without IV contrast done at [facility] on July 29 Patient states she been eating well since coming home from the rehab center. Patient states on Friday evening she had Lao food. She stated that on the day of the event she had eaten potato soup. Patient states she's been avoiding fatty foods. Patient states when she was in the [facility] emergency room that there was some thick stool coming out of the stoma. Patient stated when they pressed on her abdomen released a lot of gas the large amount of liquid stool that filled the bag which there was a noted improvement in the abdominal pain was less tender. - Review of Systems Comment: Essentially unremarkable except as mentioned in the present illness Past Medical History Past Medical History: Diabetes Mellitus, Hyperlipidemia, Hypertension, Thyroid Disorder Additional Past Medical History / Comment(s): recent admission in Mar for "blockage" of ileostomy, has abd. hernia, urinary incontinence, vertigo, diverticulosis, chronic anemia History of Any Multi-Drug Resistant Organisms: None Reported Past Surgical History: Back Surgery, Bowel Resection, Heart Catheterization With Stent, Pacemaker Additional Past Surgical History / Comment(s): Subtotal colectomy with ileostomy 2013, EGD and colonoscopy 06/2016 Past Anesthesia/Blood Transfusion Reactions: No Reported Reaction Date of Last Stent Placement:: 2006 Type of Cardiac Device: Permanent Pacemaker Device Placement Date:: 2015 Past Psychological History: No Psychological Hx Reported Smoking Status: Former smoker Past Alcohol Use History: None Reported Additional Past Alcohol Use History / Comment(s): quit smoking 10 yrs., smoked 1ppd for >50 yrs. Past Drug Use History: None Reported - Past Family History Mother Family Medical History: Coronary Artery Disease (CAD), Diabetes Mellitus Father Family Medical History: Coronary Artery Disease (CAD) Medications and Allergies Home Medications Medication Instructions Recorded Confirmed Type Aspirin EC [Ecotrin Low Dose] 81 mg PO DAILY 03/28/16 07/30/16 History Cholecalciferol [Vitamin D3] 2,000 unit PO DAILY 03/28/16 07/30/16 History Diltiazem HCl [Cardizem Cd] 360 mg PO HS 03/28/16 07/30/16 History Ferrous Sulfate [Iron (65 MG 325 mg PO DAILY@1200 03/28/16 07/30/16 History Elemental)] Insulin Aspart [NovoLOG Flexpen] See Protocol SQ AC-TID 03/28/16 07/30/16 History Labetalol HCl [Trandate] 300 mg PO BID 03/28/16 07/30/16 History Levothyroxine Sodium [Synthroid] 50 mcg PO DAILY 03/28/16 07/30/16 History Vit A/Vit C/Vit E/Zinc/Copper 2 cap PO BID 03/28/16 07/30/16 History [ICAPS SOFTGEL] hydrALAZINE HCL [Apresoline] 50 mg PO TID 03/28/16 07/30/16 History Simvastatin [Zocor] 20 mg PO HS 06/17/16 07/30/16 History Solifenacin Succinate [Vesicare] 10 mg PO DAILY PRN 06/17/16 07/30/16 History Insulin Glargine [Lantus] 14 unit SQ HS 07/30/16 07/30/16 History Allergies Allergy/AdvReac Type Severity Reaction Status Date / Time hydrocodone Allergy Unknown Verified 06/21/16 07:54 Penicillins Allergy Anaphylaxis Verified 06/21/16 07:54 streptomycin Allergy Rash/Hives Verified 06/21/16 07:54 Surgical - Exam Vital Signs Temp Pulse Resp BP Pulse Ox 98 F 63 16 122/53 94 L 07/30/16 02:26 07/30/16 02:26 07/30/16 02:26 07/30/16 02:26 07/30/16 02:26 GENERAL APPEARANCE: 86 year old female patient is alert, oriented, in no acute distress. VITAL SIGNS: Reviewed HEENT: Head is normocephalic and atraumatic. Pupils are equal and reactive. The nares are patent. Oropharynx is clear without lesions. NECK: Supple without lymphadenopathy. Traches midline. HEART: S1, S2. Regular rate and rhythm. Denying chest pain LUNGS: No crackles or wheezes are heard. Adequate air movement bilaterally on room air ABDOMEN: Soft, ostomy right lower quadrant moderate amount of liquid brown stool in ostomy bag nontender, nondistended with good bowel sounds. No peritoneal signs. No palpable organomegaly or masses. Well-healed surgical scar no redness EXTREMITIES: Normal skin color and turgor. No cyanosis, rash, ulceration, clubbing or edema. Radial pedal pulses are 2/4 bilaterally. NEUROLOGICAL: No focal deficits. Strength and sensation are grossly intact. Results - Labs 07/30/16 06:48 07/30/16 06:48 Abnormal Lab Results - Last 24 Hours (Table) 07/30/16 07/30/16 07/30/16 Range/Units 06:48 06:48 07:08 RBC 3.44 L (3.80-5.40) m/uL Hgb 10.1 L (11.4-16.0) gm/dL Hct 31.6 L (34.0-46.0) % Sodium 135 L (137-145) mmol/L Chloride 109 H (98-107) mmol/L Carbon Dioxide 17 L (22-30) mmol/L BUN 33 H (7-17) mg/dL Creatinine 1.16 H (0.52-1.04) mg/dL Glucose 165 H (74-99) mg/dL POC Glucose (mg/dL) 176 H (75-99) mg/dL Total Protein 5.6 L (6.3-8.2) g/dL Albumin 3.0 L (3.5-5.0) g/dL 07/30/16 Range/Units 11:53 RBC (3.80-5.40) m/uL Hgb (11.4-16.0) gm/dL Hct (34.0-46.0) % Sodium (137-145) mmol/L Chloride (98-107) mmol/L Carbon Dioxide (22-30) mmol/L BUN (7-17) mg/dL Creatinine (0.52-1.04) mg/dL Glucose (74-99) mg/dL POC Glucose (mg/dL) 136 H (75-99) mg/dL Total Protein (6.3-8.2) g/dL Albumin (3.5-5.0) g/dL Diabetes panel 07/30/16 Range/Units 06:48 Sodium 135 L (137-145) mmol/L Potassium 5.1 (3.5-5.1) mmol/L Chloride 109 H (98-107) mmol/L Carbon Dioxide 17 L (22-30) mmol/L BUN 33 H (7-17) mg/dL Creatinine 1.16 H (0.52-1.04) mg/dL Glucose 165 H (74-99) mg/dL Calcium 9.0 (8.4-10.2) mg/dL AST 14 (14-36) U/L ALT 26 (9-52) U/L Alkaline Phosphatase 65 (38-126) U/L Total Protein 5.6 L (6.3-8.2) g/dL Albumin 3.0 L (3.5-5.0) g/dL Calcium panel 07/30/16 Range/Units 06:48 Calcium 9.0 (8.4-10.2) mg/dL Albumin 3.0 L (3.5-5.0) g/dL Pituitary panel 07/30/16 Range/Units 06:48 Sodium 135 L (137-145) mmol/L Potassium 5.1 (3.5-5.1) mmol/L Chloride 109 H (98-107) mmol/L Carbon Dioxide 17 L (22-30) mmol/L BUN 33 H (7-17) mg/dL Creatinine 1.16 H (0.52-1.04) mg/dL Glucose 165 H (74-99) mg/dL Calcium 9.0 (8.4-10.2) mg/dL Adrenal panel 07/30/16 Range/Units 06:48 Sodium 135 L (137-145) mmol/L Potassium 5.1 (3.5-5.1) mmol/L Chloride 109 H (98-107) mmol/L Carbon Dioxide 17 L (22-30) mmol/L BUN 33 H (7-17) mg/dL Creatinine 1.16 H (0.52-1.04) mg/dL Glucose 165 H (74-99) mg/dL Calcium 9.0 (8.4-10.2) mg/dL Total Bilirubin 0.3 (0.2-1.3) mg/dL AST 14 (14-36) U/L ALT 26 (9-52) U/L Alkaline Phosphatase 65 (38-126) U/L Total Protein 5.6 L (6.3-8.2) g/dL Albumin 3.0 L (3.5-5.0) g/dL Assessment and Plan Plan: Impression Present on admission abdominal pain with abdominal cramping possible early small bowel obstruction not ruled out clinically getting better patient has stool in her bag on admission nausea improved History of 06/21/2016 diagnostic laparoscopic open extensive lysis of adhesions with repair of a ventral hernia without mesh History of multiple small bowel adhesions Previous history of a subtotal colectomy Type 2 diabetes insulin requiring Hypertension hypertensive heart disease Hypothyroid Abdominal x-ray findings consistent with early ileus resolving Plan IV hydration as ordered Resume home meds as appropriate Monitor blood sugars adjust the Lantus as indicated DVT and GI prophylaxis Clear liquid diet Send stool for C. diff follow up on results further recommendations pending will follow The above dictated assessment and findings were discussed with dr Crowder Impression and the plan of care have been dictated as directed. Morenita Patton nurse practitioner acting as a scribe for Dr. Crowder
[2016-07-30 16:11] VITALS: PULSE 60
[2016-07-30 17:02] LABS: Glucose,Whole Blood 118 mg/dL (75-99)
[2016-07-30] MEDS ORDERED: OXYBUTYNIN XL 5 MG TAB.ER.24 PO PRN (17:03)
[2016-07-30] MEDS: ENOXAPARIN 40 MG/0.4 ML SYRINGE SQ SCH (18:27)
[2016-07-30] MEDS: hydrALAZINE HCL 25 MG TAB PO SCH ×2 (18:27→21:40)
[2016-07-30] MEDS: PANTOPRAZOLE 40 MG TABLET PO SCH (18:28)
[2016-07-30] MEDS: LEVOTHYROXINE 50 MCG TAB PO SCH (18:28)
--- NOTE | 2016-07-30 19:50 | CONS ---
DATE OF CONSULTATION: 07/30/2016. REASON FOR CONSULTATION: Medical management requested Dr. Crowder. CONSULTATION: This is a very pleasant 86-year-old patient who was here last in the hospital. The patient is 86 years of age and follows with Dr. Almazan. Chronic stable medical conditions include diabetes, hypertension, hyperlipidemia, coronary artery disease with prior history of stent. Patient had a subtotal colectomy with ileostomy and in June of this year was found to have a bowel obstruction. Patient at the baseline only empties ileostomy bag over 3 times a day. Patient on 06/21/2016 underwent a diagnostic laparoscopy and had extensive lysis of adhesions carried out over 2-1/2 hours and also repair off her incisional ventral hernia. Yesterday patient presented to [facility] with increasing nausea and abdominal pain. The patient describes the ER physician pushed on abdomen pretty hard and a lot of stool squirted out of the colostomy bag. Because of her history patient was transferred down here for further evaluation by Dr. Crowder to whom the patient is well known. Patient overall is feeling better. Nausea is greatly relieved and had some stool in the bag since then. Patient has been n.p.o. Denies any fever. REVIEW OF SYSTEMS: CONSTITUTIONAL: Tired. HEENT: None. RESPIRATORY: None. CARDIOVASCULAR: None. GASTROINTESTINAL: As above. GENITOURINARY: None. MUSCULOSKELETAL: Pain in multiple joints. DERMATOLOGICAL: None. HEMATOLOGICAL: None. LYMPHATIC: None. PSYCHIATRY: None. NEUROLOGICAL: None. PAST MEDICAL HISTORY: History of diabetes mellitus type 2, hypertension, hypothyroid, coronary artery disease and stent in 2000, vertigo. PAST SURGICAL HISTORY: Coronary stent, subtotal colectomy with ileostomy in 2013, back surgery, cardiac cath with stent, pacemaker. SOCIAL HISTORY: Lives by herself. No alcohol. Smoked a pack a day for 50 years; stopped over 10 years ago. FAMILY HISTORY: Coronary artery disease and diabetes. HOME MEDICATIONS: 1. Hydralazine 50 mg p.o. b.i.d. 2. I-caps 2 capsules p.o. b.i.d. 3. ( ) 800 mg daily p.r.n. 4. Zocor 20 mg p.o. q.h.s. 5. ( ) 40 mg a day. 6. Synthroid 50 mcg a day. 7. Labetalol 300 mg p.o. daily. 8. Lantus 50 units subcu q.h.s. 9. NovoLog FlexPen a.c. t.i.d. 10. [place] 5, 1 tablet q.6 p.r.n. 11. Iron 65 mg daily at noon. 12. Cardizem CD 360 mg q.h.s. 13. Vitamin D3 2000 p.o. daily. 14. Aspirin 81 mg p.o. daily. 15. Tylenol 650 mg q.6 p.r.n. ALLERGIES: HYDROCODONE, PENICILLIN, STREPTOMYCIN. On examination, temperature 98, pulse 60, respirations 16, blood pressure 100/53, the repeat 134/71, pulse ox 94% on room air. GENERAL APPEARANCE: Average build, lying in bed, not in distress. EYES: Pupils equal. Conjunctivae normal. HEENT: External appearance of nose and ears normal. Oral cavity normal. Oral cavity dry. NECK: JVD not raised. Mass not palpable. RESPIRATORY: Effort normal. LUNGS: Slightly decreased breath sounds. CARDIOVASCULAR: First and second sounds normal. No edema. ABDOMEN: Ileostomy bag in place. Some stool is present. Soft. Minimal tenderness. Liver and spleen not palpable. LYMPHATIC: No lymph nodes palpable in the neck and axilla. PSYCHIATRY: Alert and oriented x3. Mood and affect, ( ) appearing. MUSCULOSKELETAL: Evidence of osteoarthritis of multiple joints. NEUROLOGICAL: Pupils equal. Cranial nerves grossly intact. Power and sensation grossly intact. INVESTIGATIONS: White count 5, hemoglobin 10.1. Potassium 5.1. BUN 33, creatinine 1.16. Accu-Cheks are noted Abdominal x-ray, some early ileus, ( ) levels. ASSESSMENT: 1. Possibly early small bowel obstruction/ileus, which clinically seems to be getting better as the patient has stool in her bag and also had stool at other hospital. Nausea is improved. 2. Diabetes mellitus type 2, on hypoglycemic. 3. Essential hypertension. 4. Hypothyroidism. 5. Coronary artery disease with prior history of stent. 6. Primary osteoarthritis in multiple joints, bilateral. 7. 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 PLAN: Patient already tolerating clear liquids. Will resume home medications. Hold off all the supplements. Diet to be advanced as per General Surgery. Care was discussed with the patient and Morenita, ENGRAVER WOOD from Surgery and Dr. Crowder. Will also add some Lovenox for DVT prophylaxis. Will follow. Thank you, Dr. Crowder.
[2016-07-30 20:22] LABS: Glucose,Whole Blood 146 mg/dL (75-99)
[2016-07-30] MEDS ORDERED: INSULIN GLARGINE 100 UNIT/ML 10 ML VIAL SQ SCH (21:00)
[2016-07-30] MEDS ORDERED: DILTIAZEM CD 180 MG CAP.ER.24H PO SCH (21:00)
[2016-07-30] MEDS ORDERED: ATORVASTATIN 10 MG TAB PO SCH (21:00)
[2016-07-30] MEDS: LABETALOL 100 MG TAB PO SCH (21:40)
[2016-07-31 02:05] VITALS: RESP 16
[2016-07-31] MEDS: LEVOTHYROXINE 50 MCG TAB PO SCH (05:58)
[2016-07-31 07:11] LABS: Glucose,Whole Blood 98 mg/dL (75-99)
[2016-07-31 07:34] VITALS: BP 184/78; TEMP 97.2
[2016-07-31] MEDS: INSULIN LISPRO (humaLOG) 300 UNIT/3 ML VIAL SQ SCH ×2 (08:25→13:02)
[2016-07-31] MEDS: ENOXAPARIN 40 MG/0.4 ML SYRINGE SQ SCH (08:29)
[2016-07-31] MEDS: LABETALOL 100 MG TAB PO SCH (08:30)
[2016-07-31] MEDS: PANTOPRAZOLE 40 MG TABLET PO SCH (08:31)
[2016-07-31] MEDS ORDERED: hydrALAZINE HCL 50 MG TAB PO SCH (09:00)
[2016-07-31 11:20] LABS: Glucose,Whole Blood 155 mg/dL (75-99)
[2016-07-31 11:27] VITALS: BMI 26.8
--- NOTE | 2016-07-31 11:56 | P.DS ---
Providers Date of admission: 07/30/16 02:20 Expected date of discharge: 07/31/16 Attending physician: Hannah Crowder Consults: 07/30/16 06:01 Consult Physician Urgent Consulting Provider: Vin Nolasco Consult Reason/Comments: Medical Management Do you want consulting provider notified?: Yes Primary care physician: Stated None Hospital Course: 86-year-old female was transferred from [facility] after patient stated that she did present to the hospital to be evaluated for sudden onset of abdominal pain with nausea vomiting poor appetite. Patient stated the pain came in waves described as sharp felt nauseated had dry heaves. Patient stated there was no change in the stoma output. Patient lives with a granddaughter reported that the stool was thicker than normal Patient stated seen in the emergency room and advised her to come to [facility] to be evaluated patient had a abdominal x-ray on July 30 it did show findings consistent with early ileus with postsurgical changes. Patient states there had been some abdominal discomfort described as a cramping sensation states the symptoms came on suddenly after eating . Patient is well known to Dr. Crowder service. Patient was just discharged on 06/21/2016. At that hospitalization the patient was treated for diagnostic laparoscopic open extensive lysis of adhesions and a repair of a ventral hernia without mesh patient was able to be within 72 hours postprocedure stated that when she was seen in the emergency room at [facility] "when they pushed on my abdomen a lot of stool came out of the ostomy my abdomen felt better" patient currently has an ostomy in the right lower quadrant stoma is pink there is a moderate amount of liquids stool brown Patient did have a CAT scan of the abdomen pelvis without IV contrast done at [facility] on July 29 Patient states she been eating well since coming home from the rehab center. Patient states on Friday evening she had Martiniquais food. She stated that on the day of the event she had eaten potato soup. Patient states she's been avoiding fatty foods. Patient states when she was in the [place] emergency room that there was some thick stool coming out of the stoma. Patient stated when they pressed on her abdomen released a lot of gas the large amount of liquid stool that filled the bag which there was a noted improvement in the abdominal pain was less tender. Patient symptoms significantly improved patient was having moderate amount of soft stool from the ostomy diet was advanced additionally patient was seen by dietitian was provided information in writing and verbal on a low-fat diet patient was felt to be clinically stable and appropriate to proceed with a discharge to home - Impression discharge diagnosis Present on admission abdominal pain with abdominal cramping possible early small bowel obstruction not ruled out clinically getting better patient stool in her bag on admission nausea improved History of 06/21/2016 diagnostic laparoscopic open extensive lysis of adhesions with repair of a ventral hernia without mesh History of multiple small bowel adhesions Previous history of a subtotal colectomy Type 2 diabetes insulin requiring Hypertension hypertensive heart disease Hypothyroid Abdominal x-ray findings consistent with early ileus resolving The above dictated assessment and findings were discussed with dr Vel Chaudhry and the plan of care have been dictated as directed. Morenita Patton nurse practitioner acting as a scribe for Dr. Crowder Plan - Discharge Summary New Discharge Prescriptions: Continue Diltiazem HCl [Cardizem Cd] 360 mg PO HS Insulin Aspart [NovoLOG Flexpen] See Protocol SQ AC-TID hydrALAZINE HCL [Apresoline] 50 mg PO TID Vit A/Vit C/Vit E/Zinc/Copper [ICAPS SOFTGEL] 2 cap PO BID Labetalol HCl [Trandate] 300 mg PO BID Cholecalciferol [Vitamin D3] 2,000 unit PO DAILY Levothyroxine Sodium [Synthroid] 50 mcg PO DAILY Aspirin EC [Ecotrin Low Dose] 81 mg PO DAILY Ferrous Sulfate [Iron (65 MG Elemental)] 325 mg PO DAILY@1200 Omeprazole 40 mg PO DAILY #30 capsule. Simvastatin [Zocor] 20 mg PO HS Solifenacin Succinate [Vesicare] 10 mg PO DAILY PRN PRN Reason: OVERACTIVE BLADER Acetaminophen Tab [Tylenol] 650 mg PO Q6HR PRN tab PRN Reason: Fever and/ or Mild Pain Insulin Glargine [Lantus] 14 unit SQ HS Discharge Medication List Aspirin EC [Ecotrin Low Dose] 81 mg PO DAILY 03/28/16 [History] Cholecalciferol [Vitamin D3] 2,000 unit PO DAILY 03/28/16 [History] Diltiazem HCl [Cardizem Cd] 360 mg PO HS 03/28/16 [History] Ferrous Sulfate [Iron (65 MG Elemental)] 325 mg PO DAILY@1200 03/28/16 [History] Insulin Aspart [NovoLOG Flexpen] See Protocol SQ AC-TID 03/28/16 [History] Labetalol HCl [Trandate] 300 mg PO BID 03/28/16 [History] Levothyroxine Sodium [Synthroid] 50 mcg PO DAILY 03/28/16 [History] Vit A/Vit C/Vit E/Zinc/Copper [ICAPS SOFTGEL] 2 cap PO BID 03/28/16 [History] hydrALAZINE HCL [Apresoline] 50 mg PO TID 03/28/16 [History] Omeprazole 40 mg PO DAILY #30 capsule. 06/14/16 [Rx] Simvastatin [Zocor] 20 mg PO HS 06/17/16 [History] Solifenacin Succinate [Vesicare] 10 mg PO DAILY PRN 06/17/16 [History] Acetaminophen Tab [Tylenol] 650 mg PO Q6HR PRN tab 06/25/16 [Rx] Insulin Glargine [Lantus] 14 unit SQ HS 07/30/16 [History] Follow up Appointment(s)/Referral(s): Hannah Crowder MD [STAFF PHYSICIAN] - 1 Week Activity/Diet/Wound Care/Special Instructions: Low-fat diet Discharge Disposition: HOME SELF-CARE
[2016-08-01] MEDS ORDERED: ENOXAPARIN 30 MG/0.3 ML SYRINGE SQ SCH (09:00)
--- NOTE | 2016-08-02 09:27 | PN ---
DATE OF SERVICE: 07/31/2016 This 86-year-old woman who was admitted with early small bowel obstruction, is improved significantly. Surgery is following the patient closely. The patient had abdominal cramping. No chest pain. No palpitation. No fever. On exam, alert and oriented x3. Pulse is 60, blood pressure 130/65, respirations 16, temperature 98 degrees, pulse ox 98% on room air. HEENT: Conjunctivae normal. NECK: No jugular venous distention. CARDIOVASCULAR: S1 and S2, muffled. RESPIRATORY: Breath sounds diminished at the bases. No rhonchi. ABDOMEN: Soft, nontender. No mass palpable. LEGS: No edema, no swelling. NERVOUS SYSTEM: No focal deficits. LABS: Glucose 147, other labs are noted. ASSESSMENT: 1. Possible early partial small bowel obstruction, improving. 2. Diabetes mellitus type 2 on hypoglycemic drugs. 3. History of hypertension. 4. History of hypothyroidism. 5. History of coronary artery disease and stent. 6. History of primary degenerative joint disease of multiple joints bilaterally. 7. 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 RECOMMENDATIONS AND DISCUSSION: I recommend to continue the current medications, continue monitoring and symptomatic treatment. Otherwise, at this time I recommend to follow the patient closely along with Surgery. Otherwise, the rest of the recommendations per Surgery. Resume the home medication after discharge. Follow closely with primary physician in the outpatient setting.
== END 2016-07-31 14:05 | disposition home or self-care (01) ==
LOC: 3SUR 02:20
PROVIDERS: ADMIT Surgery Plastic and Reconstructive Surgery; ATTEND Surgery Plastic and Reconstructive Surgery
DX: R10.9 Unspecified abdominal pain (principal); K66.0 Peritoneal adhesions (postprocedural) (postinfection); E11.9 Type 2 diabetes mellitus without complications; I11.9 Hypertensive heart disease without heart failure; E03.9 Hypothyroidism, unspecified; E78.5 Hyperlipidemia, unspecified; K56.7 Ileus, unspecified; D64.9 Anemia, unspecified; K57.90 Diverticulosis of intestine, part unspecified, without perforation or abscess without bleeding; R32 Unspecified urinary incontinence; R42 Dizziness and giddiness; Z79.4 Long term (current) use of insulin; Z79.899 Other long term (current) drug therapy; Z79.82 Long term (current) use of aspirin; Z98.890 Other specified postprocedural states; Z90.49 Acquired absence of other specified parts of digestive tract; Z95.0 Presence of cardiac pacemaker; Z95.5 Presence of coronary angioplasty implant and graft; Z87.891 Personal history of nicotine dependence; Z82.49 Family history of ischemic heart disease and other diseases of the circulatory system; Z83.3 Family history of diabetes mellitus; Z93.2 Ileostomy status
CPT/HCPCS: 96372 ×2; 80053; 85025; 87324; 74020; G0378 ×2; G0379; J1650 ×2

== ENCOUNTER 2018-09-17 00:43 | Inpatient (IN) | payer MEDICARE ==
[2018-09-17] MEDS ORDERED: ONDANSETRON 4 MG/2 ML VIAL IVP PRN (01:57)
[2018-09-17] MEDS ORDERED: NALOXONE 0.4 MG/ML 1 ML VIAL IV PRN (01:57)
--- NOTE | 2018-09-17 01:57 | ED ---
General Adult HPI - General Chief complaint: Abdominal Pain Stated complaint: abd pain Time Seen by Provider: 09/17/18 01:05 Source: patient, EMS Mode of arrival: EMS - History of Present Illness Initial comments: Dictation was produced using [employer] dictation software. please excuse any grammatical, word or spelling errors. Chief Complaint: 88-year-old female presents to our emergency department via transfer from [facility] for SBO. History of Present Illness: Patient is a 8-year-old female she has multiple comorbidities. Patient had an ostomy done several months ago. She presents today via EMS from [facility] for small bowel obstruction. Patient states she was having ostomy site pain for approximately one day. She noticed that she had decreased output from her ostomy. However she denies any abdominal pain. Patient states she has mild nausea. She was worked up at [facility] and was transferred to our facility for further care. Allegedly patient's last meal procedure was performed. Our hospital by Dr. Tenorio. Computed tomography scan was obtained showing small bowel obstruction. CT imaging study was obtained showing small bowel a prescription. She states she feels nauseated. She denies any abdominal pain. Family is concerned that there is a lot of output coming from her ostomy. The ROS documented in this emergency department record has been reviewed and confirmed by me. Those systems with pertinent positive or negative responses have been documented in the HPI. All other systems are other negative and/or noncontributory. PHYSICAL EXAM: General Impression: Alert and oriented x3, acute distress. Nausea. HEENT: Normocephalic atraumatic, extra-ocular movements intact, pupils equal and reactive to light bilaterally, mucous membranes moist. Cardiovascular: Heart regular rate and rhythm, S1&S2 audible, no murmurs, rubs or gallops Chest: Lungs clear to auscultation bilaterally, no rhonchi, no wheeze, no rales Abdomen: Bowel sounds present, abdomen soft, non-tender, non-distended, no organomegaly Musculoskeletal: Pulses present and equal in all extremities, no peripheral e matt Motor: no focal deficits noted Neurological: CN II-XII grossly intact, no focal motor or sensory deficits noted Skin: Intact with no visualized rashes Psych: Normal affect and mood ED course: 88-year-old female presents with mild bowel obstruction. She was seen and evaluated initially at [facility]. He did bedside however she is otherwise well-appearing. She has no pain complaints. Patient is having liquidy drainage coming from her ostomy. Patient appears stable at bedside. She is feels slightly nauseated however no vomiting. Transfer documentation was reviewed in its entirety. The patient's clinical presentation while admitted for small bowel obstruction with consultation to general surgery. - Related Data Home Medications Medication Instructions Recorded Confirmed Aspirin EC [Ecotrin Low Dose] 81 mg PO DAILY 03/28/16 02/12/17 Cholecalciferol [Vitamin D3 (25 2,000 unit PO DAILY 03/28/16 02/12/17 Mcg = 1000 Iu)] Diltiazem HCl [Cardizem CD] 360 mg PO HS 03/28/16 02/12/17 Ferrous Sulfate [Iron (65 MG 325 mg PO DAILY@1200 03/28/16 02/12/17 Elemental)] Insulin Aspart [NovoLOG Flexpen] See Protocol SQ AC-TID 03/28/16 02/12/17 Labetalol HCl [Trandate] 300 mg PO BID 03/28/16 02/12/17 Levothyroxine Sodium [Synthroid] 50 mcg PO DAILY 03/28/16 02/12/17 Vit A/Vit C/Vit E/Zinc/Copper 2 cap PO BID 03/28/16 02/12/17 [ICAPS SOFTGEL] hydrALAZINE HCL [Apresoline] 50 mg PO TID 03/28/16 02/12/17 Simvastatin [Zocor] 20 mg PO HS 06/17/16 02/12/17 Insulin Glargine [Lantus] 16 unit SQ HS 07/30/16 02/12/17 Cetirizine HCl [Zyrtec] 10 mg PO DAILY 02/12/17 02/12/17 Insulin Aspart [NovoLOG Flexpen] 2 units SQ AC-TID 02/12/17 02/12/17 Previous Rx's Medication Instructions Recorded Omeprazole 40 mg PO DAILY #30 capsule. 06/14/16 Furosemide [Lasix] 20 mg PO DAILY #30 tab 02/14/17 Allergies Allergy/AdvReac Type Severity Reaction Status Date / Time hydrocodone Allergy Unknown Verified 02/12/17 18:54 Penicillins Allergy Anaphylaxis Verified 02/12/17 18:54 streptomycin Allergy Rash/Hives Verified 02/12/17 18:54 Review of Systems ROS Statement: Those systems with pertinent positive or pertinent negative responses have been documented in the HPI. ROS Other: All systems not noted in ROS Statement are negative. Past Medical History Past Medical History: Diabetes Mellitus, Hyperlipidemia, Hypertension, Renal Disease, Thyroid Disorder Additional Past Medical History / Comment(s): recent admission in Mar for "blockage" of ileostomy, has abd. hernia, urinary incontinence, vertigo, diverticulosis, chronic anemia History of Any Multi-Drug Resistant Organisms: None Reported Past Surgical History: Back Surgery, Bowel Resection, Heart Catheterization With Stent, Pacemaker Additional Past Surgical History / Comment(s): Subtotal colectomy with ileostomy 2013, EGD and colonoscopy 06/2016 Past Anesthesia/Blood Transfusion Reactions: No Reported Reaction Date of Last Stent Placement:: 2006 Type of Cardiac Device: Permanent Pacemaker Device Placement Date:: 2015 Past Psychological History: No Psychological Hx Reported Smoking Status: Former smoker Past Alcohol Use History: None Reported Past Drug Use History: None Reported - Past Family History Mother Family Medical History: Coronary Artery Disease (CAD), Diabetes Mellitus Father Family Medical History: Coronary Artery Disease (CAD) Course Vital Signs 09/17/18 00:51 Temperature 98.2 F Pulse Rate 63 Respiratory 18 Rate Blood Pressure 151/61 O2 Sat by Pulse 95 Oximetry Disposition Clinical Impression: SBO (small bowel obstruction) Disposition: ADMITTED IP TO THIS HOSP Condition: Fair Referrals: Terrence Almazan MD [Primary Care Provider] - 1-2 days Decision Time: 01:57
[2018-09-17] MEDS: SODIUM CHLORIDE 0.9% 1,000 ML IV SCH ×2 (02:13→16:13)
[2018-09-17] MEDS ORDERED: hydrALAZINE HCL 20 MG/ML 1 ML VIAL IVP PRN (14:10)
--- NOTE | 2018-09-17 14:17 | P.HPIM ---
History of Present Illness This is a pleasant 88 years old female with past medical history of diabetes mellitus, hyperlipidemia, hypertension, coronary artery disease status post stent and pacemaker, hypothyroidism, urinary incontinence, vertigo, diverticulosis, status post bowel resection and ileostomy. Who presents because of abdominal pain. [facility] is [facility] and she was transferred from [facility]. Patient states that her abdominal pain is on the stormy and it started about one day ago., Associated with abdominal distention and con stipation, patient did not have bowel movement for 1 or 2 days. She has nausea but no vomiting. No fever. No chest pain or dyspnea. Today her abdominal pain is feeling much better, ileostomy bag has liquid stool with dark color. She is on clear liquid diet and tolerating that well with no vomiting on only mild nausea. No abdominal distention. No significant abdominal tenderness Vitas looks stable. Labs at [facility] showing potassium slightly elevated at 5.6, creatinine is 1.4, hemoglobin 9.8, W WBC 7.6, platelets slightly low at 139, lactic acid less than 0.5, lipase within normal limits, magnesium slightly low at 1.4 Review of Systems CONSTITUTIONAL: No fever, no malaise, no fatigue. HEENT: No recent visual problems or hearing problems. Denied any sore throat. CARDIOVASCULAR: No orthopnea, PND, no palpitations, no syncope. PULMONARY: No shortness of breath, no cough, no hemoptysis. GASTROINTESTINAL: No diarrhea, no nausea, no vomiting, no abdominal pain. Normoactive bowel sounds. NEUROLOGICAL: No headaches, no weakness, no numbness. HEMATOLOGICAL: Denies any bleeding or petechiae. GENITOURINARY: Denies any burning micturition, frequency, or urgency. MUSCULOSKELETAL/RHEUMATOLOGICAL: Denies any joint pain, swelling, or any muscle pain. ENDOCRINE: Denies any polyuria or polydipsia. Past Medical History Past Medical History: Diabetes Mellitus, Hyperlipidemia, Hypertension, Renal Disease, Thyroid Disorder Additional Past Medical History / Comment(s): recent admission in Mar for "blockage" of ileostomy, has abd. hernia, urinary incontinence, vertigo, diverticulosis, chronic anemia, hyperkalemia History of Any Multi-Drug Resistant Organisms: None Reported Past Surgical History: Back Surgery, Bowel Resection, Heart Catheterization With Stent, Pacemaker Additional Past Surgical History / Comment(s): Subtotal colectomy with ileostomy 2013, EGD and colonoscopy 06/2016 Past Anesthesia/Blood Transfusion Reactions: No Reported Reaction Date of Last Stent Placement:: 2006 Type of Cardiac Device: Permanent Pacemaker Device Placement Date:: 2015 Past Psychological History: No Psychological Hx Reported Smoking Status: Former smoker Past Alcohol Use History: None Reported Additional Past Alcohol Use History / Comment(s): quit smoking 10 yrs., smoked 1ppd for >50 yrs. Past Drug Use History: None Reported - Past Family History Mother Family Medical History: Coronary Artery Disease (CAD), Diabetes Mellitus Father Family Medical History: Coronary Artery Disease (CAD) Medications and Allergies Home Medications Medication Instructions Recorded Confirmed Type Aspirin EC [Ecotrin Low Dose] 81 mg PO DAILY 03/28/16 09/17/18 History Diltiazem HCl [Cardizem CD] 360 mg PO HS 03/28/16 09/17/18 History Ferrous Sulfate [Iron (65 MG 325 mg PO DAILY@1200 03/28/16 09/17/18 History Elemental)] Insulin Aspart [NovoLOG Flexpen] See Protocol SQ AC-TID 03/28/16 09/17/18 History Labetalol HCl [Trandate] 300 mg PO BID 03/28/16 09/17/18 History Levothyroxine Sodium [Synthroid] 50 mcg PO DAILY 03/28/16 09/17/18 History Insulin Glargine [Lantus] 6 unit SQ HS 07/30/16 09/17/18 History Insulin Aspart [NovoLOG Flexpen] 2 units SQ AC-TID 02/12/17 09/17/18 History Acetaminophen [Tylenol Arthritis] 650 mg PO QID PRN 09/17/18 09/17/18 History Albuterol Inhaler [Ventolin Hfa 2 puff INHALATION RT-Q6H PRN 09/17/18 09/17/18 History Inhaler] Allopurinol [Zyloprim] 100 mg PO DAILY 09/17/18 09/17/18 History Doxazosin [Cardura] 3 mg PO Q12H 09/17/18 09/17/18 History Furosemide [Lasix] 40 mg PO DAILY 09/17/18 09/17/18 History Icy Hot Cream 1 applic TOPICAL BID PRN 09/17/18 09/17/18 History Isosorbide Mononitrate ER [Imdur] 60 mg PO DAILY 09/17/18 09/17/18 History Pantoprazole [Protonix] 40 mg PO DAILY 09/17/18 09/17/18 History Patiromer Calcium Sorbitex 8.4 gm PO DAILY 09/17/18 09/17/18 History [Veltassa] Pravastatin Sodium [Pravachol] 20 mg PO HS 09/17/18 09/17/18 History Sodium Bicarbonate Tab 650 mg PO TID 09/17/18 09/17/18 History Sucralfate [Carafate] 1 gm PO TID 09/17/18 09/17/18 History hydrALAZINE HCL [Apresoline] 100 mg PO TID 09/17/18 09/17/18 History Allergies Allergy/AdvReac Type Severity Reaction Status Date / Time hydrocodone Allergy Unknown Verified 09/17/18 08:23 Penicillins Allergy Anaphylaxis Verified 09/17/18 08:23 streptomycin Allergy Rash/Hives Verified 09/17/18 08:23 Physical Exam Vitals: Vital Signs Temp Pulse Pulse Resp BP BP Pulse Ox 09/17/18 08:00 16 09/17/18 07:00 98.3 F 63 16 120/59 09/17/18 02:26 98 F 63 16 137/60 95 09/17/18 00:51 98.2 F 63 18 151/61 95 Intake and Output 09/16/18 09/17/18 09/17/18 22:59 06:59 14:59 Other: Weight 63.5 kg GENERAL: The patient is alert and oriented x3, not in any acute distress. Well developed, well nourished. HEENT: Pupils are round and equally reacting to light. EOMI. No scleral icterus. No conjunctival pallor. Normocephalic, atraumatic. No pharyngeal erythema. No thyromegaly. CARDIOVASCULAR: S1 and S2 present. No murmurs, rubs, or gallops. PULMONARY: Chest is clear to auscultation, no wheezing or crackles. -ABDOMEN: Soft, nontender, nondistended, normoactive bowel sounds. No palpable organomegaly. Ileostomy plaque in the right lower quadrant, with liquid stool in the bag. Mild tenderness around the stomy orifice, no rebound tenderness MUSCULOSKELETAL: No joint swelling or deformity. EXTREMITIES: No cyanosis, clubbing, or pedal edema. NEUROLOGICAL: Gross neurological examination did not reveal any focal deficits. SKIN: No rashes. Thrombosis Risk Factor Assmnt - Choose All That Apply Any of the Below Risk Factors Present?: No Other Risk Factors: Yes Each Risk Factor Represents 3 Points: Age 75 years or older Other congenital or acquired thrombophilia - If yes, enter type in comment: No Thrombosis Risk Factor Assessment Total Risk Factor Score: 3 Thrombosis Risk Factor Assessment Level: Moderate Risk Assessment and Plan Assessment: Small bowel obstruction Type 2 diabetes mellitus Hyperlipidemia Hypertension History of coronary artery disease status post stent and pacemaker Hypothyroidism Chronic urinary incontinence Chronic vertigo Possible chronic kidney disease, stage III History of diverticulosis Status post bowel resection and ileostomy Plan: This is a pleasant 58 years old female who presents with small bowel obstruction. Continue clear liquid diet, IV fluids, with gentle hydration, nausea medicine, pain management. Call surgery consult Labs and medication were reviewed.. Continue same treatment. Continue with symptomatic treatment. Resume home medication. Monitor lytes and vitals. DVT and GI prophylaxis. Further recommendations of the clinical course of the patient DVT prophylaxis: Subcutaneous heparin GI Prophylaxis: Protonix Prognosis is guarded
--- NOTE | 2018-09-17 14:35 | P.GSCN ---
<Manisha Barlow A - Last Filed: 09/17/18 14:25> History of Present Illness Consult date: 09/17/18 Reason for Consult: SBO Requesting physician: Jesse Rivera History of present illness: CHIEF COMPLAINT: small bowel obstruction HISTORY OF PRESENT ILLNESS: 88-year-old female who was transferred from [facility] secondary to small bowel obstruction. Patient reports a 2 day history of abdominal pain, decreased ileostomy output, abdominal bloating and distention, and nausea. Patient seen and examined this morning at the bedside. At the time of examination this morning, all patient's symptoms have resolved. Nursing reports a large amount of stool in her ostomy yesterday and again this morning. She is requesting to be started on a diet. PAST MEDICAL HISTORY: See list. PAST SURGICAL HISTORY: See list. MEDICATIONS: See list. ALLERGIES: See list. SOCIAL HISTORY: No illicit drug use. REVIEW OF SYSTEMS: CONSTITUTIONAL: Denies fever or chills. HEENT: Denies blurred vision, vision changes, or eye pain. Denies hemoptysis ENDOCRINE: Denies heat or cold intolerance. CARDIOVASCULAR: Denies chest pain or pressure. RESPIRATORY: No shortness of breath. GASTROINTESTINAL: see HPI for pertinent info NEURO: Denies history of seizures. PSYCH: No depression or suicidal ideation HEMATOLOGIC: Denies bleeding disorders. LYMPHATIC: The patient denies any lumps and bumps around the neck. GENITOURINARY: Denies any blood in urine or increased urinary frequency. MUSCULOSKELETAL: Denies myalgias. Denies joint swelling. Denies decreased range of motion beyond patients baseline. SKIN: Denies pruitis. Denies rash. PHYSICAL EXAM: VITAL SIGNS: reviewed GENERAL: Well-developed in no acute distress. HEENT: No sclera icterus. Extraocular movements grossly intact. Moist buccal mucosa. Head is atraumatic, normocephalic. Hears conversational speech. No nasal drainage. NECK: Supple without lymphadenopathy. CHEST: Non-labored respirations and equal bilateral excursions. CARDIOVASCULAR: Regular rate with regular rhythm. Palpable 2+ radial pulses. ABDOMEN: Soft. Nondistended. Nontender. ileostomy to right lower quadrant. Bag currently empty, but was just changed by nursing as it was filled with stool. MUSCULOSKELETAL: No clubbing, cyanosis or edema. NEUROLOGIC: No focal or lateralizing signs. Cranial nerves II through XII grossly intact. PSYCH: Appropriate affect. Alert and oriented to person, place and time. SKIN: Well perfused. Good skin turgor. 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 There is a transition point at the abdominal wall opening for the ileos darian with the bowel loops just prior to the ostomy being the most dilated and associated with prominent edematous changes throughout the mesentery of these loops. Findings consistent with small bowel obstruction. ASSESSMENT: 1. Small bowel obstruction, resolved 2. History of ileostomy PLAN: 1. Begin clear liquid diet. Advance as tolerated. 2. No surgical intervention recommended. Patient is stable for discharge from a surgical standpoint if she tolerates PO intake Nurse practitioner note has been reviewed by physician. Signing provider agrees with the documented findings, assessment, and plan of care. Past Medical History Past Medical History: Diabetes Mellitus, Hyperlipidemia, Hypertension, Renal Disease, Thyroid Disorder Additional Past Medical History / Comment(s): recent admission in Mar for "blockage" of ileostomy, has abd. hernia, urinary incontinence, vertigo, diverticulosis, chronic anemia, hyperkalemia History of Any Multi-Drug Resistant Organisms: None Reported Past Surgical History: Back Surgery, Bowel Resection, Heart Catheterization With Stent, Pacemaker Additional Past Surgical History / Comment(s): Subtotal colectomy with ileostomy 2013, EGD and colonoscopy 06/2016 Past Anesthesia/Blood Transfusion Reactions: No Reported Reaction Date of Last Stent Placement:: 2006 Type of Cardiac Device: Permanent Pacemaker Device Placement Date:: 2015 Past Psychological History: No Psychological Hx Reported Smoking Status: Former smoker Past Alcohol Use History: None Reported Additional Past Alcohol Use History / Comment(s): quit smoking 10 yrs., smoked 1ppd for >50 yrs. Past Drug Use History: None Reported - Past Family History Mother Family Medical History: Coronary Artery Disease (CAD), Diabetes Mellitus Father Family Medical History: Coronary Artery Disease (CAD) Medications and Allergies Home Medications Medication Instructions Recorded Confirmed Type Aspirin EC [Ecotrin Low Dose] 81 mg PO DAILY 03/28/16 09/17/18 History Diltiazem HCl [Cardizem CD] 360 mg PO HS 03/28/16 09/17/18 History Ferrous Sulfate [Iron (65 MG 325 mg PO DAILY@1200 03/28/16 09/17/18 History Elemental)] Insulin Aspart [NovoLOG Flexpen] See Protocol SQ AC-TID 03/28/16 09/17/18 History Labetalol HCl [Trandate] 300 mg PO BID 03/28/16 09/17/18 History Levothyroxine Sodium [Synthroid] 50 mcg PO DAILY 03/28/16 09/17/18 History Insulin Glargine [Lantus] 6 unit SQ HS 07/30/16 09/17/18 History Insulin Aspart [NovoLOG Flexpen] 2 units SQ AC-TID 02/12/17 09/17/18 History Acetaminophen [Tylenol Arthritis] 650 mg PO QID PRN 09/17/18 09/17/18 History Albuterol Inhaler [Ventolin Hfa 2 puff INHALATION RT-Q6H PRN 09/17/18 09/17/18 History Inhaler] Allopurinol [Zyloprim] 100 mg PO DAILY 09/17/18 09/17/18 History Doxazosin [Cardura] 3 mg PO Q12H 09/17/18 09/17/18 History Furosemide [Lasix] 40 mg PO DAILY 09/17/18 09/17/18 History Icy Hot Cream 1 applic TOPICAL BID PRN 09/17/18 09/17/18 History Isosorbide Mononitrate ER [Imdur] 60 mg PO DAILY 09/17/18 09/17/18 History Pantoprazole [Protonix] 40 mg PO DAILY 09/17/18 09/17/18 History Patiromer Calcium Sorbitex 8.4 gm PO DAILY 09/17/18 09/17/18 History [Veltassa] Pravastatin Sodium [Pravachol] 20 mg PO HS 09/17/18 09/17/18 History Sodium Bicarbonate Tab 650 mg PO TID 09/17/18 09/17/18 History Sucralfate [Carafate] 1 gm PO TID 09/17/18 09/17/18 History hydrALAZINE HCL [Apresoline] 100 mg PO TID 09/17/18 09/17/18 History Allergies Allergy/AdvReac Type Severity Reaction Status Date / Time hydrocodone Allergy Unknown Verified 09/17/18 08:23 Penicillins Allergy Anaphylaxis Verified 09/17/18 08:23 streptomycin Allergy Rash/Hives Verified 09/17/18 08:23 Surgical - Exam Vital Signs Temp Pulse Resp BP Pulse Ox 98.2 F 63 18 151/61 95 09/17/18 00:51 09/17/18 00:51 09/17/18 00:51 09/17/18 00:51 09/17/18 00:51 Assessment and Plan (1) Small bowel obstruction Status: Acute Code(s): K56.69 - OTHER INTESTINAL OBSTRUCTION * DO NOT USE * SNOMED Code(s): 294345889 <Hannah Crowder N - Last Filed: 09/19/18 22:22> History of Present Illness History of present illness: Clinically she has improved. No need for surgical intervention. Surgical - Exam Vital Signs Temp Pulse Resp BP Pulse Ox 98.2 F 63 18 151/61 95 09/17/18 00:51 09/17/18 00:51 09/17/18 00:51 09/17/18 00:51 09/17/18 00:51
[2018-09-17] MEDS: hydrALAZINE HCL 50 MG TAB PO SCH ×2 (16:13→20:49)
[2018-09-17] MEDS: SUCRALFATE 1 GM TAB PO SCH ×2 (16:13→20:49)
[2018-09-17] MEDS: HEPARIN SODIUM,PORCINE 5,000 UNIT/ML 1 ML VIAL SQ SCH (20:49)
[2018-09-17] MEDS ORDERED: DILTIAZEM CD 120 MG CAP.ER.24H PO SCH (21:00)
[2018-09-17] MEDS ORDERED: PRAVASTATIN SODIUM 20 MG TAB PO SCH (21:00)
[2018-09-17] MEDS ORDERED: ACETAMINOPHEN TAB 325 MG TAB PO PRN (21:22)
[2018-09-17] MEDS: LABETALOL 100 MG TAB PO SCH (21:31)
[2018-09-17] MEDS: DOXAZOSIN 1 MG TAB PO SCH (21:31)
[2018-09-18] MEDS: SODIUM CHLORIDE 0.9% 1,000 ML IV SCH (03:10)
[2018-09-18] MEDS ORDERED: LEVOTHYROXINE 50 MCG TAB PO SCH (06:30)
[2018-09-18 08:10] VITALS: BP 151/67; PULSE 62; RESP 16; TEMP 98.4
[2018-09-18] MEDS: HEPARIN SODIUM,PORCINE 5,000 UNIT/ML 1 ML VIAL SQ SCH (08:36)
[2018-09-18] MEDS: SUCRALFATE 1 GM TAB PO SCH (08:36)
[2018-09-18] MEDS: hydrALAZINE HCL 50 MG TAB PO SCH (08:36)
[2018-09-18] MEDS: DOXAZOSIN 1 MG TAB PO SCH (08:36)
[2018-09-18] MEDS: LABETALOL 100 MG TAB PO SCH (08:37)
[2018-09-18 08:54] LABS: Glucose,Whole Blood 169 mg/dL (75-99)
[2018-09-18] MEDS ORDERED: ASPIRIN 81 MG PO SCH (09:00)
[2018-09-18] MEDS ORDERED: ISOSORBIDE MONONITRATE ER 60 MG TAB.ER.24H PO SCH (09:00)
[2018-09-18] MEDS ORDERED: PANTOPRAZOLE 40 MG/10 ML VIAL IVP SCH (09:00)
--- NOTE | 2018-09-18 11:47 | P.PN ---
<Manisha Barlow A - Last Filed: 09/18/18 11:45> Subjective Progress Note Date: 09/18/18 CHIEF COMPLAINT: small bowel obstruction HISTORY OF PRESENT ILLNESS: Patient seen and examined this morning at the bedside. Patient is tolerating regular diet. Ileostomy with liquid stool n oted. She denies abdominal pain. Denies nausea or vomiting. PHYSICAL EXAM: VITAL SIGNS: reviewed GENERAL: Well-developed in no acute distress. HEENT: No sclera icterus. Extraocular movements grossly intact. Moist buccal mucosa. Head is atraumatic, normocephalic. Hears conversational speech. No nasal drainage. NECK: Supple without lymphadenopathy. CHEST: Non-labored respirations and equal bilateral excursions. CARDIOVASCULAR: Regular rate with regular rhythm. Palpable 2+ radial pulses. ABDOMEN: Soft. Nondistended. Nontender. ileostomy to right lower quadrant with liquid stool. MUSCULOSKELETAL: No clubbing, cyanosis or edema. NEUROLOGIC: No focal or lateralizing signs. Cranial nerves II through XII grossly intact. PSYCH: Appropriate affect. Alert and oriented to person, place and time. SKIN: Well perfused. Good skin turgor. ASSESSMENT: 1. Small bowel obstruction, resolved 2. History of ileostomy PLAN: Continue diet as tolerated. Patient is stable for discharge home from a surgical standpoint. Nurse practitioner note has been reviewed by physician. Signing provider agrees with the documented findings, assessment, and plan of care. Objective - Vital Signs Vital signs: Vital Signs Temp 98.4 F 09/18/18 07:57 Pulse 62 09/18/18 08:00 Resp 16 09/18/18 08:00 BP 151/67 09/18/18 07:57 Pulse Ox 93 L 09/18/18 07:57 Intake & Output 09/17/18 09/18/18 09/18/18 18:59 06:59 18:59 Intake Total 920 Balance 920 Intake: Intake, IV Titration 920 Amount Sodium Chloride 0.9% 1, 920 000 ml @ 80 mls/hr IV . [id number] [facility] Rx#:[id number] Other: Voiding Method Toilet Toilet # Voids 3 2 - Labs Labs: Abnormal Lab Results - Last 24 Hours (Table) 09/18/18 Range/Units 08:50 POC Glucose (mg/dL) 169 H (75-99) mg/dL Assessment and Plan (1) Small bowel obstruction Status: Acute Code(s): K56.69 - OTHER INTESTINAL OBSTRUCTION * DO NOT USE * SNOMED Code(s): 798253137 <Hannah Crowder - Last Filed: 09/19/18 22:23> Subjective Patient is okay for discharge. Objective - Vital Signs Vital signs: Vital Signs Temp 98.4 F 09/18/18 07:57 Pulse 62 09/18/18 08:00 Resp 16 09/18/18 08:00 BP 151/67 09/18/18 07:57 Pulse Ox 93 L 09/18/18 07:57
[2018-09-18] MEDS ORDERED: FERROUS SULFATE 325 MG TAB PO SCH (12:00)
[2018-09-18] MEDS ORDERED: INSULIN ASPART (NovoLOG) 100 UNIT/ML VIAL SQ SCH (12:30)
== END 2018-09-18 11:10 | disposition home or self-care (01) | DRG 390 ==
LOC: EC 00:43 → 4SSUR 01:59
PROVIDERS: ADMIT Hospitalist; ATTEND Hospitalist
DX: K56.609 Unspecified intestinal obstruction, unspecified as to partial versus complete obstruction (principal); E11.22 Type 2 diabetes mellitus with diabetic chronic kidney disease; N18.3 Chronic kidney disease, stage 3 (moderate); E03.9 Hypothyroidism, unspecified; E78.5 Hyperlipidemia, unspecified; I25.10 Atherosclerotic heart disease of native coronary artery without angina pectoris; R32 Unspecified urinary incontinence; K57.90 Diverticulosis of intestine, part unspecified, without perforation or abscess without bleeding; I12.9 Hypertensive chronic kidney disease with stage 1 through stage 4 chronic kidney disease, or unspecified chronic kidney disease; R42 Dizziness and giddiness; Z79.4 Long term (current) use of insulin; Z79.82 Long term (current) use of aspirin; Z79.890 Hormone replacement therapy; Z79.899 Other long term (current) drug therapy; Z88.0 Allergy status to penicillin; Z95.5 Presence of coronary angioplasty implant and graft; Z93.2 Ileostomy status; Z90.49 Acquired absence of other specified parts of digestive tract; Z87.891 Personal history of nicotine dependence; Z88.1 Allergy status to other antibiotic agents; Z88.5 Allergy status to narcotic agent; Z82.49 Family history of ischemic heart disease and other diseases of the circulatory system; Z83.3 Family history of diabetes mellitus
CPT/HCPCS: 99285

== ENCOUNTER 2018-09-21 14:25 | Inpatient (IN) | payer MEDICARE ==
--- NOTE | 2018-09-21 15:54 | ED ---
Recheck HPI - General Chief Complaint: Recheck/Abnormal Lab/Rx Stated Complaint: Pneumonia, Renal Failure Time Seen by Provider: 09/21/18 14:41 Source: patient, EMS, RN notes reviewed Mode of arrival: EMS Limitations: no limitations - History of Present Illness Initial Comments: 88-year-old female presents emergency department as a transfer from [facility] for pneumonia, renal failure. Patient does have a history of chronic renal failure but worsening rib films today. Patient was discharged a couple days ago from here for about infection. Patient went back to half-way in which she has been lethargic, slightly confusion. Patient had labs, x-ray shows evidence of pulmonary edema versus multifocal pneumonia. Family states that she has not had any swelling no weight gain to be consistent with CHF she does have a cough which productive and a temp of 100.3. Patient was given Levaquin. Patient's creatinine is currently 3.9, hemoglobin of 8.3 which is lower than usual. - Related Data Home Medications Medication Instructions Recorded Confirmed Aspirin EC [Ecotrin Low Dose] 81 mg PO DAILY 03/28/16 09/21/18 Diltiazem HCl [Cardizem CD] 360 mg PO HS 03/28/16 09/21/18 Ferrous Sulfate [Iron (65 MG 325 mg PO DAILY@1200 03/28/16 09/21/18 Elemental)] Insulin Aspart [NovoLOG Flexpen] See Protocol SQ AC-TID 03/28/16 09/21/18 Labetalol HCl [Trandate] 300 mg PO BID 03/28/16 09/21/18 Levothyroxine Sodium [Synthroid] 50 mcg PO DAILY 03/28/16 09/21/18 Insulin Glargine [Lantus] 6 unit SQ HS 07/30/16 09/21/18 Insulin Aspart [NovoLOG Flexpen] 2 units SQ AC-TID 02/12/17 09/21/18 Acetaminophen [Tylenol Arthritis] 650 mg PO QID PRN 09/17/18 09/21/18 Albuterol Inhaler [Ventolin Hfa 2 puff INHALATION RT-Q6H PRN 09/17/18 09/21/18 Inhaler] Allopurinol [Zyloprim] 100 mg PO DAILY 09/17/18 09/21/18 Doxazosin [Cardura] 3 mg PO Q12H 09/17/18 09/21/18 Furosemide [Lasix] 40 mg PO DAILY 09/17/18 09/21/18 Icy Hot Cream 1 applic TOPICAL BID PRN 09/17/18 09/21/18 Isosorbide Mononitrate ER [Imdur] 60 mg PO DAILY 09/17/18 09/21/18 Pantoprazole [Protonix] 40 mg PO DAILY 09/17/18 09/21/18 Patiromer Calcium Sorbitex 8.4 gm PO DAILY 09/17/18 09/21/18 [Veltassa] Pravastatin Sodium [Pravachol] 20 mg PO HS 09/17/18 09/21/18 Sodium Bicarbonate Tab 650 mg PO TID 09/17/18 09/21/18 Sucralfate [Carafate] 1 gm PO TID 09/17/18 09/21/18 hydrALAZINE HCL [Apresoline] 100 mg PO TID 09/17/18 09/21/18 Allergies Allergy/AdvReac Type Severity Reaction Status Date / Time hydrocodone Allergy Unknown Verified 09/21/18 14:48 lisinopril Allergy Unknown Verified 09/21/18 14:48 Penicillins Allergy Anaphylaxis Verified 09/21/18 14:48 streptomycin Allergy Rash/Hives Verified 09/21/18 14:48 Review of Systems ROS Statement: Those systems with pertinent positive or pertinent negative responses have been documented in the HPI. ROS Other: All systems not noted in ROS Statement are negative. Past Medical History Past Medical History: Heart Failure, Diabetes Mellitus, Hyperlipidemia, Hypertension, Renal Disease, Thyroid Disorder Additional Past Medical History / Comment(s): recent admission in Mar for "blockage" of ileostomy, has abd. hernia, urinary incontinence, vertigo, diverticulosis, chronic anemia, hyperkalemia History of Any Multi-Drug Resistant Organisms: None Reported Past Surgical History: Back Surgery, Bowel Resection, Heart Catheterization With Stent, Pacemaker Additional Past Surgical History / Comment(s): Subtotal colectomy with ileostomy 2013, EGD and colonoscopy 06/2016 Past Anesthesia/Blood Transfusion Reactions: No Reported Reaction Date of Last Stent Placement:: 2006 Type of Cardiac Device: Permanent Pacemaker Device Placement Date:: 2015 Past Psychological History: No Psychological Hx Reported Smoking Status: Former smoker Past Alcohol Use History: None Reported Past Drug Use History: None Reported - Past Family History Mother Family Medical History: Coronary Artery Disease (CAD), Diabetes Mellitus Father Family Medical History: Coronary Artery Disease (CAD) General Exam Limitations: no limitations General appearance: alert, in no apparent distress Head exam: Present: atraumatic, normocephalic, normal inspection Neck exam: Present: normal inspection. Absent: tenderness, meningismus, lymphadenopathy Respiratory exam: Present: rhonchi, decreased breath sounds. Absent: normal lung sounds bilaterally, respiratory distress, wheezes, rales, stridor Cardiovascular Exam: Present: regular rate, normal rhythm, normal heart sounds. Absent: systolic murmur, diastolic murmur, rubs, gallop, clicks Back exam: Absent: CVA tenderness (R), CVA tenderness (L) Neurological exam: Present: alert Skin exam: Present: warm, dry, intact, normal color. Absent: rash Course Vital Signs 09/21/18 09/21/18 14:33 14:54 Temperature 98.0 F Pulse Rate 62 Respiratory 18 18 Rate Blood Pressure 132/54 O2 Sat by Pulse 98 Oximetry Medical Decision Making - Medical Decision Making 88-year-old female presented as a transfer. I did review prior packet patient has evidence of multifocal pneumonia, potassium 5.6 was given insulin and dextrose. This will be repeated patient will be admitted for multifocal pneumonia, acute on chronic renal failure with consult to nephrology. - EKG Data EKG Comments: EKG 2015:30 H [place] with a left axis deviation left bundle, rate of 68 MA 3 or 4 QRS 164 QT/QTC 476/476 Disposition Clinical Impression: Multifocal pneumonia, Acute on chronic renal failure, Hyperkalemia, Hyponatremia Disposition: ADMITTED IP TO THIS HOSP Condition: Fair Referrals: Terrence Almazan MD [Primary Care Provider] - 1-2 days
[2018-09-21] MEDS ORDERED: PNEUMONIA PROTOCOL UTILIZED 1 EACH MISC PO PRN (15:59)
[2018-09-21] MEDS: IPRATROPIUM-ALBUTEROL 3 ML NEB INHALATION SCH ×2 (16:25→20:30)
[2018-09-21] MEDS ORDERED: IPRATROPIUM-ALBUTEROL 3 ML NEB INHALATION PRN (18:59)
--- NOTE | 2018-09-21 19:05 | P.HPIM ---
History of Present Illness H&P Date: 09/21/18 Chief Complaint: Shortness of breath transferred from [facility] The patient is a 88-year-old female with a past medical history of type 2 diabetes, CHF of unknown type, COPD, chronic respiratory failure on 2 L via nasal cannula, essential hypertension, hyperlipidemia, hypothyroidism who is transferred from [facility] were earlier today she presented with shortness of breath. Apparently the patient was recently here 4 days ago and was seen by Dr. Tenorio for small bowel obstruction that was apparently managed conservatively and resolved on its own, she was discharged and sent to assisted living facility [facility] and since then has been having increasing weakness and confusion , shortness of breath, and cough and was noted to have a low-grade fever at 100.3. She was sent to [facility] where she was apparently noted to be hypoxic and tachypneic. On arrival there she was noted to be confused but was afebrile. While there showed a workup including a CBC with a white count of 7.3 hemoglobin of 8.3 platelets of 125, urinalysis was normal and the serum sodium level was 128, A serum potassium 5.6, serum bicarb 13, serum creatinine 3.9, Chest x-ray performed showed pulmonary vascular congestion and interstitial edema with new bibasilar opacities consistent with multifocal pneumonia versus heart failure, she was given a dose of Levaquin placed on supplemental oxygen and started on fluids she was transferred here and recommended for admission Review of Systems Pertinent positives per HPI all other review of system negative Past Medical History Past Medical History: Heart Failure, Diabetes Mellitus, Hyperlipidemia, Hypertension, Renal Disease, Thyroid Disorder Additional Past Medical History / Comment(s): recent admission in Mar for "blockage" of ileostomy, has abd. hernia, urinary incontinence, vertigo, diverticulosis, chronic anemia, hyperkalemia History of Any Multi-Drug Resistant Organisms: None Reported Past Surgical History: Back Surgery, Bowel Resection, Heart Catheterization With Stent, Pacemaker Additional Past Surgical History / Comment(s): Subtotal colectomy with ileostomy 2013, EGD and colonoscopy 06/2016 Past Anesthesia/Blood Transfusion Reactions: No Reported Reaction Date of Last Stent Placement:: 2006 Type of Cardiac Device: Permanent Pacemaker Device Placement Date:: 2015 Past Psychological History: No Psychological Hx Reported Smoking Status: Former smoker Past Alcohol Use History: None Reported Additional Past Alcohol Use History / Comment(s): quit smoking 10 yrs., smoked 1ppd for >50 yrs. Past Drug Use History: None Reported - Past Family History Mother Family Medical History: Coronary Artery Disease (CAD), Diabetes Mellitus Father Family Medical History: Coronary Artery Disease (CAD) Medications and Allergies Home Medications Medication Instructions Recorded Confirmed Type Aspirin EC [Ecotrin Low Dose] 81 mg PO DAILY 03/28/16 09/21/18 History Diltiazem HCl [Cardizem CD] 360 mg PO HS 03/28/16 09/21/18 History Ferrous Sulfate [Iron (65 MG 325 mg PO DAILY@1200 03/28/16 09/21/18 History Elemental)] Insulin Aspart [NovoLOG Flexpen] See Protocol SQ AC-TID 03/28/16 09/21/18 History Labetalol HCl [Trandate] 300 mg PO BID 03/28/16 09/21/18 History Levothyroxine Sodium [Synthroid] 50 mcg PO DAILY 03/28/16 09/21/18 History Insulin Glargine [Lantus] 6 unit SQ HS 07/30/16 09/21/18 History Insulin Aspart [NovoLOG Flexpen] 2 units SQ AC-TID 02/12/17 09/21/18 History Acetaminophen [Tylenol Arthritis] 650 mg PO QID PRN 09/17/18 09/21/18 History Albuterol Inhaler [Ventolin Hfa 2 puff INHALATION RT-Q6H PRN 09/17/18 09/21/18 History Inhaler] Allopurinol [Zyloprim] 100 mg PO DAILY 09/17/18 09/21/18 History Doxazosin [Cardura] 3 mg PO Q12H 09/17/18 09/21/18 History Furosemide [Lasix] 40 mg PO DAILY 09/17/18 09/21/18 History Icy Hot Cream 1 applic TOPICAL BID PRN 09/17/18 09/21/18 History Isosorbide Mononitrate ER [Imdur] 60 mg PO DAILY 09/17/18 09/21/18 History Pantoprazole [Protonix] 40 mg PO DAILY 09/17/18 09/21/18 History Patiromer Calcium Sorbitex 8.4 gm PO DAILY 09/17/18 09/21/18 History [Veltassa] Pravastatin Sodium [Pravachol] 20 mg PO HS 09/17/18 09/21/18 History Sodium Bicarbonate Tab 650 mg PO TID 09/17/18 09/21/18 History Sucralfate [Carafate] 1 gm PO TID 09/17/18 09/21/18 History hydrALAZINE HCL [Apresoline] 100 mg PO TID 09/17/18 09/21/18 History Allergies Allergy/AdvReac Type Severity Reaction Status Date / Time hydrocodone Allergy Unknown Verified 09/21/18 14:48 lisinopril Allergy Unknown Verified 09/21/18 14:48 Penicillins Allergy Anaphylaxis Verified 09/21/18 14:48 streptomycin Allergy Rash/Hives Verified 09/21/18 14:48 Physical Exam Vitals: Vital Signs Temp Pulse Pulse Resp BP BP Pulse Ox 09/21/18 18:08 98.0 F 60 17 146/53 99 09/21/18 17:56 97.7 F 60 18 116/61 96 09/21/18 17:26 60 17 146/53 99 09/21/18 17:00 60 17 146/53 99 09/21/18 16:36 61 16 09/21/18 16:30 62 15 138/56 100 09/21/18 16:25 60 16 09/21/18 16:00 60 21 140/55 98 09/21/18 15:30 60 19 131/48 99 09/21/18 15:00 60 21 132/54 99 09/21/18 14:54 18 09/21/18 14:33 98.0 F 62 18 132/54 98 09/21/18 14:32 18 Intake and Output 09/21/18 09/21/18 09/21/18 06:59 14:59 22:59 Other: Weight 58.06 kg Constitutional: No acute distress, conversant, pleasant Eyes: Anicteric sclerae, moist conjunctiva, no lid-lag, PERRLA ENMT: NC/AT,Oropharynx clear, no erythema, exudates Neck:Supple, FROM, no masses, or JVD, No carotid bruits; No thyromegaly Lungs: Clear to auscultation, Clear to percussion, Normal respiratory effort, no accessory muscle use Cardiovascular: Heart regular in rate and rhythm, No murmurs, gallops, or rubs no peripheral edema Abdominal: Soft Nontender, non distended, no guarding, no rebound or rigidity, hypoactive bowel sounds No hepatomegaly, scant output from ileostomy, anterior abdominal wall hernia which is reducible Skin: Normal temperature, tone, texture, turgor, No induration No subcutaneous nodules, No rash, lesions, No ulcers Extremities:No digital cyanosis No clubbing, Pedal pulses intact and symmetrical Radial pulses intact and symmetrical Normal gait and station, No calf tenderness Psychiatric: Alert and oriented to person, place and time, Appropriate affect Intact judgement Neuro: Muscles Strength 5/5 in all 4 extremities, Sensation to light touch grossly present throughout, Cranial nerves II-XII grossly intact. No focal sensory deficits Results CBC & Chem 7: 09/22/18 07:58 09/22/18 07:58 Assessment and Plan (1) Acute and chronic respiratory failure with hypoxia Current Visit: Yes Status: Acute Code(s): J96.21 - ACUTE AND CHRONIC RESPIRATORY FAILURE WITH HYPOXIA SNOMED Code(s): 47216790 (2) Acute exacerbation of CHF (congestive heart failure) Current Visit: Yes Status: Acute Code(s): I50.9 - HEART FAILURE, UNSPECIFIED SNOMED Code(s): 511221377 (3) Acute kidney injury superimposed on chronic kidney disease Current Visit: Yes Status: Acute Code(s): N17.9 - ACUTE KIDNEY FAILURE, UNSPECIFIED; N18.9 - CHRONIC KIDNEY DISEASE, UNSPECIFIED SNOMED Code(s): 30219573 (4) Metabolic acidosis Current Visit: Yes Status: Acute Code(s): E87.2 - ACIDOSIS SNOMED Code(s): 22639622 (5) Pneumonia Current Visit: Yes Status: Acute Code(s): J18.9 - PNEUMONIA, UNSPECIFIED ORGANISM SNOMED Code(s): 673021950 (6) Hyperkalemia Current Visit: Yes Status: Acute Code(s): E87.5 - HYPERKALEMIA SNOMED Code(s): 23205147 (7) Hyponatremia Current Visit: Yes Status: Acute Code(s): E87.1 - HYPO-OSMOLALITY AND HYPONATREMIA SNOMED Code(s): 37050914 (8) Normocytic anemia Current Visit: Yes Status: Acute Code(s): D64.9 - ANEMIA, UNSPECIFIED SNOMED Code(s): 605876761 Plan: The patient is admitted with acute on chronic respiratory failure of multifactorial etiology secondary to pneumonia superimposed on possible CHF exacerbation she started on empiric IV antibiotics with Levaquin placed on supplemental oxygen and also initiated on Lasix for diuresis, with scheduled and when necessary bronchodilator DuoNeb breathing treatments. Will order stat labs with a BMP and NT proBNP, review chest x-ray should indicates multifocal pneumonia in the setting of pulmonary vascular congestion with interstitial edema. The patient also has normocytic anemia will order iron studies, the patient is also to be in acute kidney injury superimposed on chronic kidney disease with hyperkalemia and hyponatremia nephrology is consulted for further recommendations, will give a dose of Kayexalate and continue diuresis and fol low-up labs in the morning, will order renal ultrasound, echocardiogram. Patient's home medications are restarted, we'll continue to follow her clinical course CODE STATUS: DNR/DNI Discussed plan of care with patient and her daughter Anticipated discharge: 1-[address]: Home Prophylaxis SCDs and heparin
[2018-09-21] MEDS ORDERED: SODIUM POLYSTYRENE SULFONATE 15 GM/60 ML BOTTLE PO STA (19:07)
[2018-09-21 19:30] LABS: Calcium 8.5 mg/dL (8.4-10.2); Potassium 5.6 mmol/L (3.5-5.1)
--- NOTE | 2018-09-21 20:44 | CT ---
EXAMINATION TYPE: CT abdomen pelvis wo con DATE OF EXAM: 09/21/2018 COMPARISON: 09/16/2018 HISTORY: Recurrent bowel obstruction, c/o nausea CT DLP: 778 mGycm Automated exposure control for dose reduction was used. TECHNIQUE: Helical acquisition of images was performed from the lung bases through the pelvis. FINDINGS: There are moderate bilateral pleural effusions. Heart is enlarged. There is some mild infiltrate and atelectasis at the lung bases. Abdominal aorta is atheromatous. Liver shows no focal defect. Gallbladder probably has 5 mm calcified gallstone. Spleen appears normal . Stomach appears normal. There is no evidence of pancreatic mass. There is no definite adrenal mass. Kidneys show no hydronephrosis. There is slight heterogeneous enha ncement of the kidneys without a definite defect. There is no retroperitoneal adenopathy. Ureters are not dilated. There is ostomy in the right mid abd omen. There are multiple sigmoid diverticula. I see no evidence of a bowel obstruction. There is no s ign of free air. I see no bony destructive process. There is narrowing of L4-5 disc space with anteri or subluxation deformity. There is 6 x 3 cm lipoma in the right gluteal muscle. IMPRESSION: THERE IS CLEARING OF THE BOWEL OBSTRUCTION COMPARED TO LAST EXAM. THERE IS CLEARING OF THE FECAL MATE RIAL AT THE OSTOMY SITE COMPARED TO LAST EXAM THAT APPARENTLY WAS SITE OF OBSTRUCTION. SIGMOID DIVERTICULOSIS. THERE ARE NEW BILATERAL PLEURAL EFFUSIONS WITH BASILAR PULMONARY INFILTRATES AND ATELECTASIS THAT COU LD RELATE TO NEW CONGESTIVE HEART FAILURE COMPARED TO LAST EXAM.
[2018-09-21 20:52] LABS: Glucose,Whole Blood 111 mg/dL (75-99)
[2018-09-21] MEDS: INSULIN ASPART (NovoLOG) 100 UNIT/ML VIAL SQ SCH (20:52)
[2018-09-21] MEDS: DOXAZOSIN 1 MG TAB PO SCH (20:53)
[2018-09-21] MEDS: LEVOFLOXACIN 500MG-D5W PMX 500 MG in DEXTROSE/WATER 1 100ML.BAG IVPB SCH (20:53)
[2018-09-21] MEDS: HEPARIN SODIUM,PORCINE 5,000 UNIT/ML 1 ML VIAL SQ SCH (20:54)
[2018-09-21] MEDS: LABETALOL 100 MG TAB PO SCH (20:54)
[2018-09-21] MEDS: DILTIAZEM CD 180 MG CAP.ER.24H PO SCH (20:55)
[2018-09-21] MEDS: hydrALAZINE HCL 50 MG TAB PO SCH (21:08)
[2018-09-21] MEDS: INSULIN DETEMIR (LEVEMIR) 100 UNIT/ML SYR SQ SCH (21:08)
[2018-09-21] MEDS: SODIUM BICARBONATE TAB 650 MG TAB PO SCH (21:09)
[2018-09-21] MEDS: PRAVASTATIN SODIUM 20 MG TAB PO SCH (21:09)
[2018-09-21] MEDS: FUROSEMIDE 10 MG/ML 4 ML VIAL IV SCH (21:09)
[2018-09-21] MEDS: ACETAMINOPHEN TAB 325 MG TAB PO PRN (23:27)
[2018-09-22 05:35] LABS: Ferritin 726.4 ng/mL (10.0-291.0); Iron Saturation 8.92 (12.00-45.00)
[2018-09-22] MEDS: LEVOTHYROXINE 50 MCG TAB PO SCH (06:06)
[2018-09-22 07:06] LABS: Glucose,Whole Blood 118 mg/dL (75-99)
[2018-09-22] MEDS: IPRATROPIUM-ALBUTEROL 3 ML NEB INHALATION SCH ×5 (07:13→19:06)
[2018-09-22] MEDS: INSULIN ASPART (NovoLOG) 100 UNIT/ML VIAL SQ SCH ×7 (08:01→20:50)
[2018-09-22] MEDS: SODIUM BICARBONATE TAB 650 MG TAB PO SCH (08:11)
[2018-09-22] MEDS: HEPARIN SODIUM,PORCINE 5,000 UNIT/ML 1 ML VIAL SQ SCH ×2 (08:11→21:47)
[2018-09-22] MEDS: FERROUS SULFATE 325 MG TAB PO SCH (08:11)
[2018-09-22] MEDS: FUROSEMIDE 10 MG/ML 4 ML VIAL IV SCH (08:11)
[2018-09-22] MEDS: ALLOPURINOL 100 MG TAB PO SCH (08:12)
[2018-09-22] MEDS: hydrALAZINE HCL 50 MG TAB PO SCH ×3 (08:12→21:45)
[2018-09-22] MEDS: ISOSORBIDE MONONITRATE ER 60 MG TAB.ER.24H PO SCH (08:13)
[2018-09-22] MEDS: PANTOPRAZOLE 40 MG TABLET PO SCH (08:13)
[2018-09-22] MEDS: ASPIRIN 81 MG PO SCH (08:13)
[2018-09-22] MEDS: LABETALOL 100 MG TAB PO SCH ×2 (08:14→21:43)
[2018-09-22] MEDS: DOXAZOSIN 1 MG TAB PO SCH ×2 (08:14→21:39)
--- NOTE | 2018-09-22 08:27 | US ---
EXAMINATION TYPE: US renals and bladder DATE OF EXAM: 09/22/2018 COMPARISON: CT dated 09/21/2018 CLINICAL HISTORY: tammi vs ckd . EXAM MEASUREMENTS: Right Kidney: 9.6 x 3.9 x 4.7 cm Left Kidney: 9.2 x 4.1 x 4.7 cm Free fluid noted adjacent to gallbladder. Right Kidney: scattered hyperechoic foci noted, possible vascular calcifications Left Kidney: slightly obscured by bowel gas, appears wnl Bladder: not well visualized Bilateral Jets seen: No There is no evidence for hydronephrosis at this point in time. No nephrolithiasis is seen. No yeny s are identified. The urinary bladder is anechoic. Bilateral ureteral jets are seen. IMPRESSION: 1. Slight obscuration of the left kidney and suboptimal visualization of the bladder, otherwise the k idneys are unremarkable without hydronephrosis or discrete nephrolithiasis. Vascular calcifications a re seen of the right kidney. 2. Free fluid is incidentally noted adjacent to the gallbladder. Correlate with right upper quadrant pain and serum laboratory values to determine the need for HIDA scan or targeted ultrasound.
[2018-09-22 08:36] LABS: Anisocytosis Slight; Basophils % (A) 1 %; Eosinophils # (A) 0.1 k/uL (0-0.7); Eosinophils % (A) 2 %; HCT 25.7 % (34.0-46.0); Hypochromasia Slight; Lymphocytes # (A) 0.4 k/uL (1.0-4.8); Lymphocytes % (A) 10 %; MCH 29.9 pg (25.0-35.0); MCHC 31.3 g/dL (31.0-37.0); MCV 95.5 fL (80.0-100.0); Mean Platelet Volume 8.2; Monocytes # (A) 0.3 k/uL (0-1.0); Monocytes % (A) 8 %; Neutrophils # (A) 3.5 k/uL (1.3-7.7); Neutrophils % (A) 77 %; Platelet Count 127 k/uL (150-450); RBC 2.69 m/uL (3.80-5.40); RDW 16.7 % (11.5-15.5); WBC 4.5 k/uL (3.8-10.6)
[2018-09-22 08:48] LABS: Calcium 8.1 mg/dL (8.4-10.2); Potassium 5.7 mmol/L (3.5-5.1)
[2018-09-22] MEDS ORDERED: SODIUM CHLORIDE 0.45% 1,000 ML IV SCH (09:30)
--- NOTE | 2018-09-22 10:06 | XR ---
EXAMINATION TYPE: XR chest 1V DATE OF EXAM: 09/22/2018 COMPARISON: Chest x-ray 09/16/2018 from outside institution, CT 09/21/2018 HISTORY: Dyspnea TECHNIQUE: Single frontal view of the chest is obtained. FINDINGS: Patient is rotated. Heart remains enlarged. Pacemaker is stable. Postop changes to the rig ht shoulder again noted, high riding right shoulder may represent recurrent chronic rotator cuff tear . No evident pneumothorax. Small basilar effusions suspected. Interstitium is mildly increased. Aorta is dense. IMPRESSION: Stable cardiomegaly. Minimal basilar effusions and associated atelectasis.
--- NOTE | 2018-09-22 10:11 | P.CNPUL ---
History of Present Illness Consult date: 09/22/18 Reason for consult: dyspnea Chief complaint: Dyspnea and abdominal pain History of present illness: This is a 88-year-old female patient who got transferred again to us from [facility] because of shortness of breath. I was consulted for shortness of breath however the main issue seems to be worsening and abdominal pain, electrolyte imbalances the patient has developed hyponatremia and the patient has also developed an acute kidney injury with metabolic acidosis. I reviewed the records. I that this patient was in our hospital approximately a week ago for diminished ileostomy output, abdominal distention and bloating and nausea. The patient was seen by general surgery and the patient was diagnosed having small bowel obstruction. She did not require any immediate surgical intervention. The patient improved clinically and the patient was discharged once she was started back on diet. The CAT scan of the abdomen and pelvis at that time showed jejunum and proximal ileum dilation with the bile reaching up to 4 cm in caliber with several air-fluid levels. The transition point at the abdominal wall opening for the ileostomy with ileal loops just prior to yesterday being most dilated and associated with prominent edematous change throughout the mesentery of these loops. Ultimately, the patient had to come back for ongoing abdominal pain. I saw her at the bedside. She had a low-grade fever of 100.3 while at the assisted living. She was having some degree of shortness of breath. No reported aspiration. She is found in the week and at times she was also found to be confused. A repeat CAT scan of the abdomen was done on 09/21/2018 and it showed clearing of the bowel obstruction compared to last examination. There was fecal material at the ostomy site compared to last examination. There is also mild to moderate pleural effusion lung bases. There is also some limited infiltration probably related to compressive atelectasis. No retroperitoneal lymphadenopathy. Ureters were nondilated. Ostomy is found in the right side of the mid abdomen and there is evidence of sigmoid div erticula. No evidence of any bowel obstruction. No evidence of any free air based on the CAT scan of the abdomen that was done yesterday on 09/21/2018. The white cell count is at 4.5 with a hemoglobin of 8.0. The patient is an acute kidney injury. The patient has also developed non-anion gap metabolic acidosis. Serum bicarb is down to 14. Creatinine is at 3.7. Urine output is diminished. ProBNP level is elevated. Echocardiogram is pending. Review of Systems Constitutional: Reports fatigue, Reports fever, Reports lethargy, Reports weakness, Reports weight loss Eyes: denies as per HPI, denies blurred vision, denies bulging eye, denies decreased vision, denies diplopia, denies discharge, denies dry eye, denies irritation, denies itching, denies pain, denies photophobia, denies loss of peripheral vision, denies loss of vision, denies tunnel vision/blind spots Ears: deny: decreased hearing, ear discharge, earache, tinnitus Ears, nose, mouth and throat: Denies headache, Denies sore throat Breasts: absent: as per HPI, change in shape, gynecomastia, masses, nipple discharge, pain, skin changes, swelling Cardiovascular: Reports decreased exercise tolerance, Reports dyspnea on exertion Respiratory: Reports cough, Reports dyspnea Gastrointestinal: Reports as per HPI, Reports abdominal pain, Reports bloating Genitourinary: Denies dysuria, Denies hematuria Menstruation: Reports as per HPI Musculoskeletal: Reports as per HPI Musculoskeletal: absent: ankle pain, ankle stiffness, ankle swelling Integumentary: Reports as per HPI Neurological: Reports gait dysfunction Psychiatric: Reports as per HPI Endocrine: Reports as per HPI Hematologic/Lymphatic: Reports as per HPI Allergic/Immunologic: Reports as per HPI Past Medical History Past Medical History: Coronary Artery Disease (CAD), Heart Failure, Diabetes Mellitus, Hyperlipidemia, Hypertension, Renal Disease, Thyroid Disorder Additional Past Medical History / Comment(s): recent admission in Mar for "blockage" of ileostomy, has abd. hernia, urinary incontinence, vertigo, diverticulosis, chronic anemia History of Any Multi-Drug Resistant Organisms: None Reported Past Surgical History: Back Surgery, Bowel Resection, Heart Catheterization With Stent, Pacemaker Additional Past Surgical History / Comment(s): Subtotal colectomy with ileostomy 2013, EGD and colonoscopy 06/2016 Past Anesthesia/Blood Transfusion Reactions: No Reported Reaction Date of Last Stent Placement:: 2006 Type of Cardiac Device: Permanent Pacemaker Device Placement Date:: 2015 Past Psychological History: No Psychological Hx Reported Smoking Status: Former smoker Past Alcohol Use History: None Reported Additional Past Alcohol Use History / Comment(s): quit smoking 10 yrs., smoked 1ppd for >50 yrs. Past Drug Use History: None Reported - Past Family History Mother Family Medical History: Coronary Artery Disease (CAD), Diabetes Mellitus Father Family Medical History: Coronary Artery Disease (CAD) Medications and Allergies Home Medications Medication Instructions Recorded Confirmed Type Aspirin EC [Ecotrin Low Dose] 81 mg PO DAILY 03/28/16 09/21/18 History Diltiazem HCl [Cardizem CD] 360 mg PO HS 03/28/16 09/21/18 History Ferrous Sulfate [Iron (65 MG 325 mg PO DAILY@1200 03/28/16 09/21/18 History Elemental)] Insulin Aspart [NovoLOG Flexpen] See Protocol SQ AC-TID 03/28/16 09/21/18 History Labetalol HCl [Trandate] 300 mg PO BID 03/28/16 09/21/18 History Levothyroxine Sodium [Synthroid] 50 mcg PO DAILY 03/28/16 09/21/18 History Insulin Glargine [Lantus] 6 unit SQ HS 07/30/16 09/21/18 History Insulin Aspart [NovoLOG Flexpen] 2 units SQ AC-TID 02/12/17 09/21/18 History Acetaminophen [Tylenol Arthritis] 650 mg PO QID PRN 09/17/18 09/21/18 History Albuterol Inhaler [Ventolin Hfa 2 puff INHALATION RT-Q6H PRN 09/17/18 09/21/18 History Inhaler] Allopurinol [Zyloprim] 100 mg PO DAILY 09/17/18 09/21/18 History Doxazosin [Cardura] 3 mg PO Q12H 09/17/18 09/21/18 History Furosemide [Lasix] 40 mg PO DAILY 09/17/18 09/21/18 History Icy Hot Cream 1 applic TOPICAL BID PRN 09/17/18 09/21/18 History Isosorbide Mononitrate ER [Imdur] 60 mg PO DAILY 09/17/18 09/21/18 History Pantoprazole [Protonix] 40 mg PO DAILY 09/17/18 09/21/18 History Patiromer Calcium Sorbitex 8.4 gm PO DAILY 09/17/18 09/21/18 History [Veltassa] Pravastatin Sodium [Pravachol] 20 mg PO HS 09/17/18 09/21/18 History Sodium Bicarbonate Tab 650 mg PO TID 09/17/18 09/21/18 History Sucralfate [Carafate] 1 gm PO TID 09/17/18 09/21/18 History hydrALAZINE HCL [Apresoline] 100 mg PO TID 09/17/18 09/21/18 History Allergies Allergy/AdvReac Type Severity Reaction Status Date / Time hydrocodone Allergy Unknown Verified 09/21/18 14:48 lisinopril Allergy Unknown Verified 09/21/18 14:48 Penicillins Allergy Anaphylaxis Verified 09/21/18 14:48 streptomycin Allergy Rash/Hives Verified 09/21/18 14:48 Physical Exam Vitals: Vital Signs Temp Pulse Pulse Resp BP BP Pulse Ox 09/22/18 07:28 70 09/22/18 07:16 66 91 L 09/22/18 07:00 98.3 F 62 20 145/79 92 L 09/21/18 20:55 98.7 F 60 22 129/71 91 L 09/21/18 20:40 68 09/21/18 20:32 68 09/21/18 18:08 98.0 F 60 17 146/53 99 09/21/18 17:56 97.7 F 60 18 116/61 96 09/21/18 17:26 60 17 146/53 99 09/21/18 17:00 60 17 146/53 99 09/21/18 16:36 61 16 09/21/18 16:30 62 15 138/56 100 09/21/18 16:25 60 16 09/21/18 16:00 60 21 140/55 98 09/21/18 15:30 60 19 131/48 99 09/21/18 15:00 60 21 132/54 99 09/21/18 14:54 18 09/21/18 14:33 98.0 F 62 18 132/54 98 09/21/18 14:32 18 Intake and Output 09/21/18 09/22/18 09/22/18 22:59 06:59 14:59 Intake Total 25 Output Total 200 Balance -200 25 Intake: Oral 25 Output: Stool 200 Other: Voiding Method Bedpan Incontinent # Voids 1 3 3 Weight 69.5 kg Gen. appearance lethargic weak, and a mild degree of abdominal pain and distress. No apparent distress distress at this point in time and the patient is currently on room air oxygen. Head exam was generally normal. There was no scleral icterus or corneal arcus. Mucous membranes were moist. Neck was supple and without jugular venous distension, thyromegaly, or carotid bruits. Carotids were easily palpable bilaterally. There was no adenopathy. Lungs sounds are diminished along with some limited bibasilar crackles heard in the lung bases bilaterally. Cardiac exam revealed the PMI to be normally situated and sized. The rhythm was regular and no extrasystoles were noted during several minutes of auscultation. The first and second heart sounds were normal and physiologic splitting of the second heart sound was noted. There were no murmurs, rubs, clicks, or gallops. Abdomen is tender especially in the area around the ileostomy and the area inferior to the ileostomy. There is some mild diffuse direct tenderness. There is some small amount of stool output in ileostomy back. There is an anterior abdominal wall hernia which is easily reducible without any evidence of incarceration or strangulation. Bowel sounds are hypoactive. No organomegaly. Examination of the extremities revealed easily palpable radial, femoral and pedal pulses. There was no cyanosis, clubbing or edema. Examination of the skin revealed no evidence of significant rashes, suspicious appearing nevi or other concerning lesions. Neurologically the patient is slow to answer questions. She is moving all 4 extremities without any limitation. On and off there has been some limited infusion. Results - Laboratory Findings CBC and BMP: 09/22/18 07:58 09/22/18 07:58 Abnormal lab findings: Abnormal Labs 09/21/18 09/21/18 09/21/18 19:01 19:01 20:51 RBC Hgb Hct RDW Plt Count Lymphocytes # Sodium 129 L Potassium 5.6 H Carbon Dioxide 14 L BUN 46 H Creatinine 3.71 H POC Glucose (mg/dL) 111 H Calcium Iron 19 L TIBC 213 L Iron Saturation 8.92 L Ferritin 726.4 H 09/22/18 09/22/18 09/22/18 07:05 07:58 07:58 RBC 2.69 L Hgb 8.0 L Hct 25.7 L RDW 16.7 H Plt Count 127 L Lymphocytes # 0.4 L Sodium 130 L Potassium 5.7 H Carbon Dioxide 14 L BUN 50 H Creatinine 3.72 H POC Glucose (mg/dL) 118 H Calcium 8.1 L Iron TIBC Iron Saturation Ferritin - Diagnostic Findings Chest x-ray: image reviewed Assessment and Plan Plan: 1 abdominal pain, around the ileostomy with recent hospitalization for a small bowel obstruction. The follow-up CAT scan of the abdomen was noted. CAT scan of the abdomen shows resolution of the previously described bowel obstruction. Nevertheless, the patient continues to have tenderness and output seems to be quite diminished. 2 acute kidney injury on top of chronic kidney disease, and the patient's creatinine is up to 3.7 3 acute hyponatremia 4 acute non-anion gap metabolic acidosis 5 small limited bibasilar pleural effusions and atelectatic changes in lung bases 6 coronary artery disease 7 questionable history of congestion heart failure 8 history of subtotal colectomy and diverting ileostomy 9 hypertension 10 hyperlipidemia 11 hypothyroidism 12 diabetes mellitus Plan Chance for this patient in intensive care unit. Start the patient on D5 bicarb infusion at the rate of 100 cc an hour. Stop oral bicarb. Obtain a lactic acid level. Obtain a flat film of the abdomen. Consult general surgery again. Blood cultures. Empiric antibiotic coverage for now with Levaquin and Flagyl. Inserted for it catheter, obtain another surgical consultation, transfer this patient in ICU, resume other medications and continue to follow the patient intensive care unit. We'll establish a CODE STATUS. My understanding that she is not a full code for the time being. Family will be informed. We'll follow.
--- NOTE | 2018-09-22 10:13 | XR ---
Abdomen HISTORY: Pain Frontal view of the abdomen on 2 images There are multiple calcifications which are likely vascular within the pelvis. Blunting of the costop hrenic angles is noted suggesting small effusions. Probable embolization coils present in the right l ower quadrant. There are air-filled loops of bowel present, no evident bowel obstruction or pneumoper itoneum. Degenerative disc changes are present visualized spine. Bone mineralization is reduced. IMPRESSION: Nonobstructive bowel gas pattern. Pleural effusions. Postprocedural changes correlate wit h appropriate history. There may be underlying ileus or enteritis, correlate. Follow-up as indicated.
[2018-09-22 10:25] LABS: Glucose,Whole Blood 117 mg/dL (75-99)
[2018-09-22] MEDS ORDERED: DEXTROSE 50% SYRINGE 50 ML IVP STA (10:57)
[2018-09-22] MEDS ORDERED: INSULIN REGULAR 100 UNIT/ML VIAL IV ONE (10:57)
[2018-09-22] MEDS ORDERED: SODIUM BICARBONATE TAB 650 MG TAB PO SCH (11:00)
[2018-09-22] MEDS ORDERED: DEXTROSE 10 % IN WATER 250 ML IV ONE (11:01)
--- NOTE | 2018-09-22 11:10 | P.NPCON ---
History of Present Illness - Reason for Consult acute renal failure, chronic renal failure - History of Present Illness Reason for consultation: Acute kidney injury on chronic kidney disease History of present illness: Patient is a 88-year-old female seen in renal consultation for acute kidney injury on chronic kidney disease. Patient has chronic kidney disease stage III Baseline creatinine in the range of 1-1.3. Creatinine was 3.71 on admission and is 3.72 today. Patient was transferred from [facility] due to shortness of breath. Patient was recently discharged from this hospital last week after being treated conservatively for small bowel obstruction. Patient has gone progressively weak and confused since. She also developed fever and a cough. She is currently being treated for pneumonia. Chest x-ray was suggestive of pulmonary vascular congestion as well as interstitial edema. No evidence of hydronephrosis noted on CAT scan and renal ultrasound. Patient remains acidotic and was started on bicarb drip this morning. She has been voiding. No hematuria or dysuria. Hemodynamically she is stable. She is receiving antibiotics for the pneumonia and is also maintained on Lasix 40 mg IV twice daily. Patient does have long-standing history of diabetes mellitus and is insu barby-dependent. Patient states she does follow with a vinyl flooring installer out of [place] and is maintained on Kayexalate for chronic hyperkalemia. Potassium level today is 5.7. Vital signs are stable. General: The patient appeared well nourished and normally developed. HEENT: Head exam is unremarkable. Neck is without jugular venous distension. LUNGS: Breath sounds decreased. HEART: Rate and Rhythm are regular. First and second heart sounds normal. No murmurs, rubs or gallops. ABDOMEN: Abdominal exam reveals normal bowel sounds. Non-tender and non- distended. No evidence of peritonitis. EXTREMITITES: No clubbing, cyanosis, or edema. Past Medical History Past Medical History: Coronary Artery Disease (CAD), Heart Failure, Diabetes Mellitus, Hyperlipidemia, Hypertension, Renal Disease, Thyroid Disorder Additional Past Medical History / Comment(s): recent admission in Mar for "blockage" of ileostomy, has abd. hernia, urinary incontinence, vertigo, diverticulosis, chronic anemia History of Any Multi-Drug Resistant Organisms: None Reported Past Surgical History: Back Surgery, Bowel Resection, Heart Catheterization With Stent, Pacemaker Additional Past Surgical History / Comment(s): Subtotal colectomy with ileostomy 2013, EGD and colonoscopy 06/2016 Past Anesthesia/Blood Transfusion Reactions: No Reported Reaction Date of Last Stent Placement:: 2006 Type of Cardiac Device: Permanent Pacemaker Device Placement Date:: 2015 Past Psychological History: No Psychological Hx Reported Smoking Status: Former smoker Past Alcohol Use History: None Reported Additional Past Alcohol Use History / Comment(s): quit smoking 10 yrs., smoked 1ppd for >50 yrs. Past Drug Use History: None Reported - Past Family History Mother Family Medical History: Coronary Artery Disease (CAD), Diabetes Mellitus Father Family Medical History: Coronary Artery Disease (CAD) Medications and Allergies Home Medications Medication Instructions Recorded Confirmed Type Aspirin EC [Ecotrin Low Dose] 81 mg PO DAILY 03/28/16 09/21/18 History Diltiazem HCl [Cardizem CD] 360 mg PO HS 03/28/16 09/21/18 History Ferrous Sulfate [Iron (65 MG 325 mg PO DAILY@1200 03/28/16 09/21/18 History Elemental)] Insulin Aspart [NovoLOG Flexpen] See Protocol SQ AC-TID 03/28/16 09/21/18 History Labetalol HCl [Trandate] 300 mg PO BID 03/28/16 09/21/18 History Levothyroxine Sodium [Synthroid] 50 mcg PO DAILY 03/28/16 09/21/18 History Insulin Glargine [Lantus] 6 unit SQ HS 07/30/16 09/21/18 History Insulin Aspart [NovoLOG Flexpen] 2 units SQ AC-TID 02/12/17 09/21/18 History Acetaminophen [Tylenol Arthritis] 650 mg PO QID PRN 09/17/18 09/21/18 History Albuterol Inhaler [Ventolin Hfa 2 puff INHALATION RT-Q6H PRN 09/17/18 09/21/18 History Inhaler] Allopurinol [Zyloprim] 100 mg PO DAILY 09/17/18 09/21/18 History Doxazosin [Cardura] 3 mg PO Q12H 09/17/18 09/21/18 History Furosemide [Lasix] 40 mg PO DAILY 09/17/18 09/21/18 History Icy Hot Cream 1 applic TOPICAL BID PRN 09/17/18 09/21/18 History Isosorbide Mononitrate ER [Imdur] 60 mg PO DAILY 09/17/18 09/21/18 History Pantoprazole [Protonix] 40 mg PO DAILY 09/17/18 09/21/18 History Patiromer Calcium Sorbitex 8.4 gm PO DAILY 09/17/18 09/21/18 History [Veltassa] Pravastatin Sodium [Pravachol] 20 mg PO HS 09/17/18 09/21/18 History Sodium Bicarbonate Tab 650 mg PO TID 09/17/18 09/21/18 History Sucralfate [Carafate] 1 gm PO TID 09/17/18 09/21/18 History hydrALAZINE HCL [Apresoline] 100 mg PO TID 09/17/18 09/21/18 History Allergies Allergy/AdvReac Type Severity Reaction Status Date / Time hydrocodone Allergy Unknown Verified 09/21/18 14:48 lisinopril Allergy Unknown Verified 09/21/18 14:48 Penicillins Allergy Anaphylaxis Verified 09/21/18 14:48 streptomycin Allergy Rash/Hives Verified 09/21/18 14:48 Physical Exam Vitals: Vital Signs Temp Pulse Pulse Resp BP BP Pulse Ox 09/22/18 07:28 70 09/22/18 07:16 66 91 L 09/22/18 07:00 98.3 F 62 20 145/79 92 L 09/21/18 20:55 98.7 F 60 22 129/71 91 L 09/21/18 20:40 68 09/21/18 20:32 68 09/21/18 18:08 98.0 F 60 17 146/53 99 09/21/18 17:56 97.7 F 60 18 116/61 96 09/21/18 17:26 60 17 146/53 99 09/21/18 17:00 60 17 146/53 99 09/21/18 16:36 61 16 09/21/18 16:30 62 15 138/56 100 09/21/18 16:25 60 16 09/21/18 16:00 60 21 140/55 98 09/21/18 15:30 60 19 131/48 99 09/21/18 15:00 60 21 132/54 99 09/21/18 14:54 18 09/21/18 14:33 98.0 F 62 18 132/54 98 09/21/18 14:32 18 Intake and Output 09/21/18 09/22/18 09/22/18 22:59 06:59 14:59 Intake Total 25 Output Total 200 Balance -200 25 Intake: Oral 25 Output: Stool 200 Other: Voiding Method Bedpan Incontinent # Voids 1 3 3 Weight 69.5 kg Results - Lab Results Most recent lab results Calcium 8.1 mg/dL (8.4-10.2) L 09/22/18 07:58 09/22/18 07:58 09/22/18 07:58 Assessment and Plan Plan: Assessment: 1. Acute kidney injury secondary to ATN secondary to infection. Also component of cardiorenal syndrome. Creatinine 3.71 on admission and is 3.72 today. No evidence of hydronephrosis noted on ultrasound and CAT scan. Also rule out urinary retention. 2. Chronic kidney disease stage III with baseline creatinine in the range of 1- 1.3. Etiology is most likely diabetic kidney disease. 3. Hyperkalemia secondary to acute kidney injury and metabolic acidosis. Patient states she takes Kayexalate outpatient. 4. Metabolic acidosis secondary to acute kidney injury. 5. Hyponatremia secondary to acute kidney injury. 6. Dyspnea secondary to pneumonia. 7. Acute CHF exacerbation. Unknown ejection fraction. 8. Recent small bowel obstruction. Surgery has been consulted this admission as well. Plan: Patient was started on bicarb drip this morning. However, I will decrease the rate as she still has small effusions on chest x-ray. Monitor respiratory status closely. May need to resume Lasix soon. Add oral sodium bicarbonate. Check bladder scan to rule out urinary retention. 10 units of IV regular insulin with an amp of D50 now. Repeat potassium level this evening. Avoid nephrotoxins. Follow-up echocardiogram. Check urinalysis. Thank you for the consultation. I will continue to follow the patient with you during her hospital stay.
[2018-09-22] MEDS: DEXTROSE 5% IN WATER 1,000 ML with SODIUM BICARB (1 MEQ/ML) 150 ML IV SCH ×2 (11:17→22:08)
--- NOTE | 2018-09-22 11:25 | ECHOF ---
Referral Reason:CHF exacerbation MEASUREMENTS -------- HEIGHT: 151.1 cm WEIGHT: 58.1 kg BP: 145/79 IVSd: 1.4 cm (0.6 - 1.1) LVIDd: 3.9 cm (3.9 - 5.3) LVPWd: 1.2 cm (0.6 - 1.1) IVSs: 1.8 cm LVIDs: 3.1 cm LVPWs: 1.9 cm LA Diam: 3.1 cm (2.7 - 3.8) RVIDd: 3.3 cm (< 3.3) LAESV Index (A-L): 37.67 ml/m Ao Diam: 3.2 cm (2.0 - 3.7) AV Cusp: 2.0 cm (1.5 - 2.6) EPSS: 0.9 cm MV E Vaughn: 0.99 m/s MV DecT: 176 ms MV A Vaughn: 0.99 m/s MV E/A Ratio: 0.99 AV maxP.83 mmHg AV meanP.02 mmHg RAP: 15.00 mmHg RVSP: 50.83 mmHg MV EF SLOPE: 29.04 mm/s (70 - 150) MV EXCURSION: 10.41 mm (> 18.000) FINDINGS -------- Paced rhythm. This was a technically good study. The left ventricular size is normal. There is moderate concentric left ventricular hypertrophy. O verall left ventricular systolic function is low-normal with, an EF between 50 - 55 %. The right ventricle is normal in size. LA is moderately dilated 34-39 ml/m2 The right atrium is normal in size. Interatrial and interventricular septum intact. Aortic valve is trileaflet and is mildly thickened. Peak/mean gradient across the Aortic Valve is 1 6.83mmHg / 6.02mmHg. The mitral valve leaflets are mildly thickened. Mild mitral annular calcification present. Mild m itral regurgitation is present. Mild tricuspid regurgitation present. There is moderate pulmonary hypertension. The right ventric ular systolic pressure, as measured by Doppler, is 50.83mmHg. Trace/mild (physiologic) pulmonic regurgitation. The aortic root size is normal. The inferior vena cava is dilated with poor inspiratory collapse which is consistent with estimated r ight atrial pressure of 15 mmHg. There is no pericardial effusion. CONCLUSIONS -------- 1. Paced rhythm. 2. This was a technically good study. 3. The left ventricular size is normal. 4. There is moderate concentric left ventricular hypertrophy. 5. Overall left ventricular systolic function is low-normal with, an EF between 50 - 55 %. 6. The right ventricle is normal in size. 7. LA is moderately dilated 34-39 ml/m2 8. The right atrium is normal in size. 9. Interatrial and interventricular septum intact. 10. Aortic valve is trileaflet and is mildly thickened. 11. Peak/mean gradient across the Aortic Valve is 16.83mmHg / 6.02mmHg. 12. The mitral valve leaflets are mildly thickened. 13. Mild mitral annular calcification present. 14. Mild mitral regurgitation is present. 15. Mild tricuspid regurgitation present. 16. There is moderate pulmonary hypertension. 17. The right ventricular systolic pressure, as measured by Doppler, is 50.83mmHg. 18. Trace/mild (physiologic) pulmonic regurgitation. 19. The aortic root size is normal. 20. The inferior vena cava is dilated with poor inspiratory collapse which is consistent with estimat ed right atrial pressure of 15 mmHg. 21. There is no pericardial effusion. ANALYTICAL RESEARCH CHEMIST: Abiola Fishman RDCS
[2018-09-22] MEDS: ONDANSETRON 4 MG/2 ML VIAL IVP PRN (11:32)
[2018-09-22 11:48] LABS: Appearance,Urine Cloudy (Clear); Bilirubin,Urine Negative (Negative); Blood,Urine Trace (Negative); Color,Urine Yellow; Glucose,Urine (UA) Negative (Negative); Granular Casts,Urine 3 /lpf (0); Hyaline Casts,Urine 32 /lpf (0-2); Ketones,Urine Negative (Negative); Leukocyte Esterase,Urine Moderate (Negative); Mucus,Urine Rare /hpf; Nitrite,Urine Negative (Negative); Protein,Urine 1+ (Negative); RBC,Urine 71 /hpf (0-5); Specific Gravity,Urine 1.011 (1.001-1.035); Squamous Epithelial Cell,Urine 4 /hpf (0-4); Urobilinogen,Urine <2.0 mg/dL (<2.0); WBC,Urine 13 /hpf (0-5)
--- NOTE | 2018-09-22 12:30 | P.PN ---
Subjective Progress Note Date: 09/22/18 The patient is examined at bedside, reported some nausea and some pain in her abdomen around her ileostomy. The patient transferred to ICU earlier today for closer monitoring, the kidney function is still diminished with creatinine at 3.72, NT proBNP 33 600, serum potassium 5.7, serum bicarb 14, sodium 130. Renal ultrasound negative for hydronephrosis with free fluid around the gallbladder, Objective - Vital Signs Vital signs: Vital Signs Temp 97.7 F 09/22/18 11:00 Pulse 63 09/22/18 11:00 Resp 16 09/22/18 11:00 BP 124/49 09/22/18 11:00 Pulse Ox 96 09/22/18 11:00 Intake & Output 09/21/18 09/22/18 09/22/18 18:59 06:59 18:59 Intake Total 25 Output Total 200 Balance -200 25 Weight 58.06 kg 69.5 kg Intake: Oral 25 Output: Stool 200 Other: Voiding Method Bedpan Incontinent # Voids 3 3 - Exam Constitutional: No acute distress, conversant, pleasant Eyes: Anicteric sclerae, moist conjunctiva, no lid-lag, PERRLA ENMT: NC/AT,Oropharynx clear, no erythema, exudates Neck:Supple, FROM, no masses, or JVD, No carotid bruits; No thyromegaly Lungs: Clear to auscultation, Clear to percussion, Normal respiratory effort, no accessory muscle use Cardiovascular: Heart regular in rate and rhythm, No murmurs, gallops, or rubs no peripheral edema Abdominal: Soft Nontender, non distended, no guarding, no rebound or rigidity, hypoactive bowel sounds No hepatomegaly, scant output from ileostomy, anterior abdominal wall hernia which is reducible Skin: Normal temperature, tone, texture, turgor, No induration No subcutaneous nodules, No rash, lesions, No ulcers Extremities:No digital cyanosis No clubbing, Pedal pulses intact and symmetrical Radial pulses intact and symmetrical Normal gait and station, No calf tenderness Psychiatric: Alert and oriented to person, place and time, Appropriate affect Intact judgement Neuro: Muscles Strength 5/5 in all 4 extremities, Sensation to light touch grossly present throughout, Cranial nerves II-XII grossly intact. No focal sensory deficits - Labs CBC & Chem 7: 09/23/18 04:50 09/23/18 04:50 Labs: Abnormal Lab Results - Last 24 Hours (Table) 09/21/18 09/21/18 09/21/18 Range/Units 10:15 19:01 19:01 RBC (3.80-5.40) m/uL Hgb (11.4-16.0) gm/dL Hct (34.0-46.0) % RDW (11.5-15.5) % Plt Count (150-450) k/uL Lymphocytes # (1.0-4.8) k/uL Sodium 129 L (137-145) mmol/L Potassium 5.6 H (3.5-5.1) mmol/L Carbon Dioxide 14 L (22-30) mmol/L BUN 46 H (7-17) mg/dL Creatinine 3.71 H (0.52-1.04) mg/dL POC Glucose (mg/dL) (75-99) mg/dL Plasma Lactic Acid Max (0.7-2.0) mmol/L Calcium (8.4-10.2) mg/dL Iron 19 L (50-170) ug/dL TIBC 213 L (228-460) ug/dL Iron Saturation 8.92 L (12.00-45.00) Ferritin 726.4 H (10.0-291.0) ng/mL Urine Appearance (Clear) Urine Protein (Negative) Urine Blood (Negative) Ur Leukocyte Esterase (Negative) Urine RBC (0-5) /hpf Urine WBC (0-5) /hpf Hyaline Casts (0-2) /lpf Urine Mucus (None) /hpf Stool Occult Blood Positive H (Negative) 09/21/18 09/22/18 09/22/18 Range/Units 20:51 07:05 07:58 RBC (3.80-5.40) m/uL Hgb (11.4-16.0) gm/dL Hct (34.0-46.0) % RDW (11.5-15.5) % Plt Count (150-450) k/uL Lymphocytes # (1.0-4.8) k/uL Sodium 130 L (137-145) mmol/L Potassium 5.7 H (3.5-5.1) mmol/L Carbon Dioxide 14 L (22-30) mmol/L BUN 50 H (7-17) mg/dL Creatinine 3.72 H (0.52-1.04) mg/dL POC Glucose (mg/dL) 111 H 118 H (75-99) mg/dL Plasma Lactic Acid Max (0.7-2.0) mmol/L Calcium 8.1 L (8.4-10.2) mg/dL Iron (50-170) ug/dL TIBC (228-460) ug/dL Iron Saturation (12.00-45.00) Ferritin (10.0-291.0) ng/mL Urine Appearance (Clear) Urine Protein (Negative) Urine Blood (Negative) Ur Leukocyte Esterase (Negative) Urine RBC (0-5) /hpf Urine WBC (0-5) /hpf Hyaline Casts (0-2) /lpf Urine Mucus (None) /hpf Stool Occult Blood (Negative) 09/22/18 09/22/18 09/22/18 Range/Units 07:58 09:47 10:24 RBC 2.69 L (3.80-5.40) m/uL Hgb 8.0 L (11.4-16.0) gm/dL Hct 25.7 L (34.0-46.0) % RDW 16.7 H (11.5-15.5) % Plt Count 127 L (150-450) k/uL Lymphocytes # 0.4 L (1.0-4.8) k/uL Sodium (137-145) mmol/L Potassium (3.5-5.1) mmol/L Carbon Dioxide (22-30) mmol/L BUN (7-17) mg/dL Creatinine (0.52-1.04) mg/dL POC Glucose (mg/dL) 117 H (75-99) mg/dL Plasma Lactic Acid Max <0.5 L (0.7-2.0) mmol/L Calcium (8.4-10.2) mg/dL Iron (50-170) ug/dL TIBC (228-460) ug/dL Iron Saturation (12.00-45.00) Ferritin (10.0-291.0) ng/mL Urine Appearance (Clear) Urine Protein (Negative) Urine Blood (Negative) Ur Leukocyte Esterase (Negative) Urine RBC (0-5) /hpf Urine WBC (0-5) /hpf Hyaline Casts (0-2) /lpf Urine Mucus (None) /hpf Stool Occult Blood (Negative) 09/22/18 Range/Units 11:10 RBC (3.80-5.40) m/uL Hgb (11.4-16.0) gm/dL Hct (34.0-46.0) % RDW (11.5-15.5) % Plt Count (150-450) k/uL Lymphocytes # (1.0-4.8) k/uL Sodium (137-145) mmol/L Potassium (3.5-5.1) mmol/L Carbon Dioxide (22-30) mmol/L BUN (7-17) mg/dL Creatinine (0.52-1.04) mg/dL POC Glucose (mg/dL) (75-99) mg/dL Plasma Lactic Acid Max (0.7-2.0) mmol/L Calcium (8.4-10.2) mg/dL Iron (50-170) ug/dL TIBC (228-460) ug/dL Iron Saturation (12.00-45.00) Ferritin (10.0-291.0) ng/mL Urine Appearance Cloudy H (Clear) Urine Protein 1+ H (Negative) Urine Blood Trace H (Negative) Ur Leukocyte Esterase Moderate H (Negative) Urine RBC 71 H (0-5) /hpf Urine WBC 13 H (0-5) /hpf Hyaline Casts 32 H (0-2) /lpf Urine Mucus Rare H (None) /hpf Stool Occult Blood (Negative) Assessment and Plan (1) Acute and chronic respiratory failure with hypoxia Narrative/Plan: * Multifactorial pneumonia superimposed on possible CHF exacerbation and volume overload * Chest x-ray indicating basilar effusion and associated atelectasis * Continue supplemental oxygen continue with breathing treatments * plan for pulmonary consultation Current Visit: Yes Status: Acute Code(s): J96.21 - ACUTE AND CHRONIC RESPIRATORY FAILURE WITH HYPOXIA SNOMED Code(s): 04833171 (2) Acute exacerbation of CHF (congestive heart failure) Narrative/Plan: * Significantly elevated NT proBNP 47796, Lasix held today * Echocardiogram pending Current Visit: Yes Status: Acute Code(s): I50.9 - HEART FAILURE, UNSPECIFIED SNOMED Code(s): 415299149 (3) Acute kidney injury superimposed on chronic kidney disease Narrative/Plan: * Likely secondary to ATN induced infection with a component of cardiorenal syndrome * Baseline creatinine 1-1.3 * Continue to monitor creatinine * The patient had approximately 170 mL of urine out today Current Visit: Yes Status: Acute Code(s): N17.9 - ACUTE KIDNEY FAILURE, UNSPECIFIED; N18.9 - CHRONIC KIDNEY DISEASE, UNSPECIFIED SNOMED Code(s): 09142608 (4) Metabolic acidosis Narrative/Plan: * Secondary to acute kidney injury * Continued on D5W with 3 A of bicarbonate 60 mL an hour Current Visit: Yes Status: Acute Code(s): E87.2 - ACIDOSIS SNOMED Code(s): 36415817 (5) Pneumonia Narrative/Plan: * Continue empiric IV antibiotic treatment with Levaquin Current Visit: Yes Status: Acute Code(s): J18.9 - PNEUMONIA, UNSPECIFIED ORGANISM SNOMED Code(s): 914768652 (6) Hyperkalemia Narrative/Plan: * Potassium 5.7 no improvement with Kayexalate overnight * Patient given temporizing measures with IV insulin and D10 * We'll continue to monitor labs Current Visit: Yes Status: Acute Code(s): E87.5 - HYPERKALEMIA SNOMED Code(s): 78373625 (7) Hyponatremia Narrative/Plan: * Likely secondary to acute kidney injury * will continue to monitor * Current Visit: Yes Status: Acute Code(s): E87.1 - HYPO-OSMOLALITY AND HYPONATREMIA SNOMED Code(s): 22601321 (8) Normocytic anemia Narrative/Plan: * Hemoglobin holding stable at 8 g * Iron studies consistent with anemia of chronic disease Current Visit: Yes Status: Acute Code(s): D64.9 - ANEMIA, UNSPECIFIED SNOMED Code(s): 928125207 (9) Abdominal pain Narrative/Plan: * Repeat CT abdomen and pelvis shows resolution of previously noted small bowel * Gen. surgery consulted as a patient continues to have pain * Flagyl added to antibiotic regimen Current Visit: Yes Status: Acute Code(s): R10.9 - UNSPECIFIED ABDOMINAL PAIN SNOMED Code(s): 81362081 Plan: * Disposition * Appreciate recommendations from consultants * Continue current treatment plan * Anticipated discharge 2-3 days
--- NOTE | 2018-09-22 12:30 | P.GSCN ---
<Manisha Barlow - Last Filed: 09/22/18 12:30> History of Present Illness Consult date: 09/22/18 Reason for Consult: abdominal pain Requesting physician: Pablo Sanchez History of present illness: CHIEF COMPLAINT: abdominal pain HISTORY OF PRESENT ILLNESS: 88-year-old female known to surgical services from recent hospitalization secondary to small bowel obstruction. Patient was treated conservatively with resolution of bowel obstruction. Consult placed to general surgery for further evaluation of abdominal pain. Patient examined this morning with Dr. Crowder. Patient reports right upper and lower quadrant pain. Ileostomy with liquid stool noted. RN reports bag was recently emptied. Patient denies nausea or vomiting. She is known to have gallstones. Patient adamently states she does not want any type of surgical intervention performed. PAST MEDICAL HISTORY: See list. PAST SURGICAL HISTORY: See list. MEDICATIONS: See list. ALLERGIES: See list. SOCIAL HISTORY: No illicit drug use. REVIEW OF SYSTEMS: CONSTITUTIONAL: Denies fever or chills. HEENT: Denies blurred vision, vision changes, or eye pain. Denies hemoptysis ENDOCRINE: Denies heat or cold intolerance. CARDIOVASCULAR: Denies chest pain or pressure. RESPIRATORY: Reports shortness of breath. GASTROINTESTINAL: see HPI for pertinent findings NEURO: Denies history of seizures. PSYCH: No depression or suicidal ideation HEMATOLOGIC: Denies bleeding disorders. LYMPHATIC: The patient denies any lumps and bumps around the neck. GENITOURINARY: Denies any blood in urine or increased urinary frequency. MUSCULOSKELETAL: Denies myalgias. Denies joint swelling. Denies decreased range of motion beyond patients baseline. SKIN: Denies pruitis. Denies rash. PHYSICAL EXAM: VITAL SIGNS: Reviewed GENERAL: Well-developed in no acute distress. HEENT: No sclera icterus. Extraocular movements grossly intact. Moist buccal mucosa. Head is atraumatic, normocephalic. Hears conversational speech. No nasal drainage. NECK: Supple without lymphadenopathy. CHEST: Non-labored respirations and equal bilateral excursions. CARDIOVASCULAR: Regular rate with regular rhythm. Palpable 2+ radial pulses. ABDOMEN: Soft. Nondistended. Tenderness with palpation to right upper and lower quadrant. Ileostomy with liquid stool noted. No peritoneal signs. MUSCULOSKELETAL: No clubbing, cyanosis or edema. NEUROLOGIC: No focal or lateralizing signs. Cranial nerves II through XII grossly intact. PSYCH: Appropriate affect. Alert and oriented. Sleepy SKIN: Well perfused. Good skin turgor. LABORATORY DATA: laboratory data reveals white count 4.5. Hemoglobin 8.0. Platelet count 127. Potassium 5.7. Creatine 3.72. IMAGIN. CT abdomen and pelvis: Clearing of bowel obstruction compared to last exam. There is clearing of the fecal material at the ostomy site compared to last exam that apparently was site of the obstruction. Sigmoid diverticulosis. 2. Abdominal x-ray: Nonobstructive bowel gas pattern. ASSESSMENT: 1. Abdominal pain, no evidence of bowel obstruction 2. Recent hospitalization for small bowel obstruction, treated with conversative management 3. Known history of cholelithiasis 4. History of ileostomy PLAN: Patient with known history of gallstones. Patient is adamant that she does not want any type of surgical intervention including bowel surgery or gallbladder surgery. Recommend clear liquid diet at this time. When abdominal pain improves, recommend advancing diet to low fat diet. No evidence of bowel obstruction per CT scan or during clinical exam. Agreeable to IV Flagyl that has been started per decatizer. Will continue to follow. Further recommendations pending patient course. Nurse practitioner note has been reviewed by physician. Signing provider agrees with the documented findings, assessment, and plan of care. Past Medical History Past Medical History: Heart Failure, Diabetes Mellitus, Hyperlipidemia, Hypertension, Renal Disease, Thyroid Disorder Additional Past Medical History / Comment(s): recent admission in [place] for "blockage" of ileostomy, has abd. hernia, urinary incontinence, vertigo, diverticulosis, chronic anemia, hyperkalemia History of Any Multi-Drug Resistant Organisms: None Reported Past Surgical History: Back Surgery, Bowel Resection, Heart Catheterization With Stent, Pacemaker Additional Past Surgical History / Comment(s): Subtotal colectomy with ileostomy 2013, EGD and colonoscopy 06/2016 Past Anesthesia/Blood Transfusion Reactions: No Reported Reaction Date of Last Stent Placement:: 2006 Type of Cardiac Device: Permanent Pacemaker Device Placement Date:: 2015 Past Psychological History: No Psychological Hx Reported Smoking Status: Former smoker Past Alcohol Use History: None Reported Additional Past Alcohol Use History / Comment(s): quit smoking 10 yrs., smoked 1ppd for >50 yrs. Past Drug Use History: None Reported - Past Family History Mother Family Medical History: Coronary Artery Disease (CAD), Diabetes Mellitus Father Family Medical History: Coronary Artery Disease (CAD) Medications and Allergies Home Medications Medication Instructions Recorded Confirmed Type Aspirin EC [Ecotrin Low Dose] 81 mg PO DAILY 03/28/16 09/21/18 History Diltiazem HCl [Cardizem CD] 360 mg PO HS 03/28/16 09/21/18 History Ferrous Sulfate [Iron (65 MG 325 mg PO DAILY@1200 03/28/16 09/21/18 History Elemental)] Insulin Aspart [NovoLOG Flexpen] See Protocol SQ AC-TID 03/28/16 09/21/18 History Labetalol HCl [Trandate] 300 mg PO BID 03/28/16 09/21/18 History Levothyroxine Sodium [Synthroid] 50 mcg PO DAILY 03/28/16 09/21/18 History Insulin Glargine [Lantus] 6 unit SQ HS 07/30/16 09/21/18 History Insulin Aspart [NovoLOG Flexpen] 2 units SQ AC-TID 02/12/17 09/21/18 History Acetaminophen [Tylenol Arthritis] 650 mg PO QID PRN 09/17/18 09/21/18 History Albuterol Inhaler [Ventolin Hfa 2 puff INHALATION RT-Q6H PRN 09/17/18 09/21/18 History Inhaler] Allopurinol [Zyloprim] 100 mg PO DAILY 09/17/18 09/21/18 History Doxazosin [Cardura] 3 mg PO Q12H 09/17/18 09/21/18 History Furosemide [Lasix] 40 mg PO DAILY 09/17/18 09/21/18 History Icy Hot Cream 1 applic TOPICAL BID PRN 09/17/18 09/21/18 History Isosorbide Mononitrate ER [Imdur] 60 mg PO DAILY 09/17/18 09/21/18 History Pantoprazole [Protonix] 40 mg PO DAILY 09/17/18 09/21/18 History Patiromer Calcium Sorbitex 8.4 gm PO DAILY 09/17/18 09/21/18 History [Veltassa] Pravastatin Sodium [Pravachol] 20 mg PO HS 09/17/18 09/21/18 History Sodium Bicarbonate Tab 650 mg PO TID 09/17/18 09/21/18 History Sucralfate [Carafate] 1 gm PO TID 09/17/18 09/21/18 History hydrALAZINE HCL [Apresoline] 100 mg PO TID 09/17/18 09/21/18 History Allergies Allergy/AdvReac Type Severity Reaction Status Date / Time hydrocodone Allergy Unknown Verified 09/21/18 14:48 lisinopril Allergy Unknown Verified 09/21/18 14:48 Penicillins Allergy Anaphylaxis Verified 09/21/18 14:48 streptomycin Allergy Rash/Hives Verified 09/21/18 14:48 Surgical - Exam Vital Signs Resp 18 09/21/18 14:32 Results - Labs 09/22/18 07:58 09/22/18 07:58 Abnormal Lab Results - Last 24 Hours (Table) 09/21/18 09/21/18 09/21/18 Range/Units 10:15 19:01 19:01 RBC (3.80-5.40) m/uL Hgb (11.4-16.0) gm/dL Hct (34.0-46.0) % RDW (11.5-15.5) % Plt Count (150-450) k/uL Lymphocytes # (1.0-4.8) k/uL Sodium 129 L (137-145) mmol/L Potassium 5.6 H (3.5-5.1) mmol/L Carbon Dioxide 14 L (22-30) mmol/L BUN 46 H (7-17) mg/dL Creatinine 3.71 H (0.52-1.04) mg/dL POC Glucose (mg/dL) (75-99) mg/dL Plasma Lactic Acid Max (0.7-2.0) mmol/L Calcium (8.4-10.2) mg/dL Iron 19 L (50-170) ug/dL TIBC 213 L (228-460) ug/dL Iron Saturation 8.92 L (12.00-45.00) Ferritin 726.4 H (10.0-291.0) ng/mL Urine Appearance (Clear) Urine Protein (Negative) Urine Blood (Negative) Ur Leukocyte Esterase (Negative) Urine RBC (0-5) /hpf Urine WBC (0-5) /hpf Hyaline Casts (0-2) /lpf Urine Mucus (None) /hpf Stool Occult Blood Positive H (Negative) 08/01/2809/22/18 09/22/18 Range/Units 20:51 07:05 07:58 RBC (3.80-5.40) m/uL Hgb (11.4-16.0) gm/dL Hct (34.0-46.0) % RDW (11.5-15.5) % Plt Count (150-450) k/uL Lymphocytes # (1.0-4.8) k/uL Sodium 130 L (137-145) mmol/L Potassium 5.7 H (3.5-5.1) mmol/L Carbon Dioxide 14 L (22-30) mmol/L BUN 50 H (7-17) mg/dL Creatinine 3.72 H (0.52-1.04) mg/dL POC Glucose (mg/dL) 111 H 118 H (75-99) mg/dL Plasma Lactic Acid Max (0.7-2.0) mmol/L Calcium 8.1 L (8.4-10.2) mg/dL Iron (50-170) ug/dL TIBC (228-460) ug/dL Iron Saturation (12.00-45.00) Ferritin (10.0-291.0) ng/mL Urine Appearance (Clear) Urine Protein (Negative) Urine Blood (Negative) Ur Leukocyte Esterase (Negative) Urine RBC (0-5) /hpf Urine WBC (0-5) /hpf Hyaline Casts (0-2) /lpf Urine Mucus (None) /hpf Stool Occult Blood (Negative) 09/22/18 09/22/18 09/22/18 Range/Units 07:58 09:47 10:24 RBC 2.69 L (3.80-5.40) m/uL Hgb 8.0 L (11.4-16.0) gm/dL Hct 25.7 L (34.0-46.0) % RDW 16.7 H (11.5-15.5) % Plt Count 127 L (150-450) k/uL Lymphocytes # 0.4 L (1.0-4.8) k/uL Sodium (137-145) mmol/L Potassium (3.5-5.1) mmol/L Carbon Dioxide (22-30) mmol/L BUN (7-17) mg/dL Creatinine (0.52-1.04) mg/dL POC Glucose (mg/dL) 117 H (75-99) mg/dL Plasma Lactic Acid Max <0.5 L (0.7-2.0) mmol/L Calcium (8.4-10.2) mg/dL Iron (50-170) ug/dL TIBC (228-460) ug/dL Iron Saturation (12.00-45.00) Ferritin (10.0-291.0) ng/mL Urine Appearance (Clear) Urine Protein (Negative) Urine Blood (Negative) Ur Leukocyte Esterase (Negative) Urine RBC (0-5) /hpf Urine WBC (0-5) /hpf Hyaline Casts (0-2) /lpf Urine Mucus (None) /hpf Stool Occult Blood (Negative) 09/22/18 Range/Units 11:10 RBC (3.80-5.40) m/uL Hgb (11.4-16.0) gm/dL Hct (34.0-46.0) % RDW (11.5-15.5) % Plt Count (150-450) k/uL Lymphocytes # (1.0-4.8) k/uL Sodium (137-145) mmol/L Potassium (3.5-5.1) mmol/L Carbon Dioxide (22-30) mmol/L BUN (7-17) mg/dL Creatinine (0.52-1.04) mg/dL POC Glucose (mg/dL) (75-99) mg/dL Plasma Lactic Acid Max (0.7-2.0) mmol/L Calcium (8.4-10.2) mg/dL Iron (50-170) ug/dL TIBC (228-460) ug/dL Iron Saturation (12.00-45.00) Ferritin (10.0-291.0) ng/mL Urine Appearance Cloudy H (Clear) Urine Protein 1+ H (Negative) Urine Blood Trace H (Negative) Ur Leukocyte Esterase Moderate H (Negative) Urine RBC 71 H (0-5) /hpf Urine WBC 13 H (0-5) /hpf Hyaline Casts 32 H (0-2) /lpf Urine Mucus Rare H (None) /hpf Stool Occult Blood (Negative) Diabetes panel 09/21/18 09/22/18 Range/Units 19:01 07:58 Sodium 129 L 130 L (137-145) mmol/L Potassium 5.6 H 5.7 H (3.5-5.1) mmol/L Chloride 105 104 (98-107) mmol/L Carbon Dioxide 14 L 14 L (22-30) mmol/L BUN 46 H 50 H (7-17) mg/dL Creatinine 3.71 H 3.72 H (0.52-1.04) mg/dL Glucose 83 95 (74-99) mg/dL Calcium 8.5 8.1 L (8.4-10.2) mg/dL Calcium panel 09/21/18 09/22/18 Range/Units 19:01 07:58 Calcium 8.5 8.1 L (8.4-10.2) mg/dL Pituitary panel 09/21/18 09/22/18 Range/Units 19:01 07:58 Sodium 129 L 130 L (137-145) mmol/L Potassium 5.6 H 5.7 H (3.5-5.1) mmol/L Chloride 105 104 (98-107) mmol/L Carbon Dioxide 14 L 14 L (22-30) mmol/L BUN 46 H 50 H (7-17) mg/dL Creatinine 3.71 H 3.72 H (0.52-1.04) mg/dL Glucose 83 95 (74-99) mg/dL Calcium 8.5 8.1 L (8.4-10.2) mg/dL Adrenal panel 09/21/18 09/22/18 Range/Units 19:01 07:58 Sodium 129 L 130 L (137-145) mmol/L Potassium 5.6 H 5.7 H (3.5-5.1) mmol/L Chloride 105 104 (98-107) mmol/L Carbon Dioxide 14 L 14 L (22-30) mmol/L BUN 46 H 50 H (7-17) mg/dL Creatinine 3.71 H 3.72 H (0.52-1.04) mg/dL Glucose 83 95 (74-99) mg/dL Calcium 8.5 8.1 L (8.4-10.2) mg/dL <Hannah Crowder - Last Filed: 09/24/18 06:58> History of Present Illness History of present illness: As above. Patient with complaints of generalized aches but no surgical or acute abdomen. Multiple electrolyte abnormalities and setting of acute renal failure. No surgical intervention needed. Surgical - Exam Vital Signs Resp 18 09/21/18 14:32 Results - Labs 09/24/18 05:07 09/24/18 05:07 Abnormal Lab Results - Last 24 Hours (Table) 09/23/18 09/23/18 09/23/18 Range/Units 04:50 04:50 06:58 WBC (3.8-10.6) k/uL RBC (3.80-5.40) m/uL Hgb (11.4-16.0) gm/dL Hct (34.0-46.0) % RDW (11.5-15.5) % Lymphocytes # (1.0-4.8) k/uL Sodium (137-145) mmol/L Potassium (3.5-5.1) mmol/L Chloride (98-107) mmol/L Carbon Dioxide (22-30) mmol/L BUN (7-17) mg/dL Creatinine (0.52-1.04) mg/dL Glucose (74-99) mg/dL POC Glucose (mg/dL) 166 H (75-99) mg/dL Calcium (8.4-10.2) mg/dL Iron 31 L (50-170) ug/dL TIBC 178 L (228-460) ug/dL AST 8 L (14-36) U/L 09/23/18 09/23/18 09/23/18 Range/Units 11:55 15:15 17:15 WBC (3.8-10.6) k/uL RBC (3.80-5.40) m/uL Hgb (11.4-16.0) gm/dL Hct (34.0-46.0) % RDW (11.5-15.5) % Lymphocytes # (1.0-4.8) k/uL Sodium 126 L (137-145) mmol/L Potassium (3.5-5.1) mmol/L Chloride (98-107) mmol/L Carbon Dioxide (22-30) mmol/L BUN (7-17) mg/dL Creatinine (0.52-1.04) mg/dL Glucose (74-99) mg/dL POC Glucose (mg/dL) 125 H 214 H (75-99) mg/dL Calcium (8.4-10.2) mg/dL Iron (50-170) ug/dL TIBC (228-460) ug/dL AST (14-36) U/L 09/23/18 09/23/18 09/24/18 Range/Units 20:24 22:23 05:07 WBC 3.6 L (3.8-10.6) k/uL RBC 2.58 L (3.80-5.40) m/uL Hgb 7.6 L (11.4-16.0) gm/dL Hct 23.9 L (34.0-46.0) % RDW 15.9 H (11.5-15.5) % Lymphocytes # 0.1 L (1.0-4.8) k/uL Sodium 126 L (137-145) mmol/L Potassium (3.5-5.1) mmol/L Chloride (98-107) mmol/L Carbon Dioxide (22-30) mmol/L BUN (7-17) mg/dL Creatinine (0.52-1.04) mg/dL Glucose (74-99) mg/dL POC Glucose (mg/dL) 236 H (75-99) mg/dL Calcium (8.4-10.2) mg/dL Iron (50-170) ug/dL TIBC (228-460) ug/dL AST (14-36) U/L 09/24/18 09/24/18 Range/Units 05:07 06:48 WBC (3.8-10.6) k/uL RBC (3.80-5.40) m/uL Hgb (11.4-16.0) gm/dL Hct (34.0-46.0) % RDW (11.5-15.5) % Lymphocytes # (1.0-4.8) k/uL Sodium 126 L (137-145) mmol/L Potassium 5.2 H (3.5-5.1) mmol/L Chloride 96 L (98-107) mmol/L Carbon Dioxide 19 L (22-30) mmol/L BUN 57 H (7-17) mg/dL Creatinine 3.34 H (0.52-1.04) mg/dL Glucose 200 H (74-99) mg/dL POC Glucose (mg/dL) 222 H (75-99) mg/dL Calcium 7.4 L (8.4-10.2) mg/dL Iron (50-170) ug/dL TIBC (228-460) ug/dL AST (14-36) U/L Diabetes panel 09/23/18 09/23/18 09/23/18 Range/Units 04:50 15:15 22:23 Sodium 126 L 126 L (137-145) mmol/L Potassium (3.5-5.1) mmol/L Chloride (98-107) mmol/L Carbon Dioxide (22-30) mmol/L BUN (7-17) mg/dL Creatinine (0.52-1.04) mg/dL Glucose (74-99) mg/dL Calcium (8.4-10.2) mg/dL AST 8 L (14-36) U/L ALT 18 (9-52) U/L Alkaline Phosphatase 60 (38-126) U/L 09/24/18 Range/Units 05:07 Sodium 126 L (137-145) mmol/L Potassium 5.2 H (3.5-5.1) mmol/L Chloride 96 L (98-107) mmol/L Carbon Dioxide 19 L (22-30) mmol/L BUN 57 H (7-17) mg/dL Creatinine 3.34 H (0.52-1.04) mg/dL Glucose 200 H (74-99) mg/dL Calcium 7.4 L (8.4-10.2) mg/dL AST (14-36) U/L ALT (9-52) U/L Alkaline Phosphatase (38-126) U/L Calcium panel 09/24/18 Range/Units 05:07 Calcium 7.4 L (8.4-10.2) mg/dL Pituitary panel 09/23/18 09/23/18 09/24/18 Range/Units 15:15 22:23 05:07 Sodium 126 L 126 L 126 L (137-145) mmol/L Potassium 5.2 H (3.5-5.1) mmol/L Chloride 96 L (98-107) mmol/L Carbon Dioxide 19 L (22-30) mmol/L BUN 57 H (7-17) mg/dL Creatinine 3.34 H (0.52-1.04) mg/dL Glucose 200 H (74-99) mg/dL Calcium 7.4 L (8.4-10.2) mg/dL Adrenal panel 09/23/18 09/23/18 09/23/18 Range/Units 04:50 15:15 22:23 Sodium 126 L 126 L (137-145) mmol/L Potassium (3.5-5.1) mmol/L Chloride (98-107) mmol/L Carbon Dioxide (22-30) mmol/L BUN (7-17) mg/dL Creatinine (0.52-1.04) mg/dL Glucose (74-99) mg/dL Calcium (8.4-10.2) mg/dL AST 8 L (14-36) U/L ALT 18 (9-52) U/L Alkaline Phosphatase 60 (38-126) U/L 09/24/18 Range/Units 05:07 Sodium 126 L (137-145) mmol/L Potassium 5.2 H (3.5-5.1) mmol/L Chloride 96 L (98-107) mmol/L Carbon Dioxide 19 L (22-30) mmol/L BUN 57 H (7-17) mg/dL Creatinine 3.34 H (0.52-1.04) mg/dL Glucose 200 H (74-99) mg/dL Calcium 7.4 L (8.4-10.2) mg/dL AST (14-36) U/L ALT (9-52) U/L Alkaline Phosphatase (38-126) U/L
[2018-09-22] MEDS: metroNIDAZOLE-NS PMX 500 MG in SALINE 1 100ML.BAG IVPB SCH ×2 (14:28→17:23)
[2018-09-22] MEDS: HYDROmorphone 0.5 MG/0.5 ML SYRINGE IVP PRN ×2 (15:56→22:00)
[2018-09-22 16:02] LABS: Glucose,Whole Blood 154 mg/dL (75-99)
[2018-09-22] MEDS ORDERED: NALOXONE 0.4 MG/ML 1 ML VIAL IV PRN (17:58)
[2018-09-22] MEDS ORDERED: FUROSEMIDE 10 MG/ML 4 ML VIAL IV ONE (18:00)
[2018-09-22 20:18] LABS: Glucose,Whole Blood 108 mg/dL (75-99)
[2018-09-22] MEDS: PRAVASTATIN SODIUM 20 MG TAB PO SCH (21:44)
[2018-09-22] MEDS: DILTIAZEM CD 180 MG CAP.ER.24H PO SCH (21:46)
[2018-09-22] MEDS: INSULIN DETEMIR (LEVEMIR) 100 UNIT/ML SYR SQ SCH (22:30)
[2018-09-23] MEDS: metroNIDAZOLE-NS PMX 500 MG in SALINE 1 100ML.BAG IVPB SCH ×5 (00:50→23:25)
[2018-09-23] MEDS: HYDROmorphone 0.5 MG/0.5 ML SYRINGE IVP PRN ×3 (02:02→09:24)
[2018-09-23 05:10] LABS: Anisocytosis Slight; Basophils % (A) 1 %; Eosinophils # (A) 0.1 k/uL (0-0.7); Eosinophils % (A) 3 %; HCT 25.2 % (34.0-46.0); HGB 7.9 gm/dL (11.4-16.0); Lymphocytes # (A) 0.3 k/uL (1.0-4.8); Lymphocytes % (A) 8 %; MCH 29.6 pg (25.0-35.0); MCHC 31.4 g/dL (31.0-37.0); MCV 94.2 fL (80.0-100.0); Mean Platelet Volume 8.7; Monocytes # (A) 0.3 k/uL (0-1.0); Monocytes % (A) 7 %; Neutrophils # (A) 3.2 k/uL (1.3-7.7); Neutrophils % (A) 79 %; Platelet Count 141 k/uL (150-450); RBC 2.68 m/uL (3.80-5.40); RDW 16.6 % (11.5-15.5)
[2018-09-23 05:24] LABS: Calcium 7.6 mg/dL (8.4-10.2); Potassium 4.9 mmol/L (3.5-5.1)
[2018-09-23] MEDS: LEVOTHYROXINE 50 MCG TAB PO SCH (05:45)
[2018-09-23 06:59] LABS: Glucose,Whole Blood 166 mg/dL (75-99)
[2018-09-23] MEDS: INSULIN ASPART (NovoLOG) 100 UNIT/ML VIAL SQ SCH ×7 (07:11→20:39)
--- NOTE | 2018-09-23 07:31 | XR ---
EXAMINATION TYPE: XR chest 1V portable DATE OF EXAM: 09/23/2018 COMPARISON: 09/22/2018 HISTORY: CHF versus pneumonia TECHNIQUE: Single frontal view of the chest is obtained. FINDINGS: There is a skinfold overlying the right lateral lung with lung markings beyond the skinfol d. Cardiomediastinal silhouette is again enlarged. There is slight improvement of the bibasilar opaci ties and mild pulmonary vascular congestion. Trace left pleural effusion remains. Dual lead left-side d cardiac device is again noted. Diffuse osseous demineralization is seen with postsurgical change of the right humerus/rotator cuff. IMPRESSION: 1. Improved pulmonary vascular congestion and improving bibasilar opacities with stable enlarged card iomediastinal silhouette.
[2018-09-23] MEDS: IPRATROPIUM-ALBUTEROL 3 ML NEB INHALATION SCH ×4 (07:52→18:47)
[2018-09-23] MEDS ORDERED: predniSONE 20 MG TAB PO SCH (09:00)
[2018-09-23] MEDS ORDERED: SODIUM CHLORIDE 0.9% 500 ML 250 ML IV ONE (09:16)
[2018-09-23] MEDS: LABETALOL 100 MG TAB PO SCH ×2 (09:24→20:18)
[2018-09-23] MEDS: PANTOPRAZOLE 40 MG TABLET PO SCH (09:25)
[2018-09-23] MEDS: DOXAZOSIN 1 MG TAB PO SCH ×2 (09:25→20:17)
[2018-09-23] MEDS: ISOSORBIDE MONONITRATE ER 60 MG TAB.ER.24H PO SCH (09:25)
[2018-09-23] MEDS: hydrALAZINE HCL 50 MG TAB PO SCH ×3 (09:25→20:18)
[2018-09-23] MEDS: HEPARIN SODIUM,PORCINE 5,000 UNIT/ML 1 ML VIAL SQ SCH ×2 (09:25→20:18)
[2018-09-23] MEDS: ALLOPURINOL 100 MG TAB PO SCH (09:26)
[2018-09-23] MEDS: ASPIRIN 81 MG PO SCH (09:26)
[2018-09-23 10:12] LABS: ALT 18 U/L (9-52); AST 8 U/L (14-36); Alkaline Phosphatase 60 U/L (38-126); Creatine Kinase 33 U/L (30-135)
--- NOTE | 2018-09-23 10:53 | P.PN ---
Subjective Progress Note Date: 09/23/18 The patient is examined at bedside, reported some nausea and some pain in her abdomen around her ileostomy. The patient mentions some shortness of breath. Patient doing well in ICU monitored overnight, urine output has been borderline 15-20 cc/hr. hemoglobin 7.9 with positive fobt, serum sodium 127, potassium 4.9, serum bicarb 16, creatinine 3.67. Chest x-ray showing improved pulmonary vascular congestion improved bibasilar opacities with stable enlarged cardiac silhouette. Objective - Vital Signs Vital signs: Vital Signs Temp 98 F 09/23/18 08:00 Pulse 63 09/23/18 10:00 Resp 14 09/23/18 10:00 BP 135/52 09/23/18 10:00 Pulse Ox 96 09/23/18 10:00 Intake & Output 09/22/18 09/23/18 09/23/18 18:59 06:59 18:59 Intake Total 955 1120 840 Output Total 395 510 55 Balance 560 610 785 Weight 69.5 kg 68.2 kg Intake: IV 930 820 840 Dextrose 10 % in Water 250 250 ml @ 999 mls/hr IV ONCE ONE Rx#:[id number] Dextrose 5% in Water 1, 480 720 120 000 ml @ 60 mls/hr IV . [id number] ANAHI with Sodium Bicarb (1 Meq/ml) 150 ml Rx#:[id number] Sodium Chloride 0.45% 1, 120 000 ml @ 100 mls/hr IV . [id number] ANAHI with Sodium Bicarb (1 Meq/ml) 150 ml Rx#:[id number] Sodium Chloride 0.9% 500 500 ml 250 ml @ 999 mls/hr IV .Q16M ONE Rx#:[id number] metroNIDAZOLE-NS PMX 500 200 100 100 mg In Saline 1 100ml.bag @ 100 mls/hr IVPB Q6HR ANAHI Rx#:[id number] Oral 25 300 Output: Urine 295 310 55 Stool 100 200 Other: Voiding Method Indwelling Catheter Indwelling Catheter # Voids 3 - Exam Constitutional: No acute distress, conversant, pleasant Eyes: Anicteric sclerae, moist conjunctiva, no lid-lag, PERRLA ENMT: NC/AT,Oropharynx clear, no erythema, exudates Neck:Supple, FROM, no masses, or JVD, No carotid bruits; No thyromegaly Lungs: Diminished in the bases with faint expiratory wheezes unlabored on 2 L nasal cannula Cardiovascular: Heart regular in rate and rhythm, No murmurs, gallops, or rubs no peripheral edema Abdominal: Soft Nontender, non distended, no guarding, no rebound or rigidity, hypoactive bowel sounds No hepatomegaly, scant output from ileostomy, anterior abdominal wall hernia which is reducible Skin: Normal temperature, tone, texture, turgor, No induration No subcutaneous nodules, No rash, lesions, No ulcers Extremities:No digital cyanosis No clubbing, Pedal pulses intact and symmetrical Radial pulses intact and symmetrical Normal gait and station, No calf tenderness Psychiatric: Alert and oriented to person, place and time, Appropriate affect Intact judgement Neuro: Muscles Strength 5/5 in all 4 extremities, Sensation to light touch grossly present throughout, Cranial nerves II-XII grossly intact. No focal sensory deficits - Labs CBC & Chem 7: 09/23/18 04:50 09/23/18 04:50 Labs: Abnormal Lab Results - Last 24 Hours (Table) 09/21/18 09/22/18 09/22/18 Range/Units 10:15 11:10 16:01 RBC (3.80-5.40) m/uL Hgb (11.4-16.0) gm/dL Hct (34.0-46.0) % RDW (11.5-15.5) % Plt Count (150-450) k/uL Lymphocytes # (1.0-4.8) k/uL Sodium (137-145) mmol/L Potassium (3.5-5.1) mmol/L Carbon Dioxide (22-30) mmol/L BUN (7-17) mg/dL Creatinine (0.52-1.04) mg/dL Glucose (74-99) mg/dL POC Glucose (mg/dL) 154 H (75-99) mg/dL Calcium (8.4-10.2) mg/dL AST (14-36) U/L Urine Appearance Cloudy H (Clear) Urine Protein 1+ H (Negative) Urine Blood Trace H (Negative) Ur Leukocyte Esterase Moderate H (Negative) Urine RBC 71 H (0-5) /hpf Urine WBC 13 H (0-5) /hpf Hyaline Casts 32 H (0-2) /lpf Urine Mucus Rare H (None) /hpf Stool Occult Blood Positive H (Negative) 09/22/18 09/22/18 09/23/18 Range/Units 16:36 20:17 04:50 RBC 2.68 L (3.80-5.40) m/uL Hgb 7.9 L (11.4-16.0) gm/dL Hct 25.2 L (34.0-46.0) % RDW 16.6 H (11.5-15.5) % Plt Count 141 L (150-450) k/uL Lymphocytes # 0.3 L (1.0-4.8) k/uL Sodium (137-145) mmol/L Potassium 5.3 H (3.5-5.1) mmol/L Carbon Dioxide (22-30) mmol/L BUN (7-17) mg/dL Creatinine (0.52-1.04) mg/dL Glucose (74-99) mg/dL POC Glucose (mg/dL) 108 H (75-99) mg/dL Calcium (8.4-10.2) mg/dL AST (14-36) U/L Urine Appearance (Clear) Urine Protein (Negative) Urine Blood (Negative) Ur Leukocyte Esterase (Negative) Urine RBC (0-5) /hpf Urine WBC (0-5) /hpf Hyaline Casts (0-2) /lpf Urine Mucus (None) /hpf Stool Occult Blood (Negative) 09/23/18 09/23/18 09/23/18 Range/Units 04:50 04:50 06:58 RBC (3.80-5.40) m/uL Hgb (11.4-16.0) gm/dL Hct (34.0-46.0) % RDW (11.5-15.5) % Plt Count (150-450) k/uL Lymphocytes # (1.0-4.8) k/uL Sodium 127 L (137-145) mmol/L Potassium (3.5-5.1) mmol/L Carbon Dioxide 16 L (22-30) mmol/L BUN 52 H (7-17) mg/dL Creatinine 3.67 H (0.52-1.04) mg/dL Glucose 149 H (74-99) mg/dL POC Glucose (mg/dL) 166 H (75-99) mg/dL Calcium 7.6 L (8.4-10.2) mg/dL AST 8 L (14-36) U/L Urine Appearance (Clear) Urine Protein (Negative) Urine Blood (Negative) Ur Leukocyte Esterase (Negative) Urine RBC (0-5) /hpf Urine WBC (0-5) /hpf Hyaline Casts (0-2) /lpf Urine Mucus (None) /hpf Stool Occult Blood (Negative) Assessment and Plan (1) Acute and chronic respiratory failure with hypoxia Narrative/Plan: * Multifactorial pneumonia superimposed on possible diastolic CHF exacerbation and COPD exacerbation * Chest x-ray showing improved pulmonary vascular congestion improved bibasilar opacities with stable enlarged cardiac silhouette. * Continue supplemental oxygen continue with breathing treatments * Appreciate pulmonary recommendations Current Visit: Yes Status: Acute Code(s): J96.21 - ACUTE AND CHRONIC RESPIRATORY FAILURE WITH HYPOXIA SNOMED Code(s): 66825562 (2) Acute exacerbation of CHF (congestive heart failure) Narrative/Plan: * Significantly elevated NT proBNP 11779, Lasix held today * Echocardiogram indicating EF of 50-55% with a moderately dilated left atrium with mild MR and TR and moderate pulmonary hypertension Current Visit: Yes Status: Acute Code(s): I50.9 - HEART FAILURE, UNSPECIFIED SNOMED Code(s): 599295070 (3) COPD exacerbation Narrative/Plan: * Initiated systemic steroids with oral prednisone at 40 mg by mouth daily * Continue with scheduled and PRN DuoNeb treatments continued on antibiotics with Levaquin 500 mg P q48 hrs Current Visit: Yes Status: Acute Code(s): J44.1 - CHRONIC OBSTRUCTIVE PULMONARY DISEASE W (ACUTE) EXACERBATION SNOMED Code(s): 311497236 (4) Acute kidney injury superimposed on chronic kidney disease Narrative/Plan: * Likely secondary to ATN induced infection with a component of cardiorenal syndrome * urine output borderline today * Renal ultrasound negative for hydronephrosis * Baseline creatinine 1-1.3Creatinine at 3.67 today * Continue to monitor creatinine Current Visit: Yes Status: Acute Code(s): N17.9 - ACUTE KIDNEY FAILURE, UNSPECIFIED; N18.9 - CHRONIC KIDNEY DISEASE, UNSPECIFIED SNOMED Code(s): 06013230 (5) Metabolic acidosis Narrative/Plan: * Secondary to acute kidney injury * Continued on D5W with 3 A of bicarbonate 60 mL an hour Current Visit: Yes Status: Acute Code(s): E87.2 - ACIDOSIS SNOMED Code(s): 44995351 (6) Pneumonia Narrative/Plan: * Continue empiric IV antibiotic treatment with Levaquin Current Visit: Yes Status: Acute Code(s): J18.9 - PNEUMONIA, UNSPECIFIED ORGANISM SNOMED Code(s): 672817241 (7) Hyperkalemia Narrative/Plan: * Resolved post temporizing measures with IV insulin and D10 * We'll continue to monitor labs Current Visit: Yes Status: Resolved Code(s): E87.5 - HYPERKALEMIA SNOMED Code(s): 89010365 (8) Hyponatremia Narrative/Plan: * Likely secondary to acute kidney injury and CHF * Fluid switched per nephrology to 1/2 NS @ 100 c/hr also given to 250 mL bolus of normal saline Current Visit: Yes Status: Acute Code(s): E87.1 - HYPO-OSMOLALITY AND HYPONATREMIA SNOMED Code(s): 16258415 (9) Normocytic anemia Narrative/Plan: * Hemoglobin holding stable at 8 g * Iron studies consistent with anemia of chronic disease and iron deficiency with positive Hemoccult * Consider Consult GI for further recommendations likely can have outpatient colonoscopy if amenable Current Visit: Yes Status: Acute Code(s): D64.9 - ANEMIA, UNSPECIFIED SNOMED Code(s): 704884687 (10) Abdominal pain Narrative/Plan: * Repeat CT abdomen and pelvis shows resolution of previously noted small bowel * Gen. surgery consulted patient refuses any sort of surgical intervention including bowel surgery gallbladder surgery, known history of gallstones with free fluid adjacent to the gallbladder on ultrasound * Flagyl added to antibiotic regimen Current Visit: Yes Status: Acute Code(s): R10.9 - UNSPECIFIED ABDOMINAL PAIN SNOMED Code(s): 51780427 Plan: * Disposition * Appreciate recommendations from consultants * Continue current treatment plan, patient stable for transfer to [facility] * Anticipated discharge 2-3 days
--- NOTE | 2018-09-23 11:12 | PN ---
PROGRESS NOTE Patient is seen for followup for acute kidney injury. The patient in the urine output has been at about 10 to 15 mL an hour. She did get a dose of Lasix yesterday but did not respond well. Currently, she is maintained on bicarb drip at 60 mL an hour. Blood pressure overall is not low. The patient was also hyperkalemic. Her potassium has improved to 4.9 today. There is no active bleeding noted. PHYSICAL EXAMINATION: On examination today, blood pressure was 126/54, heart rate 60 per minute. She is afebrile. EXAMINATION OF THE HEART: S1, S2. EXAMINATION OF THE LUNGS: Bilateral breath sounds are heard. Decreased breath sounds at bases. Abdomen is soft, nontender. Examination of the lower extremities shows no significant edema. E[employer]K [employer] exam is grossly intact. Patient is moving all 4 extremities. LABS: Labs show sodium 127, potassium 4.9, BUN 52, serum creatinine 3.67, hemoglobin 7.9 g/dL. ASSESSMENT: 1. Acute kidney injury, acute tubular necrosis currently with borderline urine output. Urine output is actually on the lower side. At this time, patient does not appear significantly hypervolemic. She has not been eating. I will give her a fluid bolus prior to trial with Lasix. No nephrotoxic agents on board. Blood pressure is not low and patient has an indwelling Henry catheter. Therefore, there is no obstructive uropathy. 2. Hyponatremia associated with hypotonic fluids. Change the IV bicarb to 3 amps of bicarb in half-normal saline and repeat labs this afternoon. 3. Metabolic acidosis, non gap secondary to renal failure, maintained on bicarb drip. 4. Anemia with no active bleeding noted. Check iron studies. 5. Hyperkalemia associated with acute kidney injury on initial admission and metabolic acidosis currently improved. 6. Small bowel obstruction, status post conservative treatment last admission and Surgery is on consult. 7. Chronic kidney disease stage 3. Baseline creatinine 1 to 1.3 mg/dL. Most likely secondary to diabetic kidney disease. PLAN: Change the bicarb drip to 3 amps of bicarb in half-normal saline, IV fluid bolus x1 now. We will try a higher dose of Lasix later on today depending on urine output and response. Repeat labs in a.m. Continue to avoid nephrotoxic agents. Avoid hypotension. MMODL / IJN: [id number] /
--- NOTE | 2018-09-23 11:46 | CDI ---
Documentation Clarification Form Date: 09/23/2018 11:20:34 AM From: Bobbi Ryan RN CCDS Admit Date: 09/21/2018 4:38:00 PM Patient Name: Odessa Tierney Visit Number: [id number] Discharge Date: ATTENTION: The Clinical Documentation Specialists (CDI) and [facility] Coding Staff appreciate your assistance in clarifying documentation. Please respond to the clarification below the line at the bottom and electronically sign. The CDI & [facility] Coding staff will review the response and follow-up if needed. Please note: Queries are made part of the Legal Health Record. If you have any questions, please contact the author of this message via ITS. Dr. Matteo Pruitt Acute Exacerbation of CHF is documented your H & P and 09/23/2018 Progress Note. History/Risk Factors: 88 year old female presents to the ED as a Transfer from [facility] for pneumonia verses Heart failure. Medical history DM 2, CHF unknown type, chronic resp failure on 2L nc, essential htn, hyperlipidemia Clinical Indicators: VS/Pulse OX: 132/54 62 98.0 18 98% ra BNP: 91537 Echocardiogram Results: EF of 50-55% with a moderately dilated left atrium with mild MR and TR and moderate pulmonary hypertension Chest X Ray: stable cardiomegaly. Minimal basilar effusions and associated atelectasis. Treatment: Imdur, Lasix 40mg iv q 12 hours started 09/21/2018 Held 09/23/2018 In your professional opinion, can you please clarify the acuity and type of CHF if known? Acute Diastolic Congestive Heart Failure (Last Revision: May 2017) MTDD
[2018-09-23 11:56] LABS: Glucose,Whole Blood 125 mg/dL (75-99)
[2018-09-23] MEDS: FERROUS SULFATE 325 MG TAB PO SCH (12:26)
--- NOTE | 2018-09-23 12:26 | P.PN ---
<Manisha Barlow - Last Filed: 09/23/18 12:24> Subjective Progress Note Date: 09/23/18 CHIEF COMPLAINT: abdominal pain HISTORY OF PRESENT ILLNESS: Patient examined at the bedside. She reports generalized joint pain but denies abdominal pain. Ostomy with stool noted. Henry with dark urine-patient receiving IV bolus per nursing. Tolerating clear liquid diet but does not like the selection of foods. Denies nausea or vomiting. PHYSICAL EXAM: VITAL SIGNS: Reviewed GENERAL: Well-developed in no acute distress. HEENT: No sclera icterus. Extraocular movements grossly intact. Moist buccal mucosa. Head is atraumatic, normocephalic. Hears conversational speech. No nasal drainage. NECK: Supple without lymphadenopathy. CHEST: Non-labored respirations and equal bilateral excursions. CARDIOVASCULAR: Regular rate with regular rhythm. Palpable 2+ radial pulses. ABDOMEN: Soft. Nondistended. Nontender. Ileostomy with liquid stool noted. No peritoneal signs. MUSCULOSKELETAL: No clubbing, cyanosis or edema. NEUROLOGIC: No focal or lateralizing signs. Cranial nerves II through XII grossly intact. PSYCH: Appropriate affect. Alert and oriented. Sleepy SKIN: Well perfused. Good skin turgor. ASSESSMENT: 1. Abdominal pain, no evidence of bowel obstruction 2. Recent hospitalization for small bowel obstruction, treated with conversative management 3. Known history of cholelithiasis 4. History of ileostomy PLAN: Patient with known history of gallstones. Patient is adamant that she does not w ant any type of surgical intervention including bowel surgery or gallbladder surgery. No evidence of bowel obstruction per CT scan or during clinical exam. Continue antibiotics. Advance diet as tolerated. Will advance to full liquid at this time. Continue low fat diet. Nurse practitioner note has been reviewed by physician. Signing provider agrees with the documented findings, assessment, and plan of care. Objective - Vital Signs Vital signs: Vital Signs Temp 98 F 09/23/18 08:00 Pulse 60 09/23/18 11:43 Resp 14 09/23/18 11:39 BP 135/52 09/23/18 10:00 Pulse Ox 96 09/23/18 10:00 Intake & Output 09/22/18 09/23/18 09/23/18 18:59 06:59 18:59 Intake Total 955 1120 840 Output Total 395 510 155 Balance 560 610 685 Weight 69.5 kg 68.2 kg Intake: IV 930 820 840 Dextrose 10 % in Water 250 250 ml @ 999 mls/hr IV ONCE ONE Rx#:[id number] Dextrose 5% in Water 1, 480 720 120 000 ml @ 60 mls/hr IV . [id number] ANAHI with Sodium Bicarb (1 Meq/ml) 150 ml Rx#:[id number] Sodium Chloride 0.45% 1, 120 000 ml @ 100 mls/hr IV . [id number] ANAHI with Sodium Bicarb (1 Meq/ml) 150 ml Rx#:[id number] Sodium Chloride 0.9% 500 500 ml 250 ml @ 999 mls/hr IV .Q16M ONE Rx#:[id number] metroNIDAZOLE-NS PMX 500 200 100 100 mg In Saline 1 100ml.bag @ 100 mls/hr IVPB Q6HR ANAHI Rx#:[id number] Oral 25 300 Output: Urine 295 310 55 Stool 100 200 100 Other: Voiding Method Indwelling Catheter Indwelling Catheter Indwelling Catheter # Voids 3 - Labs CBC & Chem 7: 09/23/18 04:50 09/23/18 04:50 Labs: Abnormal Lab Results - Last 24 Hours (Table) 09/22/18 09/22/18 09/22/18 Range/Units 16:01 16:36 20:17 RBC (3.80-5.40) m/uL Hgb (11.4-16.0) gm/dL Hct (34.0-46.0) % RDW (11.5-15.5) % Plt Count (150-450) k/uL Lymphocytes # (1.0-4.8) k/uL Sodium (137-145) mmol/L Potassium 5.3 H (3.5-5.1) mmol/L Carbon Dioxide (22-30) mmol/L BUN (7-17) mg/dL Creatinine (0.52-1.04) mg/dL Glucose (74-99) mg/dL POC Glucose (mg/dL) 154 H 108 H (75-99) mg/dL Calcium (8.4-10.2) mg/dL AST (14-36) U/L 09/23/18 09/23/18 09/23/18 Range/Units 04:50 04:50 04:50 RBC 2.68 L (3.80-5.40) m/uL Hgb 7.9 L (11.4-16.0) gm/dL Hct 25.2 L (34.0-46.0) % RDW 16.6 H (11.5-15.5) % Plt Count 141 L (150-450) k/uL Lymphocytes # 0.3 L (1.0-4.8) k/uL Sodium 127 L (137-145) mmol/L Potassium (3.5-5.1) mmol/L Carbon Dioxide 16 L (22-30) mmol/L BUN 52 H (7-17) mg/dL Creatinine 3.67 H (0.52-1.04) mg/dL Glucose 149 H (74-99) mg/dL POC Glucose (mg/dL) (75-99) mg/dL Calcium 7.6 L (8.4-10.2) mg/dL AST 8 L (14-36) U/L 09/23/18 09/23/18 Range/Units 06:58 11:55 RBC (3.80-5.40) m/uL Hgb (11.4-16.0) gm/dL Hct (34.0-46.0) % RDW (11.5-15.5) % Plt Count (150-450) k/uL Lymphocytes # (1.0-4.8) k/uL Sodium (137-145) mmol/L Potassium (3.5-5.1) mmol/L Carbon Dioxide (22-30) mmol/L BUN (7-17) mg/dL Creatinine (0.52-1.04) mg/dL Glucose (74-99) mg/dL POC Glucose (mg/dL) 166 H 125 H (75-99) mg/dL Calcium (8.4-10.2) mg/dL AST (14-36) U/L <Hannah Crowder N - Last Filed: 09/24/18 06:57> Subjective As above. No surgical intervention needed. Will sign off as she is tolerating diet. Objective - Vital Signs Vital signs: Vital Signs Temp 98.4 F 09/24/18 04:00 Pulse 63 09/24/18 06:00 Resp 17 09/24/18 06:00 BP 146/57 09/24/18 06:00 Pulse Ox 95 09/24/18 06:00 Intake & Output 09/23/18 09/23/18 09/24/18 06:59 18:59 06:59 Intake Total 1120 1740 1400 Output Total 510 400 605 Balance 610 1340 795 Weight 68.2 kg 72.2 kg Intake: IV 820 1740 1300 Dextrose 5% in Water 1, 720 220 000 ml @ 60 mls/hr IV . [id number] ANAHI with Sodium Bicarb (1 Meq/ml) 150 ml Rx#:[id number] Levofloxacin 500Mg-D5w 100 Pmx 500 mg In Dextrose/ Water 1 100ml.bag @ 100 mls/hr IVPB Q48H ANAHI Rx#: [id number] Sodium Chloride 0.45% 1, 720 1200 000 ml @ 100 mls/hr IV . [id number] ANAHI with Sodium Bicarb (1 Meq/ml) 150 ml Rx#:[id number] Sodium Chloride 0.9% 500 500 ml 250 ml @ 999 mls/hr IV .Q16M ONE Rx#:[id number] metroNIDAZOLE-NS PMX 500 100 300 mg In Saline 1 100ml.bag @ 100 mls/hr IVPB Q6HR ANAHI Rx#:[id number] Intake, IV Titration 100 Amount metroNIDAZOLE-NS PMX 500 100 mg In Saline 1 100ml.bag @ 100 mls/hr IVPB Q6HR ANAHI Rx#:[id number] Oral 300 Output: Urine 310 200 205 Stool 200 200 400 Other: Voiding Method Indwelling Catheter Indwelling Catheter Indwelling Catheter - Labs CBC & Chem 7: 09/24/18 05:07 09/24/18 05:07 Labs: Abnormal Lab Results - Last 24 Hours (Table) 09/23/18 09/23/18 09/23/18 Range/Units 04:50 04:50 06:58 WBC (3.8-10.6) k/uL RBC (3.80-5.40) m/uL Hgb (11.4-16.0) gm/dL Hct (34.0-46.0) % RDW (11.5-15.5) % Lymphocytes # (1.0-4.8) k/uL Sodium (137-145) mmol/L Potassium (3.5-5.1) mmol/L Chloride (98-107) mmol/L Carbon Dioxide (22-30) mmol/L BUN (7-17) mg/dL Creatinine (0.52-1.04) mg/dL Glucose (74-99) mg/dL POC Glucose (mg/dL) 166 H (75-99) mg/dL Calcium (8.4-10.2) mg/dL Iron 31 L (50-170) ug/dL TIBC 178 L (228-460) ug/dL AST 8 L (14-36) U/L 09/23/18 09/23/18 09/23/18 Range/Units 11:55 15:15 17:15 WBC (3.8-10.6) k/uL RBC (3.80-5.40) m/uL Hgb (11.4-16.0) gm/dL Hct (34.0-46.0) % RDW (11.5-15.5) % Lymphocytes # (1.0-4.8) k/uL Sodium 126 L (137-145) mmol/L Potassium (3.5-5.1) mmol/L Chloride (98-107) mmol/L Carbon Dioxide (22-30) mmol/L BUN (7-17) mg/dL Creatinine (0.52-1.04) mg/dL Glucose (74-99) mg/dL POC Glucose (mg/dL) 125 H 214 H (75-99) mg/dL Calcium (8.4-10.2) mg/dL Iron (50-170) ug/dL TIBC (228-460) ug/dL AST (14-36) U/L 09/23/18 09/23/18 09/24/18 Range/Units 20:24 22:23 05:07 WBC 3.6 L (3.8-10.6) k/uL RBC 2.58 L (3.80-5.40) m/uL Hgb 7.6 L (11.4-16.0) gm/dL Hct 23.9 L (34.0-46.0) % RDW 15.9 H (11.5-15.5) % Lymphocytes # 0.1 L (1.0-4.8) k/uL Sodium 126 L (137-145) mmol/L Potassium (3.5-5.1) mmol/L Chloride (98-107) mmol/L Carbon Dioxide (22-30) mmol/L BUN (7-17) mg/dL Creatinine (0.52-1.04) mg/dL Glucose (74-99) mg/dL POC Glucose (mg/dL) 236 H (75-99) mg/dL Calcium (8.4-10.2) mg/dL Iron (50-170) ug/dL TIBC (228-460) ug/dL AST (14-36) U/L 09/24/18 09/24/18 Range/Units 05:07 06:48 WBC (3.8-10.6) k/uL RBC (3.80-5.40) m/uL Hgb (11.4-16.0) gm/dL Hct (34.0-46.0) % RDW (11.5-15.5) % Lymphocytes # (1.0-4.8) k/uL Sodium 126 L (137-145) mmol/L Potassium 5.2 H (3.5-5.1) mmol/L Chloride 96 L (98-107) mmol/L Carbon Dioxide 19 L (22-30) mmol/L BUN 57 H (7-17) mg/dL Creatinine 3.34 H (0.52-1.04) mg/dL Glucose 200 H (74-99) mg/dL POC Glucose (mg/dL) 222 H (75-99) mg/dL Calcium 7.4 L (8.4-10.2) mg/dL Iron (50-170) ug/dL TIBC (228-460) ug/dL AST (14-36) U/L
[2018-09-23] MEDS: SODIUM CHLORIDE 0.45% 1,000 ML with SODIUM BICARB (1 MEQ/ML) 150 ML IV SCH ×2 (12:27)
[2018-09-23] MEDS: ACETAMINOPHEN TAB 325 MG TAB PO PRN (12:38)
--- NOTE | 2018-09-23 14:57 | P.PN ---
Subjective Progress Note Date: 09/23/18 This is a 88-year-old female patient who got transferred again to us from [facility] because of shortness of breath. I was consulted for shortness of breath however the main issue seems to be worsening and abdominal pain, electrolyte imbalances the patient has developed hyponatremia and the patient has also developed an acute kidney injury with metabolic acidosis. I reviewed the records. I that this patient was in our hospital approximately a week ago for diminished ileostomy output, abdominal distention and bloating and nausea. The patient was seen by general surgery and the patient was diagnosed having small bowel obstruction. She did not require any immediate surgical intervention. The patient improved clinically and the patient was discharged once she was started back on diet. The CAT scan of the abdomen and pelvis at that time showed jejunum and proximal ileum dilation with the bile reaching up to 4 cm in caliber with several air-fluid levels. The transition point at the abdominal wall opening for the ileostomy with ileal loops just prior to yesterday being most dilated and associated with prominent edematous change throughout the mesentery of these loops. Ultimately, the patient had to come back for ongoing abdominal pain. I saw her at the bedside. She had a low-grade fever of 100.3 while at the assisted living. She was having some degree of shortness of breath. No reported aspiration. She is found in the week and at times she was also found to be confused. A repeat CAT scan of the abdomen was done on 09/21/2018 and it showed clearing of the bowel obstruction compared to last examination. There was fecal material at the ostomy site compared to last examination. There is also mild to moderate pleural effusion lung bases. There is also some limited infiltration probably related to compressive atelectasis. No retroperitoneal lymphadenopathy. Ureters were nondilated. Ostomy is found in the right side of the mid abdomen and there is evidence of sigmoid diverticula. No evidence of any bowel obstruction. No evidence of any free air based on the CAT scan of the abdomen that was done yesterday on 09/21/2018. The white cell count is at 4.5 with a hemoglobin of 8.0. The patient is an acute kidney injury. The patient has also developed non-anion gap metabolic acidosis. Serum bicarb is down to 14. Creatinine is at 3.7. Urine output is diminished. ProBNP level is elevated. Echocardiogram is pending. On today's evaluation of 09/23/2018 I'm seeing this patient for a follow-up. The patient is awake and alert. Abdominal pain has subsided. She is complaining of diffuse arthritic pain throughout her joints bilaterally including the shoulders knees and wrists. As far as abdominal pain, she has a less tender abdomen and the ileostomy site shows output. The patient is taking some clear liquid diet for now. Her urine output is still low in the order of 20 mL an hour. The patient's electrodes are still off with a sodium level of 127 with a BUN of 50 to a creatinine of 3.6. The serum bicarb is at 16 with an anion gap of 12. The lactic acid level is less than 0.5. The patient has an elevated BNP level. Nevertheless, the echocardiogram showed a preserved LV function with an ejection fraction of 50-55%. The right ventricular systolic pressure was around 50 mmHg. There is evidence of moderate pulmonary hypertension. There is also evidence of moderate concentric left ventricular hypertrophy. Chest x-ray shows some limited cardiomegaly with mild four-vessel congestion. Nevertheless the patient is only on 2 L of oxygen by nasal cannula and she is not having any significant respiratory distress. The patient is currently on IV fluids in the form of half normal with 3 A of bicarbonate upon request of nephrology and this is running at the rate of 100 mL an hour in the follow-up electrodes are still pending for now. Objective - Vital Signs Vital signs: Vital Signs Temp 98 F 09/23/18 08:00 Pulse 60 09/23/18 11:43 Resp 14 09/23/18 11:39 BP 135/52 09/23/18 10:00 Pulse Ox 96 09/23/18 10:00 Intake & Output 09/22/18 09/23/18 09/23/18 18:59 06:59 18:59 Intake Total 955 1120 840 Output Total 395 510 155 Balance 560 610 685 Weight 69.5 kg 68.2 kg Intake: IV 930 820 840 Dextrose 10 % in Water 250 250 ml @ 999 mls/hr IV ONCE ONE Rx#:[id number] Dextrose 5% in Water 1, 480 720 120 000 ml @ 60 mls/hr IV . [id number] ANAHI with Sodium Bicarb (1 Meq/ml) 150 ml Rx#:[id number] Sodium Chloride 0.45% 1, 120 000 ml @ 100 mls/hr IV . [id number] ANAHI with Sodium Bicarb (1 Meq/ml) 150 ml Rx#:[id number] Sodium Chloride 0.9% 500 500 ml 250 ml @ 999 mls/hr IV .Q16M ONE Rx#:[id number] metroNIDAZOLE-NS PMX 500 200 100 100 mg In Saline 1 100ml.bag @ 100 mls/hr IVPB Q6HR ANAHI Rx#:[id number] Oral 25 300 Output: Urine 295 310 55 Stool 100 200 100 Other: Voiding Method Indwelling Catheter Indwelling Catheter Indwelling Catheter # Voids 3 - Exam Gen. appearance lethargic weak, and a mild degree of abdominal pain and distress. No apparent distress distress at this point in time and the patient is currently on room air oxygen. Head exam was generally normal. There was no scleral icterus or corneal arcus. Mucous membranes were moist. Neck was supple and without jugular venous distension, thyromegaly, or carotid bruits. Carotids were easily palpable bilaterally. There was no adenopathy. Lungs sounds are diminished along with some limited bibasilar crackles heard in the lung bases bilaterally. Cardiac exam revealed the PMI to be normally situated and sized. The rhythm was regular and no extrasystoles were noted during several minutes of auscultation. The first and second heart sounds were normal and physiologic splitting of the second heart sound was noted. There were no murmurs, rubs, clicks, or gallops. Abdomen is no chewing any significant tenderness around the ileostomy site and the area inferior to the ileostomy. There is some small amount of stool output in ileostomy bag. There is an anterior abdominal wall hernia which is easily reducible without any evidence of incarceration or strangulation. Bowel sounds are hypoactive. No organomegaly. Examination of the extremities revealed easily palpable radial, femoral and pedal pulses. There was no cyanosis, clubbing or edema. Examination of the skin revealed no evidence of significant rashes, suspicious appearing nevi or other concerning lesions. Neurologically the patient is slow to answer questions. She is moving all 4 extremities without any limitation. On and off there has been some limited infusion. - Labs CBC & Chem 7: 09/23/18 04:50 09/23/18 04:50 Labs: Abnormal Lab Results - Last 24 Hours (Table) 09/22/18 09/22/18 09/22/18 Range/Units 16:01 16:36 20:17 RBC (3.80-5.40) m/uL Hgb (11.4-16.0) gm/dL Hct (34.0-46.0) % RDW (11.5-15.5) % Plt Count (150-450) k/uL Lymphocytes # (1.0-4.8) k/uL Sodium (137-145) mmol/L Potassium 5.3 H (3.5-5.1) mmol/L Carbon Dioxide (22-30) mmol/L BUN (7-17) mg/dL Creatinine (0.52-1.04) mg/dL Glucose (74-99) mg/dL POC Glucose (mg/dL) 154 H 108 H (75-99) mg/dL Calcium (8.4-10.2) mg/dL AST (14-36) U/L 09/23/18 09/23/18 09/23/18 Range/Units 04:50 04:50 04:50 RBC 2.68 L (3.80-5.40) m/uL Hgb 7.9 L (11.4-16.0) gm/dL Hct 25.2 L (34.0-46.0) % RDW 16.6 H (11.5-15.5) % Plt Count 141 L (150-450) k/uL Lymphocytes # 0.3 L (1.0-4.8) k/uL Sodium 127 L (137-145) mmol/L Potassium (3.5-5.1) mmol/L Carbon Dioxide 16 L (22-30) mmol/L BUN 52 H (7-17) mg/dL Creatinine 3.67 H (0.52-1.04) mg/dL Glucose 149 H (74-99) mg/dL POC Glucose (mg/dL) (75-99) mg/dL Calcium 7.6 L (8.4-10.2) mg/dL AST 8 L (14-36) U/L 09/23/18 09/23/18 Range/Units 06:58 11:55 RBC (3.80-5.40) m/uL Hgb (11.4-16.0) gm/dL Hct (34.0-46.0) % RDW (11.5-15.5) % Plt Count (150-450) k/uL Lymphocytes # (1.0-4.8) k/uL Sodium (137-145) mmol/L Potassium (3.5-5.1) mmol/L Carbon Dioxide (22-30) mmol/L BUN (7-17) mg/dL Creatinine (0.52-1.04) mg/dL Glucose (74-99) mg/dL POC Glucose (mg/dL) 166 H 125 H (75-99) mg/dL Calcium (8.4-10.2) mg/dL AST (14-36) U/L Assessment and Plan Plan: 1 abdominal pain, around the ileostomy with recent hospitalization for a small bowel obstruction. The follow-up CAT scan of the abdomen was noted. CAT scan of the abdomen shows resolution of the previously described bowel obstruction. Nevertheless, the patient continues to have tenderness and output seems to be quite diminished. On today's evaluation of 09/23/2018, the abdominal pain has improved significantly and the patient is still producing good amount of stool output. General surgeries on the case. The patient is taking clear liquid diet for now. No emesis and she'll be advanced to full liquids. 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 Plan continue the bicarb infusion. Repeat electrolytes. Laboratory of any fluid overload. The patient's echocardiogram showed a preserved LV function. She has diastolic heart failure and moderate degree of pulmonary hypertension. Continue same antibiotic coverage includes a combination of Levaquin and Flagyl. No need for systemic steroids. Monitor the blood sugar. The patient on Levemir insulin 6 units along with a scale. Rest of the medication were reviewed and they'll be kept unchanged. We'll continue to follow. An updated was given to the family. Her condition remains quite critical. We'll follow.
[2018-09-23 16:21] LABS: Iron Saturation 17.42 (12.00-45.00)
[2018-09-23 17:17] LABS: Glucose,Whole Blood 214 mg/dL (75-99)
[2018-09-23] MEDS: LEVOFLOXACIN 500MG-D5W PMX 500 MG in DEXTROSE/WATER 1 100ML.BAG IVPB SCH (18:18)
[2018-09-23] MEDS: DILTIAZEM CD 180 MG CAP.ER.24H PO SCH (20:17)
[2018-09-23] MEDS: PRAVASTATIN SODIUM 20 MG TAB PO SCH (20:18)
[2018-09-23] MEDS: NYSTATIN 100,000 UNIT/ML SUSP 500,000 UNIT/5 ML CUP PO SCH (20:18)
[2018-09-23] MEDS: INSULIN DETEMIR (LEVEMIR) 100 UNIT/ML SYR SQ SCH (20:19)
[2018-09-23 20:25] LABS: Glucose,Whole Blood 236 mg/dL (75-99)
[2018-09-24] MEDS: ACETAMINOPHEN TAB 325 MG TAB PO PRN ×2 (01:41→08:17)
[2018-09-24] MEDS: metroNIDAZOLE-NS PMX 500 MG in SALINE 1 100ML.BAG IVPB SCH ×4 (05:16→23:28)
[2018-09-24] MEDS: SODIUM CHLORIDE 0.45% 1,000 ML with SODIUM BICARB (1 MEQ/ML) 150 ML IV SCH ×2 (05:16)
[2018-09-24 05:41] LABS: Basophils % (A) 0 %; Eosinophils % (A) 1 %; HCT 23.9 % (34.0-46.0); HGB 7.6 gm/dL (11.4-16.0); Lymphocytes # (A) 0.1 k/uL (1.0-4.8); Lymphocytes % (A) 4 %; MCH 29.6 pg (25.0-35.0); MCV 92.5 fL (80.0-100.0); Mean Platelet Volume 7.6; Monocytes # (A) 0.3 k/uL (0-1.0); Monocytes % (A) 7 %; Neutrophils # (A) 3.1 k/uL (1.3-7.7); Neutrophils % (A) 87 %; Platelet Count 169 k/uL (150-450); RBC 2.58 m/uL (3.80-5.40); RDW 15.9 % (11.5-15.5); WBC 3.6 k/uL (3.8-10.6)
[2018-09-24 05:56] LABS: Calcium 7.4 mg/dL (8.4-10.2); Potassium 5.2 mmol/L (3.5-5.1)
[2018-09-24] MEDS: LEVOTHYROXINE 50 MCG TAB PO SCH (06:44)
[2018-09-24] MEDS: PANTOPRAZOLE 40 MG TABLET PO SCH (06:44)
[2018-09-24 06:49] LABS: Glucose,Whole Blood 222 mg/dL (75-99)
[2018-09-24] MEDS: INSULIN ASPART (NovoLOG) 100 UNIT/ML VIAL SQ SCH ×7 (06:52→20:44)
--- NOTE | 2018-09-24 07:00 | P.PN ---
Progress Note - Text Progress Note Date: 09/23/18 Patient has multiple electrolyte abnormalities including severe hyponatremia. Otherwise, clinically alert. She has generalized aches. No abdominal pain. Ostomy functioning. Otherwise no surgical abdomen. Low-fat diet with history of gallstones. Patient does not want any surgical intervention. We'll follow as needed.
[2018-09-24] MEDS: IPRATROPIUM-ALBUTEROL 3 ML NEB INHALATION SCH ×4 (07:02→19:29)
--- NOTE | 2018-09-24 07:27 | XR ---
EXAMINATION TYPE: XR chest 1V portable DATE OF EXAM: 09/24/2018 COMPARISON: 09/23/2018 HISTORY: Shortness of breath TECHNIQUE: Single frontal view of the chest is obtained. FINDINGS: There is an enlarged cardiac mediastinal silhouette with increasing left basilar retrocard iac airspace disease and change persistent right basilar airspace disease. Mild pulmonary vascular co ngestion remains. Dual lead left-sided cardiac device is redemonstrated. Diffuse osseous demineraliza tion and postsurgical changes of the right humerus/rotator cuff. IMPRESSION: Increasing retrocardiac opacity, likely small left pleural effusion and left basilar ate lectasis. Right basilar airspace disease is unchanged and may also represent atelectasis.
[2018-09-24] MEDS: hydrALAZINE HCL 50 MG TAB PO SCH ×3 (08:18→20:30)
[2018-09-24] MEDS: ISOSORBIDE MONONITRATE ER 60 MG TAB.ER.24H PO SCH (08:18)
[2018-09-24] MEDS: DOXAZOSIN 1 MG TAB PO SCH ×2 (08:19→20:29)
[2018-09-24] MEDS: ALLOPURINOL 100 MG TAB PO SCH (08:19)
[2018-09-24] MEDS: LABETALOL 100 MG TAB PO SCH ×2 (08:19→20:29)
[2018-09-24] MEDS: ASPIRIN 81 MG PO SCH (08:19)
[2018-09-24] MEDS: HEPARIN SODIUM,PORCINE 5,000 UNIT/ML 1 ML VIAL SQ SCH ×2 (08:19→20:29)
[2018-09-24] MEDS: NYSTATIN 100,000 UNIT/ML SUSP 500,000 UNIT/5 ML CUP PO SCH ×4 (08:20→20:30)
--- NOTE | 2018-09-24 10:31 | P.PN ---
Subjective Progress Note Date: 09/24/18 This is a 88-year-old female patient who got transferred again to us from [facility] because of shortness of breath. I was consulted for shortness of breath however the main issue seems to be worsening and abdominal pain, electrolyte imbalances the patient has developed hyponatremia and the patient has also developed an acute kidney injury with metabolic acidosis. I reviewed the records. I that this patient was in our hospital approximately a week ago for diminished ileostomy output, abdominal distention and bloating and nausea. The patient was seen by general surgery and the patient was diagnosed having small bowel obstruction. She did not require any immediate surgical intervention. The patient improved clinically and the patient was discharged once she was started back on diet. The CAT scan of the abdomen and pelvis at that time showed jejunum and proximal ileum dilation with the bile reaching up to 4 cm in caliber with several air-fluid levels. The transition point at the abdominal wall opening for the ileostomy with ileal loops just prior to yesterday being most dilated and associated with prominent edematous change throughout the mesentery of these loops. Ultimately, the patient had to come back for ongoing abdominal pain. I saw her at the bedside. She had a low-grade fever of 100.3 while at the assisted living. She was having some degree of shortness of breath. No reported aspiration. She is found in the week and at times she was also found to be confused. A repeat CAT scan of the abdomen was done on 09/21/2018 and it showed clearing of the bowel obstruction compared to last examination. There was fecal material at the ostomy site compared to last examination. There is also mild to moderate pleural effusion lung bases. There is also some limited infiltration probably related to compressive atelectasis. No retroperitoneal lymphadenopathy. Ureters were nondilated. Ostomy is found in the right side of the mid abdomen and there is evidence of sigmoid diverticula. No evidence of any bowel obstruction. No evidence of any free air based on the CAT scan of the abdomen that was done yesterday on 09/21/2018. The white cell count is at 4.5 with a hemoglobin of 8.0. The patient is an acute kidney injury. The patient has also developed non-anion gap metabolic acidosis. Serum bicarb is down to 14. Creatinine is at 3.7. Urine output is diminished. ProBNP level is elevated. Echocardiogram is pending. On today's evaluation of 09/23/2018 I'm seeing this patient for a follow-up. The patient is awake and alert. Abdominal pain has subsided. She is complaining of diffuse arthritic pain throughout her joints bilaterally including the shoulders knees and wrists. As far as abdominal pain, she has a less tender abdomen and the ileostomy site shows output. The patient is taking some clear liquid diet for now. Her urine output is still low in the order of 20 mL an hour. The patient's electrodes are still off with a sodium level of 127 with a BUN of 50 to a creatinine of 3.6. The serum bicarb is at 16 with an anion gap of 12. The lactic acid level is less than 0.5. The patient has an elevated BNP level. Nevertheless, the echocardiogram showed a preserved LV function with an ejection fraction of 50-55%. The right ventricular systolic pressure was around 50 mmHg. There is evidence of moderate pulmonary hypertension. There is also evidence of moderate concentric left ventricular hypertrophy. Chest x-ray shows some limited cardiomegaly with mild four-vessel congestion. Nevertheless the patient is only on 2 L of oxygen by nasal cannula and she is not having any significant respiratory distress. The patient is currently on IV fluids in the form of half normal with 3 A of bicarbonate upon request of nephrology and this is running at the rate of 100 mL an hour in the follow-up electrodes are still pending for now. On 09/24/2018 I'm seeing this patient for a follow-up. She is awake and alert. She is a bit lethargic. She is complaining of pain again throughout her abdomen. On today's evaluation the pain is more localized to the right side and the right upper quadrant area. She has adequate output and had ileostomy bag. No abdominal distention. She is still on bicarb infusion. Sodium is at 126. Metabolic acidosis gradually improving. Chest x-ray shows no acute abnormalities. The patient has no significant respiratory distress and she is calm and comfortable at rest. She is ingesting some clear liquid diet for now. She remains on a combination of Levaquin and Flagyl as broad-spectrum antibiotic coverage and the general surgeries on the case. Henry catheter is in place. Neck fluid balance is +2.1 L over the past 24 hours. Cultures are negative. There is no significant leukocytosis of this point in time. No nausea. No emesis. No altered mentation. Objective - Vital Signs Vital signs: Vital Signs Temp 97.9 F 09/24/18 08:00 Pulse 63 09/24/18 10:00 Resp 18 09/24/18 10:00 BP 140/57 09/24/18 10:00 Pulse Ox 93 L 09/24/18 10:00 Intake & Output 09/23/18 09/24/18 09/24/18 18:59 06:59 18:59 Intake Total 1740 1400 400 Output Total 400 605 260 Balance 1340 795 140 Weight 72.2 kg Intake: IV 1740 1300 400 Dextrose 5% in Water 1, 220 000 ml @ 60 mls/hr IV . [id number] ANAHI with Sodium Bicarb (1 Meq/ml) 150 ml Rx#:[id number] Levofloxacin 500Mg-D5w 100 Pmx 500 mg In Dextrose/ Water 1 100ml.bag @ 100 mls/hr IVPB Q48H ANAHI Rx#: [id number] Sodium Chloride 0.45% 1, 720 1200 400 000 ml @ 100 mls/hr IV . [id number] ANAHI with Sodium Bicarb (1 Meq/ml) 150 ml Rx#:[id number] Sodium Chloride 0.9% 500 500 ml 250 ml @ 999 mls/hr IV .Q16M ONE Rx#:[id number] metroNIDAZOLE-NS PMX 500 300 mg In Saline 1 100ml.bag @ 100 mls/hr IVPB Q6HR ANAHI Rx#:[id number] Intake, IV Titration 100 Amount metroNIDAZOLE-NS PMX 500 100 mg In Saline 1 100ml.bag @ 100 mls/hr IVPB Q6HR ANAHI Rx#:[id number] Output: Urine 200 205 160 Stool 200 400 100 Other: Voiding Method Indwelling Catheter Indwelling Catheter Indwelling Catheter - Exam Gen. appearance lethargic weak, and a mild degree of abdominal pain and distress. No apparent distress distress at this point in time and the patient is currently on room air oxygen. Head exam was generally normal. There was no scleral icterus or corneal arcus. Mucous membranes were moist. Neck was supple and without jugular venous distension, thyromegaly, or carotid bruits. Carotids were easily palpable bilaterally. There was no adenopathy. Lungs sounds are diminished along with some limited bibasilar crackles heard in the lung bases bilaterally. Cardiac exam revealed the PMI to be normally situated and sized. The rhythm was regular and no extrasystoles were noted during several minutes of auscultation. The first and second heart sounds were normal and physiologic splitting of the second heart sound was noted. There were no murmurs, rubs, clicks, or gallops. Abdomen examination reveals some tenderness in the right upper quadrant area. There is direct tenderness. No rebound a sore guarding. Ileostomy site is functional and intact. No significant abdominal distention. Bowel sounds are hypoactive at present for now.. There is an anterior abdominal wall hernia which is easily reducible without any evidence of incarceration or strangulation. Bowel sounds are hypoactive. No organomegaly. Examination of the extremities revealed easily palpable radial, femoral and pedal pulses. There was no cyanosis, clubbing or edema. Examination of the skin revealed no evidence of significant rashes, suspicious appearing nevi or other concerning lesions. Neurologically the patient is slow to answer questions. She is moving all 4 extremities without any limitation. On and off there has been some limited confusion - Labs CBC & Chem 7: 09/24/18 05:07 09/24/18 05:07 Labs: Abnormal Lab Results - Last 24 Hours (Table) 09/23/18 09/23/18 09/23/18 Range/Units 04:50 11:55 15:15 WBC (3.8-10.6) k/uL RBC (3.80-5.40) m/uL Hgb (11.4-16.0) gm/dL Hct (34.0-46.0) % RDW (11.5-15.5) % Lymphocytes # (1.0-4.8) k/uL Sodium 126 L (137-145) mmol/L Potassium (3.5-5.1) mmol/L Chloride (98-107) mmol/L Carbon Dioxide (22-30) mmol/L BUN (7-17) mg/dL Creatinine (0.52-1.04) mg/dL Glucose (74-99) mg/dL POC Glucose (mg/dL) 125 H (75-99) mg/dL Calcium (8.4-10.2) mg/dL Iron 31 L (50-170) ug/dL TIBC 178 L (228-460) ug/dL 09/23/18 09/23/18 09/23/18 Range/Units 17:15 20:24 22:23 WBC (3.8-10.6) k/uL RBC (3.80-5.40) m/uL Hgb (11.4-16.0) gm/dL Hct (34.0-46.0) % RDW (11.5-15.5) % Lymphocytes # (1.0-4.8) k/uL Sodium 126 L (137-145) mmol/L Potassium (3.5-5.1) mmol/L Chloride (98-107) mmol/L Carbon Dioxide (22-30) mmol/L BUN (7-17) mg/dL Creatinine (0.52-1.04) mg/dL Glucose (74-99) mg/dL POC Glucose (mg/dL) 214 H 236 H (75-99) mg/dL Calcium (8.4-10.2) mg/dL Iron (50-170) ug/dL TIBC (228-460) ug/dL 09/24/18 09/24/18 09/24/18 Range/Units 05:07 05:07 06:48 WBC 3.6 L (3.8-10.6) k/uL RBC 2.58 L (3.80-5.40) m/uL Hgb 7.6 L (11.4-16.0) gm/dL Hct 23.9 L (34.0-46.0) % RDW 15.9 H (11.5-15.5) % Lymphocytes # 0.1 L (1.0-4.8) k/uL Sodium 126 L (137-145) mmol/L Potassium 5.2 H (3.5-5.1) mmol/L Chloride 96 L (98-107) mmol/L Carbon Dioxide 19 L (22-30) mmol/L BUN 57 H (7-17) mg/dL Creatinine 3.34 H (0.52-1.04) mg/dL Glucose 200 H (74-99) mg/dL POC Glucose (mg/dL) 222 H (75-99) mg/dL Calcium 7.4 L (8.4-10.2) mg/dL Iron (50-170) ug/dL TIBC (228-460) ug/dL Assessment and Plan Plan: 1 abdominal pain, around the ileostomy with recent hospitalization for a small bowel obstruction. The follow-up CAT scan of the abdomen was noted. CAT scan of the abdomen shows resolution of the previously described bowel obstruction. Nevertheless, the patient continues to have tenderness and output seems to be quite diminished. On today's evaluation of 09/24/2018, the patient continues to have some tenderness however on today's evaluation the patient's tenderness is more localized right upper quadrant. Consider gallbladder disease. The ostomy site is function and there is some liquid output and there is no obvious signs of bowel obstruction this point in time.. The patient is taking clear liquid diet. No significant leukocytosis. There is an anterior abdominal wall hernia which is easily reducible. 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 Plan Continue the bicarb infusion. Monitor electrolytes. Monitor renal function. Check amylase. Check lipase. Obtain fasting of the abdomen. This will be needed to see if there is any signs of bowel obstruction. At the same time, we will order a dedicated ultrasound of the gallbladder to rule out any changes to suggest cholecystitis. We'll continue to follow. The patient is quite weak. The patient will be asked to sit up on a chair. Continue clear liquid diet. General surgeries on the case. We'll continue to follow.
[2018-09-24] MEDS ORDERED: FUROSEMIDE 10 MG/ML 4 ML VIAL IV STA (10:53)
--- NOTE | 2018-09-24 11:25 | XR ---
EXAMINATION TYPE: XR abdomen 1V DATE OF EXAM: 09/24/2018 10:48 AM CLINICAL HISTORY: Right upper quadrant abdominal pain TECHNIQUE: Single supine KUB image of the abdomen is obtained. COMPARISON: 09/22/2018. FINDINGS: Surgical coils seen within the right lower quadrant as well as a stable 3 mm punctate linea r radio opaque density. This also likely relates to a surgical clip. Increasing retrocardiac airspace disease is seen. Overall paucity of bowel gas in the right upper quadrant. No dilated large or small bowel. Degenerative changes of the spine and hips. Multiple phleboliths are noted. Right lung bases are well aerated. IMPRESSION: 1. Nonspecific paucity of bowel gas in the right. Overall nonobstructive bowel gas pattern. 2. Increasing retrocardiac airspace disease that may represent a pleural effusion, atelectasis or pne umonia.
[2018-09-24 11:34] LABS: Total Bilirubin 0.2 mg/dL (0.2-1.3)
[2018-09-24] MEDS: FERROUS SULFATE 325 MG TAB PO SCH (11:35)
[2018-09-24 11:59] LABS: Glucose,Whole Blood 227 mg/dL (75-99)
--- NOTE | 2018-09-24 15:18 | P.PN ---
Subjective Progress Note Date: 09/24/18 Principal diagnosis: sob, abdominal pain Patient still having abdominal pain and shortness of breath. She is making good amount of stools. Urine output with minimal at 30 mL per hour. No chest pain. No fevers or chills. Objective - Vital Signs Vital signs: Vital Signs Temp 98 F 09/24/18 12:01 Pulse 62 09/24/18 13:00 Resp 12 09/24/18 13:00 BP 134/64 09/24/18 13:00 Pulse Ox 97 09/24/18 13:00 Intake & Output 09/23/18 09/24/18 09/24/18 18:59 06:59 18:59 Intake Total 1740 1400 800 Output Total 400 605 670 Balance 1340 795 130 Weight 72.2 kg 72.2 kg Intake: IV 1740 1300 800 Dextrose 5% in Water 1, 220 000 ml @ 60 mls/hr IV . [id number] [facility] with Sodium Bicarb (1 Meq/ml) 150 ml Rx#:[id number] Levofloxacin 500Mg-D5w 100 Pmx 500 mg In Dextrose/ Water 1 100ml.bag @ 100 mls/hr IVPB Q48H [facility] Rx#: [id number] Sodium Chloride 0.45% 1, 720 1200 800 000 ml @ 100 mls/hr IV . [id number] [facility] with Sodium Bicarb (1 Meq/ml) 150 ml Rx#:[id number] Sodium Chloride 0.9% 500 500 ml 250 ml @ 999 mls/hr IV .Q16M ONE Rx#:[id number] metroNIDAZOLE-NS PMX 500 300 mg In Saline 1 100ml.bag @ 100 mls/hr IVPB Q6HR [facility] Rx#:[id number] Intake, IV Titration 100 Amount metroNIDAZOLE-NS PMX 500 100 mg In Saline 1 100ml.bag @ 100 mls/hr IVPB Q6HR [facility] Rx#:[id number] Output: Urine 200 205 570 Stool 200 400 100 Other: Voiding Method Indwelling Catheter Indwelling Catheter Indwelling Catheter - Exam Gen. appearance lethargic weak, no apparent respiratory distress at this point in time and the patient is currently on room air oxygen. Head exam was generally normal. There was no scleral icterus. Mucous membranes were moist. Neck was supple and without jugular venous distension, thyromegaly, or carotid bruits. Carotids were easily palpable bilaterally. There was no adenopathy. Lungs sounds are diminished along with some limited bibasilar crackles heard in the lung bases bilaterally. Cardiac: The rhythm was regular and no extrasystoles were noted during several minutes of auscultation. S1, S2 normal, there were no murmurs, rubs, clicks, or gallops. Abdomen examination reveals some tenderness in the right upper quadrant area. There is direct tenderness. No rebound a sore guarding. Ileostomy site is functional and intact. No significant abdominal distention. Bowel sounds are hypoactive at present here is an anterior abdominal wall hernia which is easily reducible without any evidence of incarceration or strangulation. Bowel sounds are hypoactive. No organomegaly. Examination of the extremities revealed easily palpable radial, femoral and pedal pulses. There was no cyanosis, clubbing or edema. Examination of the skin revealed no evidence of significant rashes, suspicious appearing nevi or other concerning lesions. Neurologically the patient is slow to answer questions. She is moving all 4 extremities without any limitation. - Labs CBC & Chem 7: 09/24/18 05:07 09/24/18 05:07 Labs: Abnormal Lab Results - Last 24 Hours (Table) 09/23/18 09/23/18 09/23/18 Range/Units 04:50 15:15 17:15 WBC (3.8-10.6) k/uL RBC (3.80-5.40) m/uL Hgb (11.4-16.0) gm/dL Hct (34.0-46.0) % RDW (11.5-15.5) % Lymphocytes # (1.0-4.8) k/uL Sodium 126 L (137-145) mmol/L Potassium (3.5-5.1) mmol/L Chloride (98-107) mmol/L Carbon Dioxide (22-30) mmol/L BUN (7-17) mg/dL Creatinine (0.52-1.04) mg/dL Glucose (74-99) mg/dL POC Glucose (mg/dL) 214 H (75-99) mg/dL Calcium (8.4-10.2) mg/dL Iron 31 L (50-170) ug/dL TIBC 178 L (228-460) ug/dL AST (14-36) U/L Lipase (23-300) U/L 09/23/18 09/23/18 09/24/18 Range/Units 20:24 22:23 05:07 WBC 3.6 L (3.8-10.6) k/uL RBC 2.58 L (3.80-5.40) m/uL Hgb 7.6 L (11.4-16.0) gm/dL Hct 23.9 L (34.0-46.0) % RDW 15.9 H (11.5-15.5) % Lymphocytes # 0.1 L (1.0-4.8) k/uL Sodium 126 L (137-145) mmol/L Potassium (3.5-5.1) mmol/L Chloride (98-107) mmol/L Carbon Dioxide (22-30) mmol/L BUN (7-17) mg/dL Creatinine (0.52-1.04) mg/dL Glucose (74-99) mg/dL POC Glucose (mg/dL) 236 H (75-99) mg/dL Calcium (8.4-10.2) mg/dL Iron (50-170) ug/dL TIBC (228-460) ug/dL AST (14-36) U/L Lipase (23-300) U/L 09/24/18 09/24/18 09/24/18 Range/Units 05:07 05:07 06:48 WBC (3.8-10.6) k/uL RBC (3.80-5.40) m/uL Hgb (11.4-16.0) gm/dL Hct (34.0-46.0) % RDW (11.5-15.5) % Lymphocytes # (1.0-4.8) k/uL Sodium 126 L (137-145) mmol/L Potassium 5.2 H (3.5-5.1) mmol/L Chloride 96 L (98-107) mmol/L Carbon Dioxide 19 L (22-30) mmol/L BUN 57 H (7-17) mg/dL Creatinine 3.34 H (0.52-1.04) mg/dL Glucose 200 H (74-99) mg/dL POC Glucose (mg/dL) 222 H (75-99) mg/dL Calcium 7.4 L (8.4-10.2) mg/dL Iron (50-170) ug/dL TIBC (228-460) ug/dL AST 8 L (14-36) U/L Lipase 19 L (23-300) U/L 09/24/18 Range/Units 11:58 WBC (3.8-10.6) k/uL RBC (3.80-5.40) m/uL Hgb (11.4-16.0) gm/dL Hct (34.0-46.0) % RDW (11.5-15.5) % Lymphocytes # (1.0-4.8) k/uL Sodium (137-145) mmol/L Potassium (3.5-5.1) mmol/L Chloride (98-107) mmol/L Carbon Dioxide (22-30) mmol/L BUN (7-17) mg/dL Creatinine (0.52-1.04) mg/dL Glucose (74-99) mg/dL POC Glucose (mg/dL) 227 H (75-99) mg/dL Calcium (8.4-10.2) mg/dL Iron (50-170) ug/dL TIBC (228-460) ug/dL AST (14-36) U/L Lipase (23-300) U/L Assessment and Plan Plan: 1 Abdominal pain, around the ileostomy with recent hospitalization for a small bowel obstruction. CAT scan of the abdomen shows resolution of the previously described bowel obstruction. No signs of SBO at this point. Tenderness is more localized right upper quadrant. Consider gallbladder disease. Order abdominal Xray and RUQ U/S. Tolerating clear liquid diet but intake minimal. Continue levaquin and flagyl. Check amylase. Check lipase 2 MALAIKA on top of chronic kidney disease, Improving 3 Acute hyponatremia, Sodium level is at 126, currently on bicarb infusion 4 Acute non-anion gap metabolic acidosis: Currently on a bicarb drip per nephro, improving 5 Small bibasilar pleural effusions and atelectatic changes in lung bases, Stable, currently on 2 L of oxygen by nasal cannula 6 CAD, hypertension, hyperlipidemia, hypothyroidism, diabetes mellitus 2, hx of diastolic heart failure with a preserved LV function and moderate degree of pulmonary hypertension. All stable, resume meds
--- NOTE | 2018-09-24 15:28 | US ---
EXAMINATION TYPE: US gallbladder DATE OF EXAM: 09/24/2018 COMPARISON: CT & US 2019 CLINICAL HISTORY: ruq pain. Abdomen pain EXAM MEASUREMENTS: Liver Length: 20.5 cm Gallbladder Wall: 0.2 cm CBD: 0.4 cm Right Kidney: 9.4 x 4.1 x 4.7 cm Pancreas: visualized portions wnl, tail obscured by overlying midline bowel gas Liver: enlarged. Gallbladder: 0.6cm echogenic focus, borderline hydropic, free fluid seen adjacent to gallbladder Evidence for sonographic Holder's sign: yes CBD: wnl Right Kidney: wnl IMPRESSION: 1. The gallbladder is enlarged, borderline hydropic in size with pericholecystic fluid however the co mmon bile duct is nonenlarged. Findings may represent acute or chronic cholecystitis. Cholelithiasis is seen. Correlate with physical exam and serum laboratory values. 2. Hepatomegaly is incidentally noted.
[2018-09-24] MEDS: HYDROmorphone 0.5 MG/0.5 ML SYRINGE IVP PRN ×2 (15:41→21:51)
--- NOTE | 2018-09-24 15:52 | P.PN ---
<Manisha Barlow Remington - Last Filed: 09/24/18 15:47> Subjective Progress Note Date: 09/24/18 CHIEF COMPLAINT: abdominal pain HISTORY OF PRESENT ILLNESS: Patient examined at the bedside. Patient reports abdominal pain today, mostly right upper quadrant. Tolerating diet. Denies nausea or vomiting. abdominal x-ray obtained today reveals nonobstructive bowel gas pattern. Increasing retrocardiac airspace disease and may represent a pleural effusion, atelectasis, or pneumonia. abdominal ultrasound reveals enlarged gallbladder, borderline hydropic in size with. Cholecystic fluid how ever the common bile duct is not enlarged. Findings may represent acute or chronic cholecystitis. Cholelithiasis is seen. Hepatomegaly is incidentally noted. PHYSICAL EXAM: VITAL SIGNS: Reviewed GENERAL: Well-developed in no acute distress. HEENT: No sclera icterus. Extraocular movements grossly intact. Moist buccal mucosa. Head is atraumatic, normocephalic. Hears conversational speech. No nasal drainage. NECK: Supple without lymphadenopathy. CHEST: Non-labored respirations and equal bilateral excursions. CARDIOVASCULAR: Regular rate with regular rhythm. Palpable 2+ radial pulses. ABDOMEN: Soft. Nondistended. Tenderness with palpation to right upper quadr ant. Ileostomy with liquid stool noted. MUSCULOSKELETAL: No clubbing, cyanosis or edema. NEUROLOGIC: No focal or lateralizing signs. Cranial nerves II through XII grossly intact. PSYCH: Appropriate affect. Alert and oriented. Sleepy SKIN: Well perfused. Good skin turgor. ASSESSMENT: 1. Abdominal pain, no evidence of bowel obstruction 2. Recent hospitalization for small bowel obstruction, treated with conversative management 3. Known history of cholelithiasis 4. History of ileostomy PLAN: No signs of bowel obstruction on radiographic imaging or on clinical examination. Patient with a known history of cholelithiasis and has been adamant that she does not want any type of surgical intervention. WBC within normal limits. Bilirubin, AST, ALT all within normal limits and no evidence of choledocholithiasis. Amylase Lipase within normal limits. No evidence of pancreatitis. Recommend continuing low fat diet for gallbladder disease. Recom mend continuing antibiotics at this time. Will continue to monitor. Nurse practitioner note has been reviewed by physician. Signing provider agrees with the documented findings, assessment, and plan of care. Objective - Vital Signs Vital signs: Vital Signs Temp 98 F 09/24/18 12:01 Pulse 62 08/15/19 13:00 Resp 12 09/24/18 13:00 BP 134/64 09/24/18 13:00 Pulse Ox 97 09/24/18 13:00 Intake & Output 09/23/18 09/24/18 09/24/18 18:59 06:59 18:59 Intake Total 1740 1400 800 Output Total 400 605 670 Balance 1340 795 130 Weight 72.2 kg 72.2 kg Intake: IV 1740 1300 800 Dextrose 5% in Water 1, 220 000 ml @ 60 mls/hr IV . [id number] [facility] with Sodium Bicarb (1 Meq/ml) 150 ml Rx#:[id number] Levofloxacin 500Mg-D5w 100 Pmx 500 mg In Dextrose/ Water 1 100ml.bag @ 100 mls/hr IVPB Q48H [facility] Rx#: [id number] Sodium Chloride 0.45% 1, 720 1200 800 000 ml @ 100 mls/hr IV . [id number] [facility] with Sodium Bicarb (1 Meq/ml) 150 ml Rx#:[id number] Sodium Chloride 0.9% 500 500 ml 250 ml @ 999 mls/hr IV .Q16M ONE Rx#:[id number] metroNIDAZOLE-NS PMX 500 300 mg In Saline 1 100ml.bag @ 100 mls/hr IVPB Q6HR [facility] Rx#:[id number] Intake, IV Titration 100 Amount metroNIDAZOLE-NS PMX 500 100 mg In Saline 1 100ml.bag @ 100 mls/hr IVPB Q6HR [facility] Rx#:[id number] Output: Urine 200 205 570 Stool 200 400 100 Other: Voiding Method Indwelling Catheter Indwelling Catheter Indwelling Catheter - Labs CBC & Chem 7: 09/24/18 05:07 09/24/18 05:07 Labs: Abnormal Lab Results - Last 24 Hours (Table) 09/23/18 09/23/18 09/23/18 Range/Units 04:50 15:15 17:15 WBC (3.8-10.6) k/uL RBC (3.80-5.40) m/uL Hgb (11.4-16.0) gm/dL Hct (34.0-46.0) % RDW (11.5-15.5) % Lymphocytes # (1.0-4.8) k/uL Sodium 126 L (137-145) mmol/L Potassium (3.5-5.1) mmol/L Chloride (98-107) mmol/L Carbon Dioxide (22-30) mmol/L BUN (7-17) mg/dL Creatinine (0.52-1.04) mg/dL Glucose (74-99) mg/dL POC Glucose (mg/dL) 214 H (75-99) mg/dL Calcium (8.4-10.2) mg/dL Iron 31 L (50-170) ug/dL TIBC 178 L (228-460) ug/dL AST (14-36) U/L Lipase (23-300) U/L 09/23/18 09/23/18 09/24/18 Range/Units 20:24 22:23 05:07 WBC 3.6 L (3.8-10.6) k/uL RBC 2.58 L (3.80-5.40) m/uL Hgb 7.6 L (11.4-16.0) gm/dL Hct 23.9 L (34.0-46.0) % RDW 15.9 H (11.5-15.5) % Lymphocytes # 0.1 L (1.0-4.8) k/uL Sodium 126 L (137-145) mmol/L Potassium (3.5-5.1) mmol/L Chloride (98-107) mmol/L Carbon Dioxide (22-30) mmol/L BUN (7-17) mg/dL Creatinine (0.52-1.04) mg/dL Glucose (74-99) mg/dL POC Glucose (mg/dL) 236 H (75-99) mg/dL Calcium (8.4-10.2) mg/dL Iron (50-170) ug/dL TIBC (228-460) ug/dL AST (14-36) U/L Lipase (23-300) U/L 09/24/18 09/24/18 09/24/18 Range/Units 05:07 05:07 06:48 WBC (3.8-10.6) k/uL RBC (3.80-5.40) m/uL Hgb (11.4-16.0) gm/dL Hct (34.0-46.0) % RDW (11.5-15.5) % Lymphocytes # (1.0-4.8) k/uL Sodium 126 L (137-145) mmol/L Potassium 5.2 H (3.5-5.1) mmol/L Chloride 96 L (98-107) mmol/L Carbon Dioxide 19 L (22-30) mmol/L BUN 57 H (7-17) mg/dL Creatinine 3.34 H (0.52-1.04) mg/dL Glucose 200 H (74-99) mg/dL POC Glucose (mg/dL) 222 H (75-99) mg/dL Calcium 7.4 L (8.4-10.2) mg/dL Iron (50-170) ug/dL TIBC (228-460) ug/dL AST 8 L (14-36) U/L Lipase 19 L (23-300) U/L 09/24/18 Range/Units 11:58 WBC (3.8-10.6) k/uL RBC (3.80-5.40) m/uL Hgb (11.4-16.0) gm/dL Hct (34.0-46.0) % RDW (11.5-15.5) % Lymphocytes # (1.0-4.8) k/uL Sodium (137-145) mmol/L Potassium (3.5-5.1) mmol/L Chloride (98-107) mmol/L Carbon Dioxide (22-30) mmol/L BUN (7-17) mg/dL Creatinine (0.52-1.04) mg/dL Glucose (74-99) mg/dL POC Glucose (mg/dL) 227 H (75-99) mg/dL Calcium (8.4-10.2) mg/dL Iron (50-170) ug/dL TIBC (228-460) ug/dL AST (14-36) U/L Lipase (23-300) U/L <Hannah Crowder - Last Filed: 09/24/18 18:54> Subjective Patient seen and evaluated. Patient with known history of gallbladder disease for which she was adamant against surgery. Although clinically symptomatic, recommend treatment with IV antibiotics. Strict no fat diet advised. With her acute renal failure including generalized debility, she is extremely high risk for mortality. Patient and family agreeable with care plan. Objective - Vital Signs Vital signs: Vital Signs Temp 97.8 F 09/24/18 16:00 Pulse 60 09/24/18 18:00 Resp 12 09/24/18 18:00 BP 155/60 09/24/18 18:00 Pulse Ox 96 09/24/18 18:00 Intake & Output 09/23/18 09/24/18 09/24/18 18:59 06:59 18:59 Intake Total 1740 1400 1200 Output Total 400 605 920 Balance 1340 795 280 Weight 72.2 kg 72.2 kg Intake: IV 1740 1300 1200 Dextrose 5% in Water 1, 220 000 ml @ 60 mls/hr IV . [id number] ANA[facility] with Sodium Bicarb (1 Meq/ml) 150 ml Rx#:[id number] Levofloxacin 500Mg-D5w 100 Pmx 500 mg In Dextrose/ Water 1 100ml.bag @ 100 mls/hr IVPB Q48H [facility] Rx#: [id number] Sodium Chloride 0.45% 1, 720 1200 1200 000 ml @ 100 mls/hr IV . [id number] [facility] with Sodium Bicarb (1 Meq/ml) 150 ml Rx#:[id number] Sodium Chloride 0.9% 500 500 ml 250 ml @ 999 mls/hr IV .Q16M ONE Rx#:[id number] metroNIDAZOLE-NS PMX 500 300 mg In Saline 1 100ml.bag @ 100 mls/hr IVPB Q6HR [facility] Rx#:[id number] Intake, IV Titration 100 Amount metroNIDAZOLE-NS PMX 500 100 mg In Saline 1 100ml.bag @ 100 mls/hr IVPB Q6HR [facility] Rx#:[id number] Output: Urine 200 205 820 Stool 200 400 100 Other: Voiding Method Indwelling Catheter Indwelling Catheter Indwelling Catheter - Labs CBC & Chem 7: 09/24/18 05:07 09/24/18 18:03 Labs: Abnormal Lab Results - Last 24 Hours (Table) 09/23/18 09/23/18 09/24/18 Range/Units 20:24 22:23 05:07 WBC 3.6 L (3.8-10.6) k/uL RBC 2.58 L (3.80-5.40) m/uL Hgb 7.6 L (11.4-16.0) gm/dL Hct 23.9 L (34.0-46.0) % RDW 15.9 H (11.5-15.5) % Lymphocytes # 0.1 L (1.0-4.8) k/uL Sodium 126 L (137-145) mmol/L Potassium (3.5-5.1) mmol/L Chloride (98-107) mmol/L Carbon Dioxide (22-30) mmol/L BUN (7-17) mg/dL Creatinine (0.52-1.04) mg/dL Glucose (74-99) mg/dL POC Glucose (mg/dL) 236 H (75-99) mg/dL Calcium (8.4-10.2) mg/dL AST (14-36) U/L Lipase (23-300) U/L 09/24/18 09/24/18 09/24/18 Range/Units 05:07 05:07 06:48 WBC (3.8-10.6) k/uL RBC (3.80-5.40) m/uL Hgb (11.4-16.0) gm/dL Hct (34.0-46.0) % RDW (11.5-15.5) % Lymphocytes # (1.0-4.8) k/uL Sodium 126 L (137-145) mmol/L Potassium 5.2 H (3.5-5.1) mmol/L Chloride 96 L (98-107) mmol/L Carbon Dioxide 19 L (22-30) mmol/L BUN 57 H (7-17) mg/dL Creatinine 3.34 H (0.52-1.04) mg/dL Glucose 200 H (74-99) mg/dL POC Glucose (mg/dL) 222 H (75-99) mg/dL Calcium 7.4 L (8.4-10.2) mg/dL AST 8 L (14-36) U/L Lipase 19 L (23-300) U/L 09/24/18 09/24/18 09/24/18 Range/Units 11:58 17:01 18:03 WBC (3.8-10.6) k/uL RBC (3.80-5.40) m/uL Hgb (11.4-16.0) gm/dL Hct (34.0-46.0) % RDW (11.5-15.5) % Lymphocytes # (1.0-4.8) k/uL Sodium 129 L (137-145) mmol/L Potassium (3.5-5.1) mmol/L Chloride 96 L (98-107) mmol/L Carbon Dioxide (22-30) mmol/L BUN 59 H (7-17) mg/dL Creatinine 2.70 H (0.52-1.04) mg/dL Glucose 138 H (74-99) mg/dL POC Glucose (mg/dL) 227 H 166 H (75-99) mg/dL Calcium 7.4 L (8.4-10.2) mg/dL AST (14-36) U/L Lipase (23-300) U/L
--- NOTE | 2018-09-24 16:34 | PN ---
PROGRESS NOTE Patient is seen for followup for acute kidney injury. She is currently resting in bed. Patient is comfortable. She denies any complaints. She has not been eating much. On examination this morning, blood pressure was 140/57, heart rate 63 per minute. She is afebrile. EXAMINATION OF THE HEART: S1 and S2. EXAMINATION OF LUNGS: Bilateral breath sounds are heard. ABDOMEN: Soft, non-tender. Examination of lower extremities shows no significant edema. AUTOMATION OPERATOR exam is grossly intact. Labs show hemoglobin 7.6 g/dL, sodium 126, potassium 5.2, chloride 96. CO2 is 19. BUN 57, serum creatinine 3.34. Calcium is 7.4. ASSESSMENT: 1. Acute kidney injury, acute tubular necrosis, currently improving. 2. Metabolic acidosis, maintained on IV bicarb. I will likely discontinue the bicarb this evening based on labs from today. 3. Hyponatremia. Patient's sodium remains at 126. IV fluids were changed yesterday, but her sodium level has not improved. I will give her a dose of IV Lasix x1 now. Patient does not appear to be significantly hypovolemic at this time. 4. Hyperkalemia with acute kidney injury on initial admission along with metabolic acidosis, currently improved. 5. Small bowel obstruction on last admission, status post conservative treatment. 6. Chronic kidney disease, stage III; baseline creatinine 1 to 1.3, secondary to diabetic kidney disease. 7. Abdominal pain with consideration for possible cholecystitis, being followed by Surgery. PLAN: Lasix x1. Repeat labs this evening. I will likely discontinue the IV bicarb. MMODL / IJN: [id number] /
[2018-09-24 17:03] LABS: Glucose,Whole Blood 166 mg/dL (75-99)
[2018-09-24 18:27] LABS: Calcium 7.4 mg/dL (8.4-10.2); Potassium 4.2 mmol/L (3.5-5.1)
[2018-09-24] MEDS: ONDANSETRON 4 MG/2 ML VIAL IVP PRN (18:42)
[2018-09-24 20:24] LABS: Glucose,Whole Blood 128 mg/dL (75-99)
[2018-09-24] MEDS: DILTIAZEM CD 180 MG CAP.ER.24H PO SCH (20:29)
[2018-09-24] MEDS: PRAVASTATIN SODIUM 20 MG TAB PO SCH (20:29)
[2018-09-24] MEDS: INSULIN DETEMIR (LEVEMIR) 100 UNIT/ML SYR SQ SCH (20:31)
[2018-09-24] MEDS: SODIUM CHLORIDE 0.9% 1,000 ML IV SCH (20:41)
[2018-09-25] MEDS: HYDROmorphone 0.5 MG/0.5 ML SYRINGE IVP PRN ×2 (01:41→20:16)
[2018-09-25] MEDS: ONDANSETRON 4 MG/2 ML VIAL IVP PRN ×3 (01:42→22:09)
[2018-09-25 05:23] LABS: Anisocytosis Slight; Basophils % (A) 1 %; Eosinophils # (A) 0.2 k/uL (0-0.7); Eosinophils % (A) 3 %; HCT 24.8 % (34.0-46.0); Lymphocytes # (A) 0.3 k/uL (1.0-4.8); Lymphocytes % (A) 6 %; MCH 29.7 pg (25.0-35.0); MCHC 32.2 g/dL (31.0-37.0); MCV 92.3 fL (80.0-100.0); Mean Platelet Volume 7.4; Monocytes # (A) 0.4 k/uL (0-1.0); Monocytes % (A) 8 %; Neutrophils # (A) 4.2 k/uL (1.3-7.7); Neutrophils % (A) 80 %; Platelet Count 187 k/uL (150-450); RBC 2.68 m/uL (3.80-5.40); RDW 16.9 % (11.5-15.5); WBC 5.3 k/uL (3.8-10.6)
[2018-09-25 05:35] LABS: African American GFR (CKD) 20 (>60 ml/min/1.73 sqM); Amylase <30 U/L (30-110); Anion Gap 9 mmol/L; Blood Urea Nitrogen 52 mg/dL (7-17); Calcium 7.6 mg/dL (8.4-10.2); Carbon Dioxide 25 mmol/L (22-30); Chloride 98 mmol/L (98-107); Glucose 127 mg/dL (74-99); Non-African American GFR(CKD) 17 (>60 ml/min/1.73 sqM); Potassium 4.3 mmol/L (3.5-5.1); Sodium 132 mmol/L (137-145)
[2018-09-25] MEDS: metroNIDAZOLE-NS PMX 500 MG in SALINE 1 100ML.BAG IVPB SCH ×4 (06:17→23:57)
[2018-09-25] MEDS: LEVOTHYROXINE 50 MCG TAB PO SCH (06:20)
[2018-09-25 07:03] LABS: Glucose,Whole Blood 135 mg/dL (75-99)
[2018-09-25] MEDS: IPRATROPIUM-ALBUTEROL 3 ML NEB INHALATION SCH ×4 (07:03→19:57)
[2018-09-25] MEDS: INSULIN ASPART (NovoLOG) 100 UNIT/ML VIAL SQ SCH ×7 (07:06→20:52)
--- NOTE | 2018-09-25 07:11 | XR ---
EXAMINATION TYPE: XR chest 1V portable DATE OF EXAM: 09/25/2018 COMPARISON: 09/24/2018 HISTORY: Shortness of breath TECHNIQUE: Single frontal view of the chest is obtained. FINDINGS: There is a persistent retrocardiac opacity and pleural effusions, small amount and trace o n the right. Right infrahilar airspace disease is unchanged. Chronic interstitial prominence is again noted. Postsurgical changes of the right rotator cuff. Cardiomediastinal silhouette is enlarged with dual lead left-sided cardiac device. Cardiomegaly is seen. No pneumothorax. IMPRESSION: Stable small left and trace right pleural effusions and bibasilar airspace disease (grea test in the retrocardiac airspace) that may represent atelectasis or less likely multifocal pneumonia .
[2018-09-25] MEDS: PANTOPRAZOLE 40 MG TABLET PO SCH (09:00)
--- NOTE | 2018-09-25 09:46 | P.PN ---
Subjective Progress Note Date: 09/25/18 This is a 88-year-old female patient who got transferred again to us from [facility] because of shortness of breath. I was consulted for shortness of breath however the main issue seems to be worsening and abdominal pain, electrolyte imbalances the patient has developed hyponatremia and the patient has also developed an acute kidney injury with metabolic acidosis. I reviewed the records. I that this patient was in our hospital approximately a week ago for diminished ileostomy output, abdominal distention and bloating and nausea. The patient was seen by general surgery and the patient was diagnosed having small bowel obstruction. She did not require any immediate surgical intervention. The patient improved clinically and the patient was discharged once she was started back on diet. The CAT scan of the abdomen and pelvis at that time showed jejunum and proximal ileum dilation with the bile reaching up to 4 cm in caliber with several air-fluid levels. The transition point at the abdominal wall opening for the ileostomy with ileal loops just prior to yesterday being most dilated and associated with prominent edematous change throughout the mesentery of these loops. Ultimately, the patient had to come back for ongoing abdominal pain. I saw her at the bedside. She had a low-grade fever of 100.3 while at the assisted living. She was having some degree of shortness of breath. No reported aspiration. She is found in the week and at times she was also found to be confused. A repeat CAT scan of the abdomen was done on 09/21/2018 and it showed clearing of the bowel obstruction compared to last examination. There was fecal material at the ostomy site compared to last examination. There is also mild to moderate pleural effusion lung bases. There is also some limited infiltration probably related to compressive atelectasis. No retroperitoneal lymphadenopathy. Ureters were nondilated. Ostomy is found in the right side of the mid abdomen and there is evidence of sigmoid diverticula. No evidence of any bowel obstruction. No evidence of any free air based on the CAT scan of the abdomen that was done yesterday on 09/21/2018. The white cell count is at 4.5 with a hemoglobin of 8.0. The patient is an acute kidney injury. The patient has also developed non-anion gap metabolic acidosis. Serum bicarb is down to 14. Creatinine is at 3.7. Urine output is diminished. ProBNP level is elevated. Echocardiogram is pending. On today's evaluation of 09/23/2018 I'm seeing this patient for a follow-up. The patient is awake and alert. Abdominal pain has subsided. She is complaining of diffuse arthritic pain throughout her joints bilaterally including the shoulders knees and wrists. As far as abdominal pain, she has a less tender abdomen and the ileostomy site shows output. The patient is taking some clear liquid diet for now. Her urine output is still low in the order of 20 mL an hour. The patient's electrodes are still off with a sodium level of 127 with a BUN of 50 to a creatinine of 3.6. The serum bicarb is at 16 with an anion gap of 12. The lactic acid level is less than 0.5. The patient has an elevated BNP level. Nevertheless, the echocardiogram showed a preserved LV function with an ejection fraction of 50-55%. The right ventricular systolic pressure was around 50 mmHg. There is evidence of moderate pulmonary hypertension. There is also evidence of moderate concentric left ventricular hypertrophy. Chest x-ray shows some limited cardiomegaly with mild four-vessel congestion. Nevertheless the patient is only on 2 L of oxygen by nasal cannula and she is not having any significant respiratory distress. The patient is currently on IV fluids in the form of half normal with 3 A of bicarbonate upon request of nephrology and this is running at the rate of 100 mL an hour in the follow-up electrodes are still pending for now. On 09/24/2018 I'm seeing this patient for a follow-up. She is awake and alert. She is a bit lethargic. She is complaining of pain again throughout her abdomen. On today's evaluation the pain is more localized to the right side and the right upper quadrant area. She has adequate output and had ileostomy bag. No abdominal distention. She is still on bicarb infusion. Sodium is at 126. Metabolic acidosis gradually improving. Chest x-ray shows no acute abnormalities. The patient has no significant respiratory distress and she is calm and comfortable at rest. She is ingesting some clear liquid diet for now. She remains on a combination of Levaquin and Flagyl as broad-spectrum antibiotic coverage and the general surgeries on the case. Henry catheter is in place. Neck fluid balance is +2.1 L over the past 24 hours. Cultures are negative. There is no significant leukocytosis of this point in time. No nausea. No emesis. No altered mentation. On 09/25/2018 I'm seeing the patient and ICU. She remains essentially the same compared to yesterday. She is still complaining of right upper quadrant tenderness. Ultrasound the gallbladder was done and showed acute versus chronic cholecystitis. She has positive sonographic Holder's signs. LFTs are nonelevated. Discussed the case with the surgeon. The patient is categorically refusing any surgical intervention. She is still nauseated. She is unable to take anything orally. Occasionally she dry heaves. Her ileostomy site is active and is positive output. Her sodium level is improving. Serum bicarbonate normalized. She remains on a combination of Levaquin and Flagyl. Henry catheter is in place. No respiratory distress. No cough or sputum production. No angina or chest pain. The creatinine is down to 2.4 compared to 0.7 from yesterday. Sodium level has also improved of 232 and the patient is cu rrently receiving a normal saline infusion rate of 50 mL an hour. No other significant events overnight otherwise for now. General surgeries on the case. Objective - Vital Signs Vital signs: Vital Signs Temp 97.6 F 09/25/18 04:00 Pulse 60 09/25/18 07:13 Resp 13 09/25/18 07:00 BP 151/64 09/25/18 07:00 Pulse Ox 97 09/25/18 07:00 Intake & Output 09/24/18 09/25/18 09/25/18 18:59 06:59 18:59 Intake Total 1300 800 50 Output Total 1045 670 30 Balance 255 130 20 Weight 72.2 kg 70.4 kg Intake: IV 1300 700 50 0.9 @ 50 500 50 Sodium Chloride 0.45% 1, 1300 100 000 ml @ 100 mls/hr IV . [id number] ANAHI with Sodium Bicarb (1 Meq/ml) 150 ml Rx#:[id number] metroNIDAZOLE-NS PMX 500 100 mg In Saline 1 100ml.bag @ 100 mls/hr IVPB Q6HR ANAHI Rx#:[id number] Intake, IV Titration 100 Amount metroNIDAZOLE-NS PMX 500 100 mg In Saline 1 100ml.bag @ 100 mls/hr IVPB Q6HR ANAHI Rx#:[id number] Output: Urine 945 420 30 Stool 100 250 Other: Voiding Method Indwelling Catheter Indwelling Catheter - Exam Gen. appearance lethargic weak, and a mild degree of abdominal pain and distress. No apparent distress distress at this point in time and the patient is currently on room air oxygen. Head exam was generally normal. There was no scleral icterus or corneal arcus. Mucous membranes were moist. Neck was supple and without jugular venous distension, thyromegaly, or carotid bruits. Carotids were easily palpable bilaterally. There was no adenopathy. Lungs sounds are diminished along with some limited bibasilar crackles heard in the lung bases bilaterally. Cardiac exam revealed the PMI to be normally situated and sized. The rhythm was regular and no extrasystoles were noted during several minutes of auscultation. The first and second heart sounds were normal and physiologic splitting of the second heart sound was noted. There were no murmurs, rubs, clicks, or gallops. Abdomen examination reveals some tenderness in the right upper quadrant area. There is direct tenderness. No rebound a sore guarding. Ileostomy site is functional and intact. No significant abdominal distention. Bowel sounds are hypoactive at present for now.. There is an anterior abdominal wall hernia which is easily reducible without any evidence of incarceration or strangulation. Bowel sounds are hypoactive. No organomegaly. Examination of the extremities revealed easily palpable radial, femoral and pedal pulses. There was no cyanosis, clubbing or edema. Examination of the skin revealed no evidence of significant rashes, suspicious appearing nevi or other concerning lesions. Neurologically the patient is slow to answer questions. She is moving all 4 extremities without any limitation. On and off there has been some limited confusion - Labs CBC & Chem 7: 09/25/18 04:51 09/25/18 04:51 Labs: Abnormal Lab Results - Last 24 Hours (Table) 09/24/18 09/24/18 09/24/18 Range/Units 05:07 11:58 17:01 RBC (3.80-5.40) m/uL Hgb (11.4-16.0) gm/dL Hct (34.0-46.0) % RDW (11.5-15.5) % Lymphocytes # (1.0-4.8) k/uL Sodium (137-145) mmol/L Chloride (98-107) mmol/L BUN (7-17) mg/dL Creatinine (0.52-1.04) mg/dL Glucose (74-99) mg/dL POC Glucose (mg/dL) 227 H 166 H (75-99) mg/dL Calcium (8.4-10.2) mg/dL AST 8 L (14-36) U/L Amylase (30-110) U/L Lipase 19 L (23-300) U/L 09/24/18 09/24/18 09/25/18 Range/Units 18:03 20:23 04:51 RBC 2.68 L (3.80-5.40) m/uL Hgb 8.0 L (11.4-16.0) gm/dL Hct 24.8 L (34.0-46.0) % RDW 16.9 H (11.5-15.5) % Lymphocytes # 0.3 L (1.0-4.8) k/uL Sodium 129 L (137-145) mmol/L Chloride 96 L (98-107) mmol/L BUN 59 H (7-17) mg/dL Creatinine 2.70 H (0.52-1.04) mg/dL Glucose 138 H (74-99) mg/dL POC Glucose (mg/dL) 128 H (75-99) mg/dL Calcium 7.4 L (8.4-10.2) mg/dL AST (14-36) U/L Amylase (30-110) U/L Lipase (23-300) U/L 09/25/18 09/25/18 Range/Units 04:51 07:02 RBC (3.80-5.40) m/uL Hgb (11.4-16.0) gm/dL Hct (34.0-46.0) % RDW (11.5-15.5) % Lymphocytes # (1.0-4.8) k/uL Sodium 132 L (137-145) mmol/L Chloride (98-107) mmol/L BUN 52 H (7-17) mg/dL Creatinine 2.46 H (0.52-1.04) mg/dL Glucose 127 H (74-99) mg/dL POC Glucose (mg/dL) 135 H (75-99) mg/dL Calcium 7.6 L (8.4-10.2) mg/dL AST (14-36) U/L Amylase <30 L (30-110) U/L Lipase (23-300) U/L Assessment and Plan Plan: 1 abdominal pain, around the ileostomy with recent hospitalization for a small bowel obstruction. The follow-up CAT scan of the abdomen was noted. CAT scan of the abdomen shows resolution of the previously described bowel obstruction. Nevertheless, the patient continues to have tenderness and output seems to be quite diminished. There is concern of ongoing cholecystitis acute versus chronic. The patient is still nauseated. She has a right upper quadrant pain. She is declining any surgical intervention. We'll discuss with radiology regarding the possibility of a HIDA scan or even inserting a percutaneous drain to give this patient some symptomatic relief. 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 Plan Discontinue the bicarb infusion and put the patient on normal saline at rate of 50 mL an hour. Continue Levaquin. Continue Flagyl. Will discuss with radiology HIDA scan versus a percutaneous drainage of the gallbladder. We'll continue to follow make further recommendations based on progress. She is o bviously lagging behind on her nutrition. There is a concern. May consider TPN if he continues to have issues with nausea and diminished oral intake. Ileostomy is functional. No abdominal distention. The rest of the abdomen showed nonspecific bowel gas pattern.
[2018-09-25] MEDS: ALLOPURINOL 100 MG TAB PO SCH (11:01)
[2018-09-25] MEDS: ASPIRIN 81 MG PO SCH (11:02)
[2018-09-25] MEDS: DOXAZOSIN 1 MG TAB PO SCH ×2 (11:02→21:24)
[2018-09-25] MEDS: ISOSORBIDE MONONITRATE ER 60 MG TAB.ER.24H PO SCH (11:03)
[2018-09-25] MEDS: LABETALOL 100 MG TAB PO SCH ×3 (11:03→21:24)
[2018-09-25] MEDS: hydrALAZINE HCL 50 MG TAB PO SCH ×3 (11:03→21:24)
[2018-09-25] MEDS: NYSTATIN 100,000 UNIT/ML SUSP 500,000 UNIT/5 ML CUP PO SCH ×4 (11:04→21:24)
[2018-09-25] MEDS: HEPARIN SODIUM,PORCINE 5,000 UNIT/ML 1 ML VIAL SQ SCH ×2 (11:05→20:52)
[2018-09-25 11:19] LABS: Glucose,Whole Blood 112 mg/dL (75-99)
[2018-09-25] MEDS: FERROUS SULFATE 325 MG TAB PO SCH (12:18)
--- NOTE | 2018-09-25 13:56 | P.PN ---
Subjective Progress Note Date: 09/25/18 Principal diagnosis: sob, abdominal pain Still having RUQ abdominal pain. Feeling weak and cold. Has been lethargic this am. Received multiple doses of dilaudid this am. Objective - Vital Signs Vital signs: Vital Signs Temp 98.0 F 09/25/18 12:00 Pulse 61 09/25/18 13:00 Resp 13 09/25/18 13:00 BP 156/66 09/25/18 13:00 Pulse Ox 96 09/25/18 12:00 Intake & Output 09/24/18 09/25/18 09/25/18 18:59 06:59 18:59 Intake Total 1300 800 350 Output Total 1045 670 480 Balance 255 130 -130 Weight 72.2 kg 70.4 kg Intake: IV 1300 700 350 0.9 @ 50 500 350 Sodium Chloride 0.45% 1, 1300 100 000 ml @ 100 mls/hr IV . [id number] ANAHI with Sodium Bicarb (1 Meq/ml) 150 ml Rx#:[id number] metroNIDAZOLE-NS PMX 500 100 mg In Saline 1 100ml.bag @ 100 mls/hr IVPB Q6HR ANAHI Rx#:[id number] Intake, IV Titration 100 Amount metroNIDAZOLE-NS PMX 500 100 mg In Saline 1 100ml.bag @ 100 mls/hr IVPB Q6HR ANAHI Rx#:[id number] Output: Urine 945 420 480 Stool 100 250 Other: Voiding Method Indwelling Catheter Indwelling Catheter Indwelling Catheter - Exam Gen. appearance lethargic weak, no apparent respiratory distress at this point in time and the patient is currently on room air oxygen. Head exam was generally normal. There was no scleral icterus. Mucous membranes were moist. Neck was supple and without jugular venous distension, thyromegaly, or carotid bruits. Carotids were easily palpable bilaterally. There was no adenopathy. Lungs sounds are diminished along with some limited bibasilar crackles heard in the lung bases bilaterally. Cardiac: The rhythm was regular and no extrasystoles were noted during several minutes of auscultation. S1, S2 normal, there were no murmurs, rubs, clicks, or gallops. Abdomen examination reveals some tenderness in the right upper quadrant area. There is direct tenderness. No rebound a sore guarding. Ileostomy site is functional and intact. No significant abdominal distention. Bowel sounds are hypoactive at present here is an anterior abdominal wall hernia which is easily reducible without any evidence of incarceration or strangulation. Bowel sounds are hypoactive. No organomegaly. Examination of the extremities revealed easily palpable radial, femoral and peda l pulses. There was no cyanosis, clubbing or edema. Examination of the skin revealed no evidence of significant rashes, suspicious appearing nevi or other concerning lesions. Neurologically the patient is slow to answer questions. She is moving all 4 extremities without any limitation. - Labs CBC & Chem 7: 09/25/18 04:51 09/25/18 04:51 Labs: Abnormal Lab Results - Last 24 Hours (Table) 09/24/18 09/24/18 09/24/18 Range/Units 17:01 18:03 20:23 RBC (3.80-5.40) m/uL Hgb (11.4-16.0) gm/dL Hct (34.0-46.0) % RDW (11.5-15.5) % Lymphocytes # (1.0-4.8) k/uL Sodium 129 L (137-145) mmol/L Chloride 96 L (98-107) mmol/L BUN 59 H (7-17) mg/dL Creatinine 2.70 H (0.52-1.04) mg/dL Glucose 138 H (74-99) mg/dL POC Glucose (mg/dL) 166 H 128 H (75-99) mg/dL Calcium 7.4 L (8.4-10.2) mg/dL Amylase (30-110) U/L 09/25/18 09/25/18 09/25/18 Range/Units 04:51 04:51 07:02 RBC 2.68 L (3.80-5.40) m/uL Hgb 8.0 L (11.4-16.0) gm/dL Hct 24.8 L (34.0-46.0) % RDW 16.9 H (11.5-15.5) % Lymphocytes # 0.3 L (1.0-4.8) k/uL Sodium 132 L (137-145) mmol/L Chloride (98-107) mmol/L BUN 52 H (7-17) mg/dL Creatinine 2.46 H (0.52-1.04) mg/dL Glucose 127 H (74-99) mg/dL POC Glucose (mg/dL) 135 H (75-99) mg/dL Calcium 7.6 L (8.4-10.2) mg/dL Amylase <30 L (30-110) U/L 09/25/18 Range/Units 11:11 RBC (3.80-5.40) m/uL Hgb (11.4-16.0) gm/dL Hct (34.0-46.0) % RDW (11.5-15.5) % Lymphocytes # (1.0-4.8) k/uL Sodium (137-145) mmol/L Chloride (98-107) mmol/L BUN (7-17) mg/dL Creatinine (0.52-1.04) mg/dL Glucose (74-99) mg/dL POC Glucose (mg/dL) 112 H (75-99) mg/dL Calcium (8.4-10.2) mg/dL Amylase (30-110) U/L Assessment and Plan Plan: 1 Abdominal pain, around the ileostomy with recent hospitalization for a small bowel obstruction. CAT scan of the abdomen shows resolution of the previously described bowel obstruction. No signs of SBO at this point. Tenderness is more localized right upper quadrant. RUQ U/S showed enlarged GB with pericholecystic fluid consistent with acute or chronic cholecystitis. Tolerating clear liquid diet but intake minimal. Patient refusing surgery and she is her own decision maker. Continue levaquin and flagyl. Operating Room Scheduler planning HIDA vs. percutaneous drainage of the GB. 2 MALAIKA on top of chronic kidney disease, Improving 3 Acute hyponatremia, Resolved. 4 Acute non-anion gap metabolic acidosis: Resolved. 5 Small bibasilar pleural effusions and atelectatic changes in lung bases, Stable, currently on 2 L of oxygen by nasal cannula 6 CAD, hypertension, hyperlipidemia, hypothyroidism, diabetes mellitus 2, hx of diastolic heart failure with a preserved LV function and moderate degree of pulmonary hypertension. All stable, resume meds
--- NOTE | 2018-09-25 14:16 | P.PN ---
Subjective Progress Note Date: 09/25/18 CHIEF COMPLAINT: abdominal pain HISTORY OF PRESENT ILLNESS: Patient examined at the bedside. She is nauseous this morning and having dry heaves. Complains of pain to right upper quadrant. Ostomy with stool noted. WBC 5.3. Hemoglobin 8.0. PHYSICAL EXAM: VITAL SIGNS: Reviewed GENERAL: Well-developed in no acute distress but appears to be feeling unwell. HEENT: No sclera icterus. Extraocular movements grossly intact. Moist buccal mucosa. Head is atraumatic, normocephalic. Hears conversational speech. No nasal drainage. NECK: Supple without lymphadenopathy. CHEST: Non-labored respirations and equal bilateral excursions. CARDIOVASCULAR: Regular rate with regular rhythm. Palpable 2+ radial pulses. ABDOMEN: Soft. Nondistended. Tenderness with palpation to right upper quadrant. Ileostomy with liquid stool noted. MUSCULOSKELETAL: No clubbing, cyanosis or edema. NEUROLOGIC: No focal or lateralizing signs. Cranial nerves II through XII grossly intact. PSYCH: Appropriate affect. Alert and oriented. Sleepy SKIN: Well perfused. Good skin turgor. ASSESSMENT: 1. Abdominal pain, no evidence of bowel obstruction 2. Recent hospitalization for small bowel obstruction, treated with conversative management 3. History of cholelithiasis with acute on chronic cholecystitis 4. History of ileostomy PLAN: Continue IV fluids. Continue antibiotics. Patient has declined surgical intervention in the past regarding gallbladder disease. However, she is becoming more symptomatic. Will consult cardiology for cardiac clearance in the event that patient requires surgical intervention. Case discussed with Dr. Sanchez. Dr. Crowder is agreeable to have percutaneous drain placed for symptomatic relief. Dr. Sanchez states he will speak to radiology regarding this. We will continue to follow. Nurse practitioner note has been reviewed by physician. Signing provider agrees with the documented findings, assessment, and plan of care. Objective - Vital Signs Vital signs: Vital Signs Temp 98.0 F 09/25/18 12:00 Pulse 61 09/25/18 13:00 Resp 13 09/25/18 13:00 BP 156/66 09/25/18 13:00 Pulse Ox 96 09/25/18 12:00 Intake & Output 09/24/18 09/25/18 09/25/18 18:59 06:59 18:59 Intake Total 1300 800 350 Output Total 1045 670 480 Balance 255 130 -130 Weight 72.2 kg 70.4 kg Intake: IV 1300 700 350 0.9 @ 50 500 350 Sodium Chloride 0.45% 1, 1300 100 000 ml @ 100 mls/hr IV . [id number] ANAHI with Sodium Bicarb (1 Meq/ml) 150 ml Rx#:[id number] metroNIDAZOLE-NS PMX 500 100 mg In Saline 1 100ml.bag @ 100 mls/hr IVPB Q6HR ANAHI Rx#:[id number] Intake, IV Titration 100 Amount metroNIDAZOLE-NS PMX 500 100 mg In Saline 1 100ml.bag @ 100 mls/hr IVPB Q6HR ANAHI Rx#:[id number] Output: Urine 945 420 480 Stool 100 250 Other: Voiding Method Indwelling Catheter Indwelling Catheter Indwelling Catheter - Labs CBC & Chem 7: 09/25/18 04:51 09/25/18 04:51 Labs: Abnormal Lab Results - Last 24 Hours (Table) 09/24/18 09/24/18 09/24/18 Range/Units 17:01 18:03 20:23 RBC (3.80-5.40) m/uL Hgb (11.4-16.0) gm/dL Hct (34.0-46.0) % RDW (11.5-15.5) % Lymphocytes # (1.0-4.8) k/uL Sodium 129 L (137-145) mmol/L Chloride 96 L (98-107) mmol/L BUN 59 H (7-17) mg/dL Creatinine 2.70 H (0.52-1.04) mg/dL Glucose 138 H (74-99) mg/dL POC Glucose (mg/dL) 166 H 128 H (75-99) mg/dL Calcium 7.4 L (8.4-10.2) mg/dL Amylase (30-110) U/L 09/25/18 09/25/18 09/25/18 Range/Units 04:51 04:51 07:02 RBC 2.68 L (3.80-5.40) m/uL Hgb 8.0 L (11.4-16.0) gm/dL Hct 24.8 L (34.0-46.0) % RDW 16.9 H (11.5-15.5) % Lymphocytes # 0.3 L (1.0-4.8) k/uL Sodium 132 L (137-145) mmol/L Chloride (98-107) mmol/L BUN 52 H (7-17) mg/dL Creatinine 2.46 H (0.52-1.04) mg/dL Glucose 127 H (74-99) mg/dL POC Glucose (mg/dL) 135 H (75-99) mg/dL Calcium 7.6 L (8.4-10.2) mg/dL Amylase <30 L (30-110) U/L 09/25/18 Range/Units 11:11 RBC (3.80-5.40) m/uL Hgb (11.4-16.0) gm/dL Hct (34.0-46.0) % RDW (11.5-15.5) % Lymphocytes # (1.0-4.8) k/uL Sodium (137-145) mmol/L Chloride (98-107) mmol/L BUN (7-17) mg/dL Creatinine (0.52-1.04) mg/dL Glucose (74-99) mg/dL POC Glucose (mg/dL) 112 H (75-99) mg/dL Calcium (8.4-10.2) mg/dL Amylase (30-110) U/L
--- NOTE | 2018-09-25 14:45 | P.CRDCN ---
History of Present Illness Consult date: 09/25/18 Chief complaint: Abdominal discomfort History of present illness: This is an 88-year-old female patient with a past medical history sig nificant for coronary artery disease and prior stenting was performed out of the town, the details on that are unavailable at this point, permanent pacemaker, diabetes, hypertension, dyslipidemia, chronic kidney disease, and known history of ileostomy secondary to what it seems "GI bleeding", was transferred from [facility] to [facility] for further evaluation of abdominal discomfort. The patient has been in the hospital for about a week and we called to see her today for preoperative cardiac assessment before possible gallbladder surgery. The patient was admitted to the hospital on September 22 with abdominal discomfort. She was experiencing also diminished ileostomy output. No fever and no chills. No nausea or vomiting. She was diagnosed with small bowel obstruction and the patient was treated conservatively with improvement in her symptoms. Subsequently, the patient started experiencing abdominal discomfort again. Because of that, the patient underwent a gallbladder ultrasound which reviewed and revealed what it seems to be acute on chronic cholecystitis and the patient currently in the process of having cholecystectomy either laparoscopically or surgically versus gallbladder drainage by interventional radiologist. When the patient was seen and examined this morning, she continues to have abdominal discomfort and abdominal tenderness. She denies any symptoms of chest pain or chest discomfort, no shortness of breath at this point, dizziness or lightheadedness, or syncope. Hemodynamically, she does have atrial paced rhythm. She underwent an echocardiogram during her hospital stay and that revealed normal LV function without significant valvular abnormalities. Currently the patient is on aspirin as well as statin. Past Medical History Past Medical History: Heart Failure, Diabetes Mellitus, Hyperlipidemia, Hypertension, Renal Disease, Thyroid Disorder Additional Past Medical History / Comment(s): recent admission in Mar for "blockage" of ileostomy, has abd. hernia, urinary incontinence, vertigo, diverticulosis, chronic anemia, hyperkalemia History of Any Multi-Drug Resistant Organisms: None Reported Past Surgical History: Back Surgery, Bowel Resection, Heart Catheterization With Stent, Pacemaker Additional Past Surgical History / Comment(s): Subtotal colectomy with ileostomy 2013, EGD and colonoscopy 06/2016 Past Anesthesia/Blood Transfusion Reactions: No Reported Reaction Date of Last Stent Placement:: 2006 Type of Cardiac Device: Permanent Pacemaker Device Placement Date:: 2015 Past Psychological History: No Psychological Hx Reported Smoking Status: Former smoker Past Alcohol Use History: None Reported Additional Past Alcohol Use History / Comment(s): quit smoking 10 yrs., smoked 1ppd for >50 yrs. Past Drug Use History: None Reported - Past Family History Mother Family Medical History: Coronary Artery Disease (CAD), Diabetes Mellitus Father Family Medical History: Coronary Artery Disease (CAD) Medications and Allergies Home Medications Medication Instructions Recorded Confirmed Type Aspirin EC [Ecotrin Low Dose] 81 mg PO DAILY 03/28/16 09/21/18 History Diltiazem HCl [Cardizem CD] 360 mg PO HS 03/28/16 09/21/18 History Ferrous Sulfate [Iron (65 MG 325 mg PO DAILY@1200 03/28/16 09/21/18 History Elemental)] Insulin Aspart [NovoLOG Flexpen] See Protocol SQ AC-TID 03/28/16 09/21/18 History Labetalol HCl [Trandate] 300 mg PO BID 03/28/16 09/21/18 History Levothyroxine Sodium [Synthroid] 50 mcg PO DAILY 03/28/16 09/21/18 History Insulin Glargine [Lantus] 6 unit SQ HS 07/30/16 09/21/18 History Insulin Aspart [NovoLOG Flexpen] 2 units SQ AC-TID 02/12/17 09/21/18 History Acetaminophen [Tylenol Arthritis] 650 mg PO QID PRN 09/17/18 09/21/18 History Albuterol Inhaler [Ventolin Hfa 2 puff INHALATION RT-Q6H PRN 09/17/18 09/21/18 History Inhaler] Allopurinol [Zyloprim] 100 mg PO DAILY 09/17/18 09/21/18 History Doxazosin [Cardura] 3 mg PO Q12H 09/17/18 09/21/18 History Furosemide [Lasix] 40 mg PO DAILY 09/17/18 09/21/18 History Icy Hot Cream 1 applic TOPICAL BID PRN 09/17/18 09/21/18 History Isosorbide Mononitrate ER [Imdur] 60 mg PO DAILY 09/17/18 09/21/18 History Pantoprazole [Protonix] 40 mg PO DAILY 09/17/18 09/21/18 History Patiromer Calcium Sorbitex 8.4 gm PO DAILY 09/17/18 09/21/18 History [Veltassa] Pravastatin Sodium [Pravachol] 20 mg PO HS 09/17/18 09/21/18 History Sodium Bicarbonate Tab 650 mg PO TID 09/17/18 09/21/18 History Sucralfate [Carafate] 1 gm PO TID 09/17/18 09/21/18 History hydrALAZINE HCL [Apresoline] 100 mg PO TID 09/17/18 09/21/18 History Allergies Allergy/AdvReac Type Severity Reaction Status Date / Time hydrocodone Allergy Unknown Verified 09/21/18 14:48 lisinopril Allergy Unknown Verified 09/21/18 14:48 Penicillins Allergy Anaphylaxis Verified 09/21/18 14:48 streptomycin Allergy Rash/Hives Verified 09/21/18 14:48 Physical Exam Vitals: Vital Signs Temp Pulse Resp BP Pulse Ox 09/25/18 13:00 61 13 156/66 09/25/18 12:00 98.0 F 63 16 151/67 96 09/25/18 11:16 60 09/25/18 11:01 65 09/25/18 11:00 65 12 154/59 96 09/25/18 10:00 62 11 L 148/65 96 09/25/18 09:00 61 11 L 149/60 96 09/25/18 08:00 98.0 F 62 11 L 156/63 97 09/25/18 07:13 60 09/25/18 07:03 62 09/25/18 07:00 60 13 151/64 97 09/25/18 06:00 63 12 139/64 96 09/25/18 05:00 65 14 132/62 96 09/25/18 04:00 97.6 F 65 11 L 134/61 97 09/25/18 03:00 64 12 130/61 97 09/25/18 02:00 64 14 124/54 96 09/25/18 01:00 65 13 97 09/25/18 00:10 63 14 129/60 97 09/25/18 00:00 97.9 F 63 21 139/56 97 09/24/18 23:00 63 15 129/48 97 09/24/18 22:00 65 13 141/59 97 09/24/18 21:00 66 13 160/81 97 09/24/18 20:00 97.9 F 64 15 141/55 99 09/24/18 19:00 63 14 144/57 98 09/24/18 18:00 60 12 155/60 96 09/24/18 17:00 61 13 139/59 96 09/24/18 16:00 97.9 F 62 11 L 140/63 97 09/24/18 15:00 62 18 134/59 97 Intake and Output 09/24/18 09/25/18 09/25/18 22:59 06:59 14:59 Intake Total 700 600 350 Output Total 530 515 480 Balance 170 85 -130 Intake: IV 700 500 350 0.9 @ 50 100 400 350 Sodium Chloride 0.45% 1, 600 000 ml @ 100 mls/hr IV . [id number] ANAHI with Sodium Bicarb (1 Meq/ml) 150 ml Rx#:[id number] metroNIDAZOLE-NS PMX 500 100 mg In Saline 1 100ml.bag @ 100 mls/hr IVPB Q6HR ANA[facility] Rx#:[id number] Intake, IV Titration 100 Amount metroNIDAZOLE-NS PMX 500 100 mg In Saline 1 100ml.bag @ 100 mls/hr IVPB Q6HR ANA[facility] Rx#:[id number] Output: Urine 530 265 480 Stool 250 Other: Voiding Method Indwelling Catheter Indwelling Catheter Indwelling Catheter Weight 70.4 kg - Constitutional General appearance: no acute distress - Respiratory Respiratory: bilateral: diminished - Cardiovascular Rhythm: regular Heart sounds: normal: S1, S2 Results 09/25/18 04:51 09/25/18 04:51 CBC 09/25/18 Range/Units 04:51 WBC 5.3 (3.8-10.6) k/uL RBC 2.68 L (3.80-5.40) m/uL Hgb 8.0 L (11.4-16.0) gm/dL Hct 24.8 L (34.0-46.0) % Plt Count 187 (150-450) k/uL Comprehensive Metabolic Panel 09/24/18 09/25/18 Range/Units 18:03 04:51 Sodium 129 L 132 L (137-145) mmol/L Potassium 4.2 4.3 (3.5-5.1) mmol/L Chloride 96 L 98 (98-107) mmol/L Carbon Dioxide 23 25 (22-30) mmol/L BUN 59 H 52 H (7-17) mg/dL Creatinine 2.70 H 2.46 H (0.52-1.04) mg/dL Glucose 138 H 127 H (74-99) mg/dL Calcium 7.4 L 7.6 L (8.4-10.2) mg/dL Current Medications Generic Name Dose Route Start Last Admin Trade Name Freq PRN Reason Stop Dose Admin Acetaminophen 650 mg 09/21/18 18:37 09/24/18 08:17 Tylenol Tab PO 650 mg QID PRN Administration MILD Pain Albuterol/Ipratropium 3 ml 09/21/18 16:00 09/25/18 11:01 Duoneb 0.5 Mg-3 Mg/3 Ml Soln INHALATION 3 ml RT-QID ANAHI Administration Albuterol/Ipratropium 3 ml 09/21/18 18:59 Duoneb 0.5 Mg-3 Mg/3 Ml Soln INHALATION RT-Q2H PRN Shortness Of Breath Or Wheezing Allopurinol 100 mg 09/22/18 09:00 09/25/18 11:01 Zyloprim PO Not Given DAILY [facility] Aspirin 81 mg 09/22/18 09:00 09/25/18 11:02 Aspirin PO Not Given DAILY [facility] Diltiazem HCl 360 mg 09/21/18 21:00 09/24/18 20:29 Cardizem Cd PO 360 mg HS [facility] Administration Doxazosin Mesylate 3 mg 09/21/18 21:00 09/25/18 11:02 Cardura PO Not Given Q12HR [facility] Ferrous Sulfate 325 mg 09/22/18 12:00 09/25/18 12:18 Feosol PO Not Given DAILY@1200 [facility] Heparin Sodium (Porcine) 5,000 unit 09/21/18 21:00 09/25/18 11:05 Heparin SQ 5,000 unit Q12HR [facility] Administration Hydralazine HCl 100 mg 09/21/18 22:00 09/25/18 11:03 Apresoline PO Not Given TID [facility] Hydromorphone HCl 0.5 mg 09/22/18 10:29 09/25/18 01:41 Dilaudid IVP 0.5 mg Q3HR PRN Administration Pain Levofloxacin 500 mg/ IV 100 mls @ 100 mls/hr 09/21/18 19:00 09/23/18 18:18 Solution IVPB 100 mls/hr Q48H ANAHI Administration Metronidazole 500 mg/ IV 100 mls @ 100 mls/hr 09/22/18 12:00 09/25/18 12:37 Solution IVPB 100 mls/hr Q6HR ANAHI Administration Sodium Chloride 1,000 mls @ 50 mls/hr 09/24/18 20:30 09/24/18 20:41 Saline 0.9% IV 50 mls/hr .Q20H ANAHI Administration Insulin Aspart 2 unit 09/22/18 07:30 09/25/18 12:31 Novolog SQ Not Given AC-TID ANAHI Insulin Aspart 0 unit 09/21/18 21:00 09/25/18 12:32 Novolog SQ Not Given ACHS [facility] Protocol Insulin Detemir 12 unit 09/24/18 21:00 09/24/18 20:31 Levemir SQ 12 unit HS [facility] Administration Isosorbide Mononitrate 60 mg 09/22/18 09:00 09/25/18 11:03 Imdur PO Not Given DAILY [facility] Labetalol HCl 300 mg 09/21/18 21:00 09/25/18 11:03 Trandate PO Not Given BID [facility] Labetalol HCl 10 mg 09/25/18 11:46 Trandate IVP Q4H PRN Blood Pressure - High Levothyroxine Sodium 50 mcg 09/22/18 06:30 09/25/18 06:20 Synthroid PO Not Given DAILY@0630 [facility] Miscellaneous Information 1 each 09/21/18 15:59 Pneumonia Protocol Utilized PO ONCE PRN Per Protocol Naloxone HCl 0.2 mg 09/22/18 17:58 Narcan IV Q2M PRN Opioid Reversal Nystatin 500,000 unit 09/23/18 22:00 09/25/18 12:59 Mycostatin Oral Susp PO Not Given QID [facility] Ondansetron HCl 4 mg 09/22/18 11:06 09/25/18 01:42 Zofran IVP 4 mg Q6HR PRN Administration Nausea And Vomiting Pantoprazole Sodium 40 mg 09/22/18 07:30 09/25/18 09:00 Protonix PO Not Given AC-BRKFST [facility] Pravastatin Sodium 20 mg 09/21/18 21:00 09/24/18 20:29 Pravachol PO 20 mg HS ANAHI Administration Intake and Output 09/24/18 09/25/18 09/25/18 22:59 06:59 14:59 Intake Total 700 600 350 Output Total 530 515 480 Balance 170 85 -130 Intake: IV 700 500 350 0.9 @ 50 100 400 350 Sodium Chloride 0.45% 1, 600 000 ml @ 100 mls/hr IV . [id number] ANAHI with Sodium Bicarb (1 Meq/ml) 150 ml Rx#:[id number] metroNIDAZOLE-NS PMX 500 100 mg In Saline 1 100ml.bag @ 100 mls/hr IVPB Q6HR [facility] Rx#:[id number] Intake, IV Titration 100 Amount metroNIDAZOLE-NS PMX 500 100 mg In Saline 1 100ml.bag @ 100 mls/hr IVPB Q6HR [facility] Rx#:[id number] Output: Urine 530 265 480 Stool 250 Other: Voiding Method Indwelling Catheter Indwelling Catheter Indwelling Catheter Weight 70.4 kg 09/25/18 04:51 09/25/18 04:51 Assessment and Plan Assessment: Assessment #1 abdominal discomfort #2 possible acute cholecystitis #3 chronic kidney disease #4 coronary artery disease and prior stenting with unknown details #5 preserved left ventricular systolic function on the last echocardiogram #6 status post permanent pacemaker implantation #7 multiple comorbid conditions Plan #1 the patient is asymptomatic from the cardiac standpoint overview. #2 she is hemodynamically stable as well #3 she is on aspirin as well as a statin which we'll continue #4 she is a stable from the cardiac standpoint to undergo cholecystectomy. Thank you for allowing us participate in her care
--- NOTE | 2018-09-25 17:41 | PN ---
PROGRESS NOTE Patient is seen for followup for acute kidney injury. She is currently resting in bed. The patient's renal function continues to improve. She is maintained on a small dose of saline at 50 mL/hour. The patient has not been eating much. She has refused surgery for cholelithiasis. Surgery is currently on consult and a hepatobiliary scan has been ordered. On examination, patient is comfortable. This morning blood pressure was 148/65, heart rate of 61 per minute. Patient is afebrile. EXAMINATION OF THE HEART: S1 and S2. EXAMINATION OF LUNGS: Bilateral breath sounds are heard. ABDOMEN: Soft. Tenderness noted in the upper abdomen, more on the right side. Examination of lower extremities shows no significant edema. S[employer] WORK[employer] exam is grossly intact. LABS: Sodium 132, potassium 4.3, BUN 52, serum creatinine 2.46, hemoglobin 8.0 g/dL. ASSESSMENT: 1. Acute kidney injury, acute tubular necrosis, currently improving. 2. Metabolic acidosis, currently resolved. The patient is off of IV bicarb. 3. Hyponatremia, improved with a dose of Lasix yesterday. We may need to repeat another dose of Lasix if her sodium level drops. Currently patient is not hypovolemic. 4. Hyperkalemia associated with acute kidney injury and metabolic acidosis, currently resolved. 5. Small bowel obstruction on last admission, status post conservative treatment. 6. Chronic kidney disease, stage III, with creatinine 1 to 1.3 secondary to diabetic kidney disease. 7. Abdominal pain with possible cholecystitis, being followed by Surgery. Patient is agreeable for percutaneous drain placement. PLAN: Continue saline at 50 mL/hour. Repeat labs in a.m. Continue to avoid nephrotoxic agents. MMODL / IJN: [id number] /
[2018-09-25 17:48] LABS: Glucose,Whole Blood 189 mg/dL (75-99)
--- NOTE | 2018-09-25 18:01 | NM ---
EXAMINATION TYPE: NM hepatobiliary w CCK DATE OF EXAM: 09/25/2018 COMPARISON: NONE HISTORY: TECHNIQUE: After the intravenous administration of 5.08 mCi Tc 99m Mebrofenin hepatobiliary scintigra phy is performed. Immediate images post injection. FINDINGS: There is prompt uptake of the tracer by the liver that has normal size and contour. There is tracer i n the small bowel at 14 minutes and in the gallbladder at 28 minutes. There is no obstruction of the cystic duct or common bile duct. There is no focal liver defect. Tracer is mostly cleared from the li claire at 60 minutes. 1.4 mcg of Kinevac was injected. The post stimulation images show ejection fraction of the gallbladder 41%. IMPRESSION: No focal liver defect. No cystic duct or common bile duct obstruction. The gallbladder ejection fraction is 41% which is close to the lower limit of normal of 35%.
[2018-09-25] MEDS: SODIUM CHLORIDE 0.9% 1,000 ML IV SCH (18:38)
[2018-09-25] MEDS: LEVOFLOXACIN 500MG-D5W PMX 500 MG in DEXTROSE/WATER 1 100ML.BAG IVPB SCH (19:30)
[2018-09-25 20:38] LABS: Glucose,Whole Blood 174 mg/dL (75-99)
[2018-09-25] MEDS: INSULIN DETEMIR (LEVEMIR) 100 UNIT/ML SYR SQ SCH (20:51)
[2018-09-25] MEDS: LABETALOL 5 MG/ML VIAL MDV IVP PRN (21:18)
[2018-09-25] MEDS: DILTIAZEM CD 180 MG CAP.ER.24H PO SCH (21:24)
[2018-09-25] MEDS: PRAVASTATIN SODIUM 20 MG TAB PO SCH (21:24)
[2018-09-26] MEDS: LABETALOL 5 MG/ML VIAL MDV IVP PRN ×3 (03:09→12:07)
[2018-09-26] MEDS: HYDROmorphone 0.5 MG/0.5 ML SYRINGE IVP PRN ×3 (04:59→21:13)
[2018-09-26 05:51] LABS: Anisocytosis Slight; Basophils % (A) 1 %; Eosinophils # (A) 0.2 k/uL (0-0.7); Eosinophils % (A) 3 %; HCT 25.7 % (34.0-46.0); Hypochromasia Slight; Lymphocytes # (A) 0.2 k/uL (1.0-4.8); Lymphocytes % (A) 5 %; MCHC 31.1 g/dL (31.0-37.0); MCV 93.2 fL (80.0-100.0); Mean Platelet Volume 6.8; Monocytes # (A) 0.5 k/uL (0-1.0); Monocytes % (A) 10 %; Neutrophils # (A) 3.8 k/uL (1.3-7.7); Neutrophils % (A) 79 %; Platelet Count 176 k/uL (150-450); RBC 2.76 m/uL (3.80-5.40); RDW 16.1 % (11.5-15.5); WBC 4.8 k/uL (3.8-10.6)
[2018-09-26 06:02] LABS: Calcium 8.2 mg/dL (8.4-10.2); Potassium 4.4 mmol/L (3.5-5.1)
[2018-09-26] MEDS: LEVOTHYROXINE 50 MCG TAB PO SCH (06:59)
[2018-09-26] MEDS: metroNIDAZOLE-NS PMX 500 MG in SALINE 1 100ML.BAG IVPB SCH ×4 (06:59→23:57)
[2018-09-26 07:03] LABS: Glucose,Whole Blood 132 mg/dL (75-99)
[2018-09-26] MEDS: INSULIN ASPART (NovoLOG) 100 UNIT/ML VIAL SQ SCH ×7 (07:08→21:15)
[2018-09-26] MEDS: IPRATROPIUM-ALBUTEROL 3 ML NEB INHALATION SCH ×4 (07:21→20:25)
[2018-09-26] MEDS ORDERED: FUROSEMIDE 10 MG/ML 4 ML VIAL IV STA (08:44)
--- NOTE | 2018-09-26 08:57 | P.PN ---
Subjective Patient is seen in follow-up for acute kidney injury. Renal function is improving. Creatinine down to 1.55 today. She is nonoliguric. Patient is confused. She has been refusing all her medications. Vital signs are stable. General: The patient appeared well nourished and normally developed. HEENT: Head exam is unremarkable. Neck is without jugular venous distension. LUNGS: Lungs are clear to auscultation and percussion. Breath sounds decreased. HEART: Rate and Rhythm are regular. First and second heart sounds normal. No murmurs, rubs or gallops. ABDOMEN: Abdominal exam reveals normal bowel sounds. Non-tender and non- distended. No evidence of peritonitis. EXTREMITITES: 1+ edema. Objective - Vital Signs Vital signs: Vital Signs Temp 98 F 09/26/18 04:00 Pulse 64 09/26/18 07:00 Resp 17 09/26/18 07:00 BP 180/69 09/26/18 07:00 Pulse Ox 97 09/26/18 07:00 Intake & Output 09/25/18 09/26/18 09/26/18 18:59 06:59 18:59 Intake Total 600 700 50 Output Total 840 1040 60 Balance -240 -340 -10 Weight 70.9 kg Intake: IV 600 700 50 0.9 @ 50 600 600 50 metroNIDAZOLE-NS PMX 500 100 mg In Saline 1 100ml.bag @ 100 mls/hr IVPB Q6HR [facility] Rx#:[id number] Output: Urine 840 840 60 Stool 200 Other: Voiding Method Indwelling Catheter Indwelling Catheter # Voids 3 - Labs CBC & Chem 7: 09/26/18 05:38 09/26/18 05:38 Labs: Abnormal Lab Results - Last 24 Hours (Table) 09/25/18 09/25/18 09/25/18 Range/Units 11:11 17:45 20:37 RBC (3.80-5.40) m/uL Hgb (11.4-16.0) gm/dL Hct (34.0-46.0) % RDW (11.5-15.5) % Lymphocytes # (1.0-4.8) k/uL BUN (7-17) mg/dL Creatinine (0.52-1.04) mg/dL Glucose (74-99) mg/dL POC Glucose (mg/dL) 112 H 189 H 174 H (75-99) mg/dL Calcium (8.4-10.2) mg/dL 09/26/18 09/26/18 09/26/18 Range/Units 05:38 05:38 07:02 RBC 2.76 L (3.80-5.40) m/uL Hgb 8.0 L (11.4-16.0) gm/dL Hct 25.7 L (34.0-46.0) % RDW 16.1 H (11.5-15.5) % Lymphocytes # 0.2 L (1.0-4.8) k/uL BUN 42 H (7-17) mg/dL Creatinine 1.55 H (0.52-1.04) mg/dL Glucose 121 H (74-99) mg/dL POC Glucose (mg/dL) 132 H (75-99) mg/dL Calcium 8.2 L (8.4-10.2) mg/dL Assessment and Plan Plan: Assessment: 1. Acute kidney injury secondary to ATN secondary to infection. Also component of cardiorenal syndrome. Renal function improving. Creatinine 1.55 today. No evidence of hydronephrosis noted on ultrasound and CAT scan. 2. Chronic kidney disease stage III with baseline creatinine in the range of 1- 1.3. Etiology is most likely diabetic kidney disease. 3. Hyperkalemia secondary to acute kidney injury and metabolic acidosis. Patient states she takes Kayexalate outpatient. Improved. 4. Metabolic acidosis secondary to acute kidney injury. Resolved. 5. Hyponatremia secondary to acute kidney injury. Improved. Patient is hypervolemic. 6. Volume overload. 7. Acute diastolic CHF with moderate pulmonary hypertension. 8. Recent small bowel obstruction. Surgery following. Patient refusing any surgical interventions at this time. Plan: Lasix 40 mg IV once today. Add hydralazine 10 mg IV every 4 hours as needed for systolic blood pressure greater than 160. Continue to monitor renal function and urine output.
[2018-09-26] MEDS: hydrALAZINE HCL 20 MG/ML 1 ML VIAL IVP PRN ×2 (09:40→14:20)
[2018-09-26] MEDS: ISOSORBIDE MONONITRATE ER 60 MG TAB.ER.24H PO SCH (09:41)
[2018-09-26] MEDS: ASPIRIN 81 MG PO SCH (09:41)
[2018-09-26] MEDS: PANTOPRAZOLE 40 MG TABLET PO SCH (09:41)
[2018-09-26] MEDS: ALLOPURINOL 100 MG TAB PO SCH (09:41)
[2018-09-26] MEDS: LABETALOL 100 MG TAB PO SCH ×2 (09:41→21:28)
[2018-09-26] MEDS: HEPARIN SODIUM,PORCINE 5,000 UNIT/ML 1 ML VIAL SQ SCH ×2 (09:41→21:14)
[2018-09-26] MEDS: NYSTATIN 100,000 UNIT/ML SUSP 500,000 UNIT/5 ML CUP PO SCH ×4 (09:41→21:28)
[2018-09-26] MEDS: DOXAZOSIN 1 MG TAB PO SCH ×2 (09:41→21:28)
[2018-09-26] MEDS: hydrALAZINE HCL 50 MG TAB PO SCH ×3 (09:41→21:28)
--- NOTE | 2018-09-26 11:09 | P.PN ---
Subjective Progress Note Date: 09/26/18 This is a 88-year-old female patient who got transferred again to us from [facility] because of shortness of breath. I was consulted for shortness of breath however the main issue seems to be worsening and abdominal pain, electrolyte imbalances the patient has developed hyponatremia and the patient has also developed an acute kidney injury with metabolic acidosis. I reviewed the records. I that this patient was in our hospital approximately a week ago for diminished ileostomy output, abdominal distention and bloating and nausea. The patient was seen by general surgery and the patient was diagnosed having small bowel obstruction. She did not require any immediate surgical intervention. The patient improved clinically and the patient was discharged once she was started back on diet. The CAT scan of the abdomen and pelvis at that time showed jejunum and proximal ileum dilation with the bile reaching up to 4 cm in caliber with several air-fluid levels. The transition point at the abdominal wall opening for the ileostomy with ileal loops just prior to yesterday being most dilated and associated with prominent edematous change throughout the mesentery of these loops. Ultimately, the patient had to come back for ongoing abdominal pain. I saw her at the bedside. She had a low-grade fever of 100.3 while at the assisted living. She was having some degree of shortness of breath. No reported aspiration. She is found in the week and at times she was also found to be confused. A repeat CAT scan of the abdomen was done on 09/21/2018 and it showed clearing of the bowel obstruction compared to last examination. There was fecal material at the ostomy site compared to last examination. There is also mild to moderate pleural effusion lung bases. There is also some limited infiltration probably related to compressive atelectasis. No retroperitoneal lymphadenopathy. Ureters were nondilated. Ostomy is found in the right side of the mid abdomen and there is evidence of sigmoid diverticula. No evidence of any bowel obstruction. No evidence of any free air based on the CAT scan of the abdomen that was done yesterday on 09/21/2018. The white cell count is at 4.5 with a hemoglobin of 8.0. The patient is an acute kidney injury. The patient has also developed non-anion gap metabolic acidosis. Serum bicarb is down to 14. Creatinine is at 3.7. Urine output is diminished. ProBNP level is elevated. Echocardiogram is pending. On today's evaluation of 09/23/2018 I'm seeing this patient for a follow-up. The patient is awake and alert. Abdominal pain has subsided. She is complaining of diffuse arthritic pain throughout her joints bilaterally including the shoulders knees and wrists. As far as abdominal pain, she has a less tender abdomen and the ileostomy site shows output. The patient is taking some clear liquid diet for now. Her urine output is still low in the order of 20 mL an hour. The patient's electrodes are still off with a sodium level of 127 with a BUN of 50 to a creatinine of 3.6. The serum bicarb is at 16 with an anion gap of 12. The lactic acid level is less than 0.5. The patient has an elevated BNP level. Nevertheless, the echocardiogram showed a preserved LV function with an ejection fraction of 50-55%. The right ventricular systolic pressure was around 50 mmHg. There is evidence of moderate pulmonary hypertension. There is also evidence of moderate concentric left ventricular hypertrophy. Chest x-ray shows some limited cardiomegaly with mild four-vessel congestion. Nevertheless the patient is only on 2 L of oxygen by nasal cannula and she is not having any significant respiratory distress. The patient is currently on IV fluids in the form of half normal with 3 A of bicarbonate upon request of nephrology and this is running at the rate of 100 mL an hour in the follow-up electrodes are still pending for now. On 09/24/2018 I'm seeing this patient for a follow-up. She is awake and alert. She is a bit lethargic. She is complaining of pain again throughout her abdomen. On today's evaluation the pain is more localized to the right side and the right upper quadrant area. She has adequate output and had ileostomy bag. No abdominal distention. She is still on bicarb infusion. Sodium is at 126. Metabolic acidosis gradually improving. Chest x-ray shows no acute abnormalities. The patient has no significant respiratory distress and she is calm and comfortable at rest. She is ingesting some clear liquid diet for now. She remains on a combination of Levaquin and Flagyl as broad-spectrum antibiotic coverage and the general surgeries on the case. Henry catheter is in place. Neck fluid balance is +2.1 L over the past 24 hours. Cultures are negative. There is no significant leukocytosis of this point in time. No nausea. No emesis. No altered mentation. On 09/25/2018 I'm seeing the patient and ICU. She remains essentially the same compared to yesterday. She is still complaining of right upper quadrant tenderness. Ultrasound the gallbladder was done and showed acute versus chronic cholecystitis. She has positive sonographic Holder's signs. LFTs are nonelevated. Discussed the case with the surgeon. The patient is categorically refusing any surgical intervention. She is still nauseated. She is unable to take anything orally. Occasionally she dry heaves. Her ileostomy site is active and is positive output. Her sodium level is improving. Serum bicarbonate normalized. She remains on a combination of Levaquin and Flagyl. Henry catheter is in place. No respiratory distress. No cough or sputum production. No angina or chest pain. The creatinine is down to 2.4 compared to 0.7 from yesterday. Sodium level has also improved of 232 and the patient is cu rrently receiving a normal saline infusion rate of 50 mL an hour. No other significant events overnight otherwise for now. General surgeries on the case. On 09/26/2018, the patient is doing very poorly. She is moaning. She is complaining of pain all over. She is refusing to eat. She states that she is nauseated however there has been no reported emesis. She remains on IV fluids. Function continues to improve. There is some abdominal tenderness patient right upper quadrant. Nevertheless, the patient had a HIDA scan that showed no obstruction the common bile duct and ejection fraction was somewhat lower. LFTs remain nonelevated. She has positive output and had ileostomy bag. No a bdominal distention. There is some increased edema in lower extremities bilaterally. She is awake and alert. She is quite weak and she refuses to eat. Her white cell count is not elevated. Hemoglobin stable at 8.0. Creatinine is down to 1.5. No other significant electrolyte abnormalities for the time being. Objective - Vital Signs Vital signs: Vital Signs Temp 97.9 F 09/26/18 08:00 Pulse 73 09/26/18 10:00 Resp 12 09/26/18 10:00 BP 183/80 09/26/18 10:00 Pulse Ox 97 09/26/18 10:00 Intake & Output 08/16/19 08/17/19 08/17/19 18:59 06:59 18:59 Intake Total 600 700 200 Output Total 840 1040 285 Balance -240 -340 -85 Weight 70.9 kg Intake: IV 600 700 200 0.9 @ 50 600 600 50 Sodium Chloride 0.9% 1, 150 000 ml @ 50 mls/hr IV . Q20H [facility] Rx#:[id number] metroNIDAZOLE-NS PMX 500 100 mg In Saline 1 100ml.bag @ 100 mls/hr IVPB Q6HR [facility] Rx#:[id number] Output: Urine 840 840 285 Stool 200 Other: Voiding Method Indwelling Catheter Indwelling Catheter # Voids 3 - Exam Gen. appearance lethargic weak, and a mild degree of abdominal pain and distress. No apparent distress distress at this point in time and the patient is currently on 2 L of oxygen by nasal cannula. No signs of any respiratory distress. She is lethargic. She is moaning. She is on and off complaining of some nausea. Head exam was generally normal. There was no scleral icterus or corneal arcus. Mucous membranes were moist. Neck was supple and without jugular venous distension, thyromegaly, or carotid bruits. Carotids were easily palpable bilaterally. There was no adenopathy. Lungs sounds are diminished along with some limited bibasilar crackles heard in the lung bases bilaterally. Cardiac exam revealed the PMI to be normally situated and sized. The rhythm was regular and no extrasystoles were noted during several minutes of auscultation. The first and second heart sounds were normal and physiologic splitting of the second heart sound was noted. There were no murmurs, rubs, clicks, or gallops. Abdomen examination reveals some tenderness in the right upper quadrant area. There is direct tenderness. No rebound a sore guarding. Ileostomy site is functional and intact. No significant abdominal distention. Bowel sounds are hypoactive at present for now.. There is an anterior abdominal wall hernia which is easily reducible without any evidence of incarceration or strangulation. Bowel sounds are hypoactive. No organomegaly. Examination of the extremities revealed easily palpable radial, femoral and pedal pulses. There was no cyanosis, clubbing or edema. Examination of the skin revealed no evidence of significant rashes, suspicious appearing nevi or other concerning lesions. Neurologically the patient is slow to answer questions. She is moving all 4 extremities without any limitation. On and off there has been some limited confusion - Labs CBC & Chem 7: 09/26/18 05:38 09/26/18 05:38 Labs: Abnormal Lab Results - Last 24 Hours (Table) 09/25/18 09/25/18 09/25/18 Range/Units 11:11 17:45 20:37 RBC (3.80-5.40) m/uL Hgb (11.4-16.0) gm/dL Hct (34.0-46.0) % RDW (11.5-15.5) % Lymphocytes # (1.0-4.8) k/uL BUN (7-17) mg/dL Creatinine (0.52-1.04) mg/dL Glucose (74-99) mg/dL POC Glucose (mg/dL) 112 H 189 H 174 H (75-99) mg/dL Calcium (8.4-10.2) mg/dL 09/26/18 09/26/18 09/26/18 Range/Units 05:38 05:38 07:02 RBC 2.76 L (3.80-5.40) m/uL Hgb 8.0 L (11.4-16.0) gm/dL Hct 25.7 L (34.0-46.0) % RDW 16.1 H (11.5-15.5) % Lymphocytes # 0.2 L (1.0-4.8) k/uL BUN 42 H (7-17) mg/dL Creatinine 1.55 H (0.52-1.04) mg/dL Glucose 121 H (74-99) mg/dL POC Glucose (mg/dL) 132 H (75-99) mg/dL Calcium 8.2 L (8.4-10.2) mg/dL Assessment and Plan Plan: 1 abdominal pain, around the ileostomy with recent hospitalization for a small bowel obstruction. The follow-up CAT scan of the abdomen was noted. CAT scan of the abdomen shows resolution of the previously described bowel obstruction. Nevertheless, the patient continues to have tenderness and output seems to be quite diminished. There is concern of ongoing cholecystitis acute versus chronic. The patient is still nauseated. She has a right upper quadrant pain. She is declining any surgical intervention. She was worked up further by a HIDA scan that showed no evidence of any obstruction in the common bile duct and no evidence of any obstruction the cystic duct. The gallbladder ejection fraction is 41%. LFTs are nonelevated. No plans for any surgical intervention. No plans for any percutaneous intervention. The patient is constantly nauseated. She is refusing to eat. Family seems to be interested in comfort care measures and even hospice. 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 Plan Continue IV fluids. Continue rest of the supportive care including Zofran for nausea. Monitor renal function. May be interested in comfort care measure s/hospice. I think is reasonable based on her age and comorbidities. She has declined any surgical intervention. In any rate, she does not have a surgical abdomen. But, she has not shown any signs of recovery as the patient continued to have diminished oral intake and ongoing nonspecific abdominal pain and the workup as mentioned above. She remains on antibiotics. We'll continue the same treatment. May consider hospice in the next 24 hours.
--- NOTE | 2018-09-26 11:44 | P.PN ---
Subjective Progress Note Date: 09/26/18 Principal diagnosis: sob, abdominal pain Patient is constantly nauseated, she is not eating or drinking properly. She is still having pain all over especially in the abdomen. No chest pain or shortness of breath. Objective - Vital Signs Vital signs: Vital Signs Temp 97.9 F 09/26/18 08:00 Pulse 73 09/26/18 10:00 Resp 12 09/26/18 10:00 BP 183/80 09/26/18 10:00 Pulse Ox 97 09/26/18 10:00 Intake & Output 09/25/18 09/26/18 09/26/18 18:59 06:59 18:59 Intake Total 600 700 200 Output Total 840 1040 285 Balance -240 -340 -85 Weight 70.9 kg Intake: IV 600 700 200 0.9 @ 50 600 600 50 Sodium Chloride 0.9% 1, 150 000 ml @ 50 mls/hr IV . Q20H [facility] Rx#:[id number] metroNIDAZOLE-NS PMX 500 100 mg In Saline 1 100ml.bag @ 100 mls/hr IVPB Q6HR [facility] Rx#:[id number] Output: Urine 840 840 285 Stool 200 Other: Voiding Method Indwelling Catheter Indwelling Catheter # Voids 3 - Exam Gen. appearance lethargic weak, no apparent respiratory distress at this point in time and the patient is currently on room air oxygen. Head exam was generally normal. There was no scleral icterus. Mucous membranes were moist. Neck was supple and without jugular venous distension, thyromegaly, or carotid bruits. Carotids were easily palpable bilaterally. There was no adenopathy. Lungs sounds are diminished along with some limited bibasilar crackles heard in the lung bases bilaterally. Cardiac: The rhythm was regular and no extrasystoles were noted during several minutes of auscultation. S1, S2 normal, there were no murmurs, rubs, clicks, or gallops. Abdomen examination reveals some tenderness in the right upper quadrant area. There is direct tenderness. No rebound a sore guarding. Ileostomy site is functional and intact. No significant abdominal distention. Bowel sounds are hypoactive at present here is an anterior abdominal wall hernia which is easily reducible without any evidence of incarceration or strangulation. Bowel sounds are hypoactive. No organomegaly. Examination of the extremities revealed easily palpable radial, femoral and pedal pulses. There was no cyanosis, clubbing or edema. Examination of the skin revealed no evidence of significant rashes, suspicious appearing nevi or other concerning lesions. Neurologically the patient is slow to answer questions. She is moving all 4 extremities without any limitation. - Labs CBC & Chem 7: 09/26/18 05:38 09/26/18 05:38 Labs: Abnormal Lab Results - Last 24 Hours (Table) 09/25/18 09/25/18 09/26/18 Range/Units 17:45 20:37 05:38 RBC 2.76 L (3.80-5.40) m/uL Hgb 8.0 L (11.4-16.0) gm/dL Hct 25.7 L (34.0-46.0) % RDW 16.1 H (11.5-15.5) % Lymphocytes # 0.2 L (1.0-4.8) k/uL BUN (7-17) mg/dL Creatinine (0.52-1.04) mg/dL Glucose (74-99) mg/dL POC Glucose (mg/dL) 189 H 174 H (75-99) mg/dL Calcium (8.4-10.2) mg/dL 09/26/18 09/26/18 Range/Units 05:38 07:02 RBC (3.80-5.40) m/uL Hgb (11.4-16.0) gm/dL Hct (34.0-46.0) % RDW (11.5-15.5) % Lymphocytes # (1.0-4.8) k/uL BUN 42 H (7-17) mg/dL Creatinine 1.55 H (0.52-1.04) mg/dL Glucose 121 H (74-99) mg/dL POC Glucose (mg/dL) 132 H (75-99) mg/dL Calcium 8.2 L (8.4-10.2) mg/dL Assessment and Plan Plan: 1 Abdominal pain, around the ileostomy with recent hospitalization for a small bowel obstruction. RUQ U/S showed enlarged GB with pericholecystic fluid consistent with acute or chronic cholecystitis. HIDA scan ok. No blockages. Tolerating clear liquid diet but intake minimal. I had a long discussion with her family who states that they are currently considering having percutaneous cholecystostomy procedure versus making patient completely comfort care/hospice. Family has a meeting with hospice today. I encouraged him to get a clear picture on the procedure needed from the surgeon when he/she rounds today. Patient was encouraged to eat. Continue levaquin and flagyl. 2 MALAIKA on top of chronic kidney disease, Improving, nephrology is following 3 Acute hyponatremia, Resolved. 4 Acute non-anion gap metabolic acidosis: Resolved. Off bicarb drip. 5 Small bibasilar pleural effusions and atelectatic changes in lung bases, Stable, currently on 2 L of oxygen by nasal cannula 6 CAD, hypertension, hyperlipidemia, hypothyroidism, diabetes mellitus 2, hx of diastolic heart failure with a preserved LV function and moderate degree of pulmonary hypertension. All stable, resume meds
[2018-09-26 12:12] LABS: Glucose,Whole Blood 131 mg/dL (75-99)
[2018-09-26] MEDS: FERROUS SULFATE 325 MG TAB PO SCH (12:13)
--- NOTE | 2018-09-26 13:20 | P.PN ---
Subjective Progress Note Date: 09/26/18 CHIEF COMPLAINT: Right upper quadrant abdominal pain HISTORY OF PRESENT ILLNESS: The patient is a 88-year-old female in the ICU with history of right upper quadrant abdominal pain. She was admitted for acute renal failure now improved. Her labs is improved. Her family is at bedside. She is tired and wants to see her who has passed. She reports less abdominal pain. Labs are improved. HIDA scan negative for acute cholecystitis. ROS: No reports of nausea and vomiting. No bowel movements. No fevers or chills. No new chest pain. No productive sputum PHYSICAL EXAM: VITAL SIGNS: Reviewed CONSTITUTIONAL: Well developed and in no acute distress. EYES: Conjuctivae without sclera icterus. Extraocular movements grossly intact. HEAD, EARS, NOSE, THROAT: Moist buccal mucosa. Head is atraumatic, normocephalic. Hears conversational speech. No nasal drainage. NECK: Supple. No thyroidomegaly. RESPIRATORY: Non-labored respirations and equal bilateral excursions. CARDIOVASCULAR: Palpable 2+ radial pulses. Regular rate. Regular rhythm. ABDOMEN: No generalized peritonitis. Decreased tenderness right upper quadrant. Ileostomy patent MUSCULOSKELETAL: No gross deformity of the lower extremities noted. No clubbing. No cyanosis. SKIN: Good skin turgor. Well perfused. NEUROLOGIC: Cranial nerves I through XII grossly intact. No focal or lateralizing signs. PSYCH: Appropriate affect. Alert and oriented to person, place and time. CLINCAL LABS: White blood cell count normal STUDIES: HIDA scan reviewed independently with visualization of the gallbladder REPORT: No acute cholecystitis per radiology report ASSESSMENT: 1. Right upper quadrant abdominal pain 2. Symptomatic gallstones 3. Acute renal failure PLAN: 1. Agreeable with transfer 2. Recommend NO fat diet described to family 3. No surgical intervention. 3. Continue IV antibiotics with discharge home tomorrow Objective - Vital Signs Vital signs: Vital Signs Temp 97.9 F 09/26/18 08:00 Pulse 73 09/26/18 10:00 Resp 12 09/26/18 10:00 BP 183/80 09/26/18 10:00 Pulse Ox 97 09/26/18 10:00 Intake & Output 09/25/18 09/26/18 09/26/18 18:59 06:59 18:59 Intake Total 600 700 200 Output Total 840 1040 285 Balance -240 -340 -85 Weight 70.9 kg Intake: IV 600 700 200 0.9 @ 50 600 600 50 Sodium Chloride 0.9% 1, 150 000 ml @ 50 mls/hr IV . Q20H [facility] Rx#:[id number] metroNIDAZOLE-NS PMX 500 100 mg In Saline 1 100ml.bag @ 100 mls/hr IVPB Q6HR [facility] Rx#:[id number] Output: Urine 840 840 285 Stool 200 Other: Voiding Method Indwelling Catheter Indwelling Catheter # Voids 3 - Labs CBC & Chem 7: 09/26/18 05:38 09/26/18 05:38 Labs: Abnormal Lab Results - Last 24 Hours (Table) 09/25/18 09/25/18 09/26/18 Range/Units 17:45 20:37 05:38 RBC 2.76 L (3.80-5.40) m/uL Hgb 8.0 L (11.4-16.0) gm/dL Hct 25.7 L (34.0-46.0) % RDW 16.1 H (11.5-15.5) % Lymphocytes # 0.2 L (1.0-4.8) k/uL BUN (7-17) mg/dL Creatinine (0.52-1.04) mg/dL Glucose (74-99) mg/dL POC Glucose (mg/dL) 189 H 174 H (75-99) mg/dL Calcium (8.4-10.2) mg/dL 09/26/18 09/26/18 09/26/18 Range/Units 05:38 07:02 12:11 RBC (3.80-5.40) m/uL Hgb (11.4-16.0) gm/dL Hct (34.0-46.0) % RDW (11.5-15.5) % Lymphocytes # (1.0-4.8) k/uL BUN 42 H (7-17) mg/dL Creatinine 1.55 H (0.52-1.04) mg/dL Glucose 121 H (74-99) mg/dL POC Glucose (mg/dL) 132 H 131 H (75-99) mg/dL Calcium 8.2 L (8.4-10.2) mg/dL Assessment and Plan (1) Right upper quadrant abdominal pain Current Visit: Yes Status: Acute Code(s): R10.11 - RIGHT UPPER QUADRANT PAIN SNOMED Code(s): 675353577 (2) Acute renal failure Current Visit: Yes Status: Acute Code(s): N17.9 - ACUTE KIDNEY FAILURE, UNSPECIFIED SNOMED Code(s): 27099228 (3) Acute kidney injury superimposed on chronic kidney disease Current Visit: Yes Status: Acute Code(s): N17.9 - ACUTE KIDNEY FAILURE, UNSPECIFIED; N18.9 - CHRONIC KIDNEY DISEASE, UNSPECIFIED SNOMED Code(s): 75510924 (4) 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
[2018-09-26] MEDS: SODIUM CHLORIDE 0.9% 1,000 ML IV SCH ×2 (14:17→21:29)
[2018-09-26 16:54] LABS: Glucose,Whole Blood 184 mg/dL (75-99)
[2018-09-26 20:41] LABS: Glucose,Whole Blood 184 mg/dL (75-99)
[2018-09-26] MEDS: INSULIN DETEMIR (LEVEMIR) 100 UNIT/ML SYR SQ SCH (21:14)
[2018-09-26] MEDS: DILTIAZEM CD 180 MG CAP.ER.24H PO SCH (21:27)
[2018-09-26] MEDS: PRAVASTATIN SODIUM 20 MG TAB PO SCH (21:28)
[2018-09-27] MEDS: HYDROmorphone 0.5 MG/0.5 ML SYRINGE IVP PRN ×2 (02:31→08:27)
[2018-09-27] MEDS: LABETALOL 5 MG/ML VIAL MDV IVP PRN (04:09)
[2018-09-27] MEDS: metroNIDAZOLE-NS PMX 500 MG in SALINE 1 100ML.BAG IVPB SCH ×4 (05:53→23:31)
[2018-09-27] MEDS: LEVOTHYROXINE 50 MCG TAB PO SCH (05:54)
[2018-09-27 06:16] LABS: Glucose,Whole Blood 156 mg/dL (75-99)
[2018-09-27] MEDS: PANTOPRAZOLE 40 MG TABLET PO SCH (06:43)
[2018-09-27] MEDS: INSULIN ASPART (NovoLOG) 100 UNIT/ML VIAL SQ SCH ×7 (06:43→21:10)
[2018-09-27] MEDS: IPRATROPIUM-ALBUTEROL 3 ML NEB INHALATION SCH ×5 (08:19→20:41)
[2018-09-27] MEDS: SODIUM CHLORIDE 0.9% 1,000 ML IV SCH ×2 (08:40→18:57)
[2018-09-27] MEDS ORDERED: FUROSEMIDE 10 MG/ML 4 ML VIAL IV STA (08:51)
[2018-09-27] MEDS: NYSTATIN 100,000 UNIT/ML SUSP 500,000 UNIT/5 ML CUP PO SCH ×4 (09:08→21:38)
--- NOTE | 2018-09-27 09:28 | P.PN ---
Subjective Patient is seen in follow-up for acute kidney injury. Renal function is improving. Creatinine 1.55 as of yesterday. She is nonoliguric. Complaining of shortness of breath. She is maintained on IV fluids. Oral intake is poor. Vital signs are stable. General: The patient appeared well nourished and normally developed. HEENT: Head exam is unremarkable. Neck is without jugular venous distension. LUNGS: Lungs are clear to auscultation and percussion. Breath sounds decreased. HEART: Rate and Rhythm are regular. First and second heart sounds normal. No murmurs, rubs or gallops. ABDOMEN: Abdominal exam reveals normal bowel sounds. Non-tender and non- distended. No evidence of peritonitis. EXTREMITITES: 1+ edema. Objective - Vital Signs Vital signs: Vital Signs Temp 98.2 F 09/27/18 07:40 Pulse 86 09/27/18 08:33 Resp 16 09/27/18 07:40 BP 156/75 09/27/18 07:40 Pulse Ox 100 09/27/18 07:40 Intake & Output 09/26/18 09/27/18 09/27/18 18:59 06:59 18:59 Intake Total 950 1150 Output Total 950 500 Balance 0 650 Weight 76.5 kg Intake: IV 950 800 0.9 @ 50 50 Sodium Chloride 0.9% 1, 650 800 000 ml @ 100 mls/hr IV . Q10H [facility] Rx#:[id number] Sodium Chloride 0.9% 1, 150 000 ml @ 50 mls/hr IV . Q20H [facility] Rx#:[id number] metroNIDAZOLE-NS PMX 500 100 mg In Saline 1 100ml.bag @ 100 mls/hr IVPB Q6HR [facility] Rx#:[id number] Oral 350 Output: Urine 900 500 Stool 50 Other: Voiding Method Indwelling Catheter Indwelling Catheter # Voids 3 - Labs CBC & Chem 7: 09/26/18 05:38 09/26/18 05:38 Labs: Abnormal Lab Results - Last 24 Hours (Table) 09/26/18 09/26/18 09/26/18 Range/Units 12:11 16:45 20:39 POC Glucose (mg/dL) 131 H 184 H 184 H (75-99) mg/dL 09/27/18 Range/Units 06:15 POC Glucose (mg/dL) 156 H (75-99) mg/dL Assessment and Plan Plan: Assessment: 1. Acute kidney injury secondary to ATN secondary to infection. Also component of cardiorenal syndrome. Renal function improving. Creatinine 1.55 as of yesterday. No evidence of hydronephrosis noted on ultrasound and CAT scan. 2. Chronic kidney disease stage III with baseline creatinine in the range of 1- 1.3. Etiology is most likely diabetic kidney disease. 3. Hyperkalemia secondary to acute kidney injury and metabolic acidosis. Patient states she takes Kayexalate outpatient. Improved. 4. Metabolic acidosis secondary to acute kidney injury. Resolved. 5. Hyponatremia secondary to acute kidney injury. Improved. Patient is hypervolemic. 6. Volume overload. 7. Acute diastolic CHF with moderate pulmonary hypertension. 8. Recent small bowel obstruction. Surgery following. Patient refusing any surgical interventions at this time. Plan: Lasix 40 mg IV once today. Hep-Lock IV fluids. Maintain hydralazine 10 mg IV every 4 hours as needed for systolic blood pressure greater than 160. Continue to monitor renal function and urine output. Being considered for hospice.
[2018-09-27 09:47] LABS: Calcium 8.7 mg/dL (8.4-10.2); Magnesium 1.9 mg/dL (1.6-2.3); Potassium 4.6 mmol/L (3.5-5.1)
[2018-09-27] MEDS: ONDANSETRON 4 MG/2 ML VIAL IVP PRN ×2 (09:47→21:07)
[2018-09-27] MEDS: ASPIRIN 81 MG PO SCH (09:51)
[2018-09-27] MEDS: LABETALOL 100 MG TAB PO SCH ×2 (09:51→21:09)
[2018-09-27] MEDS: ISOSORBIDE MONONITRATE ER 60 MG TAB.ER.24H PO SCH (09:51)
[2018-09-27] MEDS: ALLOPURINOL 100 MG TAB PO SCH (09:51)
[2018-09-27] MEDS: DOXAZOSIN 1 MG TAB PO SCH ×2 (09:51→21:09)
[2018-09-27] MEDS: HEPARIN SODIUM,PORCINE 5,000 UNIT/ML 1 ML VIAL SQ SCH ×2 (09:51→21:08)
[2018-09-27] MEDS: hydrALAZINE HCL 50 MG TAB PO SCH ×3 (09:51→21:09)
[2018-09-27] MEDS ORDERED: DARBEPOETIN ALFA 40 MCG/0.4 ML SYRINGE SQ SCH (10:00)
[2018-09-27] MEDS ORDERED: MORPHINE SULFATE 2 MG/ML SYRINGE IVP PRN (10:52)
--- NOTE | 2018-09-27 10:56 | P.PN ---
Subjective Progress Note Date: 09/27/18 Principal diagnosis: sob, abdominal pain Patient was having shortness of breath this morning, she was given some breathing treatment and Dilaudid. Currently she is feeling better but still having symptoms. She is aching all over. Objective - Vital Signs Vital signs: Vital Signs Temp 98.2 F 09/27/18 07:40 Pulse 86 09/27/18 08:33 Resp 16 09/27/18 07:40 BP 156/75 09/27/18 07:40 Pulse Ox 100 09/27/18 07:40 Intake & Output 09/26/18 09/27/18 09/27/18 18:59 06:59 18:59 Intake Total 950 1150 Output Total 950 500 Balance 0 650 Weight 76.5 kg Intake: IV 950 800 0.9 @ 50 50 Sodium Chloride 0.9% 1, 650 800 000 ml @ 100 mls/hr IV . Q10H ANAHI Rx#:[id number] Sodium Chloride 0.9% 1, 150 000 ml @ 50 mls/hr IV . Q20H ANAHI Rx#:[id number] metroNIDAZOLE-NS PMX 500 100 mg In Saline 1 100ml.bag @ 100 mls/hr IVPB Q6HR ANAHI Rx#:[id number] Oral 350 Output: Urine 900 500 Stool 50 Other: Voiding Method Indwelling Catheter Indwelling Catheter Indwelling Catheter # Voids 3 - Exam Gen. appearance lethargic weak, no apparent respiratory distress at this point in time and the patient is currently on room air oxygen. Head exam was generally normal. There was no scleral icterus. Mucous membranes were moist. Neck was supple and without jugular venous distension, thyromegaly, or carotid bruits. Carotids were easily palpable bilaterally. There was no adenopathy. Lungs sounds are diminished along with some limited bibasilar crackles heard in the lung bases bilaterally. Cardiac: The rhythm was regular and no extrasystoles were noted during several minutes of auscultation. S1, S2 normal, there were no murmurs, rubs, clicks, or gallops. Abdomen examination reveals some tenderness in the right upper quadrant area. T here is direct tenderness. No rebound a sore guarding. Ileostomy site is functional and intact. No significant abdominal distention. Bowel sounds are hypoactive at present here is an anterior abdominal wall hernia which is easily reducible without any evidence of incarceration or strangulation. Bowel sounds are hypoactive. No organomegaly. Examination of the extremities revealed easily palpable radial, femoral and pedal pulses. There was no cyanosis, clubbing or edema. Examination of the skin revealed no evidence of significant rashes, suspicious appearing nevi or other concerning lesions. Neurologically the patient is slow to answer questions. She is moving all 4 extremities without any limitation. - Labs CBC & Chem 7: 09/26/18 05:38 09/27/18 09:13 Labs: Abnormal Lab Results - Last 24 Hours (Table) 09/26/18 09/26/18 09/26/18 Range/Units 12:11 16:45 20:39 Chloride (98-107) mmol/L BUN (7-17) mg/dL Creatinine (0.52-1.04) mg/dL Glucose (74-99) mg/dL POC Glucose (mg/dL) 131 H 184 H 184 H (75-99) mg/dL 09/27/18 09/27/18 Range/Units 06:15 09:13 Chloride 108 H (98-107) mmol/L BUN 40 H (7-17) mg/dL Creatinine 1.09 H (0.52-1.04) mg/dL Glucose 125 H (74-99) mg/dL POC Glucose (mg/dL) 156 H (75-99) mg/dL Assessment and Plan Plan: 1 Abdominal pain, around the ileostomy with recent hospitalization for a small bowel obstruction. Patient and family elected not to have any surgical procedure for possible cholecystitis. Patient elected to be hospice care. Hospice met with family yesterday. Awaiting disposition. Meanwhile her pain will be treated with m orphine. 2 MALAIKA on top of chronic kidney disease, Improving, nephrology is following 3 Acute hyponatremia, Resolved. 4 Acute non-anion gap metabolic acidosis: Resolved. Off bicarb drip. 5 shortness of breath Due to patient being under hospice care, we'll not investigate that further We'll start morphine Stable, currently on 2 L of oxygen by nasal cannula 6 CAD, hypertension, hyperlipidemia, hypothyroidism, diabetes mellitus 2, hx of diastolic heart failure with a preserved LV function and moderate degree of pulmonary hypertension. All stable, resume meds
[2018-09-27] MEDS: FERROUS SULFATE 325 MG TAB PO SCH (11:41)
[2018-09-27 12:11] LABS: Glucose,Whole Blood 127 mg/dL (75-99)
[2018-09-27] MEDS: hydrALAZINE HCL 20 MG/ML 1 ML VIAL IVP PRN (12:24)
--- NOTE | 2018-09-27 12:38 | P.PN ---
Subjective Progress Note Date: 09/27/18 This is a 88-year-old female patient who got transferred again to us from [facility] because of shortness of breath. I was consulted for shortness of breath however the main issue seems to be worsening and abdominal pain, electrolyte imbalances the patient has developed hyponatremia and the patient has also developed an acute kidney injury with metabolic acidosis. I reviewed the records. I that this patient was in our hospital approximately a week ago for diminished ileostomy output, abdominal distention and bloating and nausea. The patient was seen by general surgery and the patient was diagnosed having small bowel obstruction. She did not require any immediate surgical intervention. The patient improved clinically and the patient was discharged once she was started back on diet. The CAT scan of the abdomen and pelvis at that time showed jejunum and proximal ileum dilation with the bile reaching up to 4 cm in caliber with several air-fluid levels. The transition point at the abdominal wall opening for the ileostomy with ileal loops just prior to yesterday being most dilated and associated with prominent edematous change throughout the mesentery of these loops. Ultimately, the patient had to come back for ongoing abdominal pain. I saw her at the bedside. She had a low-grade fever of 100.3 while at the assisted living. She was having some degree of shortness of breath. No reported aspiration. She is found in the week and at times she was also found to be confused. A repeat CAT scan of the abdomen was done on 09/21/2018 and it showed clearing of the bowel obstruction compared to last examination. There was fecal material at the ostomy site compared to last examination. There is also mild to moderate pleural effusion lung bases. There is also some limited infiltration probably related to compressive atelectasis. No retroperitoneal lymphadenopathy. Ureters were nondilated. Ostomy is found in the right side of the mid abdomen and there is evidence of sigmoid diverticula. No evidence of any bowel obstruction. No evidence of any free air based on the CAT scan of the abdomen that was done yesterday on 09/21/2018. The white cell count is at 4.5 with a hemoglobin of 8.0. The patient is an acute kidney injury. The patient has also developed non-anion gap metabolic acidosis. Serum bicarb is down to 14. Creatinine is at 3.7. Urine output is diminished. ProBNP level is elevated. Echocardiogram is pending. On today's evaluation of 09/23/2018 I'm seeing this patient for a follow-up. The patient is awake and alert. Abdominal pain has subsided. She is complaining of diffuse arthritic pain throughout her joints bilaterally including the shoulders knees and wrists. As far as abdominal pain, she has a less tender abdomen and the ileostomy site shows output. The patient is taking some clear liquid diet for now. Her urine output is still low in the order of 20 mL an hour. The patient's electrodes are still off with a sodium level of 127 with a BUN of 50 to a creatinine of 3.6. The serum bicarb is at 16 with an anion gap of 12. The lactic acid level is less than 0.5. The patient has an elevated BNP level. Nevertheless, the echocardiogram showed a preserved LV function with an ejection fraction of 50-55%. The right ventricular systolic pressure was around 50 mmHg. There is evidence of moderate pulmonary hypertension. There is also evidence of moderate concentric left ventricular hypertrophy. Chest x-ray shows some limited cardiomegaly with mild four-vessel congestion. Nevertheless the patient is only on 2 L of oxygen by nasal cannula and she is not having any significant respiratory distress. The patient is currently on IV fluids in the form of half normal with 3 A of bicarbonate upon request of nephrology and this is running at the rate of 100 mL an hour in the follow-up electrodes are still pending for now. On 09/24/2018 I'm seeing this patient for a follow-up. She is awake and alert. She is a bit lethargic. She is complaining of pain again throughout her abdomen. On today's evaluation the pain is more localized to the right side and the right upper quadrant area. She has adequate output and had ileostomy bag. No abdominal distention. She is still on bicarb infusion. Sodium is at 126. Metabolic acidosis gradually improving. Chest x-ray shows no acute abnormalities. The patient has no significant respiratory distress and she is calm and comfortable at rest. She is ingesting some clear liquid diet for now. She remains on a combination of Levaquin and Flagyl as broad-spectrum antibiotic coverage and the general surgeries on the case. Henry catheter is in place. Neck fluid balance is +2.1 L over the past 24 hours. Cultures are negative. There is no significant leukocytosis of this point in time. No nausea. No emesis. No altered mentation. On 09/25/2018 I'm seeing the patient and ICU. She remains essentially the same compared to yesterday. She is still complaining of right upper quadrant tenderness. Ultrasound the gallbladder was done and showed acute versus chronic cholecystitis. She has positive sonographic Holder's signs. LFTs are nonelevated. Discussed the case with the surgeon. The patient is categorically refusing any surgical intervention. She is still nauseated. She is unable to take anything orally. Occasionally she dry heaves. Her ileostomy site is active and is positive output. Her sodium level is improving. Serum bicarbonate normalized. She remains on a combination of Levaquin and Flagyl. Henry catheter is in place. No respiratory distress. No cough or sputum production. No angina or chest pain. The creatinine is down to 2.4 compared to 0.7 from yesterday. Sodium level has also improved of 232 and the patient is cu rrently receiving a normal saline infusion rate of 50 mL an hour. No other significant events overnight otherwise for now. General surgeries on the case. On 09/26/2018, the patient is doing very poorly. She is moaning. She is complaining of pain all over. She is refusing to eat. She states that she is nauseated however there has been no reported emesis. She remains on IV fluids. Function continues to improve. There is some abdominal tenderness patient right upper quadrant. Nevertheless, the patient had a HIDA scan that showed no obstruction the common bile duct and ejection fraction was somewhat lower. LFTs remain nonelevated. She has positive output and had ileostomy bag. No a bdominal distention. There is some increased edema in lower extremities bilaterally. She is awake and alert. She is quite weak and she refuses to eat. Her white cell count is not elevated. Hemoglobin stable at 8.0. Creatinine is down to 1.5. No other significant electrolyte abnormalities for the time being. On 09/27/2018, the patient is still doing poorly. She is laying down in bed. She got transferred out of the intensive care unit. No significant abdominal pain however the patient is refusing to take anything or lower than some ice chips. Ileostomy site is functional. No abdominal distention. No fever or chills. She is on IV fluids. She has developed some edema in lower oximetry is bilaterally. The patient's creatinine is normalized is down to 1.09. Family is opting for hospice. Objective - Vital Signs Vital signs: Vital Signs Temp 98.2 F 09/27/18 07:40 Pulse 105 H 09/27/18 11:40 Resp 16 09/27/18 11:40 BP 168/87 09/27/18 11:39 Pulse Ox 93 L 09/27/18 11:39 Intake & Output 09/26/18 09/27/18 09/27/18 18:59 06:59 18:59 Intake Total 950 1150 Output Total 950 500 Balance 0 650 Weight 76.5 kg Intake: IV 950 800 0.9 @ 50 50 Sodium Chloride 0.9% 1, 650 800 000 ml @ 100 mls/hr IV . Q10H ANAHI Rx#:[id number] Sodium Chloride 0.9% 1, 150 000 ml @ 50 mls/hr IV . Q20H ANAHI Rx#:[id number] metroNIDAZOLE-NS PMX 500 100 mg In Saline 1 100ml.bag @ 100 mls/hr IVPB Q6HR ANAHI Rx#:[id number] Oral 350 Output: Urine 900 500 Stool 50 Other: Voiding Method Indwelling Catheter Indwelling Catheter Indwelling Catheter # Voids 3 - Exam Gen. appearance lethargic weak, and a mild degree of abdominal pain and distre ss. No apparent distress distress at this point in time and the patient is currently on 2 L of oxygen by nasal cannula. No signs of any respiratory distress. She is lethargic. She is moaning. She is on and off complaining of some nausea. Head exam was generally normal. There was no scleral icterus or corneal arcus. Mucous membranes were moist. Neck was supple and without jugular venous distension, thyromegaly, or carotid bruits. Carotids were easily palpable bilaterally. There was no adenopathy. Lungs sounds are diminished along with some limited bibasilar crackles heard in the lung bases bilaterally. Cardiac exam revealed the PMI to be normally situated and sized. The rhythm was regular and no extrasystoles were noted during several minutes of auscultation. The first and second heart sounds were normal and physiologic splitting of the second heart sound was noted. There were no murmurs, rubs, clicks, or gallops. Abdomen examination reveals some diminished tenderness in the right upper quadrant area. There is no direct tenderness. No rebound a sore guarding. Ileostomy site is functional and intact. No significant abdominal distention. Bowel sounds are hypoactive at present for now.. There is an anterior abdominal wall hernia which is easily reducible without any evidence of incarceration or strangulation. Bowel sounds are hypoactive. No organomegaly. Examination of the extremities revealed easily palpable radial, femoral and pedal pulses. There was no cyanosis, clubbing and there is some +1 pitting edema has developed bilaterally. Examination of the skin revealed no evidence of significant rashes, suspicious appearing nevi or other concerning lesions. Neurologically the patient is slow to answer questions. She is moving all 4 extremities without any limitation. On and off there has been some limited confusion - Labs CBC & Chem 7: 09/26/18 05:38 09/27/18 09:13 Labs: Abnormal Lab Results - Last 24 Hours (Table) 09/26/18 09/26/18 09/27/18 Range/Units 16:45 20:39 06:15 Chloride (98-107) mmol/L BUN (7-17) mg/dL Creatinine (0.52-1.04) mg/dL Glucose (74-99) mg/dL POC Glucose (mg/dL) 184 H 184 H 156 H (75-99) mg/dL 09/27/18 09/27/18 Range/Units 09:13 12:09 Chloride 108 H (98-107) mmol/L BUN 40 H (7-17) mg/dL Creatinine 1.09 H (0.52-1.04) mg/dL Glucose 125 H (74-99) mg/dL POC Glucose (mg/dL) 127 H (75-99) mg/dL Assessment and Plan Plan: 1 abdominal pain, around the ileostomy with recent hospitalization for a small bowel obstruction. The follow-up CAT scan of the abdomen was noted. CAT scan of the abdomen shows resolution of the previously described bowel obstruction. Nevertheless, the patient continues to have tenderness and output seems to be quite diminished. There is concern of ongoing cholecystitis acute versus chronic. The patient is still nauseated. She has a right upper quadrant pain. She is declining any surgical intervention. She was worked up further by a HIDA scan that showed no evidence of any obstruction in the common bile duct and no evidence of any obstruction the cystic duct. The gallbladder ejection fraction is 41%. LFTs are nonelevated. No plans for any surgical intervention. No plans for any percutaneous intervention. On 09/27/2018, the patient continues to decline eating other than ice chips. She is was resuscitated. Acute kidney injury is also improved. Family is opted for hospice care. 2 acute kidney injury on top of chronic kidney disease, and the patient's creatinine continues to improve and her kidney function is normalized. 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 Plan Continue IV fluids. Continue rest of the supportive care including Zofran for nausea. Renal function is normalized. We'll sign off the case. Family opted for hospice care.
[2018-09-27 13:28] VITALS: BMI 35.9
--- NOTE | 2018-09-27 13:42 | P.PN ---
Progress Note - Text Progress Note Date: 09/27/18 Patient is hospice. Per family wishes, no surgical intervention. Will sign off.
[2018-09-27 17:08] LABS: Glucose,Whole Blood 167 mg/dL (75-99)
[2018-09-27] MEDS: LEVOFLOXACIN 500MG-D5W PMX 500 MG in DEXTROSE/WATER 1 100ML.BAG IVPB SCH (18:56)
[2018-09-27 20:32] LABS: Glucose,Whole Blood 198 mg/dL (75-99)
[2018-09-27] MEDS: ACETAMINOPHEN TAB 325 MG TAB PO PRN (21:07)
[2018-09-27] MEDS: PRAVASTATIN SODIUM 20 MG TAB PO SCH (21:09)
[2018-09-27] MEDS: INSULIN DETEMIR (LEVEMIR) 100 UNIT/ML SYR SQ SCH (21:22)
[2018-09-27] MEDS: DILTIAZEM CD 180 MG CAP.ER.24H PO SCH (21:38)
[2018-09-28 01:00] VITALS: RESP 16
[2018-09-28] MEDS: metroNIDAZOLE-NS PMX 500 MG in SALINE 1 100ML.BAG IVPB SCH (06:30)
[2018-09-28] MEDS: LEVOTHYROXINE 50 MCG TAB PO SCH (06:32)
[2018-09-28 06:36] LABS: Calcium 8.7 mg/dL (8.4-10.2); Magnesium 1.9 mg/dL (1.6-2.3); Potassium 4.6 mmol/L (3.5-5.1)
[2018-09-28 06:37] LABS: Glucose,Whole Blood 113 mg/dL (75-99)
[2018-09-28] MEDS: INSULIN ASPART (NovoLOG) 100 UNIT/ML VIAL SQ SCH ×2 (06:38)
[2018-09-28] MEDS: PANTOPRAZOLE 40 MG TABLET PO SCH (06:38)
[2018-09-28] MEDS: IPRATROPIUM-ALBUTEROL 3 ML NEB INHALATION SCH ×2 (07:23→10:44)
--- NOTE | 2018-09-28 09:11 | P.DS ---
Providers Date of admission: 09/21/18 16:38 Expected date of discharge: 09/28/18 Attending physician: Solis Avendano MD Consults: 09/21/18 15:59 Consult Physician Routine Consulting Provider: Rosalio Serrano Consult Reason/Comments: Renal failure Do you want consulting provider notified?: Yes 09/22/18 09:21 Consult Physician Routine Consulting Provider: Hannah Crowder Consult Reason/Comments: abdominal pain Do you want consulting provider notified?: Yes 09/22/18 09:59 Consult Physician Routine Consulting Provider: Pablo Sanchez Consult Reason/Comments: ICU / pneum Do you want consulting provider notified?: Already Contacted 09/25/18 14:10 Consult Physician Routine Consulting Provider: Aleksey Michel Consult Reason/Comments: evaluate for possible surgical clearance Do you want consulting provider notified?: Yes Primary care physician: [facility] Course: 88-year-old female patient with a past medical history significant for coronary artery disease with prior stenting, permanent pacemaker, diabetes, hypertension, dyslipidemia, chronic kidney disease, and known history of ileostomy was transferred from [facility] to [facility] for further evaluation of abdominal discomfort. Patient was recently discharged from this hospital last week after being treated conservatively for small bowel obstruction. She came back with general weakness, confusion, as well as diminished ileostomy output. No fever and no chills. No nausea or vomiting. She was diagnosed with small bowel obstruction and the patient was treated conservatively with improvement in her symptoms. Subsequently, the patient started experiencing abdominal discomfort again, this time on the right upper quadrant and right side of her abdomen. Because of that, the patient underwent a gallbladder ultrasound which reviewed and revealed what it seems to be acute on chronic cholecystitis. She was seen by general surgery, HIDA scan was done which showed no bile blockage. There was a talk about having percutaneous cholecystostomy but patient refused. In addition patient was diagnosed with acute kidney injury on chronic kidney disease. Patient has chronic kidney disease stage III Baseline creatinine in the range of 1-1.3. Creatinine peaked at 3.71 and came back to baseline upon discharge. She also had significant metabolic acidosis with hyponatremia as well as hyperkalemia. She was seen by nephrology, was treated with bicarbonate drip as well as Lasix IV. Initially in the hospitalization patient was having significant shortness of breath, fever and a cough. She was treated for pneumonia with Zosyn. Chest x- ray was suggestive of pulmonary vascular congestion as well as interstitial edema. She was monitored by pulmonary intensive care service as well. Towards the end of the hospitalization patient kept refusing her medications and to have any procedure done. She kept stating that she just wanted to ''go to [facility]''. She was alert and oriented and competent to make her own decision. This was discussed with the family as well. Everybody was in agreement to transfer patient to comfort care. Hospice was consulted. Care management will arrange for patient discharged to her assisted living with hospice consult. Time for discharge 35 minutes. Patient Condition at Discharge: Fair Plan - Discharge Summary Discharge Rx Participant: No New Discharge Prescriptions: Continue Diltiazem HCl [Cardizem CD] 360 mg PO HS Insulin Aspart [NovoLOG Flexpen] See Protocol SQ AC-TID Labetalol HCl [Trandate] 300 mg PO BID Levothyroxine Sodium [Synthroid] 50 mcg PO DAILY Aspirin EC [Ecotrin Low Dose] 81 mg PO DAILY Ferrous Sulfate [Iron (65 MG Elemental)] 325 mg PO DAILY@1200 Insulin Aspart [NovoLOG Flexpen] 2 units SQ AC-TID Icy Hot Cream 1 applic TOPICAL BID PRN PRN Reason: Pain Albuterol Inhaler [Ventolin Hfa Inhaler] 2 puff INHALATION RT-Q6H PRN PRN Reason: Shortness Of Breath Acetaminophen [Tylenol Arthritis] 650 mg PO QID PRN PRN Reason: Pain Patiromer Calcium Sorbitex [Veltassa] 8.4 gm PO DAILY Sucralfate [Carafate] 1 gm PO TID Sodium Bicarbonate Tab 650 mg PO TID Pravastatin Sodium [Pravachol] 20 mg PO HS Pantoprazole [Protonix] 40 mg PO DAILY Isosorbide Mononitrate ER [Imdur] 60 mg PO DAILY hydrALAZINE HCL [Apresoline] 100 mg PO TID Furosemide [Lasix] 40 mg PO DAILY Doxazosin [Cardura] 3 mg PO Q12H Allopurinol [Zyloprim] 100 mg PO DAILY Discontinued Insulin Glargine [Lantus] 6 unit SQ HS Discharge Medication List Aspirin EC [Ecotrin Low Dose] 81 mg PO DAILY 03/28/16 [History] Diltiazem HCl [Cardizem CD] 360 mg PO HS 03/28/16 [History] Ferrous Sulfate [Iron (65 MG Elemental)] 325 mg PO DAILY@1200 03/28/16 [History] Insulin Aspart [NovoLOG Flexpen] See Protocol SQ AC-TID 03/28/16 [History] Labetalol HCl [Trandate] 300 mg PO BID 03/28/16 [History] Levothyroxine Sodium [Synthroid] 50 mcg PO DAILY 03/28/16 [History] Insulin Aspart [NovoLOG Flexpen] 2 units SQ AC-TID 02/12/17 [History] Acetaminophen [Tylenol Arthritis] 650 mg PO QID PRN 09/17/18 [History] Albuterol Inhaler [Ventolin Hfa Inhaler] 2 puff INHALATION RT-Q6H PRN 09/17/18 [History] Allopurinol [Zyloprim] 100 mg PO DAILY 09/17/18 [History] Doxazosin [Cardura] 3 mg PO Q12H 09/17/18 [History] Furosemide [Lasix] 40 mg PO DAILY 09/17/18 [History] Icy Hot Cream 1 applic TOPICAL BID PRN 09/17/18 [History] Isosorbide Mononitrate ER [Imdur] 60 mg PO DAILY 09/17/18 [History] Pantoprazole [Protonix] 40 mg PO DAILY 09/17/18 [History] Patiromer Calcium Sorbitex [Veltassa] 8.4 gm PO DAILY 09/17/18 [History] Pravastatin Sodium [Pravachol] 20 mg PO HS 09/17/18 [History] Sodium Bicarbonate Tab 650 mg PO TID 09/17/18 [History] Sucralfate [Carafate] 1 gm PO TID 09/17/18 [History] hydrALAZINE HCL [Apresoline] 100 mg PO TID 09/17/18 [History] Follow up Appointment(s)/Referral(s): Terrence Almazan MD [Primary Care Provider] - 1-2 days
[2018-09-28] MEDS: ALLOPURINOL 100 MG TAB PO SCH (09:22)
[2018-09-28] MEDS: DOXAZOSIN 1 MG TAB PO SCH (09:22)
[2018-09-28] MEDS: HEPARIN SODIUM,PORCINE 5,000 UNIT/ML 1 ML VIAL SQ SCH (09:22)
[2018-09-28] MEDS: hydrALAZINE HCL 50 MG TAB PO SCH (09:22)
[2018-09-28] MEDS: ASPIRIN 81 MG PO SCH (09:22)
[2018-09-28] MEDS: ISOSORBIDE MONONITRATE ER 60 MG TAB.ER.24H PO SCH (09:23)
[2018-09-28] MEDS: LABETALOL 100 MG TAB PO SCH (09:23)
[2018-09-28] MEDS: NYSTATIN 100,000 UNIT/ML SUSP 500,000 UNIT/5 ML CUP PO SCH (09:23)
--- NOTE | 2018-09-28 10:02 | P.PN ---
Subjective Patient is seen in follow-up for acute kidney injury. Renal function is improving. Creatinine 1.21 today. She is nonoliguric. Complaining of kennedy rtness of breath. She did receive a dose of IV Lasix yesterday. Oral intake remains poor. Vital signs are stable. General: The patient appeared well nourished and normally developed. HEENT: Head exam is unremarkable. Neck is without jugular venous distension. LUNGS: Lungs are clear to auscultation and percussion. Breath sounds decreased. HEART: Rate and Rhythm are regular. First and second heart sounds normal. No murmurs, rubs or gallops. ABDOMEN: Abdominal exam reveals normal bowel sounds. Non-tender and non- distended. No evidence of peritonitis. EXTREMITITES: 1+ edema. Objective - Vital Signs Vital signs: Vital Signs Temp 97.6 F 09/28/18 04:00 Pulse 106 H 09/28/18 07:36 Resp 16 09/28/18 04:00 BP 142/85 09/28/18 04:00 Pulse Ox 99 09/28/18 07:26 Intake & Output 09/27/18 09/28/18 09/28/18 18:59 06:59 18:59 Intake Total 100 Output Total 975 350 Balance -875 -350 Weight 76.5 kg 70 kg Intake: IV 100 metroNIDAZOLE-NS PMX 500 100 mg In Saline 1 100ml.bag @ 100 mls/hr IVPB Q6HR [facility] Rx#:[id number] Output: Urine 900 350 Stool 75 Other: Voiding Method Indwelling Catheter Indwelling Catheter - Labs CBC & Chem 7: 09/26/18 05:38 09/28/18 05:21 Labs: Abnormal Lab Results - Last 24 Hours (Table) 09/27/18 09/27/18 09/27/18 Range/Units 12:09 17:05 20:27 BUN (7-17) mg/dL Creatinine (0.52-1.04) mg/dL Glucose (74-99) mg/dL POC Glucose (mg/dL) 127 H 167 H 198 H (75-99) mg/dL 09/28/18 09/28/18 Range/Units 05:21 06:36 BUN 47 H (7-17) mg/dL Creatinine 1.21 H (0.52-1.04) mg/dL Glucose 113 H (74-99) mg/dL POC Glucose (mg/dL) 113 H (75-99) mg/dL Assessment and Plan Plan: Assessment: 1. Acute kidney injury secondary to ATN secondary to infection. Also component of cardiorenal syndrome. Renal function improving. Creatinine 1.21 today. No evidence of hydronephrosis noted on ultrasound and CAT scan. 2. Chronic kidney disease stage III with baseline creatinine in the range of 1- 1.3. Etiology is most likely diabetic kidney disease. 3. Hyperkalemia secondary to acute kidney injury and metabolic acidosis. Patient states she takes Kayexalate outpatient. Improved. 4. Metabolic acidosis secondary to acute kidney injury. Resolved. 5. Hyponatremia secondary to acute kidney injury. Improved. Patient is hyper volemic. 6. Volume overload. 7. Acute diastolic CHF with moderate pulmonary hypertension. 8. Recent small bowel obstruction. Surgery following. Patient refusing any surgical interventions at this time. Plan: Start Lasix 40 mg orally once daily. Maintain hydralazine 10 mg IV every 4 hours as needed for systolic blood pressure greater than 160. Continue to monitor renal function and urine output. Being considered for hospice. Potentially going home today.
[2018-09-28] MEDS ORDERED: FUROSEMIDE 40 MG TAB PO SCH (10:15)
[2018-09-28 11:09] LABS: Ferritin 1057.4 ng/mL (10.0-291.0); Iron Saturation 9.09 (12.00-45.00)
[2018-09-28 11:18] VITALS: BP 145/86; PULSE 104; TEMP 98
== END 2018-09-28 11:06 | disposition hospice, home (50) | DRG 291 ==
LOC: EC 14:25 → 4MS4W 16:38 → 2SICU 09-22 10:24 → 3SCARD 09-26 16:39
PROVIDERS: ADMIT Family Medicine; ATTEND Family Medicine
DX: I13.0 Hypertensive heart and chronic kidney disease with heart failure and stage 1 through stage 4 chronic kidney disease, or unspecified chronic kidney disease (principal); I50.31 Acute diastolic (congestive) heart failure; J96.21 Acute and chronic respiratory failure with hypoxia; N17.0 Acute kidney failure with tubular necrosis; J18.9 Pneumonia, unspecified organism; E87.2 Acidosis; E87.1 Hypo-osmolality and hyponatremia; J98.11 Atelectasis; J44.0 Chronic obstructive pulmonary disease with (acute) lower respiratory infection; J44.1 Chronic obstructive pulmonary disease with (acute) exacerbation; K80.12 Calculus of gallbladder with acute and chronic cholecystitis without obstruction; Z66 Do not resuscitate; Z51.5 Encounter for palliative care; E87.5 Hyperkalemia; E11.22 Type 2 diabetes mellitus with diabetic chronic kidney disease; I27.20 Pulmonary hypertension, unspecified; I08.1 Rheumatic disorders of both mitral and tricuspid valves; D63.8 Anemia in other chronic diseases classified elsewhere; N18.3 Chronic kidney disease, stage 3 (moderate); D50.9 Iron deficiency anemia, unspecified; I25.10 Atherosclerotic heart disease of native coronary artery without angina pectoris; E03.9 Hypothyroidism, unspecified; K57.30 Diverticulosis of large intestine without perforation or abscess without bleeding; K46.9 Unspecified abdominal hernia without obstruction or gangrene; E78.5 Hyperlipidemia, unspecified; R32 Unspecified urinary incontinence; M25.50 Pain in unspecified joint; Z79.82 Long term (current) use of aspirin; Z79.4 Long term (current) use of insulin; Z79.890 Hormone replacement therapy; Z79.899 Other long term (current) drug therapy; Z95.5 Presence of coronary angioplasty implant and graft; Z93.2 Ileostomy status; Z95.0 Presence of cardiac pacemaker; Z87.891 Personal history of nicotine dependence; Z88.1 Allergy status to other antibiotic agents; Z88.5 Allergy status to narcotic agent; Z88.0 Allergy status to penicillin; Z88.8 Allergy status to other drugs, medicaments and biological substances; Z82.49 Family history of ischemic heart disease and other diseases of the circulatory system; Z83.3 Family history of diabetes mellitus
CPT/HCPCS: 71045; 74018; 74176; 76705; 76770; 78227; 80048; 81001; 82150; 82247; 82272; 82550; 82728; 83540; 83550; 83605; 83690; 83735; 83880; 84075; 84132; 84295; 84450; 84460; 85025; 93005; 93306; 94640; 94760; 99285